=== PATIENT | male | born 1940 | race Caucasian/White ===

== ENCOUNTER 2019-03-19 11:56 | Emergency (ER) | payer MEDICARE, SELFPAY ==
[2019-03-19 12:12] VITALS: BP 160/64; PULSE 53; RESP 20; TEMP 36.5; O2SAT 100
--- NOTE | 2019-03-19 12:21 | ED.GENADULT ---
HPI - General Adult General Chief complaint: Skin/Abscess/Foreign Body Stated complaint: spider/insect bit top of left foot Time Seen by Provider: 03/19/19 12:23 Source: patient and RN notes reviewed Mode of arrival: ambulatory Limitations: no limitations History of Present Illness HPI narrative: This is a 78 years old male presented office for evaluation of itchy lesions on his left foot for several weeks. He believes to be a spider bite, however he did not witness it. He has tried [id number] Neosporin and Polysporin for his symptoms with no relief. Denies sick contact.He did not contact his doctor for this symptom.Tetanus within the last 10 years. Related Data Home Medications Medication Instructions Recorded Confirmed clopidogrel 75 mg tablet 75 mg PO DAILY 12/31/18 aspirin 03/19/19 irbesartan mg 03/19/19 Allergies Allergy/AdvReac Type Severity Reaction Status Date / Time aminophylline Allergy Severe DROP IN Verified 01/01/19 10:50 B/P, LOSS LOC. MALAISE FOR DAYS levofloxacin Allergy Intermediate Unknown Verified 01/01/19 10:50 erythromycin base Allergy Unknown Unknown Verified 01/01/19 10:50 Penicillins Allergy Unknown Unknown Verified 01/01/19 10:50 poison angella extract Allergy Unknown Unknown Verified 01/01/19 10:50 Review of Systems Review of Systems: Narrative: CONSTITUTIONAL: Denies fever or feeling ill ENT: Denies congestion CARDIOVASCULAR: Denies chest pain RESPIRATORY: Denies cough GASTROINTESTINAL: Denies nausea, vomiting SKIN: Reports itchy lesion which has gotten slightly bigger; but not painful. MUSCULOSKELETAL: Denies joints pain or foot injury NEUROLOGIC: Denies lightheaded or dizziness PMF Past Medical History Medical History (Updated 03/19/19 @ 12:48 by CORINNE García) Anxiety Coronary artery disease involving mary[place] igloo artery of transplanted heart without angina pectoris Essential (primary) hypertension Left carotid stenosis Lumbar spondylosis Male erectile dysfunction, unspecified Mixed hyperlipidemia Paroxysmal atrial fibrillation Pharyngoesophageal dysphagia Uncontrolled hypertension Varicose veins of both lower extremities Social History Social History Smoking status: Former smoker Alcohol intake: never Comments At time of signature, I agree with nursing past medical, surgical, social and family history. There is no relevant family history pertinent to the presenting complaint. Exam Narrative: Exam Narrative: GENERAL: This is a well-nourished, well-developed patient, in no apparent distress. CARDIOVASCULAR: Regular rate and rhythm without murmurs, gallops, or rubs. RESPIRATORY: Clear to auscultation. Breath sounds equal bilaterally. No wheezes, rales, or rhonchi. GASTROINTESTINAL: Abdomen soft, non-tender, nondistended. Bowel sounds are active. No hepato-splenomegaly, or palpable masses. No guarding. NEURO: awake, alert, and oriented to person, place and time. There were no obvious focal neurologic abnormalities. Steady gait EXTREMITIES:Left foot appear normal when comparing to right foot, no obvious edematous or deformity.Left dorsal thumb between third and fourth metacarpal noted grouped erythema, blanchable vesicular lesion without tenderness or warmth to palpation. No lymphadenitis. [place] Coma Scale Eye Opening: Spontaneous 4 [place] Coma Scale Motor: Obeys Commands 6 Natalya Coma Scale Verbal: Oriented 5 Course Vital Signs Vital signs: Vital Signs Temperature 97.7 F 03/19/19 12:12 Pulse Rate 53 L 03/19/19 12:12 Respiratory Rate 03/19/19 12:12 Blood Pressure 160/64 H 03/19/19 12:12 Pulse Oximetry 100 03/19/19 12:12 Temperature 97.7 F 03/19/19 12:12 Pulse Rate 53 L 03/19/19 12:12 Respiratory Rate 03/19/19 12:12 Blood Pressure 160/64 H 03/19/19 12:12 Pulse Oximetry 100 03/19/19 12:12 Medical Decision Making MDM Narrative Medical
== END 2019-03-19 12:40 | disposition home or self-care (01) ==
PROVIDERS: Emergency Provider Nurse Practitioner; PCP Family Medicine
DX: L30.9 Dermatitis, unspecified (principal); I10 Essential (primary) hypertension; F41.9 Anxiety disorder, unspecified; I25.110 Atherosclerotic heart disease of native coronary artery with unstable angina pectoris; Z94.1 Heart transplant status; I65.22 Occlusion and stenosis of left carotid artery; M47.816 Spondylosis without myelopathy or radiculopathy, lumbar region; E78.2 Mixed hyperlipidemia; I48.0 Paroxysmal atrial fibrillation; I83.93 Asymptomatic varicose veins of bilateral lower extremities; Z87.891 Personal history of nicotine dependence
CPT/HCPCS: 99213; G0463

== ENCOUNTER 2019-03-21 15:25 | Outpatient (CLI) | payer MEDICARE, SELFPAY ==
[2019-03-21 16:11] LABS: Hematocrit 42.7 % (42.0-52.0); Hemoglobin 13.7 g/dL (14.0-18.0); Mean Corpuscular HGB Conc 32.1 g/dl (32-36); Mean Corpuscular Hemoglobin 30.1 pg (26-34); Mean Corpuscular Volume 93.8 fl (80-100); Mean Platelet Volume 9.7 fl (7.4-10.4); Platelet Count Result 209 k/mm3 (150-375); Red Blood Count 4.55 M/mm3 (4.6-6.20); Red Cell Distribution Width 12.7 % (11.5-14.5); White Blood Count 7.1 K/mm3 (4.5-10.0)
[2019-03-21 16:28] LABS: Albumin Level 4.1 g/dL (3.5-5.1); Blood Urea Nitrogen 25 mg/dL (9-20); Calcium 8.8 mg/dL (8.4-10.2); Carbon Dioxide 30 mmol/L (22-30); Chloride 99 mmol/L (98-107); Estimated Glomerular Filt Rate > 60; Glucose 88 mg/dL (75-110); Magnesium 2.4 mg/dL (1.6-2.3); Phosphorus 3.6 mg/dL (2.5-4.5); Potassium 4.2 mmol/L (3.4-5.0); Sodium 138 mmol/L (137-145)
== END 2019-03-21 15:26 | disposition home or self-care (01) ==
LOC: ANHLAB 15:26
PROVIDERS: PCP Family Medicine; Visit Provider Internal Medicine Nephrology
DX: I10 Essential (primary) hypertension (principal)
CPT/HCPCS: 36415; 80069; 83735; 84443; 85027

== ENCOUNTER 2019-06-21 18:52 | Emergency (ER) | payer MEDICARE, SELFPAY ==
[2019-06-21 19:04] VITALS: BP 158/73; PULSE 57; RESP 16; TEMP 37; O2SAT 98
--- NOTE | 2019-06-21 19:12 | ED.EAR ---
HPI - Ear Problem General Chief complaint: Ear Stated complaint: Ear/nose/Throat Time Seen by Provider: 06/21/19 19:05 Source: patient and RN notes reviewed Mode of arrival: ambulatory Limitations: no limitations History of Present Illness HPI Narrative: Patient presents today complaining of bilateral ear clogging and decreased hearing x2 days with pain to the right ear. He has tried peroxide and debrox without relief. Reports history of cerumen impactions. States he has had itchiness in both ears recently as well. MD Complaint: decreased hearing Related Data Home Medications Medication Instructions Recorded Confirmed aspirin 03/19/19 irbesartan mg 03/19/19 Allergies Allergy/AdvReac Type Severity Reaction Status Date / Time aminophylline Allergy Severe DROP IN Verified 01/01/19 10:50 B/P, LOSS LOC. MALAISE FOR DAYS levofloxacin Allergy Intermediate Unknown Verified 01/01/19 10:50 erythromycin base Allergy Unknown Unknown Verified 01/01/19 10:50 Penicillins Allergy Unknown Unknown Verified 01/01/19 10:50 poison angella extract Allergy Unknown Unknown Verified 01/01/19 10:50 Review of Systems Review of Systems: Narrative: CONSTITUTIONAL: Denies body aches, fever, chills, or sweats. EYES: Denies visual changes, redness, or discharge. ENT: Denies rhinorrhea, congestion, sore throat. + Right ear pain, bilateral ear clogging and decreased hearing CARDIOVASCULAR: Denies chest pain, palpitations, or edema. RESPIRATORY: Denies cough or dyspnea. GASTROINTESTINAL: Denies abdominal pain, nausea, vomiting, or diarrhea. GENITOURINARY: Denies dysuria or hematuria. SKIN: Denies rash, itching, or wounds. MUSCULOSKELETAL: Denies back pain, joint pain, or myalgia. NEUROLOGIC: Denies headache, numbness, tingling, or weakness. PSYCH: Denies depression or anxiety. [facility] Past Medical History Medical History (Updated 06/21/19 @ 19:44 by Gina Lee, [facility], ) Anxiety Coronary artery disease involving beaver artery of transplanted heart without angina pectoris Essential (primary) hypertension Left carotid stenosis Lumbar spondylosis Male erectile dysfunction, unspecified Mixed hyperlipidemia Paroxysmal atrial fibrillation Pharyngoesophageal dysphagia Uncontrolled hypertension Varicose veins of both lower extremities Social History Social History (Reviewed 01/01/19 @ 10:48 by Pamela Lincoln Smoking status: Former smoker Alcohol intake: never Comments At time of signature, I have reviewed and agree with nursing past medical, surgical, social and family history unless otherwise noted. Please see nursing chart for further information. There is no relevant family history pertinent to the presenting complaint Exam Narrative: Exam Narrative: GENERAL: Well-appearing, well-nourished, and in no acute distress. HEAD: Normocephalic, atraumatic. EYES: EOMI. No redness or drainage. ENT: Mucous membranes pink and moist. Nares clear. Bilateral cerumen impactions NECK: Normal AROM. Supple. CHEST: No respiratory distress. EXTREMITIES: Normal range of motion. No edema. SKIN: Warm, dry, no rash. Capillary refill normal. Normal skin turgor. NEURO: No focal deficits. Alert and oriented x3. Gait steady. PSYCH: Normal affect. No signs of depression or anxiety. Course Vital Signs Vital signs: Vital Signs Temperature 98.6 F 06/21/19 19:04 Pulse Rate 57 L 06/21/19 19:04 Respiratory Rate 16 06/21/19 19:04 Blood Pressure 158/73 H 06/21/19 19:04 Pulse Oximetry 98 06/21/19 19:04 Temperature 98.6 F 06/21/19 19:04 Pulse Rate 57 L 06/21/19 19:04 Respiratory Rate 16 06/21/19 19:04 Blood Pressure 158/73 H 06/21/19 19:04 Pulse Oximetry 98 06/21/19 19:04 Reviewed. Pt has been instructed to follow up with his PCP regarding his elevated blood pressure today. Procedures Ear Wax Removal Both Ears: Ear Wax Removal Date: 06/21/19 Ear Wax Removal Time: 19:15
== END 2019-06-21 19:56 | disposition home or self-care (01) ==
PROVIDERS: Emergency Provider Nurse Practitioner; PCP Family Medicine
DX: H61.23 Impacted cerumen, bilateral (principal); E78.00 Pure hypercholesterolemia, unspecified; I10 Essential (primary) hypertension
CPT/HCPCS: 69210; 99212; G0463

== ENCOUNTER 2019-08-23 10:34 | Observation (INO) | payer MEDICARE, SELFPAY ==
[2019-08-23] VITALS (12 sets, daily range): BP systolic 119–192; BP diastolic 56–100; PULSE 48–153; RESP 13–20; TEMP 35.8–36.7; O2SAT 98–100; BMI 27.9
--- NOTE | ~2019-08-23 | XR_ITS ---
EXAMINATION: XR chest 2V DATE: 08/23/2019 11:32 INDICATION: Chest pain. TECHNIQUE: Frontal and lateral views of the chest were obtained. COMPARISON: Chest 2 views 12/07/2018, chest CT 12/07/2018 FINDINGS: The chest demonstrates clear lungs without pneumonia, pleural effusion, or pneumothorax. Th e heart size is normal. IMPRESSION: 1. No acute cardiopulmonary disease. Reviewed, dictated and finalized at location A.
--- NOTE | 2019-08-23 10:43 | ECG_ITS ---
Measurements Intervals [place] Rate: 133 P: [place]: 0 QRS: 38 QRSD: 105 T: 46 QT: 322 QTc: 479 Interpretive Statements ATRIAL FIBRILLATION WITH RAPID VENTRICULAR RESPONSE INCOMPLETE RIGHT BUNDLE BRANCH BLOCK ST-T WAVE ABNORMALITY IN ANTEROLAT/INF LEADS- CONSIDER ISCHEMIA ABNORMAL ECG Electronically Signed On 08-23-2019 12:06:48 CDT by Richard Alcaraz D.O.
--- NOTE | 2019-08-23 11:03 | ED.CHESTPAIN ---
HPI - Chest Pain General Chief Complaint: Chest Pain Stated Complaint: Chest Pain Time Seen by Provider: 08/23/19 10:42 History of Present Illness HPI narrative: Patient is a 78-year-old male who presents ER with chest pain and palpitations. Reports he was just sitting at the table when he had sudden onset pressure centrally. Reports history of an unknown arrhythmia, take plavix, and has seen a retail project merchandiser here thought he doesn't know the name. Denies any drug use or alcohol. No loss of consciousness. No distress at this time. Patient reports multiple stents in heart and carotids. No modifying factors for CP/SOA Related Data Home Medications Medication Instructions Recorded Confirmed aspirin [Adult Low Dose Aspirin] 81 mg PO DAILY 08/23/19 08/23/19 hydralazine 5 mg PO QID 08/23/19 08/23/19 rosuvastatin 20 mg PO DAILY 08/23/19 08/23/19 irbesartan 300 mg PO HS 08/24/19 08/24/19 Allergies Allergy/AdvReac Type Severity Reaction Status Date / Time aminophylline Allergy Severe DROP IN Verified 08/23/19 11:01 B/P, LOSS LOC. MALAISE FOR DAYS levofloxacin Allergy Intermediate Unknown Verified 08/23/19 11:01 erythromycin base Allergy Unknown Unknown Verified 08/23/19 11:01 Penicillins Allergy Unknown Unknown Verified 08/23/19 11:01 poison angella extract Allergy Unknown Unknown Verified 08/23/19 11:01 Review of Systems Review of Systems: All systems reviewed & are unremarkable except as noted in HPI and below Constitutional: Constitutional: Denies chills, Denies fever(s) and Denies weakness ENT: Denies nasal congestion and Denies sore throat Cardiovascular: Cardiovascular: Reports chest pain, Reports rapid heart rate and Denies radiating jaw, neck or arm pain Respiratory: Respiratory: Denies cough, Denies dyspnea and Denies wheezing Gastrointestinal: Gastrointestinal: Denies abdominal pain, Denies nausea and Denies vomiting [facility] Past Medical History Medical History (Updated 08/24/19 @ 19:42 by Darius Sheridan MD) Anxiety Cerebrovascular accident CT evidence of old lacunar infarctions. Patient had no symptoms of stroke. Colon polyps Coronary artery disease His LAD was stented in 1996, and it sounds as though he had 6 or 7 more stents placed in February 2016 at [place]. Hypertension Labile hypertension, now followed by Dr. Ayala. Left carotid stenosis Status post left carotid endarterectomy. Lumbar spondylosis With several bulging disc causing sciatica, mainly on the left side. Male erectile dysfunction, unspecified Mixed hyperlipidemia Paroxysmal atrial fibrillation Pharyngoesophageal dysphagia Varicose veins of both lower extremities Surgical History Surgical History (Updated 08/23/19 @ 23:56 by Estela Manriquez PA-C) History of arthroscopy of right knee (~08/2012) History of cardiac catheterization With PCI and stent x7. History of kidney surgery Patient had surgery on his right kidney at a young age for what sounds like nephroptosis. History of left-sided carotid endarterectomy Family History Family History (Updated 08/23/19 @ 23:57 by Estela Manriquez PA-C) Sibling Malignant neoplasm of prostate Emphysema lung Mother , Mother of an IA in her 60s. Acute myocardial infarction Father Amyotrophic lateral sclerosis Sibling Atrial fibrillation Coronary artery disease Other Family history of malignant neoplasm Social History Social History (Updated 08/23/19 @ 23:58 by Estela Manriquez PA-C) Social History: Surrogate decision maker: Obdulio Celis Jr., son. Code status: Full code. Smoking status: Never smoker Alcohol intake: never Substance use: never Additional living arrangements comments: Patient lives in his own home in [place]. He has a chihuahua at home with him. He is engaged and his fiancee will stay with him on occasion. He has 9 grown children. 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
[2019-08-23 11:05] LABS: Basophils Percent Auto 0.5 % (0.2-1.2); Eosinophils Absolute Auto 0.6 K/mm3 (0-0.3); Hematocrit 46.2 % (42.0-52.0); Hemoglobin 15.2 g/dL (14.0-18.0); Immature Granulocyte Absolute 0.02 K/mm3 (0.00-0.031); Immature Granulocyte Percent A 0.2 % (0-0.5); Lymphocytes Absolute Auto 3.21 K/mm3 (0.9-3.2); Lymphocytes Percent Auto 39.2 % (18.3-44.2); Mean Corpuscular HGB Conc 32.9 g/dl (32-36); Mean Corpuscular Hemoglobin 31.3 pg (26-34); Mean Corpuscular Volume 95.1 fl (80-100); Mean Platelet Volume 10.3 fl (7.4-10.4); Monocytes Absolute Auto 0.8 K/mm3 (0.1-0.6); Neutrophils Absolute Auto 3.5 K/mm3 (1.3-6.7); Neutrophils Percent Auto 43.1 % (45.5-73.1); Platelet Count Result 234 k/mm3 (150-375); Red Blood Count 4.86 M/mm3 (4.6-6.20); White Blood Count 8.2 K/mm3 (4.5-10.0)
--- NOTE | 2019-08-23 11:12 | PC.NURSE ---
Report to MARISOL Carlos, to continue care.
[2019-08-23 11:15] LABS: Blood Urea Nitrogen 26 mg/dL (9-20); Calcium 9.3 mg/dL (8.4-10.2); Carbon Dioxide 26 mmol/L (22-30); Chloride 103 mmol/L (98-107); Estimated Glomerular Filt Rate > 60; Glucose 108 mg/dL (75-110); Potassium 3.6 mmol/L (3.4-5.0); Prothrombin Time 12.6 Seconds (11.1-14.7); Sodium 138 mmol/L (137-145)
[2019-08-23 11:16] LABS: Partial Thromboplastin Time 27.4 SECONDS (22.3-36.8)
[2019-08-23] MEDS: dilTIAZem HCl INJ 25 MG/5 ML VIAL 10 MG IV PUSH (11:25)
[2019-08-23 11:27] LABS: Troponin I < 0.012 ng/mL (0.000-0.034)
[2019-08-23] MEDS: ASPIRIN 81 MG CHEWABLE TABLET 324 MG PO (11:56)
--- NOTE | 2019-08-23 11:59 | PC.NURSE ---
pt appeared to convert as dilt was starting vrbo to stop diltiazem from dr mayo
--- NOTE | 2019-08-23 12:11 | ECG_ITS ---
Measurements Intervals [place] Rate: 53 P: [place]: 0 QRS: 174 QRSD: 93 T: 146 QT: 411 QTc: 388 Interpretive Statements SINUS BRADYCARDIA WITH SINUS ARRHYTHMIA LIMB LEAD REVERSAL INCOMPLETE RIGHT BUNDLE BRANCH BLOCK BORDERLINE ECG Electronically Signed On 08-24-2019 7:59:12 CDT by Richard Alcaraz D.O.
[2019-08-23] MEDS: ENOXAPARIN 100 MG/ML SYRINGE 90 MG SUB-Q (14:07)
[2019-08-23 14:09] LABS: Troponin I 0.044 ng/mL (0.000-0.034)
--- NOTE | 2019-08-23 16:56 | ADMGEN ---
This patient, Obdulio Marroquin, was admitted to IMU Room 211-01 @ 1515. Patient/family oriented to hospital policies and general routines including ID bracelet, bed and alarms, visiting hours, pain management, procedures, bathroom and other care routines, personal items, smoking policy, room service/diet, and visiting hours. Valuables list has been completed. Information on how to activate the Rapid Response Team has been discussed. Patient/Family are encouraged to report perceived risks to care and to ask questions if they do not understand what they are told or what they should do.
[2019-08-23 17:37] LABS: Troponin I 0.095 ng/mL (0.000-0.034)
[2019-08-23] MEDS: CLOPIDOGREL BISULFATE 75 MG TABLET PO (22:07)
[2019-08-23] MEDS: hydroCHLOROthiazide 12.5 MG CAPSULE PO (22:07)
[2019-08-23] MEDS: ROSUVASTATIN 10 MG TABLET 20 MG PO (22:08)
[2019-08-23] MEDS: hydrALAZINE 5 MG TABLET PO (22:08)
--- NOTE | 2019-08-23 22:30 | PM.IMHP ---
H&P: HPI History of Present Illness Chief complaint: Chest tightness. Narrative: Obdulio Marroquin is 78-year-old male with coronary artery disease, hypertension, hyperlipidemia, carotid artery disease status post left carotid endarterectomy, and questionable history of atrial fibrillation who presented to the emergency department earlier this morning for evaluation of chest tightness. He was in his usual state of health when he woke this morning and not long prior to arrival, while reclined in bed, he developed sudden onset of diffuse squeezing, heavy, chest tightness in a bandlike fashion around his chest. He also felt some fluttering in his chest and reports that his heart rate was in the high 120s on his pulse oximeter. This is unusual for him as his resting heart rate is in the 40s to low 60s. He took 3 baby aspirin and came to the hospital, where he was found to be in atrial fibrillation with rapid ventricular response. He received IV diltiazem in the emergency department with subsequent jainism of sinus bradycardia. Thereafter the chest tightness resolved and he has not had a recurrence. He denies associated nausea, sweats, and shortness of breath. He is uncertain if he has a history of atrial fibrillation, but he was on Xarelto for a period of time. He has a history of benign thyroid nodules but no history of hyper or hypothyroidism. He denies alcohol and caffeine use. No known history of obstructive sleep apnea however he does admit that he does not sleep well at nighttime. It does sound like he gets up several times at night to urinate, however, and he denies orthopnea and PND. Also of note, the patient has been having labile blood pressures and is now seeing Dr. Ayala. At times he reports that his blood pressure will be over 200 systolic. He was started on hydralazine however that seems to work ?too well? and he has had problems with hypotension as well. In any regard, at the time my evaluation he has no active complaints. Review of Systems Review of Systems: Narrative: Twelve systems were reviewed with pertinent positives and negatives as per HPI. No fever, chills, or sweats. No recent cold or flu symptoms. He has occasional dysphagia and does suffer from indigestion almost daily. He will take Tums with some benefit. At times he feels a ?lump? in the middle of his chest that feels like a pressure sensation, that typically resolves with belching. Sometimes it is difficult for him to tell whether this discomfort is cardiac related or related to the indigestion. He also reports that sometimes while using the lawn more that he will have a pressure diffusely across his anterior chest, but not always. This occurred before and after his 7 stents were placed, and he has been told that the chest pressure is likely not cardiac in etiology. Except as documented, all other systems were reviewed and are negative. [facility] Past Medical History Medical History (Updated 08/24/19 @ 00:01 by Estela Manriquez PA-C) Anxiety Cerebrovascular accident CT evidence of old lacunar infarctions. Patient had no symptoms of stroke. Colon polyps Coronary artery disease His LAD was stented in 1996, and it sounds as though he had 6 or 7 more stents placed in February 2016 at [place]. Hypertension Labile hypertension, now followed by Dr. Ayala. Left carotid stenosis Status post left carotid endarterectomy. Lumbar spondylosis With several bulging disc causing sciatica, mainly on the left side. Male erectile dysfunction, unspecified Mixed hyperlipidemia Paroxysmal atrial fibrillation Pharyngoesophageal dysphagia Varicose veins of both lower extremities Surgical History Surgical History (Updated 08/23/19 @ 23:56 by Estela Manriquez PA-C) History of arthroscopy of right knee (~08/2012) History of cardiac catheterization With PCI and stent x7. History of kidney surgery Patient had surgery on his right kidney at a young age for what sounds like
[2019-08-23] MEDS: ENOXAPARIN 100 MG/ML SYRINGE 88 MG SUB-Q (23:39)
[2019-08-24] VITALS (17 sets, daily range): BP systolic 131–158; BP diastolic 55–65; PULSE 44–57; RESP 16–20; TEMP 36–36.6; O2SAT 99–100
[2019-08-24 05:02] LABS: Hematocrit 37.8 % (42.0-52.0); Hemoglobin 12.3 g/dL (14.0-18.0); Mean Corpuscular HGB Conc 32.5 g/dl (32-36); Mean Corpuscular Hemoglobin 30.8 pg (26-34); Mean Corpuscular Volume 94.7 fl (80-100); Mean Platelet Volume 10.3 fl (7.4-10.4); Platelet Count Result 172 k/mm3 (150-375); Red Blood Count 3.99 M/mm3 (4.6-6.20); Red Cell Distribution Width 13.1 % (11.5-14.5); White Blood Count 6.5 K/mm3 (4.5-10.0)
[2019-08-24 05:16] LABS: Alanine Aminotransferase 12 U/L (4-50); Albumin Level 3.4 g/dL (3.5-5.1); Alkaline Phosphatase 80 U/L (38-126); Aspartate Amino Transferase 18 U/L (17-59); Bilirubin,Total 0.5 mg/dL (0.2-1.3); Blood Urea Nitrogen 23 mg/dL (9-20); Calcium 8.3 mg/dL (8.4-10.2); Carbon Dioxide 27 mmol/L (22-30); Chloride 104 mmol/L (98-107); Estimated CRCL calculation 52 ml/min; Estimated Glomerular Filt Rate > 60; Glucose 98 mg/dL (75-110); Potassium 3.8 mmol/L (3.4-5.0); Sodium 136 mmol/L (137-145)
[2019-08-24] MEDS: ENOXAPARIN 100 MG/ML SYRINGE 88 MG SUB-Q (08:28)
[2019-08-24] MEDS: hydrALAZINE 5 MG TABLET PO ×4 (08:28→20:29)
[2019-08-24] MEDS: ASPIRIN 81 MG ENTERIC TABLET PO (08:28)
[2019-08-24] MEDS: ACETAMINOPHEN 325 MG TABLET 650 MG PO (08:40)
--- NOTE | 2019-08-24 13:29 | PM.CNCAR ---
Assessment and Plan Additional Plan 78-year-old gentleman with: Paroxysmal atrial fibrillation with moderately rapid ventricular response creating symptoms prompting emergency room evaluation last evening. Fortunately converted to sinus rhythm after being rate controlled with diltiazem and is currently asymptomatic. Coronary artery disease with multivessel interventions being done a number of years ago. Details of those are not available to me at the time of this dictation. Ongoing symptoms of exertional chest discomfort which sounds anginal by his description he may have some small-vessel disease because he states that the symptoms have not changed at all despite stenting many of his coronary arteries Recommendations are to discontinue clopidogrel since he has no recent PCI. I will add Xarelto although along with low-dose aspirin for systemic anticoagulation. I will start him on amiodarone at 400 mg daily in an attempt at treating his paroxysmal atrial fib. Explained to the patient that the long tissue half block of amiodarone will not extinguish this arrhythmia very quickly. We should avoid sotalol given his resting sinus bradycardia as well as type 1 C antiarrhythmic agents given his history of coronary artery disease. This is essentially leaves us with amiodarone as the most reasonable antiarrhythmic option. Consider discharge tomorrow if he is clinically stable and will arrange follow-up with our office after discharge Chris Ramirez MD [facility] History of Present Illness History of Present Illness Consult date/time: 08/24/19 13:29 Consult reason: atrial fibrillation Reason For Visit: Chest tightness. Narrative: This is a 78-year-old man I am seeing at the request of the hospitalist for assistance with evaluation and management of atrial fibrillation. Patient is not known to me prior to this consultation but apparently is known to other physicians in our practice as well as physicians at other hospitals as well. According to the patient he was feeling fairly well and suddenly noticed the onset of some shortness of breath and chest pain yesterday afternoon/evening. He was at home and noticed the symptoms with sedentary activity. He came to the hospital where he was found to be in atrial fibrillation with rapid ventricular response. Before he came to the hospital he checked his pulse with a pulse oximeter at home his oxygen levels were okay but his heart rate was 120-130 which he said is very unusual for him he usually in normal heart rhythm with heart rates in the 50s. In the emergency room he was of course treated with intravenous diltiazem. After he received a couple of doses of IV diltiazem as a bolus he abruptly converted back to normal sinus rhythm with heart rate 50-60 which is typical for him. When he converted to sinus he became asymptomatic. He was therefore not placed on a diltiazem infusion he was admitted to the hospital for further evaluation and management. He remains asymptomatic. Serial troponins were checked following admission which were very modestly elevated in my opinion not significantly elevated. He remains in normal sinus rhythm. The patient has a questionable history of atrial fibrillation in the past he states some physicians have felt that he has this and some do not. He does have a history of coronary artery disease. In the remote past he states he had a coronary stent performed at another hospital. About 4 years ago he was seen and evaluated at [facility] when he was referred there by his physician who I believe was jorge in [place]. He indicates that a wireline supervisor at [facility] placed at least 6 or 7 stents in his coronary arteries. Despite having a multiple stent procedure done he continues to have a syndrome of exertional chest tightness which has been stable and his physicians have told him is not related to coronary disease since all of his coronaries are open. He states that up until a couple of years ago he was
--- NOTE | 2019-08-24 13:38 | PM.IMPN ---
Progress Note: A&P Assessment and Plan (1) Atrial fibrillation with rapid ventricular response: Code(s): I48.91 - Unspecified atrial fibrillation Status: Acute Assessment and Plan: Received IV diltiazem bolus in the emergency department. He is now in sinus bradycardia. Begin amiodarone 400 mg daily and Xarelto per Dr. Ramirez. Discontinue Plavix. Will continue to monitor him on telemetry overnight. TSH is wnl. Apnea link has been ordered. (2) Chest tightness: Code(s): R07.89 - Other chest pain Status: Acute Assessment and Plan: Related to AFib with rapid ventricular response. Chest tightness resolved when he converted to sinus bradycardia. (3) Elevated troponin: Code(s): R79.89 - Other specified abnormal findings of blood chemistry Status: Acute Assessment and Plan: Troponin is very mildly elevated, likely due to atrial fibrillation with rapid ventricular response. Continue aspirin and statin. Clopidogrel has been discontinued. (4) Hypertension: Code(s): I10 - Essential (primary) hypertension Status: Acute Assessment and Plan: Patient reports labile hypertension is being followed by Dr. Ayala for this. Blood pressures were reviewed and it is noted that they are elevated when he is more anxious. BP have been reviewed and have improved today. Will continue his current antihypertensive medication regimen and monitor blood pressures closely. (5) Dysphagia: Code(s): R13.10 - Dysphagia, unspecified Status: Acute Assessment and Plan: Patient brings up concerns of dysphagia which have been ongoing for some time. He often feels that food gets hung up in his throat. I believe he would benefit from an EGD. Recommend follow up with PCP for referral. Subjective Date/time seen: 08/24/19 13:38 Interval history: Date of service: 08/24/2019 He is doing well today. He has not had any chest pain today. Yesterday, he was experiencing chest tightness all the way across his chest wall around to his back and somewhat to his left arm, as if someone was squeezing him. He denies jaw pain. He denies diaphoresis. His appetite is good. He denies dysphagia or odynophagia but he does bring up a history of such and feels that he would benefit from an EGD. He had a regular formed BM today. He is urinating regularly and denies dysuria or hematuria. He denies weakness, dizziness, or lightheadedness. He feels a bit fatigued today but believes this is from the stress of events yesterday and him being in the hospital. Review of Systems Review of Systems: Narrative: A 12 point review of systems was reviewed with pertinent positives and negatives as per HPI. Exam Narrative: Exam Narrative: Mr. Marroquin is examined today in the presence of his . He is a well nourished 78 year old male who is sitting up in the chair. He appears comfortable and is in NARD. HR 47, BP 143/63, RR 20, T 96.8, 99% on room air Neuro: awake, alert and oriented x4, speech clear, no focal neuro deficits noted HEENMT: normocephalic, atraumatic, EOMI, sclerae anicteric, moist oral mucosa Neck: supple, no lymphadenopathy Respiratory: clear to auscultation bilaterally, normal respiratory effort without accessory muscle use Cardio: bradycardic, regular rhythm, normal S1 and S2 Abdomen: normal to inspection, nondistended, normoactive bowel sounds, soft, nontender to palpation Extremities: BLE without edema, erythema, or tenderness to palpation, dorsal pedis pulses palpable bilaterally Skin: no rashes or lesions, warm and dry Psych: appropriate mood and affect, pleasant and cooperative Objective Data Vital Signs Vital Signs: Vital Signs - 24 hr 08/23/19 15:15 08/23/19 16:00 08/23/19 18:00 Temperature 97.5 F L Pulse Rate 48 L 56 L 51 L Respiratory Rate 20 Blood Pressure 138/58 L Pulse Oximetry 100 08/23/19 20:00 08/23/19 22:00
[2019-08-24] MEDS: AMIODARONE HCL 200 MG TABLET 400 MG PO (15:05)
[2019-08-24] MEDS: RIVAROXABAN 20 MG TABLET PO (17:19)
[2019-08-24] MEDS: ROSUVASTATIN 10 MG TABLET 20 MG PO (20:29)
[2019-08-24] MEDS: hydroCHLOROthiazide 12.5 MG CAPSULE PO (20:29)
[2019-08-24] MEDS: IRBESARTAN 150 MG TABLET 300 MG PO (20:31)
[2019-08-25] VITALS (9 sets, daily range): BP systolic 124–163; BP diastolic 57–69; PULSE 42–54; RESP 14–20; TEMP 36.2–36.6; O2SAT 97–100
[2019-08-25] MEDS: ASPIRIN 81 MG ENTERIC TABLET PO (08:11)
[2019-08-25] MEDS: AMIODARONE HCL 200 MG TABLET 400 MG PO (08:11)
[2019-08-25] MEDS: hydrALAZINE 5 MG TABLET PO ×2 (08:11→12:27)
--- NOTE | 2019-08-25 13:00 | PM.PNCARD ---
Progress Note: A&P Additional Plan 78-year-old man with ischemic heart disease paroxysmal atrial fibrillation. He is now being treated with amiodarone and Xarelto. Patient clinically is stable and is reasonable for discharge today. Long discussion with the patient's about the long tissue half-life of amiodarone in the fact that he should not be surprised if he has episodes of palpitations indicating persistent episodes of atrial fib for the 1st month or 2 as the drug is being initiated. I will see that appropriate follow-up in our office is scheduled with Dr. Tirado who follows him regular Chris Ramirez MD [facility] Subjective Date/time seen: Date of service: 08/25/19 13:00 Interval history: Follow-up visit in this 78-year-old man with coronary artery disease now known to have paroxysmal atrial fibrillation. Asymptomatic offers no cardiovascular complaints maintaining sinus rhythm. Started on Xarelto and amiodarone yesterday Exam Const: General: comfortable HENMT: Mouth: Yes moist mucous membranes Eyes: Sclera: sclerae normal Pupils: Equal, round and reactive pupils present Neck: Neck: supple and no JVD Thyroid: thyroid normal Resp: Effort & Inspection: normal respiratory effort Auscultation: clear to auscultation bilaterally Cardio: Rate: regular rate Rhythm: regular rhythm GI: Auscultation: normal bowel sounds Skin: General skin exam: normal color Neuro: Cognition (Neuro): normal cognition Extrem: General: normal to inspection Objective Data Vital Signs Vital Signs: Vital Signs - 24 hr 08/24/19 14:00 08/24/19 15:00 08/24/19 15:05 Temperature Pulse Rate 52 L 50 L 54 L Respiratory Rate Blood Pressure Pulse Oximetry 08/24/19 16:00 08/24/19 18:28 08/24/19 20:00 Temperature 36.3 C L 36.6 C Pulse Rate 46 L 50 L 51 L Respiratory Rate 18 18 Blood Pressure 148/65 H 147/64 H Pulse Oximetry 100 99 08/24/19 22:00 08/25/19 00:00 08/25/19 02:00 Temperature 36.6 C Pulse Rate 44 L 44 L 43 L Respiratory Rate 18 Blood Pressure 152/63 H Pulse Oximetry 97 08/25/19 04:00 08/25/19 05:37 08/25/19 08:00 Temperature 36.2 C L 36.3 C L Pulse Rate 44 L 44 L 45 L Respiratory Rate 20 14 Blood Pressure 144/58 H 163/69 H Pulse Oximetry 98 100 08/25/19 08:11 08/25/19 10:00 08/25/19 12:00 Temperature 36.4 C L Pulse Rate 49 L 54 L 44 L Respiratory Rate 14 Blood Pressure 124/57 L Pulse Oximetry 99 Intake/Output Intake/Output: Intake & Output 08/22/19 08/23/19 08/24/19 08/25/19 23:59 23:59 23:59 23:59 Intake Total 120 2145 440 Output Total 820 967 8778 Balance -605 1195 -1210 Meds/Results Medications: Active Medications Generic Name Dose Route Start Last Admin Trade Name Freq PRN Reason Stop Dose Admin Acetaminophen 650 mg 08/23/19 13:19 08/24/19 08:40 Tylenol Tablet PO 650 mg Q4H PRN Administration Mild Pain (1-3) or Fever Hydrocodone Bitart/Acetaminophen 1 tab 08/23/19 13:19 [place] 5-325 Mg PO Q4H PRN Pain Rated 4-6 Amiodarone HCl 400 mg 08/24/19 13:30 08/25/19 08:11 Pacerone PO 400 mg DAILY@0800 MAX Administration Aspirin 81 mg 08/24/19 09:00 08/25/19 08:11 Aspirin Ec PO 81 mg DAILY MAX Administration Hydralazine HCl 5 mg 08/24/19 08:00 08/25/19 12:27 Apresoline Tablet PO 5 mg WMHS MAX Administration Hydrochlorothiazide 12.5 mg 08/23/19 22:00 08/24/19 20:29 Hydrochlorothiazide PO 12.5 mg HS MAX Administration Irbesartan 300 mg 08/24/19 21:00 08/24/19 20:31 Avapro PO 300 mg HS MAX Administration Morphine Sulfate 4 mg 08/23/19 13:19 Morphine Sulfate Inj IV PUSH Q2H PRN Pain Rated 7-10 Promethazine HCl 12.5 mg 08/23/19 13:19 Phenergan Inj IV PUSH Q6H PRN Nausea Rivaroxaban 20 mg 08/24/19 17:00 08/24/19 17:19 Xarelto PO 20 mg DAILY@1700 MAX Administration Rosuvastatin Calcium 20 mg
--- NOTE | 2019-08-25 13:59 | PM.DS ---
DS: Admitting Diagnosis Admitting Diagnosis Admitting Diagnosis: Unspecified atrial fibrillation DS: Discharge Diagnosis Discharge Diagnosis (1) Atrial fibrillation with rapid ventricular response: Code(s): I48.91 - Unspecified atrial fibrillation Status: Acute Assessment and Plan: At presentation, HR was in the 140s. He received IV diltiazem bolus in the emergency department and returned to sinus bradycardia. TSH was wnl. He was seen in consultation by cardiology and will begin amiodarone 400 mg daily and Xarelto per Dr. Ramirez. His Plavix was discontinued. He will follow up with Dr. Tirado as an outpatient. (2) Chest tightness: Code(s): R07.89 - Other chest pain Status: Acute Assessment and Plan: Most likely related to AFib with rapid ventricular response. Tightness resolved when he converted to sinus bradycardia. Continue management as above. (3) Elevated troponin: Code(s): R79.89 - Other specified abnormal findings of blood chemistry Status: Acute Assessment and Plan: Troponin was very mildly elevated, likely due to atrial fibrillation with rapid ventricular response. He will continue aspirin and statin. Clopidogrel has been discontinued. (4) Hypertension: Code(s): I10 - Essential (primary) hypertension Status: Acute Assessment and Plan: Patient reports labile hypertension and is being followed by Dr. Ayala for this. Blood pressures were reviewed and it is noted that they are elevated when he is more anxious. BP was fluctuant during stay but generally, readings were acceptable. Continue his current antihypertensive medication regimen. I discussed with him monitoring his BP several times per week and recording. (5) Dysphagia: Code(s): R13.10 - Dysphagia, unspecified Status: Acute Assessment and Plan: Patient brings up complaints of dysphagia which have been ongoing for some time. He often feels that food gets hung up in his throat. I believe he would benefit from an EGD, and instructed him to discuss this with his PCP. DS: Summary Hospital Course Reason for hospitalization: Chest tightness Hospital Course: Date of admission: 08/23/2019 Date of discharge: 08/25/2019 Obdulio Marroquin is a 78-year-old male with a past medical history of coronary artery disease, hypertension, hyperlipidemia, carotid artery disease status post left carotid endarterectomy, and paroxysmal atrial fibrillation who presented to the emergency department on 08/23/2019 for evaluation of chest tightness. Upon awakening in the morning he developed a sudden onset of diffuse wheezing, heavy chest tightness in a bandlike fashion around his chest as well as some fluttering in his chest. He checked his heart rate and reports it was in the high 120s. His tightness resolved after a dose of IV diltiazem in the ED after which he restored sinus bradycardia. At presentation, his heart rate was 140. Additional vitals were stable, WBC 6.5, H&H 12.3 and 37.8, sodium 136, potassium 3.8, BUN 23, creatinine 1.1, INR 1.0, and troponin <0.012. He was admitted to the hospitalist service and was seen in consultation by cardiology. He was initiated on amiodarone, as well as Xarelto. His Plavix was discontinued. He remained in sinus bradycardia. He had no additional episodes of chest pain or tightness. His heart rate remained well controlled and in sinus rhythm. He will need to follow-up with his ordnance engineering technician in the office. He will also need to follow-up with his PCP in 1-2 weeks. Given his stabilization, he was determined to no longer require inpatient care. We discussed worrisome signs and symptoms for which he should return and we discussed his new medications. All of his questions were answered, and he felt comfortable with discharge. He was discharged home in hemodynamically stable condition on the afternoon of 08/25/2019. Please see above for further deta
== END 2019-08-25 14:34 | disposition home or self-care (01) ==
LOC: ANHED 13:33 → ANHIMU 13:53
PROVIDERS: Physician Assistant; Admitting Provider Family Medicine; Emergency Provider Emergency Medicine; PCP Family Medicine; Visit Provider Internal Medicine
DX: I48.0 Paroxysmal atrial fibrillation (principal); R07.89 Other chest pain; R79.89 Other specified abnormal findings of blood chemistry; I25.10 Atherosclerotic heart disease of native coronary artery without angina pectoris; I10 Essential (primary) hypertension; R13.10 Dysphagia, unspecified; E78.2 Mixed hyperlipidemia; M47.816 Spondylosis without myelopathy or radiculopathy, lumbar region; F41.9 Anxiety disorder, unspecified; Z86.73 Personal history of transient ischemic attack (TIA), and cerebral infarction without residual deficits; Z95.5 Presence of coronary angioplasty implant and graft; Z79.02 Long term (current) use of antithrombotics/antiplatelets; Z79.82 Long term (current) use of aspirin
CPT/HCPCS: 36415; 71046; 80048; 80053; 84443; 84484; 85025; 85027; 85610; 85730; 93005; 94762; 96372; 96374; 99285; A9270; G0378; J1650

== ENCOUNTER 2019-08-28 10:03 | Outpatient (CLI) | payer MEDICARE, SELFPAY ==
--- NOTE | ~2019-08-28 | CT_ITS ---
EXAMINATION: CTA abdomen DATE: 08/28/2019 10:55 INDICATION: Hypertension. TECHNIQUE: Computed tomographic angiography (CTA) of the abdomen was performed with 100 mL Omnipaque- 350 intravenous contrast. Automated exposure control and iterative reconstruction technique were empl oyed. The dose-length product was 369.25 mGy-cm. Maximum intensity projection 3D-reconstructions of t he aorta and other arteries were constructed by the technologist on a separate workstation. COMPARISON: CT abdomen 06/05/2006 FINDINGS: The visualized portions of the lung bases demonstrate mild atelectasis. No pleural effusion . The heart size is normal. There are coronary artery calcifications. No pericardial effusion. There is a 5 mm cyst in the liver. The gallbladder is normal. Calcifications in the spleen are consistent w ith old granulomatous disease. The pancreas, adrenal glands, and right kidney are normal. There is a 1.9 cm cyst in left kidney. There are no dilated loops of bowel. There are no pathologically enlarged lymph nodes. There is no free intraperitoneal fluid. Abdominal aorta is normal in caliber. There is mild stenosis of celiac axis and superior mesenteric artery. There are 2 right-sided renal arteries w ith mild stenosis of the origin of one of the arteries. There is no significant stenosis of left shanice l artery. There is no significant stenosis of inferior mesenteric artery. There is moderate lower lum bar spondylosis. IMPRESSION: 1. No significant renal artery stenosis. Reviewed, dictated and finalized at location A.
== END 2019-08-28 10:04 | disposition home or self-care (01) ==
PROVIDERS: PCP Family Medicine; Visit Provider Internal Medicine Nephrology
DX: I10 Essential (primary) hypertension (principal)
CPT/HCPCS: 74175; Q9967

== ENCOUNTER 2019-09-03 22:09 | Emergency (ER) | payer MEDICARE, SELFPAY ==
[2019-09-03 22:14] VITALS: BP 203/64; PULSE 64; RESP 18; TEMP 36.8; O2SAT 100
--- NOTE | 2019-09-03 22:14 | ED.CHESTPAIN ---
HPI - Chest Pain General Chief Complaint: Chest Pain Stated Complaint: b/p up, chest discomfort Time Seen by Provider: 09/03/19 22:14 History of Present Illness HPI narrative: 78 yo male w/ htn, a-fib presents to the ED for hypertension. He notes that he checked his BP this afternoon and it was a little elevated. He then checked it a few more times and each time it was higher. He says that when he first checked it he was feeling a bit dizzy and later he may have had a little discomfort in his chest. He was recently admitted to the hospital for a-fib w/ RVR. He had veda medications adjusted. During the hospitalization he had labile blood pressure thought mostly due to anxiety. Related Data Home Medications Medication Instructions Recorded Confirmed aspirin [Adult Low Dose Aspirin] 81 mg PO DAILY 08/23/19 08/23/19 hydralazine 5 mg PO QID 08/23/19 08/23/19 rosuvastatin 20 mg PO DAILY 08/23/19 08/23/19 irbesartan 300 mg PO HS 08/24/19 08/24/19 Allergies Allergy/AdvReac Type Severity Reaction Status Date / Time aminophylline Allergy Severe DROP IN Verified 09/03/19 23:44 B/P, LOSS LOC. MALAISE FOR DAYS levofloxacin Allergy Intermediate Unknown Verified 09/03/19 23:44 erythromycin base Allergy Unknown Unknown Verified 09/03/19 23:44 Penicillins Allergy Unknown Unknown Verified 09/03/19 23:44 poison angella extract Allergy Unknown Unknown Verified 09/03/19 23:44 Review of Systems Review of Systems: All systems reviewed & are unremarkable except as noted in HPI and below PMFSH Past Medical History Medical History Anxiety Cerebrovascular accident CT evidence of old lacunar infarctions. Patient had no symptoms of stroke. Colon polyps Coronary artery disease His LAD was stented in 1996, and it sounds as though he had 6 or 7 more stents placed in February 2016 at [place]. Hypertension Labile hypertension, now followed by Dr. Ayala. Left carotid stenosis Status post left carotid endarterectomy. Lumbar spondylosis With several bulging disc causing sciatica, mainly on the left side. Male erectile dysfunction, unspecified Mixed hyperlipidemia Paroxysmal atrial fibrillation Pharyngoesophageal dysphagia Varicose veins of both lower extremities Surgical History Surgical History History of arthroscopy of right knee (~08/2012) History of cardiac catheterization With PCI and stent x7. History of kidney surgery Patient had surgery on his right kidney at a young age for what sounds like nephroptosis. History of left-sided carotid endarterectomy Family History Family History Sibling Malignant neoplasm of prostate Emphysema lung Mother , Mother of an [place] in her 60s. Acute myocardial infarction Father Amyotrophic lateral sclerosis Sibling Atrial fibrillation Coronary artery disease Other Family history of malignant neoplasm Social History Social History Social History: Surrogate decision maker: Obdulio Celis Jr., son. Code status: Full code. Smoking status: Never smoker Alcohol intake: never Substance use: never Additional living arrangements comments: Patient lives in his own home in [place]. He has a chihuahua at home with him. He is engaged and his fiancee will stay with him on occasion. He has 9 grown children. 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 Gender identity (if verbalized by the patient): Male Spiritual care concerns: No Exam Const: General: healthy appearing, no acute distress and alert Orientation/consciousness: patient oriented x3 HENMT: Mouth: Yes dry mucous membranes Neck: Neck: normal visual inspection and no lympha
--- NOTE | 2019-09-03 22:16 | ECG_ITS ---
Measurements Intervals [place] Rate: 59 P: 51 VA: 188 QRS: 3 QRSD: 113 T: 48 QT: 449 QTc: 446 Interpretive Statements SINUS BRADYCARDIA INCOMPLETE RIGHT BUNDLE BRANCH BLOCK BASELINE ARTIFACT- I, II, III, AVF BORDERLINE ECG Electronically Signed On 09-05-2019 14:17:34 CDT by Richard Alcaraz D.O.
[2019-09-03] MEDS: SODIUM CHLORIDE 0.9% IV 500 ML 999 ML IV CONT (22:34)
[2019-09-03 22:39] VITALS: BP 195/73; PULSE 55; RESP 20; O2SAT 100
[2019-09-03 22:39] LABS: Basophils Absolute Auto 0.1 K/mm3 (0.0-0.1); Basophils Percent Auto 0.5 % (0.2-1.2); Eosinophils Absolute Auto 0.3 K/mm3 (0-0.3); Eosinophils Percent Auto 3.5 % (0-4.4); Hematocrit 41.3 % (42.0-52.0); Hemoglobin 13.6 g/dL (14.0-18.0); Immature Granulocyte Absolute 0.03 K/mm3 (0.00-0.031); Immature Granulocyte Percent A 0.3 % (0-0.5); Lymphocytes Absolute Auto 3.04 K/mm3 (0.9-3.2); Lymphocytes Percent Auto 32.8 % (18.3-44.2); Mean Corpuscular HGB Conc 32.9 g/dl (32-36); Mean Corpuscular Volume 94.1 fl (80-100); Mean Platelet Volume 10.4 fl (7.4-10.4); Monocytes Absolute Auto 0.9 K/mm3 (0.1-0.6); Monocytes Percent Auto 9.5 % (2.6-8.5); Neutrophils Absolute Auto 4.9 K/mm3 (1.3-6.7); Neutrophils Percent Auto 53.4 % (45.5-73.1); Platelet Count Result 207 k/mm3 (150-375); Red Blood Count 4.39 M/mm3 (4.6-6.20); Red Cell Distribution Width 12.7 % (11.5-14.5); White Blood Count 9.3 K/mm3 (4.5-10.0)
[2019-09-03 22:49] LABS: INR 1.8; Prothrombin Time 20.8 Seconds (11.1-14.7)
[2019-09-03 22:50] LABS: Partial Thromboplastin Time 41.4 SECONDS (22.3-36.8)
[2019-09-03 22:52] LABS: Anion Gap 13.6 mmol/L (7-16); Blood Urea Nitrogen 16 mg/dL (9-20); Calcium 8.7 mg/dL (8.4-10.2); Carbon Dioxide 27 mmol/L (22-30); Chloride 97 mmol/L (98-107); Estimated Glomerular Filt Rate 54; Glucose 109 mg/dL (75-110); Potassium 3.6 mmol/L (3.4-5.0); Sodium 134 mmol/L (137-145)
[2019-09-03 23:04] LABS: Troponin I < 0.012 ng/mL (0.000-0.034)
[2019-09-03 23:40] VITALS: BP 192/71; PULSE 51; RESP 16; O2SAT 100
[2019-09-04 00:23] VITALS: BP 145/60; PULSE 51; RESP 16; O2SAT 98
[2019-09-04 01:32] VITALS: BP 151/63; PULSE 52; RESP 16; O2SAT 98
[2019-09-04 01:44] LABS: Troponin I < 0.012 ng/mL (0.000-0.034)
[2019-09-04 02:09] VITALS: BP 152/69; PULSE 53; RESP 16; TEMP 36.8; O2SAT 99
== END 2019-09-04 02:10 | disposition home or self-care (01) ==
PROVIDERS: Emergency Provider Emergency Medicine; PCP Family Medicine
DX: R09.89 Other specified symptoms and signs involving the circulatory and respiratory systems (principal); F41.9 Anxiety disorder, unspecified; Z86.73 Personal history of transient ischemic attack (TIA), and cerebral infarction without residual deficits; I25.10 Atherosclerotic heart disease of native coronary artery without angina pectoris; I10 Essential (primary) hypertension; I48.91 Unspecified atrial fibrillation
CPT/HCPCS: 36415; 80048; 84484; 85025; 85610; 85730; 93005; 96361; 96374; 99284; J2060; J7040

== ENCOUNTER 2019-12-26 05:17 | Emergency (ER) | payer MEDICARE, SELFPAY ==
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
[2019-12-26 05:23] VITALS: BP 195/77; PULSE 70; RESP 17; O2SAT 99
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
--- NOTE | 2019-12-26 05:41 | PC.NURSE ---
Patient to CT
[2019-12-26] MEDS: OXYMETAZOLINE HCL 0.05% NAS 15 ML BTL (*BKC) 1 SPRAY (05:58)
[2019-12-26 06:46] VITALS: BP 185/62; PULSE 56; RESP 16; O2SAT 96
== END 2019-12-26 06:48 | disposition home or self-care (01) ==
PROVIDERS: Emergency Provider Emergency Medicine; PCP Family Medicine
DX: S01.81XA Laceration without foreign body of other part of head, initial encounter (principal); R04.0 Epistaxis; Z86.73 Personal history of transient ischemic attack (TIA), and cerebral infarction without residual deficits; Z86.010 Personal history of colon polyps; I25.10 Atherosclerotic heart disease of native coronary artery without angina pectoris; I10 Essential (primary) hypertension; E78.2 Mixed hyperlipidemia; I48.0 Paroxysmal atrial fibrillation; Z95.5 Presence of coronary angioplasty implant and graft; W22.03XA Walked into furniture, initial encounter
CPT/HCPCS: 12011; 70450; 99284; A9270

== ENCOUNTER 2020-01-07 17:39 | Outpatient (CLI) | payer MEDICARE, SELFPAY ==
[2020-01-07 18:42] LABS: Albumin Level 4.1 g/dL (3.5-5.1); Anion Gap 6 mmol/L (8-16); Blood Urea Nitrogen 24 mg/dL (9-20); Calcium 8.8 mg/dL (8.4-10.2); Carbon Dioxide 33 mmol/L (22-30); Chloride 99 mmol/L (98-107); Estimated Glomerular Filt Rate 49; Glucose 105 mg/dL (75-110); Phosphorus 3.2 mg/dL (2.5-4.5); Potassium 3.9 mmol/L (3.4-5.0); Sodium 138 mmol/L (137-145)
[2020-01-07 18:43] LABS: Creatinine Urine 128.7 mg/dL; Total Protein Urine Random 8 mg/dL
== END 2020-01-07 17:40 | disposition home or self-care (01) ==
LOC: ANHLAB 17:41
PROVIDERS: PCP Family Medicine; Visit Provider Internal Medicine Nephrology
DX: I10 Essential (primary) hypertension (principal)
CPT/HCPCS: 36415; 80069; 82570; 84156

== ENCOUNTER 2020-02-20 17:20 | Outpatient (CLI) | payer MEDICARE, SELFPAY ==
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
== END 2020-02-20 17:21 | disposition home or self-care (01) ==
PROVIDERS: PCP Family Medicine; Visit Provider Family Medicine
DX: M62.838 Other muscle spasm (principal); M47.892 Other spondylosis, cervical region
CPT/HCPCS: 72040; 72070

== ENCOUNTER → 2020-03-27 09:05 | Outpatient (CLI) | payer MEDICARE, SELFPAY ==
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
== END ==
PROVIDERS: Visit Provider Family Medicine
DX: M47.812 Spondylosis without myelopathy or radiculopathy, cervical region (principal); R22.0 Localized swelling, mass and lump, head
CPT/HCPCS: 72141

== ENCOUNTER 2020-04-06 12:46 | Outpatient (CLI) | payer MEDICARE, SELFPAY ==
[2020-04-06 13:26] LABS: Creatinine Urine 148.4 mg/dL; Total Protein Urine Random 10 mg/dL; Ur Ttl Prot Creatinine Ratio 0.07 mg/mg (0-0.20)
[2020-04-06 13:55] LABS: Prostate Specific Antigen 1.8 ng/mL (< OR = 4.0)
[2020-04-06 17:55] LABS: Anion Gap 4 mmol/L (8-16); Blood Urea Nitrogen 26 mg/dL (9-20); Carbon Dioxide 33 mmol/L (22-30); Chloride 104 mmol/L (98-107); Estimated Glomerular Filt Rate 49; Glucose 88 mg/dL (75-110); Phosphorus 3.1 mg/dL (2.5-4.5); Potassium 3.9 mmol/L (3.4-5.0); Sodium 141 mmol/L (137-145)
== END 2020-04-06 12:47 | disposition home or self-care (01) ==
PROVIDERS: PCP Family Medicine; Referring Provider Internal Medicine Nephrology; Visit Provider Nurse Practitioner Family
DX: Z12.5 Encounter for screening for malignant neoplasm of prostate (principal); I10 Essential (primary) hypertension
CPT/HCPCS: 36415; 80069; 82570; 84153; 84156; G0103

== ENCOUNTER → 2020-05-17 00:19 | Outpatient (CLI) | payer MEDICARE, SELFPAY ==
[2020-05-17 19:29] LABS: SARS-CoV-2 RNA PCR Negative
== END ==
PROVIDERS: PCP Family Medicine; Visit Provider Internal Medicine Gastroenterology
DX: Z01.812 Encounter for preprocedural laboratory examination (principal); Z20.822 Contact with and (suspected) exposure to COVID-19
CPT/HCPCS: C9803; U0003; U0005

== ENCOUNTER 2020-05-20 00:11 | Day surgery (SDC) | payer MEDICARE, SELFPAY ==
[2020-05-11 10:09] VITALS: BMI 27.8
[2020-05-20 07:01] VITALS: BP 142/71; PULSE 55; RESP 18; TEMP 36.5; O2SAT 99; BMI 27.4
[2020-05-20] MEDS: LACTATED RINGERS 1,000 ML 150 ML IV CONT (07:11)
--- NOTE | 2020-05-20 07:11 | WPDANESEPP ---
Anes - Eval Pre Procedure Procedure: Operation Date: 05/20/20 08:00 Proposed Procedures p Esophagogastroduodenoscopy & Colonoscopy - Azael PhillGildardo Mcintyre DO Date/Time: 05/20/20 07:11 Pre Op Diagnosis: Slow Transit Constipation, GERD Patient Data Age: 79 Gender: M Height: 1.78 m Weight: 86.7 kg Last Vital Signs Temp 36.5 C 05/20/20 07:01 Pulse 55 L 05/20/20 07:01 Resp 18 05/20/20 07:01 BP 142/71 H 05/20/20 07:01 Pulse Ox 99 05/20/20 07:01 Allergies Allergy/AdvReac Type Severity Reaction Status Date / Time aminophylline Allergy Severe DROP IN Verified 05/20/20 07:00 B/P, LOSS LOC. MALAISE FOR DAYS levofloxacin Allergy Intermediate Unknown Verified 05/20/20 07:00 Penicillins Allergy Unknown Unknown Verified 05/20/20 07:00 poison angella extract Allergy Unknown Unknown Verified 05/20/20 07:00 Home Medications Medication Instructions Recorded Confirmed Type aspirin [Adult Low Dose Aspirin] 81 mg PO DAILY 08/23/19 05/11/20 History rivaroxaban [Xarelto] 20 mg PO DAILY@1700 #30 tablet 08/25/19 05/20/20 Rx lorazepam 0.5 mg tablet 0.5 mg PO DAILY PRN #30 tablet 12/26/19 05/11/20 Rx azilsartan medoxomil 40 1 tablet PO DAILY #90 tablet 02/25/20 05/11/20 Rx mg-chlorthalidone 12.5 mg tablet famotidine 20 mg tablet 20 mg PO DAILY 04/29/20 05/11/20 History Patient hx anesthesia problems: none Family hx anesthesia problems: none PMFSH Past Medical History Medical History Anxiety Anxiety about health BMI 27.0-27.9,adult Cerebrovascular accident CT evidence of old lacunar infarctions. Patient had no symptoms of stroke. Cervical paraspinal muscle spasm Cervical spondylosis Colon polyps Coronary artery disease His LAD was stented in 1996, and it sounds as though he had 6 or 7 more stents placed in February 2016 at [place]. Hypertension Labile hypertension, now followed by Dr. Ayala. Left carotid stenosis Status post left carotid endarterectomy. Lumbar spondylosis With several bulging disc causing sciatica, mainly on the left side. Male erectile dysfunction, unspecified Mass in neck Mixed hyperlipidemia Paroxysmal atrial fibrillation Pharyngoesophageal dysphagia Varicose veins of both lower extremities Surgical History Surgical History History of arthroscopy of right knee (~08/2012) History of cardiac catheterization With PCI and stent x7. History of kidney surgery Patient had surgery on his right kidney at a young age for what sounds like nephroptosis. History of left-sided carotid endarterectomy Family History Family History Sibling Malignant neoplasm of prostate Emphysema lung Mother , Mother of an MD in her 60s. Acute myocardial infarction Father Amyotrophic lateral sclerosis Sibling Atrial fibrillation Coronary artery disease Other Family history of malignant neoplasm Social History Social History Social History: Surrogate decision maker: Obdulio Celis Jr., son. Code status: Full code. Smoking status: Never smoker Alcohol intake: never Substance use: never Substance use type: does not use Living arrangements: with family Additional living arrangements comments: Patient lives in his own home in [place]. He has a chihuahua at home with him. He is engaged and his fiancee will stay with him on occasion. He has 9 grown children. 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 Gender identity (if verbalized by the patient): Male Spiritual care concerns: No Exam Day of Procedure 05/20/20 07:11
--- NOTE | 2020-05-20 07:30 | WPDGICN ---
GI Consult Note Consult date/time: 05/20/20 07:30 HPI: This very pleasant gentleman seen in consultation at the request of the primary physician. Reason for visit is EGD and colonoscopy. Impression: Here a gentleman with history of reflux disease. Evaluate for lying erosive esophagitis. Patient does have chronic constipation. This is most likely idiopathic. He does have a history of colon polyps. He is here for colonoscopy. Coronary artery disease status post angioplasty with stent placement x1, x1, x6. HTN. HLD. Anxiety. Carotid artery disease. AFib. Recommendation: EGD and colonoscopy. History: Very pleasant gentleman is a history reflux disease. He is here for endoscopic evaluation. He does have dysphagia to liquids. Patient has a history chronic constipation. He has a previous history of polyps. Hematochezia, melena acholic stools tonight. He is here for colonoscopy. Physical examination: General: very pleasant patient in no acute distress. HEENT: Head was normocephalic sclerae is clear mouth without masses neck was supple. Heart: Rate rhythm regular without S3 or S4. Lungs: CTA. Abdomen: Soft with no guarding or rigidity. Bowel sounds were active. Neurologic: Cranial nerves 2 through 12 intact. No focal defects. No clonus. Musculoskeletal system: Revealed no joint tenderness or swelling no muscle atrophy. Extremities: Reveal no significant edema. Skin: Warm and dry with normal turgor. Mental status: intact. Patient is alert and oriented. Review of Systems Review of Systems: All systems reviewed & are unremarkable except as noted in HPI and below PMFSH Past Medical History Medical History Anxiety Anxiety about health BMI 27.0-27.9,adult Cerebrovascular accident CT evidence of old lacunar infarctions. Patient had no symptoms of stroke. Cervical paraspinal muscle spasm Cervical spondylosis Colon polyps Coronary artery disease His LAD was stented in 1996, and it sounds as though he had 6 or 7 more stents placed in February 2016 at [place]. Hypertension Labile hypertension, now followed by Dr. Ayala. Left carotid stenosis Status post left carotid endarterectomy. Lumbar spondylosis With several bulging disc causing sciatica, mainly on the left side. Male erectile dysfunction, unspecified Mass in neck Mixed hyperlipidemia Paroxysmal atrial fibrillation Pharyngoesophageal dysphagia Varicose veins of both lower extremities Surgical History Surgical History History of arthroscopy of right knee (~08/2012) History of cardiac catheterization With PCI and stent x7. History of kidney surgery Patient had surgery on his right kidney at a young age for what sounds like nephroptosis. History of left-sided carotid endarterectomy Family History Family History Sibling Malignant neoplasm of prostate Emphysema lung Mother , Mother of an PR in her 60s. Acute myocardial infarction Father Amyotrophic lateral sclerosis Sibling Atrial fibrillation Coronary artery disease Other Family history of malignant neoplasm Social History Social History Social History: Surrogate decision maker: Obdulio Celis Jr., son. Code status: Full code. Smoking status: Never smoker Alcohol intake: never Substance use: never Substance use type: does not use Living arrangements: with family Additional living arrangements comments: Patient lives in his own home in [place]. He has a chihuahua at home with him. He is engaged and his fiancee will stay with him on occasion. He has 9 grown children. 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
--- NOTE | 2020-05-20 07:56 | WPDANESEPPF ---
Anes - Initial Pre Proc Eval Procedure: Operation Date: 05/20/20 08:00 Proposed Procedures p Esophagogastroduodenoscopy & Colonoscopy - Azael Mcintyre DO Date/Time: 05/20/20 07:56 Surgeon: Azael Mcintyre DO Pre Op Diagnosis: Slow Transit Constipation, GERD Patient Data Age: 79 Gender: M Height: 5 ft 10 in Weight: 86.7 kg Last Vital Signs Temp 97.7 F 05/20/20 07:01 Pulse 55 L 05/20/20 07:01 Resp 18 05/20/20 07:01 BP 142/71 H 05/20/20 07:01 Pulse Ox 99 05/20/20 07:01 Allergies Allergy/AdvReac Type Severity Reaction Status Date / Time aminophylline Allergy Severe DROP IN Verified 05/20/20 07:00 B/P, LOSS LOC. MALAISE FOR DAYS levofloxacin Allergy Intermediate Unknown Verified 05/20/20 07:00 Penicillins Allergy Unknown Unknown Verified 05/20/20 07:00 poison angella extract Allergy Unknown Unknown Verified 05/20/20 07:00 Home Medications Medication Instructions Recorded Confirmed Type aspirin [Adult Low Dose Aspirin] 81 mg PO DAILY 08/23/19 05/11/20 History rivaroxaban [Xarelto] 20 mg PO DAILY@1700 #30 tablet 08/25/19 05/20/20 Rx lorazepam 0.5 mg tablet 0.5 mg PO DAILY PRN #30 tablet 12/26/19 05/11/20 Rx azilsartan medoxomil 40 1 tablet PO DAILY #90 tablet 02/25/20 05/11/20 Rx mg-chlorthalidone 12.5 mg tablet famotidine 20 mg tablet 20 mg PO DAILY 04/29/20 05/11/20 History Patient hx anesthesia problems: none Family hx anesthesia problems: none PMFSH Past Medical History Medical History Anxiety Anxiety about health BMI 27.0-27.9,adult Cerebrovascular accident CT evidence of old lacunar infarctions. Patient had no symptoms of stroke. Cervical paraspinal muscle spasm Cervical spondylosis Colon polyps Coronary artery disease His LAD was stented in 1996, and it sounds as though he had 6 or 7 more stents placed in February 2016 at [place]. Hypertension Labile hypertension, now followed by Dr. Ayala. Left carotid stenosis Status post left carotid endarterectomy. Lumbar spondylosis With several bulging disc causing sciatica, mainly on the left side. Male erectile dysfunction, unspecified Mass in neck Mixed hyperlipidemia Paroxysmal atrial fibrillation Pharyngoesophageal dysphagia Varicose veins of both lower extremities Surgical History Surgical History History of arthroscopy of right knee (~08/2012) History of cardiac catheterization With PCI and stent x7. History of kidney surgery Patient had surgery on his right kidney at a young age for what sounds like nephroptosis. History of left-sided carotid endarterectomy Family History Family History Sibling Malignant neoplasm of prostate Emphysema lung Mother , Mother of an ID in her 60s. Acute myocardial infarction Father Amyotrophic lateral sclerosis Sibling Atrial fibrillation Coronary artery disease Other Family history of malignant neoplasm Social History Social History Social History: Surrogate decision maker: Obdulio Hay Celis Jr., son. Code status: Full code. Smoking status: Never smoker Alcohol intake: never Substance use: never Substance use type: does not use Living arrangements: with family Additional living arrangements comments: Patient lives in his own home in [place]. He has a chihuahua at home with him. He is engaged and his fiancee will stay with him on occasion. He has 9 grown children. 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 Gender identity (if verbalized by the patient): Male Spiritual care concerns: No Anes - Eval Final PreProcedure Day of Procedure 05/20/20 07:56 Patient weight: overweight Heart: ir
[2020-05-20] MEDS: BENZOCAINE (*SP) 60 ML SPRAY CAN (HURRICAINE) 1 SPRAY MUCOUS MEM (08:21)
[2020-05-20 08:56] VITALS: BP 131/70; PULSE 56; RESP 21; O2SAT 99
[2020-05-20 09:06] VITALS: BP 129/69; PULSE 56; RESP 12; O2SAT 100
--- NOTE | 2020-05-20 09:12 | SUR.PHASEII ---
H. Pylori positive, Dr. Mcintyre made aware. Don DAMON 05/20/20 0908
[2020-05-20 09:16] VITALS: BP 153/78; PULSE 61; RESP 23; O2SAT 100
== END 2020-05-20 09:48 | disposition home or self-care (01) ==
PROVIDERS: PCP Family Medicine; Visit Provider Internal Medicine Gastroenterology
PROC: 0DJ08ZZ Inspection of Upper Intestinal Tract, Via Natural or Artificial Opening Endoscopic (ICD-10-PCS; CPT 43235; principal; 2020-05-20 08:00)
DX: Z12.11 Encounter for screening for malignant neoplasm of colon (principal); K59.09 Other constipation; D12.2 Benign neoplasm of ascending colon; D12.0 Benign neoplasm of cecum; K63.5 Polyp of colon; K21.9 Gastro-esophageal reflux disease without esophagitis; R13.10 Dysphagia, unspecified; K29.80 Duodenitis without bleeding; K29.60 Other gastritis without bleeding; I10 Essential (primary) hypertension; I25.10 Atherosclerotic heart disease of native coronary artery without angina pectoris; E78.2 Mixed hyperlipidemia; I48.0 Paroxysmal atrial fibrillation; F41.9 Anxiety disorder, unspecified; Z95.5 Presence of coronary angioplasty implant and graft; M47.896 Other spondylosis, lumbar region; Z79.01 Long term (current) use of anticoagulants; Z79.82 Long term (current) use of aspirin
CPT/HCPCS: 45385; 45380; 43239; 43450; 87081; 88305; C9803; J2704; J7120; U0003; U0005

== ENCOUNTER → 2020-05-22 08:59 | Outpatient (CLI) | payer MEDICARE, SELFPAY ==
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
== END ==
PROVIDERS: Visit Provider Nurse Practitioner Family
DX: M54.6 Pain in thoracic spine (principal)
CPT/HCPCS: 72146

== ENCOUNTER 2020-07-08 12:22 | Observation (INO) | payer MEDICARE, SELFPAY ==
[2020-07-08] VITALS (39 sets, daily range): BP systolic 137–200; BP diastolic 64–90; PULSE 48–77; RESP 7–22; TEMP 35.8–36.4; O2SAT 96–100; BMI 27.3
--- NOTE | ~2020-07-08 | XR_ITS ---
EXAMINATION: XR chest 2V DATE: 07/08/2020 13:26 INDICATION: Chest pain TECHNIQUE: AP and lateral views of the chest are obtained. COMPARISON: 08/23/2019 FINDINGS: The lungs are free of acute opacities. There is no pleural effusion or pneumothorax. The ca rdiomediastinal silhouette is normal. There is mild thoracic spondylosis. Coronary artery stents are noted. IMPRESSION: 1. No acute cardiopulmonary abnormality. Reviewed, dictated and finalized at location A.
--- NOTE | 2020-07-08 12:17 | ECG_ITS ---
Measurements Intervals [place] Rate: 80 P: 25 VA: 185 QRS: -3 QRSD: 110 T: 47 QT: 384 QTc: 443 Interpretive Statements SINUS RHYTHM INCOMPLETE RIGHT BUNDLE BRANCH BLOCK BORDERLINE ST ABNORMALITY- ANTEROLAT/INF LEADS BORDERLINE ECG Electronically Signed On 07-08-2020 13:38:52 CDT by Richard Alcaraz D.O.
[2020-07-08 12:33] LABS: Basophils Percent Auto 0.5 % (0.2-1.2); Eosinophils Absolute Auto 0.3 K/mm3 (0-0.3); Eosinophils Percent Auto 4.1 % (0-4.4); Hematocrit 42.7 % (42.0-52.0); Immature Granulocyte Absolute 0.02 K/mm3 (0.00-0.031); Immature Granulocyte Percent A 0.3 % (0-0.5); Lymphocytes Absolute Auto 2.39 K/mm3 (0.9-3.2); Lymphocytes Percent Auto 31.5 % (18.3-44.2); Mean Corpuscular HGB Conc 32.8 g/dl (32-36); Mean Corpuscular Hemoglobin 30.7 pg (26-34); Mean Corpuscular Volume 93.6 fl (80-100); Mean Platelet Volume 9.7 fl (7.4-10.4); Monocytes Absolute Auto 0.6 K/mm3 (0.1-0.6); Monocytes Percent Auto 7.9 % (2.6-8.5); Neutrophils Absolute Auto 4.2 K/mm3 (1.3-6.7); Neutrophils Percent Auto 55.7 % (45.5-73.1); Platelet Count Result 179 k/mm3 (150-375); Red Blood Count 4.56 M/mm3 (4.6-6.20); Red Cell Distribution Width 13.2 % (11.5-14.5); White Blood Count 7.6 K/mm3 (4.5-10.0)
[2020-07-08 12:43] LABS: INR 1.8; Prothrombin Time 21.8 Seconds (11.1-14.7)
[2020-07-08 12:44] LABS: Partial Thromboplastin Time 38.7 SECONDS (22.3-36.8)
[2020-07-08 12:52] LABS: Anion Gap 8 mmol/L (8-16); Blood Urea Nitrogen 15 mg/dL (9-20); Carbon Dioxide 27 mmol/L (22-30); Chloride 102 mmol/L (98-107); Estimated CRCL calculation 52 ml/min; Estimated Glomerular Filt Rate > 60; Glucose 120 mg/dL (75-110); Potassium 4.2 mmol/L (3.4-5.0); Sodium 137 mmol/L (137-145)
[2020-07-08 12:58] LABS: Troponin I < 0.012 ng/mL (0.000-0.034)
--- NOTE | 2020-07-08 13:07 | ED.CHESTPAIN ---
HPI - Chest Pain General Chief Complaint: Chest Pain Stated Complaint: CHEST DISCOMFORT Time Seen by Provider: 07/08/20 13:07 Source: patient and family Mode of arrival: ambulatory Limitations: no limitations History of Present Illness HPI narrative: The patient is a 79 yo male with history of hypertension, coronary artery disease, status post 8 stents, atrial fibrillation on Xarelto, who presents for evaluation of chest pain, which has been intermittent since yesterday. Pain is dull, aching in nature over the left chest with radiation to the left back when he is symptomatic. Symptoms are worse with exertion and were at their worst yesterday when the patient was mowing his lawn. Pain associated at the left neck. Associated diaphoresis, nausea and lightheadedness. No current chest pain in the ER. Patient states that times some verbal arguments with his sons elicit some of the chest pain which he attributes to stress-like response. No ripping or tearing sensation to the flanks. No associated shortness of breath currently. He has been compliant with his medications. He is anticoagulated on Xarelto. Patient states he has been monitoring his blood pressure which has been quite labile with systolic blood pressure logs anywhere from the 200s systolics to 160s. Related Data Home Medications Medication Instructions Recorded Confirmed aspirin [Adult Low Dose Aspirin] 81 mg PO DAILY 08/23/19 05/27/20 linaclotide 145 mcg capsule 145 mcg PO DAILY 05/21/20 05/27/20 tadalafil 20 mg tablet 20 mg PO DAILY PRN 05/21/20 05/27/20 famotidine [Pepcid] 20 mg PO BID 07/08/20 Allergies Allergy/AdvReac Type Severity Reaction Status Date / Time aminophylline Allergy Severe DROP IN Verified 05/27/20 10:45 B/P, LOSS LOC. MALAISE FOR DAYS levofloxacin Allergy Intermediate Unknown Verified 05/27/20 10:45 Penicillins Allergy Unknown Unknown Verified 05/27/20 10:45 poison angella extract Allergy Unknown Unknown Verified 05/27/20 10:45 Review of Systems Review of Systems: Narrative: CONSTITUTIONAL: Denies fever, chills, or sweats. EYES: Denies visual changes, redness, or discharge. ENT: Denies rhinorrhea, congestion, sore throat, or otalgia. CARDIOVASCULAR: Denies current chest pain, palpitations, or edema. RESPIRATORY: Denies cough or dyspnea. GASTROINTESTINAL: Denies abdominal pain, nausea, vomiting, or diarrhea. GENITOURINARY: Denies dysuria or hematuria. SKIN: Denies rash or itching. MUSCULOSKELETAL: Denies back pain, joint pain, or myalgia. NEUROLOGIC: Denies headache, numbness, or weakness. PSYCHIATRIC: Reports anxiety PMFSH Past Medical History Medical History Anxiety Anxiety about health BMI 27.0-27.9,adult BMI 27.0-27.9,adult Cerebrovascular accident CT evidence of old lacunar infarctions. Patient had no symptoms of stroke. Cervical paraspinal muscle spasm Cervical spondylosis Colon polyps Coronary artery disease His LAD was stented in 1996, and it sounds as though he had 6 or 7 more stents placed in February 2016 at [place]. Erosive gastritis Hypertension Labile hypertension, now followed by Dr. Ayala. Left carotid stenosis Status post left carotid endarterectomy. Lumbar spondylosis With several bulging disc causing sciatica, mainly on the left side. Male erectile dysfunction, unspecified Mass in neck Mixed hyperlipidemia Paroxysmal atrial fibrillation Pharyngoesophageal dysphagia Varicose veins of both lower extremities Surgical History Surgical History History of arthroscopy of right knee (~08/2012) History of cardiac catheterization With PCI and stent x7. History of endoscopy History of kidney surgery Patient had surgery on his right kidney at a young age for what sounds like nephroptosis. History of left-sided carotid endarterectomy Family History Family History (Reviewed 07/08/20 @ 13
--- NOTE | 2020-07-08 13:12 | PC.NURSE ---
pt c/o some upper chest muscle tightness that lasts for just a few minutes and then resolves. states has been under alot of stress this week
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
[2020-07-08 15:32] LABS: Troponin I < 0.012 ng/mL (0.000-0.034)
--- NOTE | 2020-07-08 15:53 | ECG_ITS ---
Measurements Intervals [place] Rate: 61 P: 46 AK: 184 QRS: 8 QRSD: 105 T: 37 QT: 419 QTc: 424 Interpretive Statements SINUS RHYTHM FREQUENT VENTRICULAR PREMATURE COMPLEXES ABNORMAL ECG Electronically Signed On 07-08-2020 16:20:39 CDT by Richard Alcaraz D.O.
--- NOTE | 2020-07-08 17:32 | PM.CNCAR ---
Assessment and Plan Assessment and plan (1) Hypertension: Qualifiers: Hypertension type: essential hypertension Qualified Code(s): I10 - Essential (primary) hypertension Code(s): I10 - Essential (primary) hypertension Status: Acute Assessment and Plan: Patient is concerned about his high blood pressure which is making him feel ill and was the main reason for his ER visit. Likely aggravated because of psychological stress. Only on 1 blood pressure medicine,azilsartan/chlorthalidone (Edarbyclor) Will use prn hydralazine overnight; if still high tmr perhaps add amlodipine (since he runs bradycardic, no BB). (2) Angina pectoris: Code(s): I20.9 - Angina pectoris, unspecified Status: Acute Assessment and Plan: Probably stable angina, aggravated by hypertension and psychological stress. Will follow closely to make sure this is not an acute coronary syndrome. Apoorva tmr to see if there is any large area of ischemia we should address. (3) Coronary artery disease: Code(s): I25.10 - Atherosclerotic heart disease of [place] coronary artery without angina pectoris Status: Acute Assessment and Plan: History of many stents, most recent being in 2017 as described above. (4) Paroxysmal atrial fibrillation: Code(s): I48.0 - Paroxysmal atrial fibrillation Status: Acute Assessment and Plan: Has not been a problem for the patient recently. Anticoagulated with Xarelto. (5) Hypercholesterolemia: Code(s): E78.00 - Pure hypercholesterolemia, unspecified Status: Acute Assessment and Plan: LDL was in the 150s on his last office visit with Dr. Almodovar 06/24/2020; he had stopped his rosuvastatin since he does not like taking medication. Encouraged the patient to take his rosuvastatin. History of Present Illness History of Present Illness Consult date/time: 07/08/20 17:32 Consult reason: chest pain Reason For Visit: Unstable Angina Narrative: Mr. Obdulio Marroquin is a 79 y.o. male w/ an extensive history of CAD, status post multiple stents. He also has a history of paroxysmal atrial fibrillation, hypertension, bradycardia and dyslipidemia. He is usually followed by Dr. Almodovar. We have been asked to see the patient at the request of the hospitalist for advice and opinion regarding his chest pain consultation. Mr. Escobedo says that the main reason he came to the emergency room is his blood pressure shot up which is making him feel sick. He is not very concerned about his chest discomfort. His blood pressures have been somewhat labile but not bad over the last couple of weeks, 87/56 up to 149/79, and his pulse usually is 50-60 beats per minute. However in the last 2 days the BPs have shot up to 182/96, 193/98, and over 200 with a relatively fast heart rate for him, 74. He was feeling sick, with a headache, dizziness, blurred vision, anxious and queasy. He has felt a little tight in his chest and uncomfortable off and on through the day as well. He blames this on stress. One able-bodied son calls himself homeless and has been staying with them for the last 5 weeks. Another son with psych problems has been calling in leaving hateful and awful messages. The patient is very stressed because he has done is the best he can for his son's and he cares about them but is feeling taken advantage of and upset over their problems. The patient has had some exertional chest tightness for a long time such as cutting the grass and perhaps going upstairs. There has been no change in this. He has not had any shortness of breat
--- NOTE | 2020-07-08 18:50 | ADMGEN ---
This patient, Obdulio Marroquin, was admitted to IMU Room 203-01 on 07-08-20 at 1734. Patient/family oriented to hospital policies and general routines including ID bracelet, bed and alarms, visiting hours, pain management, procedures, bathroom and other care routines, personal items, smoking policy, room service/diet, and visiting hours. Information on how to activate the Rapid Response Team has been discussed. Patient/Family are encouraged to report perceived risks to care and to ask questions if they do not understand what they are told or what they should do.
[2020-07-08 19:14] LABS: Troponin I < 0.012 ng/mL (0.000-0.034)
--- NOTE | 2020-07-08 20:23 | PHAR ---
Drug Name: Edarbyclor Ingredients: Azilsartan Medoxomil -- 40 MG Chlorthalidone -- 12.5 MG Related Documents: [employer]UG[employer] Evaluations - AZILSARTAN MEDOXOMIL/CHLORTHALIDONE Color: Pale Red Shape: [place] Imprint: A/C 40/12.5 Form: Oral Tablet
[2020-07-08] MEDS: LORazepam (*CRX) 0.5 MG TABLET PO (20:59)
[2020-07-08] MEDS: ROSUVASTATIN 10 MG TABLET 20 MG PO (20:59)
[2020-07-08] MEDS: RIVAROXABAN 20 MG TABLET PO (20:59)
[2020-07-09] VITALS (10 sets, daily range): BP systolic 129–176; BP diastolic 56–73; PULSE 42–68; RESP 16–21; TEMP 36–36.8; O2SAT 94–100
[2020-07-09] MEDS: ASPIRIN 81 MG ENTERIC TABLET PO (08:30)
[2020-07-09] MEDS: FAMOTIDINE 20 MG TABLET PO (08:30)
[2020-07-09] MEDS: TAMSULOSIN HCL 0.4 MG CAPSULE PO (08:30)
[2020-07-09] MEDS: hydrALAZINE HCL 25 MG TABLET PO (08:32)
--- NOTE | 2020-07-09 14:42 | PM.PNCARD ---
Progress Note: A&P Assessment and Plan (1) Hypertension: Qualifiers: Hypertension type: essential hypertension Qualified Code(s): I10 - Essential (primary) hypertension Code(s): I10 - Essential (primary) hypertension Status: Acute Assessment and Plan: Patient is concerned about his high blood pressure which is making him feel ill and was the main reason for his ER visit. Likely aggravated because of psychological stress. Only on 1 blood pressure medicine,azilsartan/chlorthalidone (Edarbyclor) Blood pressure remains elevated today. Will add amlodipine 2.5 mg daily. Okay to discharge patient home. Patient is diligent about monitoring blood pressure at home. Advised patient that if he becomes hypotensive on new medication that he should call the office for medication recommendations. Encouraged stress reduction. (2) Angina pectoris: Code(s): I20.9 - Angina pectoris, unspecified Status: Acute Assessment and Plan: Probably stable angina, aggravated by hypertension and psychological stress. Will follow closely to make sure this is not an acute coronary syndrome. He is not having any chest pain today. He indicates that he is not interested in a treadmill stress test. Reasons for this are bit unclear. Explained to him we were planning to do a Lexiscan stress test which does not involve exercise. He is open to having this testing done. However, he has already eaten today which precludes him from undergoing any ischemic evaluation today. We will pursue Lexiscan stress test as an outpatient. (3) Coronary artery disease: Code(s): I25.10 - Atherosclerotic heart disease of [place] coronary artery without angina pectoris Status: Acute Assessment and Plan: History of many stents, most recent being in 2017 as described above. (4) Paroxysmal atrial fibrillation: Code(s): I48.0 - Paroxysmal atrial fibrillation Status: Acute Assessment and Plan: Has not been a problem for the patient recently. Anticoagulated with Xarelto. (5) Hypercholesterolemia: Code(s): E78.00 - Pure hypercholesterolemia, unspecified Status: Acute Assessment and Plan: LDL was in the 150s on his last office visit with Dr. Almodovar 06/24/2020; he had stopped his rosuvastatin since he does not like taking medication. Encouraged the patient to take his rosuvastatin. Subjective Date/time seen: 07/09/20 14:42 Review of Systems Constitutional: Constitutional: Denies difficulty sleeping and Denies weakness Eyes: Eyes: Reports no additional eye complaints ENT: Denies epistaxis Cardiovascular: Cardiovascular: Denies chest pain, Denies pedal edema, Denies leg edema, Denies lightheadedness, Denies palpitations, Denies dyspnea and Denies dyspnea on exertion Respiratory: Respiratory: Denies cough, Denies dyspnea and Denies dyspnea on exertion Gastrointestinal: Gastrointestinal: Denies abdominal pain, Denies hematochezia and Denies nausea Genitourinary: Genitourinary: Denies dysuria and Reports urinary hesitancy Musculoskeletal: Musculoskeletal: Reports no additional musculoskeletal complaints Integumentary/Breasts: Skin/Breast: Denies rash Neurologic: Denies confusion and Reports weakness Psychiatric: Psychiatric: Reports anxiety, Denies confusion and Reports depression Endocrine: Endocrine: Denies palpitations Exam Narrative: Exam Narrative: Pleasant gentleman. Alert and oriented. At bedside. Const: General: comfortable and no acute distress; No confusion Orientation/consciousness: No confu
--- NOTE | 2020-07-09 15:30 | PM.DS ---
DS: Admitting Diagnosis Admitting Diagnosis Admitting Diagnosis: Chest pain DS: Discharge Diagnosis Discharge Diagnosis (1) Angina pectoris: Code(s): I20.9 - Angina pectoris, unspecified Status: Acute (2) Hypertension: Qualifiers: Hypertension type: essential hypertension Qualified Code(s): I10 - Essential (primary) hypertension Code(s): I10 - Essential (primary) hypertension Status: Acute (3) Paroxysmal atrial fibrillation: Code(s): I48.0 - Paroxysmal atrial fibrillation Status: Acute (4) Coronary artery disease: Code(s): I25.10 - Atherosclerotic heart disease of [place] coronary artery without angina pectoris Status: Acute (5) Hypercholesterolemia: Code(s): E78.00 - Pure hypercholesterolemia, unspecified Status: Acute DS: Summary Hospital Course Reason for hospitalization: 79yo male with CAD here for chest pain. Please see H&P for details. Hospital Course: Patient presents with complaints of chest pain. He reports that chest pain is not unusual for him to have anginal symptoms while out mowing the grass and better with rest. Dr. Phoenix recommended Lexiscan stress but the patient was reluctant to proceed. Plan to pursue outpatient testing. It was felt that he has chronic stable angina. Blood pressures have been running high likely due to stress he has at home. We continued his antihypertensives and added low dose Norvasc. Patient was on tele and noted to have bradycardia at night. Consider sleep apnea (spoke with Cardiology and they will arrange as outpatient). Remained in NSR. We continued Xarelto. We encouraged him to be compliant with Crestor. Patient's CP resolved. He overall did well and wa able to be discharged home on 07/09/20 Status at Discharge Cognitive/behavioral status at discharge: stable Time Spent with Patient Time attestation: Total time spent providing and/or coordinating discharge services: 40 minutes Time spent: Greater than 30 minutes Exam Narrative: Exam Narrative: AF 98.2 152/67 55 16 100% ra Gen - NARD Chest - CTA bilaterally, nml RR CV - RRR S1/S2. Tele dwight at night Abd - Soft, NT/ND, Positive BS Ext - No pedal edema Psych - Nml mood and affect Skin - Warm and dry DS: Data Data Completed and Pending Labs on day of discharge: Labs from last 24 hours 07/08/20 07/08/20 18:43 15:04 Troponin I < 0.012 < 0.012 Discharge Plan Discharge Attending physician on discharge: Jonas Weaver Consulting providers: Ye Almodovar Discharging Clinician: Jonas Weaver Anticipated Discharge Date/Time: 07/09/20 15:41 Patient Disposition: Home, Self-Care Activity: no straining and as tolerated Diet: heart healthy Discharge Instructions: Please avoid large gathering, wear face coverings in public and practice social distance. Check blood pressure 1 to 2 times a day. Record and bring into your doctor for review. Call your doctor if your blood pressure is greater than 180/110. Take precautions to avoid falls. Rise slowly from a lying or sitting position. Pause before standing or walking. Light Contact your doctor or come to the Emergency Room if you have recurrent chest pain or other worrisome symptoms. Avoid NSAIDs (ibuprofen, naproxen, Aleve). Tylenol is safe to take. Follow-up with your primary care provider in 1-2 weeks. Please call for appointment. Follow-up with your stove fitter as directed. Patient Instructions: Antibiotic Form Stand Alone Forms: General Discharge Information Follow-up/Referrals: Ye Almodovar MD [Physician] - Call for Appointment Abhishek Coffman MD [Primary Care Provider] - Discharge Medications: New amlodipine 2.5 mg Tablet 2.5 mg PO QAM Qty: 30 RF: 1 Continued Linzess 145 mcg capsule 145 mcg PO DAILY RF: 0 tamsulosin [Flomax] 0.4 mg capsule 0.4 mg PO DAILY Qty: 30 RF: 0 famotidine [Pepcid]
== END 2020-07-09 16:40 | disposition home or self-care (01) ==
LOC: ANHED 14:06 → ANHIMU 16:55
PROVIDERS: Emergency Medicine; Admitting Provider Internal Medicine; Emergency Provider Emergency Medicine; PCP Family Medicine; Visit Provider Internal Medicine
DX: I20.9 Angina pectoris, unspecified (principal); R07.9 Chest pain, unspecified; I48.91 Unspecified atrial fibrillation; I10 Essential (primary) hypertension; E78.5 Hyperlipidemia, unspecified
CPT/HCPCS: 36415; 71046; 80048; 84484; 85025; 85610; 85730; 93005; 99285; A9270; G0378

== ENCOUNTER 2020-09-23 16:52 | Outpatient (CLI) | payer MEDICARE, SELFPAY ==
[2020-09-23 18:03] LABS: Creatinine Urine 148.9 mg/dL
[2020-09-23 18:16] LABS: Albumin Level 4.1 g/dL (3.5-5.1); Anion Gap 5 mmol/L (8-16); Blood Urea Nitrogen 17 mg/dL (9-20); Calcium 9.2 mg/dL (8.4-10.2); Carbon Dioxide 29 mmol/L (22-30); Chloride 106 mmol/L (98-107); Estimated Glomerular Filt Rate 54; Glucose 93 mg/dL (65-110); Phosphorus 3.2 mg/dL (2.5-4.5); Potassium 4.7 mmol/L (3.4-5.0); Sodium 140 mmol/L (137-145)
[2020-09-23 19:12] LABS: Total Protein Urine Random 10 mg/dL; Ur Ttl Prot Creatinine Ratio 0.07 mg/mg (0-0.20)
== END 2020-09-23 16:53 | disposition home or self-care (01) ==
LOC: ANHLAB 17:04
PROVIDERS: PCP Family Medicine; Visit Provider Internal Medicine Nephrology
DX: I10 Essential (primary) hypertension (principal)
CPT/HCPCS: 36415; 80069; 82570; 84156

== ENCOUNTER 2021-01-17 11:29 | Outpatient (CLI) | payer MEDICARE, SELFPAY ==
[2021-01-17 12:10] LABS: Hematocrit 39.6 % (42.0-52.0); Hemoglobin 13.1 g/dL (14.0-18.0); Mean Corpuscular HGB Conc 33.1 g/dl (32-36); Mean Corpuscular Hemoglobin 30.8 pg (26-34); Mean Corpuscular Volume 93.2 fl (80-100); Mean Platelet Volume 10.4 fl (7.4-10.4); Platelet Count Result 167 k/mm3 (150-375); Red Blood Count 4.25 M/mm3 (4.6-6.20); Red Cell Distribution Width 13.2 % (11.5-14.5); White Blood Count 6.8 K/mm3 (4.5-10.0)
[2021-01-17 12:38] LABS: Creatinine Urine 145.1 mg/dL; Total Protein Urine Random 6 mg/dL; Ur Ttl Prot Creatinine Ratio 0.04 mg/mg (0-0.20)
[2021-01-17 13:32] LABS: Parathyroid Intact 95.5 pg/mL (7.5-53.5)
[2021-01-17 18:13] LABS: Albumin Level 4.3 g/dL (3.5-5.1); Anion Gap 9 mmol/L (8-16); Blood Urea Nitrogen 20 mg/dL (9-20); Carbon Dioxide 25 mmol/L (22-30); Chloride 103 mmol/L (98-107); Estimated Glomerular Filt Rate 59; Glucose 93 mg/dL (65-110); Potassium 4.4 mmol/L (3.4-5.0); Sodium 137 mmol/L (137-145)
== END 2021-01-17 11:30 | disposition home or self-care (01) ==
LOC: ANHLAB 11:34
PROVIDERS: PCP Family Medicine; Visit Provider Internal Medicine Nephrology
DX: I10 Essential (primary) hypertension (principal)
CPT/HCPCS: 36415; 80069; 82570; 83970; 84156; 85027

== ENCOUNTER 2021-04-20 10:49 | Outpatient (CLI) | payer MEDICARE, SELFPAY ==
[2021-04-20 11:43] LABS: Cholesterol 145 mg/dL (0-200); HDL Direct 40 mg/dL; Triglycerides 66 mg/dL (<150)
[2021-04-20 11:54] LABS: LDL Cholesterol Direct 73 mg/dL
== END 2021-04-20 10:50 | disposition home or self-care (01) ==
LOC: ANHLAB 10:54
PROVIDERS: PCP Family Medicine; Visit Provider Internal Medicine Cardiovascular Disease
DX: I25.118 Atherosclerotic heart disease of native coronary artery with other forms of angina pectoris (principal); E78.2 Mixed hyperlipidemia
CPT/HCPCS: 36415; 80061

== ENCOUNTER 2021-07-05 12:23 | Emergency (ER) | payer MEDICARE, SELFPAY ==
--- NOTE | ~2021-07-05 | XR_ITS ---
EXAMINATION: XR nasal bones min 3V DATE: 07/05/2021 12:55 INDICATION: Nose trauma and pain. TECHNIQUE: 3 views of the nasal bones were obtained. COMPARISON: None. FINDINGS: Bone alignment is normal. No fracture. IMPRESSION: 1. No fracture. Reviewed, dictated and finalized at location A. IMPRESSION: 1. No fracture.
--- NOTE | 2021-07-05 12:29 | ED.HEATRA ---
HPI - Head Injury General Chief complaint: Unspecified Stated complaint: nose injury Time Seen by Provider: 07/05/21 12:30 Source: patient Mode of arrival: ambulatory Limitations: no limitations History of Present Illness HPI Narrative: Mr. Marroquin is a 80-year-old male patient presenting to the clinic today with complaints of a nose/face injury that occurred this morning. He reports that he was leaving the [facility] dental facility and accidentally walked into a glass pane that he thought was a door. He reports pain to the nasal bridge with some right-sided epistaxis that has resolved and some right-sided facial pain including the right eyebrow and just underneath the right eye. He denies any loss of consciousness or falling after the injury. Related Data Home Medications Medication Instructions Recorded Confirmed aspirin 81 mg tablet,delayed 81 mg PO DAILY 08/23/19 07/05/21 release (Adult Low Dose Aspirin) azilsartan medoxomil 40 mg tablet 40 tablet DAILY 07/05/21 07/05/21 (Edarbi) rivaroxaban 20 mg tablet (Xarelto) 20 tablet DAILY 07/05/21 07/05/21 rosuvastatin 20 mg tablet 20 tablet DAILY 07/05/21 07/05/21 tamsulosin 0.4 mg capsule 0.4 cap PO DAILY 07/05/21 07/05/21 Allergies Allergy/AdvReac Type Severity Reaction Status Date / Time aminophylline Allergy Intermediate Unknown Verified 07/05/21 12:47 levofloxacin Allergy Intermediate Unknown Verified 07/05/21 12:47 Penicillins Allergy Unknown Unknown Verified 07/05/21 12:47 poison angella extract Allergy Unknown Unknown Verified 07/05/21 12:47 Review of Systems Review of Systems: Pertinent positives per HPI. Patient denies any fever, chills, rash, visual changes, dizziness, cough, runny nose, sore throat, shortness of breath, chest pain, palpitations, nausea, vomiting, diarrhea, constipation, abdominal pain, or any urinary issues. [facility] Past Medical History Medical History Anxiety Cerebrovascular accident CT evidence of old lacunar infarctions. Patient had no symptoms of stroke. Cervical spondylosis Colon polyps Coronary artery disease He had several stents placed in the left anterior descending 20 years ago, and then in February 2016 at [place] had a drug-eluting stent to the proximal RCA, 2 stents to the Left anterior descending and a diagonal stent, and a week later had two stents to the ramus. There was some diffuse disease in the small distal circumflex. Erosive gastritis Hypertension Labile hypertension, now followed by Dr. Ayala. Left carotid stenosis Status post left carotid endarterectomy. Lumbar spondylosis With several bulging disc causing sciatica, mainly on the left side. Male erectile dysfunction, unspecified Mixed hyperlipidemia Paroxysmal atrial fibrillation Pharyngoesophageal dysphagia Varicose veins of both lower extremities Surgical History Surgical History History of arthroscopy of right knee (~08/2012) History of cardiac catheterization With PCI and stent x7. History of endoscopy History of kidney surgery Patient had surgery on his right kidney at a young age for what sounds like nephroptosis. History of left-sided carotid endarterectomy Family History Family History Sibling Malignant neoplasm of prostate Emphysema lung Mother , Mother of an [place] in her 60s. Acute myocardial infarction Father Amyotrophic lateral sclerosis Sibling Atrial fibrillation Coronary artery disease Other Family history of malignant neoplasm Social History Social History Social History: Surrogate decision maker: Obdulio Celis Jr., son. Code status: Full code. Smoking status: Never smoker Alcohol intake: never Substance use: never Substanc
[2021-07-05 12:41] VITALS: BP 212/74; PULSE 54; RESP 18; TEMP 36.4; O2SAT 100
[2021-07-05] MEDS: ACETAMINOPHEN 500 MG TABLET 1000 MG PO (13:08)
[2021-07-05 13:18] VITALS: BP 206/70
== END 2021-07-05 13:18 | disposition home or self-care (01) ==
PROVIDERS: Emergency Provider Nurse Practitioner Family; PCP Family Medicine
DX: S00.83XA Contusion of other part of head, initial encounter (principal); W22.09XA Striking against other stationary object, initial encounter; S09.90XA Unspecified injury of head, initial encounter; Z86.73 Personal history of transient ischemic attack (TIA), and cerebral infarction without residual deficits; M47.812 Spondylosis without myelopathy or radiculopathy, cervical region; I25.10 Atherosclerotic heart disease of native coronary artery without angina pectoris; I10 Essential (primary) hypertension; I65.22 Occlusion and stenosis of left carotid artery; M47.816 Spondylosis without myelopathy or radiculopathy, lumbar region; E78.2 Mixed hyperlipidemia; I48.0 Paroxysmal atrial fibrillation; I83.93 Asymptomatic varicose veins of bilateral lower extremities
CPT/HCPCS: 70160; 99213; A9270; G0463

== ENCOUNTER 2021-10-03 13:36 | Outpatient (CLI) | payer MEDICARE, SELFPAY ==
--- NOTE | ~2021-10-03 | MR_ITS ---
EXAMINATION: MR knee LT wo con DATE: 10/03/2021 14:36 INDICATION: Left knee pain TECHNIQUE: Magnetic resonance imaging (MRI) of the left knee was performed without intravenous contra st. Sequences included coronal PD-weighted FSE, coronal PD-weighted FS FSE, sagittal T2-weighted FSE , sagittal PD-weighted FS FSE and axial PD weighted fat saturated FSE. COMPARISON: Left knee radiographs dated 09/16/2021 FINDINGS: Medial compartment: Complex medial meniscal tear. This includes a vertically oriented. The configuration tear extends fro m the free edge at the posterior body to the periphery of the medial side of the posterior horn. Ther e is an additional longitudinal oblique tear plane extending to the inferior articular surface of the posterior body and medial side of the posterior horn. Articular cartilage is normal. There is mild s ubarticular marrow edema along the posterior medial rim of the medial tibial plateau which could be r elated to stress result from altered weight distribution secondary to the meniscal tear. Lateral compartment: Very small radial tear versus fraying along the free edge of the anterior body of the lateral meniscu s. Remainder of the meniscus is normal. Articular cartilage is normal. Patellofemoral compartment: Articular cartilage is normal. Ligaments and tendons: Anterior and posterior cruciate ligaments are normal. The medial collateral ligament and fibular tobi ateral ligament complex are normal. Patellar tendon is normal. Mild distal quadriceps tendinopathy. T he visualized medial and lateral hamstring tendons as well as the iliotibial band are normal. Fluid: Physiologic amount of fluid in the joint space. No loose osteochondral bodies identified. Small Rodriguez 's cyst. Osseous/other: Tiny low signal intensity bone islands along the anterior weightbearing medial femoral condyle and po sterior weightbearing lateral femoral condyle. No fracture or pathologic marrow replacing process. Co uple small foci of susceptibility artifact in the subcutaneous soft tissues medial to the tibial inse rtion of the patellar tendon which are of doubtful clinical significance. No evident correlate visibl e on the prior radiographs. IMPRESSION: 1. Complex medial meniscal tear. 2. Small Rodriguez's cyst. Reviewed, dictated and finalized at location A.
== END 2021-10-03 13:37 | disposition home or self-care (01) ==
PROVIDERS: PCP Family Medicine; Visit Provider Orthopaedic Surgery
DX: M71.22 Synovial cyst of popliteal space [Baker], left knee (principal); S83.232A Complex tear of medial meniscus, current injury, left knee, initial encounter; X58.XXXA Exposure to other specified factors, initial encounter
CPT/HCPCS: 73721

== ENCOUNTER 2021-11-18 10:40 | Outpatient (CLI) | payer MEDICARE, SELFPAY ==
[2021-11-18 11:07] LABS: Hematocrit 40.4 % (42.0-52.0); Mean Corpuscular HGB Conc 32.2 g/dl (32-36); Mean Corpuscular Hemoglobin 30.2 pg (26-34); Platelet Count Result 158 k/mm3 (150-375); Red Cell Distribution Width 13.2 % (11.5-14.5); White Blood Count 5.6 K/mm3 (4.5-10.0)
[2021-11-18 11:24] LABS: Alanine Aminotransferase 19 U/L (6-50); Albumin Level 4.3 g/dL (3.5-5.1); Alkaline Phosphatase 93 U/L (38-126); Anion Gap 5 mmol/L (8-16); Aspartate Amino Transferase 24 U/L (17-59); Bilirubin,Total 0.6 mg/dL (0.2-1.3); Blood Urea Nitrogen 21 mg/dL (9-20); Calcium 8.8 mg/dL (8.4-10.2); Carbon Dioxide 29 mmol/L (22-30); Chloride 105 mmol/L (98-107); Estimated Glomerular Filt Rate 58; Glucose 99 mg/dL (65-110); Potassium 4.5 mmol/L (3.4-5.0); Sodium 139 mmol/L (137-145)
[2021-11-18 11:52] LABS: Prostate Specific Antigen 1.9 ng/mL (< OR = 4.0)
[2021-11-18 12:19] LABS: Vitamin D 25 Hydroxy 37.9 ng/mL
== END 2021-11-18 10:41 | disposition home or self-care (01) ==
PROVIDERS: PCP Family Medicine; Visit Provider Nurse Practitioner Family
DX: Z12.5 Encounter for screening for malignant neoplasm of prostate (principal); E55.9 Vitamin D deficiency, unspecified; Z13.29 Encounter for screening for other suspected endocrine disorder; I10 Essential (primary) hypertension; N28.9 Disorder of kidney and ureter, unspecified; E78.00 Pure hypercholesterolemia, unspecified
CPT/HCPCS: 36415; 80053; 82306; 84153; 84443; 85027; G0103

== ENCOUNTER 2021-11-22 08:29 | Outpatient (CLI) | payer MEDICARE, SELFPAY ==
--- NOTE | 2021-11-22 08:42 | ECG_ITS ---
Measurements Intervals [place] Rate: 54 P: -43 NM: 166 QRS: 10 QRSD: 109 T: 53 QT: 427 QTc: 405 Interpretive Statements SINUS BRADYCARDIA INCOMPLETE RIGHT BUNDLE BRANCH BLOCK [90+ ms QRS DURATION, TERMINAL R IN V1/V2, 40+ ms S IN I/aVL/V4/V5/V6] MINIMAL VOLTAGE CRITERIA FOR LVH, CONSIDER NORMAL VARIANT [MEETS CRITERIA IN ONE OF: R(aVL), S(V1), R(V5), R(V5/V6)+S(V1)] COMPARED TO ECG 07/08/2020 13:12:12 SINUS BRADYCARDIA NOW PRESENT Electronically Signed On 11-22-2021 13:19:40 CDT by Donna Phoenix M.D.
== END 2021-11-22 08:30 | disposition home or self-care (01) ==
LOC: ANHSURGERY 08:34
PROVIDERS: PCP Family Medicine; Visit Provider Orthopaedic Surgery
DX: Z01.810 Encounter for preprocedural cardiovascular examination (principal); I45.10 Unspecified right bundle-branch block; I10 Essential (primary) hypertension; R00.1 Bradycardia, unspecified
CPT/HCPCS: 93005

== ENCOUNTER 2021-11-28 01:12 | Day surgery (SDC) | payer MEDICARE, SELFPAY ==
[2021-11-17 11:00] VITALS: BMI 26.9
--- NOTE | 2021-11-17 11:16 | PC.NURSE ---
Report to the Outpatient Waiting Room, entrance under the green pavilion located off [facility], at time __1300 on date _11/28/21 . OR Time: 1500___. Time changes happen often and if your time is changed the preop area will call you the afternoon before. - You and your visitor will be asked to self-screen and do not enter if you have any COVID symptoms. - Only one visitor and NO children visitors are allowed at this time. - The patient visitor is requested to leave or wait in car when not with patient due to restrictions. - A mask is required within the hospital. Patients may have clear liquids (water, carbonated beverages, clear teas, apple juice) until 3 hours prior to surgery with a maximum of 20 ounces. - No food from midnight until time of surgery - Infants may have breast milk until 4 hours before surgery, formula 6 hours prior to surgery. - Children will be allowed to drink immediately following surgery. If applicable, please bring a bottle or sippy cup to assist with drinking. Juice, water, soda, and popsicles are readily available. For infants on formula, please bring formula the day of surgery. Pacifiers are allowed. Take the following medications with a SIP of water the morning of surgery: N/A Medications to discontinue per physician _MANJINDER AND ASPIRIN PER DR. RILEY'S INSTRUCTIONS__ Date to take last dose Please no make-up, nail egyptian, hairspray, perfume, deodorant, or body powder the day of surgery. No jewelry (including any body piercings) or valuables the day of surgery, leave them at home. Please take a shower or bath the night before, or the morning of, surgery with an antibacterial soap. Wear comfortable, loose fitting clothing. Children are encouraged to wear pajamas. - Jewelry must be removed prior to entering the operating room. Rings and piercings that are not removed may be cut off. - The hospital will not accept responsibility for valuables. - Please leave all valuables, including medications, at home the day of surgery. If you are going home after surgery, a licensed public transit trolley driver must drive you home. - NO public transportation without another adult. - We recommend that an adult stay with you for 24 hours following discharge. - We also recommend that you do not drive, make important decision, drink alcoholic beverages, or take any drugs that were not prescribed by your health care provider for at least 24 hours after your discharge time. For Pediatric surgeries, we recommend two adults accompany the child home (only one inside the building at this time). Follow any additional instructions given to you from your surgeon. If you or anyone in your household have experienced Covid symptoms in the past week, please notify your surgeon or the nurse liaison at the phone number below for possible testing. Telephone instructions given to ___PT and asked if any additional questions and then verbalized understanding. Patient advised to call surgeon office or pre surgery nurse liaison [phone] if any additional questions.
[2021-11-28] VITALS (10 sets, daily range): BP systolic 121–210; BP diastolic 54–81; PULSE 53–83; RESP 10–18; TEMP 36.4–36.8; O2SAT 99–100
--- NOTE | 2021-11-28 10:51 | WPDHPUPDATE1 ---
History and Physical Update Update Date/Time: 11/28/21 10:51 History and Physical has been reviewed, including an updated exam of the patient. There are NO changes in the patient's condition. Risks, benefits, and alternatives have been discussed and questions answered. Patient agrees to proceed with procedure.
[2021-11-28] MEDS: LACTATED RINGERS 1,000 ML 30 ML IV CONT (13:30)
[2021-11-28] MEDS: KETOROLAC 15 MG/ML VIAL (*BKC) IV PUSH (13:33)
[2021-11-28] MEDS: ACETAMINOPHEN 500 MG TABLET 1000 MG PO (13:33)
--- NOTE | 2021-11-28 13:58 | WPDANESEPPF ---
Anes - Initial Pre Proc Eval Procedure: Operation Date: 11/28/21 15:00 Proposed Procedures p Left Knee Arthroscopic Partial Medial Meniscectomy - Fredy Brush MD Date/Time: 11/28/21 13:58 Surgeon: Fredy Brush MD Pre Op Diagnosis: left knee medial meniscus tear Patient Data Age: 81 Gender: M Height: 1.79 m Weight: 86 kg Allergies Allergy/AdvReac Type Severity Reaction Status Date / Time aminophylline Allergy Intermediate Unknown- Verified 11/28/21 13:16 SEE COMMIT levofloxacin Allergy Intermediate Joint/MUSCLE Verified 11/28/21 13:16 Pain Penicillins Allergy Unknown Unknown- Verified 11/28/21 13:16 A CHILD poison angella extract Allergy Unknown Itching Verified 11/28/21 13:16 Home Medications Medication Instructions Recorded Confirmed Type aspirin 81 mg tablet,delayed 81 mg PO DAILY 08/23/19 11/28/21 History release (Adult Low Dose Aspirin) rivaroxaban 20 mg tablet (Xarelto) 20 tablet DAILY 07/05/21 11/28/21 History rosuvastatin 20 mg tablet 20 tablet DAILY 07/05/21 11/28/21 History tamsulosin 0.4 mg capsule 0.4 cap PO DAILY 07/05/21 11/28/21 History azilsartan medoxomil 40 mg tablet 40 mg PO DAILY #30 tabs 09/28/21 11/28/21 Rx (Edarbi) linaclotide 145 mcg capsule 145 mcg PO DAILY #30 caps 11/16/21 11/28/21 Rx (Linzess) Patient hx anesthesia problems: none Family hx anesthesia problems: none Results Review: All pre-operative results and documents have been reviewed as part of the pre-operative evaluation. [facility] Past Medical History Medical History Adult BMI 26.0-26.9 kg/sq m Anxiety Cerebrovascular accident CT evidence of old lacunar infarctions. Patient had no symptoms of stroke. Cervical spondylosis Colon polyps Coronary artery disease He had several stents placed in the left anterior descending 20 years ago, and then in February 2016 at [facility] had a drug-eluting stent to the proximal RCA, 2 stents to the Left anterior descending and a diagonal stent, and a week later had two stents to the ramus. There was some diffuse disease in the small distal circumflex. Erosive gastritis Hypertension Labile hypertension, now followed by Dr. Ayala. Left carotid stenosis Status post left carotid endarterectomy. Lumbar spondylosis With several bulging disc causing sciatica, mainly on the left side. Male erectile dysfunction, unspecified Mixed hyperlipidemia Paroxysmal atrial fibrillation Pharyngoesophageal dysphagia Varicose veins of both lower extremities Surgical History Surgical History History of arthroscopy of right knee (~08/2012) History of cardiac catheterization With PCI and stent x7. History of endoscopy History of kidney surgery Patient had surgery on his right kidney at a young age for what sounds like nephroptosis. History of left-sided carotid endarterectomy Family History Family History Sibling Malignant neoplasm of prostate Emphysema lung Mother , Mother of an AR in her 60s. Acute myocardial infarction Father Amyotrophic lateral sclerosis Sibling Atrial fibrillation Coronary artery disease Other Family history of malignant neoplasm Social History Social History Social History: Surrogate decision maker: Obdulio Guido Jr Lalita., son. Code status: Full code. Smoking status: Never smoker Second hand tobacco smoke exposure: No Alcohol intake: never Substance use: never Substance use type: does not use Living arrangements: with family Additional living arrangements comments: Patient lives in his own home in [place] with his new . He has a chihuahua at home with him. He has 9 grown children. 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
[2021-11-28] MEDS: ceFAZolin 2 GM/D5W 50 ML 2 GM/50 ML BAG IVPB (15:23)
[2021-11-28] MEDS: BUPIVACAINE/EPINEPHRINE 0.25% 50 ML VIAL 30 ML INFILTRATE (15:43)
--- NOTE | 2021-11-28 16:35 | P.OP_ITS ---
Procedure Note - Detailed Date of Procedure 11/28/21 Pre-op Diagnosis left knee medial meniscus tear Post-op Diagnosis Same Procedure Performed Arthroscopic partial medial meniscectomy, left knee. Surgeon Fredy Brush MD Anesthesia General Findings Extensive posterior and medial, medial meniscus tear. Subtotal meniscectomy. Lateral compartment and ACL normal. Minimal plica tissue resection. Medial femur chondromalacia grade 1, medial tibia grade 0. Lateral femur chondromalacia grade 0, lateral tibia grade 0. Patellar grade 0, trochlea grade 1. Description of Procedure The patient was identified and the surgical site confirmed and signed in the preoperative holding area. Antibiotics were started per protocol. She was brought to the operative room and transferred to the OR table. A general anesthetic was administered. Supine position with the operative lower extremity position in the leg luo after placement of a well padded tourniquet. The leg support was lowered and the contralateral limb was supported with a soft bolster. The knee was prepped and draped in the usual sterile fashion. A time- out was performed. The portal sites were marked and infiltrated with 0.5% Marcaine 20 mL. The limb was exsanguinated and the tourniquet inflated to 300 mL Hg. Standard inferolateral and inferomedial portals were established. Inflow was obtained with the saline pump. The camera was introduced. Diagnostic inspection of the joint was accomplished. The meniscus was debrided with the arthroscopic shaver and punches until stable. Minimal plica tissue appeared to scuff the medial femur slightly. A modest resection was performed. The arthroscopic instruments were removed. The tourniquet released and wounds closed with subcutaneous 4-0 Monocryl absorbable suture. Steri strips and a sterile dressing were applied. A light elastic wrap was placed. The patient was extubated and brought to the recovery room in stable condition. Estimated Blood Loss 5 Tourniquet Time 21 Drains No Complications No immediate complications Condition Stable Disposition PACU [facility] Billing Surgery - Charge Forward: Surgery Billing
--- NOTE | 2021-11-28 16:53 | SUR.PHASEI ---
1648: Simple mask removed.
[2021-11-28] MEDS: hydrALAZINE HCL 20 MG/ML VIAL 10 MG IV PUSH (17:15)
[2021-11-28] MEDS: fentaNYL CITRATE INJ (*CRX) 100 MCG/2 ML VIAL 25 MCG IV PUSH ×2 (17:31→17:35)
[2021-11-28] MEDS: oxyCODONE HCL (*CRX) 5 MG TAB IR PO (18:03)
== END 2021-11-28 19:10 | disposition home or self-care (01) ==
PROVIDERS: PCP Family Medicine; Visit Provider Orthopaedic Surgery
PROC: (CPT 29870; principal; 2021-11-28 15:00)
DX: S83.232A Complex tear of medial meniscus, current injury, left knee, initial encounter (principal); X50.0XXA Overexertion from strenuous movement or load, initial encounter; M94.262 Chondromalacia, left knee; I25.10 Atherosclerotic heart disease of native coronary artery without angina pectoris; I10 Essential (primary) hypertension; E78.2 Mixed hyperlipidemia; I48.0 Paroxysmal atrial fibrillation; M47.816 Spondylosis without myelopathy or radiculopathy, lumbar region; M47.812 Spondylosis without myelopathy or radiculopathy, cervical region; F41.9 Anxiety disorder, unspecified; Z86.73 Personal history of transient ischemic attack (TIA), and cerebral infarction without residual deficits; Z95.5 Presence of coronary angioplasty implant and graft; Z79.01 Long term (current) use of anticoagulants; Z79.82 Long term (current) use of aspirin
CPT/HCPCS: 29881; 93005; A9270; J0360; J0690; J1100; J1885; J2405; J2704; J3010; J7120

== ENCOUNTER 2021-12-13 11:49 | Outpatient (CLI) | payer MEDICARE, SELFPAY ==
--- NOTE | ~2021-12-13 | US_ITS ---
US venous doppler [facility] DATE: 12/13/2021 12:28 INDICATION: Left lower extremity pain TECHNIQUE: Real-time and color flow imaging and Doppler analysis of the veins of the left lower extre mity COMPARISON: None FINDINGS: The greater saphenous vein is patent. There is spontaneous and phasic flow and normal augme ntation and color flow signal and normal compression of the deep veins of the left lower extremity. There is an approximately 2.3 x 4.9 x 1.8 cm complicated cystic structure in the left popliteal fossa , likely a popliteal cyst or hematoma. IMPRESSION: No evidence of DVT venous thrombosis of left leg Popliteal cyst or hematoma, left popliteal fossa Reviewed, dictated and finalized at [facility]. Reviewed, dictated and finalized at location [facility].
== END 2021-12-13 11:50 | disposition home or self-care (01) ==
PROVIDERS: PCP Family Medicine; Visit Provider Family Medicine
DX: M79.662 Pain in left lower leg (principal); M79.89 Other specified soft tissue disorders
CPT/HCPCS: 93971

== ENCOUNTER 2022-01-02 17:03 | Outpatient (CLI) | payer MEDICARE, SELFPAY ==
--- NOTE | ~2022-01-02 | MR_ITS ---
EXAMINATION: MR lower leg LT wo con DATE: 01/02/2022 17:56 INDICATION: Left lower limb pain and swelling TECHNIQUE: Magnetic resonance imaging (MRI) of the left lower leg was performed without intravenous c ontrast. Sequences included axial, sagittal and coronal T1-weighted FSE and fluid sensitive FSE STIR. The contralateral right lower leg is included on the coronal images. COMPARISON: None. FINDINGS: Normal bone marrow signal throughout. No reactive edema, fracture or pathologic marrow replacing proc ess. No periostitis. 4.9 x 2.5 x 1.6 cm Rodriguez's cyst at the left popliteal fossa. There is relatively symmetric subtle diffuse increased muscular signal within the medial and lateral heads of the gastro cnemius muscles as well as in the musculature in the anterior and anterolateral compartments of both the left and right lower legs. Relatively symmetric bilateral distribution would argue against low-gr cierra muscle strains. Visualized portions of the tendons in about the knee and ankle and intervening lo wer leg appear normal. There is also relatively symmetric subcutaneous edema at both lower legs. Subc utaneous varicosities are seen along the medial aspect of the bilateral lower legs. There is suggesti on of a partial meniscectomy involving the body of the medial meniscus at the left knee. The left kne e is however not diagnostically evaluated due to the larger field of view and incomplete visualizatio n was distortion due to its position at the edge of the [id number] on both the sagittal and hines l sequences. Small left knee joint effusion. No ankle joint effusion, soft tissue hematomas or other abnormal loculated fluid collections. IMPRESSION: 1. Bilateral subcutaneous varicosities and relatively symmetric pattern of nonspecific subcutaneous e janell and more subtle increased fluid signal in some of the musculature in the bilateral lower legs. N o acute osseous abnormality or evident tears of the posterior tendons in the left lower leg. 2. Moderate-sized Rodriguez cyst at the left popliteal fossa. 3. Small left knee joint effusion with suggestion of partial meniscectomy of the left medial meniscal body. The [id number] is however insufficient for diagnostic assessment of the knee. Reviewed, dictated and finalized at location [facility]. IATIVE CARE PHYSICIAN IMPRESSION: 1. Bilateral subcutaneous varicosities and relatively symmetric pattern of nons pecific subcutaneous edema and more subtle increased fluid signal in some of th e musculature in the bilateral lower legs. No acute osseous abnormality or evid ent tears of the posterior tendons in the left lower leg. 2. Moderate-sized Rodriguez cyst at the left popliteal fossa. 3. Small left knee joint effusion with suggestion of partial meniscectomy of th e left medial meniscal body. The [id number] is however insufficient for diag nostic assessment of the knee.
== END 2022-01-02 17:04 ==
LOC: MICIMG 17:04
PROVIDERS: PCP Family Medicine; Visit Provider Family Medicine
DX: M79.89 Other specified soft tissue disorders (principal); M71.22 Synovial cyst of popliteal space [Baker], left knee; M25.462 Effusion, left knee
CPT/HCPCS: 73718

== ENCOUNTER 2022-08-08 07:28 | Emergency (ER) | payer MEDICARE, SELFPAY ==
[2022-08-08] VITALS (25 sets, daily range): BP systolic 180–243; BP diastolic 73–129; PULSE 42–142; RESP 7–20; TEMP 36.8–37; O2SAT 97–100
--- NOTE | ~2022-08-08 | XR_ITS ---
Clinical Indication: Palpitations PA and lateral views of the chest: Comparison: 07/08/2020 Findings: The lungs are clear, without evidence of focal consolidation or pleural effusion. Cardiome diastinal silhouette is within normal limits. Bones and soft tissues are unremarkable. Impression: Normal chest. Reviewed, dictated and finalized at location . Impression: Normal chest.
--- NOTE | 2022-08-08 07:33 | ECG_ITS ---
Measurements Intervals [place] Rate: 132 P: HI: 0 QRS: 8 QRSD: 108 T: 0 QT: 218 QTc: 323 Interpretive Statements ATRIAL FIBRILLATION WITH RAPID VENTRICULAR RESPONSE MARKED ST DEPRESSION, CONSIDER SUBENDOCARDIAL INJURY [0.2+ mV ST DEPRESSION] COMPARED TO ECG 11/22/2021 08:53:40 ATRIAL FIBRILLATION NOW PRESENT Electronically Signed On 08-08-2022 13:30:31 CDT by Pavan Bull M.D.
--- NOTE | 2022-08-08 07:42 | ECG_ITS ---
Measurements Intervals [place] Rate: 69 P: 95 IA: 183 QRS: 8 QRSD: 108 T: 59 QT: 392 QTc: 422 Interpretive Statements SINUS RHYTHM WITH OCCASIONAL SUPRAVENTRICULAR PREMATURE COMPLEXES MODERATE ST DEPRESSION [0.05+ mV ST DEPRESSION] COMPARED TO ECG 08/08/2022 07:36:21 SINUS RHYTHM NOW PRESENT Electronically Signed On 08-08-2022 13:31:12 CDT by Pavan Bull M.D.
[2022-08-08 07:45] LABS: Basophils Percent Auto 0.4 % (0.2-1.2); Eosinophils Absolute Auto 0.4 K/mm3 (0-0.3); Eosinophils Percent Auto 4.6 % (0-4.4); Hematocrit 44.9 % (42.0-52.0); Hemoglobin 14.4 g/dL (14.0-18.0); Immature Granulocyte Absolute 0.07 K/mm3 (0.00-0.031); Immature Granulocyte Percent A 0.9 % (0-0.5); Lymphocytes Absolute Auto 2.92 K/mm3 (0.9-3.2); Lymphocytes Percent Auto 37.1 % (18.3-44.2); Mean Corpuscular HGB Conc 32.1 g/dl (32-36); Mean Corpuscular Hemoglobin 30.8 pg (26-34); Mean Corpuscular Volume 95.9 fl (80-100); Mean Platelet Volume 10.3 fl (7.4-10.4); Monocytes Absolute Auto 0.9 K/mm3 (0.1-0.6); Monocytes Percent Auto 11.1 % (2.6-8.5); Neutrophils Absolute Auto 3.6 K/mm3 (1.3-6.7); Neutrophils Percent Auto 45.9 % (45.5-73.1); Platelet Count Result 162 k/mm3 (150-375); Red Blood Count 4.68 M/mm3 (4.6-6.20); Red Cell Distribution Width 13.5 % (11.5-14.5); White Blood Count 7.9 K/mm3 (4.5-10.0)
--- NOTE | 2022-08-08 07:46 | ED.ARRPALP ---
HPI - Arrhythmia/Palpitations General Chief Complaint: Arrhythmia/Palpitations Stated Complaint: HEART PALPATATIONS/SHOULDER BLADE PAIN Time Seen by Provider: 08/08/22 07:29 Source: patient, RN notes reviewed and old records reviewed Mode of arrival: ambulatory Limitations: no limitations History of Present Illness HPI narrative: This is a 81 year old male with history of paroxysmal atrial fibrillation who presents for evaluation of chest pain and palpitations. Patient states he woke up 1 hour ago with dull ache to his throat, mid chest pain radiating to his back. THis is associated with thud in his chest occasionally. He states this has been constant for 1 hour and he rates his pain 7/10. He denies associated nausea, vomiting, shortness of breath, or dizziness. He reports similar episode in the pasted caused by his atrial fibrillation. He reports having coronary stent placed in 2017. His bean viner is Dr. Almodovar. He takes Xarelto with aspirin 81 mg. Related Data Home Medications Medication Instructions Recorded Confirmed aspirin 81 mg tablet,delayed 81 mg PO DAILY 08/23/19 04/13/22 release (Adult Low Dose Aspirin) rivaroxaban 20 mg tablet (Xarelto) 20 tablet DAILY 07/05/21 04/13/22 rosuvastatin 20 mg tablet 20 tablet DAILY 07/05/21 04/13/22 Allergies Allergy/AdvReac Type Severity Reaction Status Date / Time aminophylline Allergy Intermediate Unknown- Verified 04/13/22 13:05 SEE COMMIT levofloxacin Allergy Intermediate Joint/MUSCLE Verified 04/13/22 13:05 Pain Penicillins Allergy Unknown Unknown- Verified 04/13/22 13:05 A CHILD poison angella extract Allergy Unknown Itching Verified 04/13/22 13:05 Review of Systems Constitutional: Constitutional: Denies weakness Cardiovascular: Cardiovascular: Reports chest pain, Denies syncope, Reports rapid heart rate, Reports irregular heart rhythm, Denies leg edema, Reports radiating jaw, neck or arm pain and Denies dyspnea Respiratory: Respiratory: Denies chest congestion, Denies hemoptysis, Denies excessive phlegm production and Denies dyspnea Gastrointestinal: Gastrointestinal: Denies abdominal pain, Denies hematochezia, Denies diarrhea and Denies vomiting Genitourinary: Genitourinary: Denies hematuria, Denies dysuria, Denies penile discharge and Denies testicular pain Musculoskeletal: Musculoskeletal: Denies joint swelling, Denies loss of height and Denies muscle weakness Neurologic: Denies syncope, Denies focal weakness and Denies weakness PMFSH Past Medical History Medical History Adult BMI 26.0-26.9 kg/sq m Anxiety Cerebrovascular accident CT evidence of old lacunar infarctions. Patient had no symptoms of stroke. Cervical spondylosis Colon polyps Coronary artery disease He had several stents placed in the left anterior descending 20 years ago, and then in February 2016 at [facility] had a drug-eluting stent to the proximal RCA, 2 stents to the Left anterior descending and a diagonal stent, and a week later had two stents to the ramus. There was some diffuse disease in the small distal circumflex. Erosive gastritis Hypertension Labile hypertension, now followed by Dr. Ayala. Left carotid stenosis Status post left carotid endarterectomy. Lumbar spondylosis With several bulging disc causing sciatica, mainly on the left side. Male erectile dysfunction, unspecified Mixed hyperlipidemia Pain and swelling of left lower leg Paroxysmal atrial fibrillation Pharyngoesophageal dysphagia Varicose veins of both lower extremities Surgical History Surgical History History of arthroscopy of right knee (~08/2012) History of cardiac catheterization With PCI and stent x7. History of endoscopy History of kidney surgery Patient had surgery on his right kidney at a young age for what sounds like nephroptosis. History of left-sided carotid endarterect
[2022-08-08 07:55] LABS: Alanine Aminotransferase 19 U/L (6-50); Albumin Level 4.6 g/dL (3.5-5.1); Alkaline Phosphatase 112 U/L (38-126); Anion Gap 6 mmol/L (8-16); Aspartate Amino Transferase 24 U/L (17-59); Bilirubin,Total 0.6 mg/dL (0.2-1.3); Blood Urea Nitrogen 20 mg/dL (9-20); Calcium 9.2 mg/dL (8.4-10.2); Carbon Dioxide 27 mmol/L (22-30); Chloride 105 mmol/L (98-107); Estimated Glomerular Filt Rate > 60; Glucose 116 mg/dL (65-110); Lipase 87 U/L (23-300); Potassium 3.5 mmol/L (3.4-5.0); Sodium 138 mmol/L (137-145)
[2022-08-08 08:00] LABS: Prothrombin Time 24.5 Seconds (11.1-14.7)
[2022-08-08 08:01] LABS: Partial Thromboplastin Time 39.7 SECONDS (22.3-36.8)
[2022-08-08 08:03] LABS: Magnesium 2.3 mg/dL (1.6-2.3)
[2022-08-08 08:06] LABS: Troponin I < 0.012 ng/mL (0.000-0.034)
[2022-08-08 11:09] LABS: Troponin I 0.096 ng/mL (0.000-0.034)
== END 2022-08-08 12:12 | disposition home or self-care (01) ==
PROVIDERS: Emergency Provider General Practice; PCP Family Medicine
DX: I48.0 Paroxysmal atrial fibrillation (principal); I25.10 Atherosclerotic heart disease of native coronary artery without angina pectoris; Z86.73 Personal history of transient ischemic attack (TIA), and cerebral infarction without residual deficits
CPT/HCPCS: 36415; 71046; 80053; 83690; 83735; 84484; 85025; 85610; 85730; 93005; 99284

== ENCOUNTER 2022-09-07 14:42 | Emergency (ER) | payer MEDICARE, SELFPAY ==
[2022-09-07] VITALS (12 sets, daily range): BP systolic 142–226; BP diastolic 60–92; PULSE 53–88; RESP 12–18; TEMP 36.3–36.8; O2SAT 98–100
--- NOTE | ~2022-09-07 | CT_ITS ---
EXAMINATION: CT brain wo con DATE: 09/07/2022 16:01 INDICATION: Headache. TECHNIQUE: Computed tomography (CT) of the head was performed without intravenous contrast. The dose- length product was 681.00 mGy-cm. Automated exposure control and iterative reconstruction technique w ere employed. COMPARISON: CT dated 12/26/2019 FINDINGS: Brain parenchymal volume is normal for age. There are scattered mild periventricular and saucedo bcortical white matter changes, most likely related to small vessel ischemic disease (microangiopathy ). No ventriculomegaly or midline shift. Basilar cisterns are patent. No acute infarction, hemorrhage , mass or mass effect. There is intracranial atherosclerosis. Paranasal sinuses and mastoids are pneu matized. No depressed skull fractures. IMPRESSION: 1. No acute intracranial abnormality. Reviewed, dictated and finalized at location A.
--- NOTE | ~2022-09-07 | XR_ITS ---
EXAMINATION: XR chest 1V portable 09/07/2022 15:15 INDICATION: Hypertension. PROCEDURE: AP portable chest COMPARISON: Comparison to multiple prior studies sequentially, with oldest reviewed study dated 11/13. FINDINGS: The lungs are clear. The cardiomediastinal silhouette is within normal limits. There are no pleural effusions. There is no pneumothorax suspected. IMPRESSION: 1: NO ACUTE CARDIOPULMONARY DISEASE. Reviewed, dictated and finalized at location A.
--- NOTE | 2022-09-07 14:30 | ECG_ITS ---
Measurements Intervals [place] Rate: 66 P: 44 VA: 186 QRS: -1 QRSD: 109 T: 44 QT: 423 QTc: 444 Interpretive Statements SINUS RHYTHM INCOMPLETE RIGHT BUNDLE BRANCH BLOCK BASELINE ARTIFACT- II, III, AVF, V2 BORDERLINE ECG COMPARED TO ECG 08/08/2022 07:45:32 NO SIGNIFICANT CHANGES Electronically Signed On 09-07-2022 16:08:28 CDT by Richard Alcaraz D.O.
[2022-09-07 14:48] LABS: Basophils Percent Auto 0.4 % (0.2-1.2); Eosinophils Absolute Auto 0.2 K/mm3 (0-0.3); Eosinophils Percent Auto 2.8 % (0-4.4); Hematocrit 43.4 % (42.0-52.0); Immature Granulocyte Absolute 0.02 K/mm3 (0.00-0.031); Immature Granulocyte Percent A 0.3 % (0-0.5); Lymphocytes Absolute Auto 2.06 K/mm3 (0.9-3.2); Lymphocytes Percent Auto 30.5 % (18.3-44.2); Mean Corpuscular HGB Conc 32.3 g/dl (32-36); Mean Corpuscular Hemoglobin 30.4 pg (26-34); Mean Corpuscular Volume 94.3 fl (80-100); Mean Platelet Volume 9.9 fl (7.4-10.4); Monocytes Absolute Auto 0.5 K/mm3 (0.1-0.6); Monocytes Percent Auto 7.1 % (2.6-8.5); Neutrophils Percent Auto 58.9 % (45.5-73.1); Platelet Count Result 153 k/mm3 (150-375); Red Cell Distribution Width 12.9 % (11.5-14.5); White Blood Count 6.8 K/mm3 (4.5-10.0)
[2022-09-07 14:51] LABS: INR 1.3; Prothrombin Time 17.4 Seconds (11.1-14.7)
[2022-09-07 14:52] LABS: Partial Thromboplastin Time 33.1 SECONDS (22.3-36.8)
[2022-09-07 14:54] LABS: Alanine Aminotransferase 21 U/L (6-50); Albumin Level 4.5 g/dL (3.5-5.1); Alkaline Phosphatase 102 U/L (38-126); Anion Gap 7 mmol/L (8-16); Aspartate Amino Transferase 29 U/L (17-59); Bilirubin,Total 0.8 mg/dL (0.2-1.3); Blood Urea Nitrogen 13 mg/dL (9-20); Calcium 8.9 mg/dL (8.4-10.2); Carbon Dioxide 26 mmol/L (22-30); Chloride 102 mmol/L (98-107); Estimated Glomerular Filt Rate > 60; Glucose 106 mg/dL (65-110); Lipase 44 U/L (23-300); Potassium 3.7 mmol/L (3.4-5.0); Sodium 135 mmol/L (137-145)
[2022-09-07 15:05] LABS: Troponin I < 0.012 ng/mL (0.000-0.034)
--- NOTE | 2022-09-07 15:40 | ED.RECABL ---
HPI - Recheck/Abnormal Lab/Rx General Chief Complaint: Recheck/Abnormal Lab/Rx Stated Complaint: htn Time Seen by Provider: 09/07/22 14:54 Source: patient, family and EMS Limitations: no limitations History of Present Illness HPI narrative: 81 years old white male came to the emergency room by ambulance because of headache and elevated blood pressure. Patient is telling me that he been having throbbing diffuse generalized headache over 1 week. Was seen by Dr[address] Silva office 1 week ago and debris 40 mg once a day increased to 80 mg once a day without any improvement patient still having headache and the blood pressure at home running over 200/100. Patient is telling me that doubling the antihypertensive medication increased his blood pressure. Patient denies any dizziness, chest pain, shortness of breath, back pain or abdominal pain. He denies any fever, chills, nausea, vomiting. Related Data Home Medications Medication Instructions Recorded Confirmed aspirin 81 mg tablet,delayed 81 mg PO DAILY 08/23/19 04/13/22 release (Adult Low Dose Aspirin) rivaroxaban 20 mg tablet (Xarelto) 20 tablet DAILY 07/05/21 04/13/22 rosuvastatin 20 mg tablet 20 tablet DAILY 07/05/21 04/13/22 Allergies Allergy/AdvReac Type Severity Reaction Status Date / Time aminophylline Allergy Intermediate Unknown- Verified 04/13/22 13:05 SEE COMMIT levofloxacin Allergy Intermediate Joint/MUSCLE Verified 04/13/22 13:05 Pain Penicillins Allergy Unknown Unknown- Verified 04/13/22 13:05 A CHILD poison angella extract Allergy Unknown Itching Verified 04/13/22 13:05 Beta-Blockers AdvReac Other Verified 09/07/22 16:11 (Beta-Adrenergic Bloc Review of Systems Review of Systems: All systems reviewed & are unremarkable except as noted in HPI and below PMFSH Past Medical History Medical History Adult BMI 26.0-26.9 kg/sq m Anxiety Cerebrovascular accident CT evidence of old lacunar infarctions. Patient had no symptoms of stroke. Cervical spondylosis Colon polyps Coronary artery disease He had several stents placed in the left anterior descending 20 years ago, and then in February 2016 at [place] had a drug-eluting stent to the proximal RCA, 2 stents to the Left anterior descending and a diagonal stent, and a week later had two stents to the ramus. There was some diffuse disease in the small distal circumflex. Erosive gastritis Hypertension Labile hypertension, now followed by Dr. Ayala. Left carotid stenosis Status post left carotid endarterectomy. Lumbar spondylosis With several bulging disc causing sciatica, mainly on the left side. Male erectile dysfunction, unspecified Mixed hyperlipidemia Pain and swelling of left lower leg Paroxysmal atrial fibrillation Pharyngoesophageal dysphagia Varicose veins of both lower extremities Surgical History Surgical History History of arthroscopy of right knee (~08/2012) History of cardiac catheterization With PCI and stent x7. History of endoscopy History of kidney surgery Patient had surgery on his right kidney at a young age for what sounds like nephroptosis. History of left-sided carotid endarterectomy History of meniscectomy of left knee (~11/28/21) Partial Medial Menisectomy Family History Family History Sibling Malignant neoplasm of prostate Emphysema lung Mother , Mother of an AR in her 60s. Acute myocardial infarction Father Amyotrophic lateral sclerosis Sibling Atrial fibrillation Coronary artery disease Other Family history of malignant neoplasm Social History Social History Social History: Surrogate decision maker: Obduilo Celis Jr., son. Code status: Full code. Smoking status: Never smoker Second
[2022-09-07] MEDS: ONDANSETRON INJ 4 MG/2 ML VIAL IV PUSH (15:54)
[2022-09-07] MEDS: MORPHINE SULFATE (*CRX) 4 MG/ML INJ IV PUSH (15:54)
[2022-09-07 15:59] LABS: Appearance Urine Clear (Clear); Bilirubin Urine Negative (Negative); Blood Urine Negative (Negative); Color Urine Yellow (Yellow); Glucose Urine UA Negative (Negative); Ketones Urine Negative (Negative); Leukocyte Esterase Ur Negative LEU/UL (Negative); Nitrate Urine Negative (Negative); Protein Urine Negative (Negative); Specific Grav Ur 1.008 (1.001-1.035); Urobilinogen Urine 0.2 mg/dL (<2.0)
[2022-09-07 16:04] LABS: Add Urine Microscopic? NO
[2022-09-07] MEDS: hydrALAZINE HCL 20 MG/ML VIAL IV PUSH (16:08)
[2022-09-07 17:49] LABS: Troponin I < 0.012 ng/mL (0.000-0.034)
[2022-09-07 18:15] LABS: Erythrocyte Sedimentation Rate 7 mm/hr (0-20)
[2022-09-07] MEDS: LORazepam INJ (*CRX) 2 MG/ML VIAL 0.5 MG IV PUSH (18:53)
== END 2022-09-07 20:42 | disposition home or self-care (01) ==
LOC: ANHED 18:08
PROVIDERS: Emergency Medicine; Emergency Provider Emergency Medicine; PCP Family Medicine
DX: I10 Essential (primary) hypertension (principal); I25.10 Atherosclerotic heart disease of native coronary artery without angina pectoris; I65.22 Occlusion and stenosis of left carotid artery; I48.0 Paroxysmal atrial fibrillation; E78.2 Mixed hyperlipidemia; Z86.73 Personal history of transient ischemic attack (TIA), and cerebral infarction without residual deficits; Z86.010 Personal history of colon polyps; Z79.01 Long term (current) use of anticoagulants; Z79.82 Long term (current) use of aspirin; I45.10 Unspecified right bundle-branch block
CPT/HCPCS: 36415; 70450; 71045; 80053; 81003; 83690; 84484; 85025; 85610; 85652; 85730; 93005; 96374; 96375; 99284; J0360; J2060; J2270; J2405

== ENCOUNTER 2022-09-10 14:46 | Observation (INO) | payer MEDICARE, SELFPAY ==
--- NOTE | ~2022-09-10 | US_ITS ---
EXAMINATION: US renal BI DATE: 09/11/2022 20:51 INDICATION: Uncontrolled HTN. TECHNIQUE: Multiple grayscale and Doppler ultrasound images of the kidneys were obtained. COMPARISON: None. FINDINGS: The right kidney measures 10.8 x 6.3 x 5.5 cm. The left kidney measures 11.8 x 4.8 x 4.3 cm. The kidn eys demonstrate normal parenchymal echogenicity. Mild cortical thinning. 2.4 cm simple left renal cys t. There is no hydronephrosis. The bladder is well-distended. There is mild bladder wall thickening. Marked prostatomegaly. IMPRESSION: Mild cortical atrophy. Simple left lower pole cyst. Bladder wall thickening, likely secondary to outl et compromise from marked prostatomegaly. Reviewed, dictated and finalized at location K. IMPRESSION: Mild cortical atrophy. Simple left lower pole cyst. Bladder wall thickening, li magalis secondary to outlet compromise from marked prostatomegaly.
--- NOTE | ~2022-09-10 | CT_ITS ---
EXAMINATION: CTA chest abdomen pelvis DATE: 09/10/2022 18:25 INDICATION: hypertension, chest pain radiating to back . TECHNIQUE: Computed tomography (CT) of the chest, abdomen, and pelvis was performed with 100 mL Omnip aque-350 intravenous contrast, in the arterial phase. Automated exposure control and iterative recons truction technique were employed. The dose-length product was 627.91 mGy-cm. 3-D volume rendered imag es were created by the technologist using a separate workstation. COMPARISON: X-ray chest, same date; CTPA abdomen 08/28/2019; CTPA 12/07/2018 FINDINGS: CHEST: Thoracic aorta: No significant dilation or calcification. Mild arch calcification. Lung parenchyma and airways: Lungs and airways are clear. Thoracic inlet, axillae and chest wall: No thyroid or soft tissue mass. No axillary lymphadenopathy. Mediastinum: No mass or lymphadenopathy. Heart and pericardium: Normal heart size. No pericardial effusion. Coronary artery calcifications: Moderate. Pleura: No effusion or mass. Thoracic bones: No acute osseous finding in the chest. ABDOMEN/PELVIS: Liver: Subcentimeter hypodensities, likely cysts or hemangiomas. Biliary/Gallbladder: Gallbladder is normal. No bile duct dilation. Pancreas: Mild atrophy. Spleen: Granulomatous calcifications. Adrenals:No mass. Kidneys: Bilateral cortical thinning, greater on the left. Simple lower pole cyst. Punctate, nonobstr ucting left midpole calcification. No hydronephrosis. GI tract: No small or large bowel dilation. Appendix not confidently visualized. Mesentery/Peritoneum: No ascites, mass, or free air. Retroperitoneum: No mass Atherosclerotic abdominal aortic and/or arterial calcifications. Moderate st enosis of the celiac axis. Mild stenosis at the origins of the SMA and bilateral renal arteries. The GIANNI is patent. Pelvis: Moderate bladder wall thickening. Marked prostatomegaly. Soft Tissues: Soft tissues and body wall unremarkable. Abdominopelvic bones: No acute osseous finding in the abdomen/pelvis. IMPRESSION: No acute finding detected in the chest, abdomen, or pelvis. Specifically there is no evidence of aort ic aneurysm or dissection. Reviewed, dictated and finalized at location K. IMPRESSION: No acute finding detected in the chest, abdomen, or pelvis. Specifically there is no evidence of aortic aneurysm or dissection.
--- NOTE | ~2022-09-10 | XR_ITS ---
EXAMINATION: XR chest 2V Exam Date/Time: 09/10/2022 15:05 CDT HISTORY: Left sided chest pain since this morning, high bp Comparison: 09/07/2022, 08/08/2022. RESULT: Lines, tubes, and devices: None. Lungs and pleura: Clear. Cardiomediastinal silhouette: Stable. Other: No acute osseous or upper abdominal finding. IMPRESSION: No acute cardiopulmonary process. Reviewed, dictated and finalized at location K.
--- NOTE | 2022-09-10 14:47 | ECG_ITS ---
Measurements Intervals [place] Rate: 68 P: -18 AK: 148 QRS: 5 QRSD: 109 T: 39 QT: 410 QTc: 438 Interpretive Statements SINUS RHYTHM EARLY PRECORDIAL R/S TRANSITION BORDERLINE ECG COMPARED TO ECG 09/07/2022 14:39:21 NO SIGNIFICANT CHANGES Electronically Signed On 09-11-2022 0:10:56 CDT by Richard Alcaraz D.O.
[2022-09-10 14:50] VITALS: BP 164/57; PULSE 76; RESP 16; TEMP 36.3; O2SAT 97
[2022-09-10 15:23] LABS: Basophils Percent Auto 0.5 % (0.2-1.2); Eosinophils Absolute Auto 0.2 K/mm3 (0-0.3); Eosinophils Percent Auto 1.9 % (0-4.4); Hematocrit 43.5 % (42.0-52.0); Hemoglobin 14.1 g/dL (14.0-18.0); Immature Granulocyte Absolute 0.04 K/mm3 (0.00-0.031); Immature Granulocyte Percent A 0.5 % (0-0.5); Lymphocytes Absolute Auto 1.75 K/mm3 (0.9-3.2); Lymphocytes Percent Auto 22.5 % (18.3-44.2); Mean Corpuscular HGB Conc 32.4 g/dl (32-36); Mean Corpuscular Hemoglobin 30.3 pg (26-34); Mean Corpuscular Volume 93.3 fl (80-100); Mean Platelet Volume 9.7 fl (7.4-10.4); Monocytes Absolute Auto 0.5 K/mm3 (0.1-0.6); Monocytes Percent Auto 6.3 % (2.6-8.5); Neutrophils Absolute Auto 5.3 K/mm3 (1.3-6.7); Neutrophils Percent Auto 68.3 % (45.5-73.1); Platelet Count Result 162 k/mm3 (150-375); Red Blood Count 4.66 M/mm3 (4.6-6.20); Red Cell Distribution Width 13.4 % (11.5-14.5); White Blood Count 7.8 K/mm3 (4.5-10.0)
[2022-09-10 15:34] LABS: INR 1.4; Partial Thromboplastin Time 28.8 SECONDS (22.3-36.8); Prothrombin Time 17.6 Seconds (11.1-14.7)
[2022-09-10 15:38] LABS: Alanine Aminotransferase 20 U/L (6-50); Alkaline Phosphatase 84 U/L (38-126); Anion Gap 6 mmol/L (8-16); Aspartate Amino Transferase 22 U/L (17-59); Bilirubin,Total 0.7 mg/dL (0.2-1.3); Blood Urea Nitrogen 17 mg/dL (9-20); Calcium 8.7 mg/dL (8.4-10.2); Carbon Dioxide 23 mmol/L (22-30); Chloride 105 mmol/L (98-107); Estimated CRCL calculation 55 ml/min; Estimated Glomerular Filt Rate > 60; Glucose 155 mg/dL (65-110); Lipase 43 U/L (23-300); Potassium 3.4 mmol/L (3.4-5.0); Sodium 134 mmol/L (137-145)
[2022-09-10 15:50] LABS: Troponin I < 0.012 ng/mL (0.000-0.034)
--- NOTE | 2022-09-10 17:26 | ED.CHESTPAIN ---
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 He was here few days ago for similar symptoms and had his hydralazine increased, but today he had been checking his blood pressure noticed that it was going up and up and started having some headache and chest pain that felt like it was going to his back, and called an ambulance. No focal numbness or weakness, he does admit that he has been very stressed recently due to his kids, and has been seen by his doctor for this and started on Ativan which does not always help Related Data Home Medications Medication Instructions Recorded Confirmed aspirin 81 mg tablet,delayed 81 mg PO DAILY 08/23/19 04/13/22 release (Adult Low Dose Aspirin) rivaroxaban 20 mg tablet (Xarelto) 20 tablet DAILY 07/05/21 04/13/22 rosuvastatin 20 mg tablet 20 tablet DAILY 07/05/21 04/13/22 Allergies Allergy/AdvReac Type Severity Reaction Status Date / Time aminophylline Allergy Intermediate Unknown- Verified 04/13/22 13:05 SEE COMMIT levofloxacin Allergy Intermediate Joint/MUSCLE Verified 04/13/22 13:05 Pain Penicillins Allergy Unknown Unknown- Verified 04/13/22 13:05 A CHILD poison angella extract Allergy Unknown Itching Verified 04/13/22 13:05 Beta-Blockers AdvReac Other Verified 09/07/22 16:11 (Beta-Adrenergic Bloc Review of Systems Review of Systems: CONST: No fever. HEENT: No sore throat C/V: Chest pain radiating to back RESP: No cough GI: No abdominal pain : No dysuria. M/S: No joint pain. SKIN: No rash. NEURO: [Headache/dizziness, without focal numbness or weakness] PSYCH: [No depression] PMFSH Past Medical History Medical History Adult BMI 26.0-26.9 kg/sq m Anxiety Cerebrovascular accident CT evidence of old lacunar infarctions. Patient had no symptoms of stroke. Cervical spondylosis Colon polyps Coronary artery disease He had several stents placed in the left anterior descending 20 years ago, and then in February 2016 at [facility] had a drug-eluting stent to the proximal RCA, 2 stents to the Left anterior descending and a diagonal stent, and a week later had two stents to the ramus. There was some diffuse disease in the small distal circumflex. Erosive gastritis Hypertension Labile hypertension, now followed by Dr. Ayala. Left carotid stenosis Status post left carotid endarterectomy. Lumbar spondylosis With several bulging disc causing sciatica, mainly on the left side. Male erectile dysfunction, unspecified Mixed hyperlipidemia Pain and swelling of left lower leg Paroxysmal atrial fibrillation Pharyngoesophageal dysphagia Varicose veins of both lower extremities Surgical History Surgical History History of arthroscopy of right knee (~08/2012) History of cardiac catheterization With PCI and stent x7. History of endoscopy History of kidney surgery Patient had surgery on his right kidney at a young age for what sounds like nephroptosis. History of left-sided carotid endarterectomy History of meniscectomy of left knee (~11/28/21) Partial Medial Menisectomy Family History Family History Sibling Malignant neoplasm of prostate Emphysema lung Mother , Mother of an IN in her 60s. Acute myocardial infarction Father Amyotrophic lateral sclerosis Sibling Atrial fibrillation
[2022-09-10 17:49] LABS: D Dimer < 0.27 ug/mL (<0.48)
[2022-09-10 17:59] LABS: Troponin I 0.034 ng/mL (0.000-0.034)
[2022-09-10] MEDS: ASPIRIN 81 MG CHEWABLE TABLET 324 MG PO (19:02)
[2022-09-10] MEDS: amLODIPine BESYLATE 5 MG TABLET 10 MG PO (19:02)
[2022-09-10 19:03] VITALS: PULSE 92; O2SAT 99
--- NOTE | 2022-09-10 19:24 | PC.NURSE ---
THis RN assumed care of patient. This RN took patient report from MARISOL Goldstein.
--- NOTE | 2022-09-10 20:08 | PM.IMHP ---
H&P: HPI History of Present Illness Date/Time: 09/10/22 20:08 Chief Complaint: chest pain Narrative: This is a 81-year-old male with past medical history significant for hypertension, coronary artery disease, erosive gastritis, mixed hyperlipidemia, paroxysmal atrial fibrillation rate controlled and anticoagulated. patient presents to the emergency room due to chest pain localized to the retrosternal area nonradiating ,palpitations, dizziness, shortness of breath, has had uncontrolled hypertension for the last several days, has been to his primary care physician who has adjusted his blood pressure medications however no improvement has had blurry vision as well. In emergency room systolic in the 160s patient had been to the emergency room 2 days prior was initiated on medication and sent home however blood pressure continue to be in the 200s according to readings at home. Chest pain prompted the patient to come to the emergency room today along with dizziness and lightheadedness headache and blurry vision denies any nausea or vomiting no syncope or near syncope. Patient called EMS. EXAMINATION:? XR chest 2V Exam Date/Time:? 09/10/2022 15:05 CDT HISTORY: Left sided chest pain since this morning, high bp ? Comparison:? 09/07/2022, 08/08/2022. RESULT: Lines, tubes, and devices:? None. Lungs and pleura:? Clear. Cardiomediastinal silhouette:? Stable. Other:? No acute osseous or upper abdominal finding. ? IMPRESSION: No acute cardiopulmonary process. EXAMINATION: CTA chest abdomen pelvis DATE: 09/10/2022 18:25 INDICATION: hypertension, chest pain radiating to back . TECHNIQUE: Computed tomography (CT) of the chest, abdomen, and pelvis was performed with 100 mL Omnipaque-350 intravenous contrast, in the arterial phase. Automated exposure control and iterative reconstruction technique were employed. The dose-length product was 627.91 mGy-cm. 3-D volume rendered images were created by the technologist using a separate workstation. COMPARISON: X-ray chest, same date; CTPA abdomen 08/28/2019; CTPA 12/07/2018 FINDINGS: CHEST: Thoracic aorta: No significant dilation or calcification. Mild arch calcification. Lung parenchyma and airways: Lungs and airways are clear. Thoracic inlet, axillae and chest wall: No thyroid or soft tissue mass. No axillary lymphadenopathy. Mediastinum: No mass or lymphadenopathy. Heart and pericardium: Normal heart size. No pericardial effusion. Coronary artery calcifications: Moderate. Pleura: No effusion or mass. Thoracic bones: No acute osseous finding in the chest. ABDOMEN/PELVIS: Liver: Subcentimeter hypodensities, likely cysts or hemangiomas.? Biliary/Gallbladder: Gallbladder is normal. No bile duct dilation. Pancreas: Mild atrophy. Spleen: Granulomatous calcifications. Adrenals:No mass. Kidneys: Bilateral cortical thinning, greater on the left. Simple lower pole cyst. Punctate, nonobstructing left midpole calcification. No hydronephrosis. GI tract: No small or large bowel dilation. Appendix not confidently visualized. Mesentery/Peritoneum: No ascites, mass, or free air. Retroperitoneum: No mass Atherosclerotic abdominal aortic and/or arterial calcifications. Moderate stenosis of the celiac axis. Mild stenosis at the origins of the SMA and bilateral renal arteries. The GIANNI is patent. Pelvis: Moderate bladder wall thickening. Marked prostatomegaly. Soft Tissues: Soft tissues and body wall unremarkable. Abdominopelvic bones:? No acute osseous finding in the abdomen/pelvis. IMPRESSION: No acute finding detected in the chest, abdomen, or pelvis. Specifically there is no evidence of aortic aneurysm or dissection. EKG Rate 68 MD 148 QRSd 109 QT 410 QTc 438 --Chapman-- P -18 QRS 5 T 39 SINUS RHYTHM EARLY PRECORDIAL R/S TRANSITION BORDERLINE ECG COMPARED TO ECG 09/07/2022 14:39:21 NO SIGNIFICANT CHANGES Electronically Signed On 09-11-2022 0:10:56 CDT Review of Systems Review of Systems: Uncontrolled h
[2022-09-10 22:05] LABS: Troponin I 0.049 ng/mL (0.000-0.034)
[2022-09-10 22:19] VITALS: BP 169/69; PULSE 59; RESP 18; O2SAT 100
[2022-09-10 23:00] VITALS: BP 179/70; PULSE 80; RESP 18; TEMP 36.6; O2SAT 98
--- NOTE | 2022-09-10 23:13 | ADMIMU ---
This patient, Obdulio Marroquin, was admitted to IMU status, and placed in Intensive Care Unit-11. Patient/family oriented to hospital policies and general routines including ID bracelet, bed and alarms, visiting hours, pain management, procedures, bathroom and other care routines, personal items, smoking policy, room service/diet, and visiting hours. Valuables list has been completed. Information on how to activate the Rapid Response Team has been discussed. Patient/Family are encouraged to report perceived risks to care and to ask questions if they do not understand what they are told or what they should do.
[2022-09-10 23:15] VITALS: BMI 25.6
[2022-09-11] VITALS (15 sets, daily range): BP systolic 119–185; BP diastolic 50–74; PULSE 51–76; RESP 16–19; TEMP 36.4–36.8; O2SAT 97–98
--- NOTE | 2022-09-11 | ECHO_ITS ---
Patient Info Name: Obdulio Marroquin Age: 81 years : 1940 Gender: Male Ht: 70 in Wt: 178 lbs BSA: 2.01 m2 HR: 76 bpm BP: 119 / 50 mmHg Heart Rhythm: Sinus Rhythm Technical Quality: Good Exam Date: 09/11/2022 7:48 AM Exam Location: [facility] Patient Status: Outpatient Admit Date: 09/10/2022 Staff Ordering Physician: Breonna Pope MD Cisco Engineer: Shital Calix RDCS Attending Provider: Vickey Odell MD Referring Physician: Toshia GUZMAN; Exam Type: CA echo doppler color flow Study Info Indications - Uncontrolled HTN Complete two-dimensional, color flow and Doppler transthoracic echocardiogram is performed. Summary 1. Complete two-dimensional, color flow and Doppler transthoracic echocardiogram is performed. 2. Normal left ventricular size with hyperdynamic systolic function. 3. Grade 2 diastolic noncompliance. 4. Sclerotic but not stenotic aortic valve. Left Ventricle Left ventricular chamber dimension is normal. Left ventricular systolic function is hyperdynamic, estimated at >70%. The left ventricular diastolic function is grade II diastolic dysfunction. Right Ventricle Right ventricular chamber dimension is normal. Left Atria Left atrial chamber dimension is mildly enlarged. Right Atria Right atrial chamber dimension is normal. Aortic Valve The aortic valve is trileaflet. There is mild aortic valve sclerosis. There is no aortic valve stenosis. Pulmonic Valve The pulmonic valve is not well visualized. Mitral Valve The mitral valve has normal leaflets. Tricuspid Valve The tricuspid valve leaflets are normal. Pericardium/Pleural The pericardium appears normal. Aorta The aortic root size at the sinus of Valsalva is normal. Left Ventricular Outflow Tract Name Value Normal LVOT 2D LVOT Diameter 2.0 cm LVOT Doppler LVOT Peak Gradient 13 mmHg LVOT Mean Gradient 6 mmHg LVOT VTI 35 cm LVOT VTI/AV VTI Ratio 0.8 LVOT Stroke Volume 112 ml LVOT CO 7.2 l/min LVOT CI 3.6 l/min/m2 Pulmonic Valve Name Value Normal RVOT Doppler RVOT Peak Gradient 5 mmHg PV Doppler PV Peak Gradient 8 mmHg Mitral Valve Name Value Normal MV Doppler MV Decel [place] 409 cm/s2 MV PHT 80 ms MV Area (PHT) 2.8 cm2 4.0-5.0 MV Diastolic Function
--- NOTE | 2022-09-11 08:02 | PM.IMPN ---
Progress Note: A&P Assessment and Plan (1) Hypertensive emergency: Code(s): I16.1 - Hypertensive emergency Status: Acute Assessment and Plan: Echo, renal ultrasound both ordered and pending Monitor telemetry Improving Cont losartan, increase to 50 mg daily, add clonidine 0.1 mg QHS and prn 160/100 (2) Chest pain: Code(s): R07.9 - Chest pain, unspecified Status: Acute Assessment and Plan: Resolved (3) Paroxysmal atrial fibrillation: Code(s): I48.0 - Paroxysmal atrial fibrillation Status: Acute Assessment and Plan: Continue anticoagulation Rate controlled (4) Coronary artery disease: Code(s): I25.10 - Atherosclerotic heart disease of [place] coronary artery without angina pectoris Status: Acute Assessment and Plan: Stable, continue home meds (5) Cerebrovascular accident: Code(s): I63.9 - Cerebral infarction, unspecified Status: Acute (6) Pharyngoesophageal dysphagia: Code(s): R13.14 - Dysphagia, pharyngoesophageal phase Status: Acute Assessment and Plan: Patient tolerating p.o. well Plan DVT prophylaxis with Xarelto GI prophylaxis not indicated Code status full code Subjective Date/time seen: 09/11/22 08:02 Interval history: 81-year-old male with history of hypertension, heart disease, hyperlipidemia, AFib, gastritis is presenting with chest pain and currently being worked up for possible acute cardiac etiology. No overnight events noted. No chest pain or shortness of breath. No nausea, vomiting or diarrhea. No fevers or chills. Review of Systems Review of Systems: 12 point review of systems was assessed and was negative except as noted in the HPI Exam Narrative: General: No acute distress, alert and oriented per baseline HEENT: Atraumatic, normocephalic, mucous membranes moist CV: Regular rate and rhythm, S1, S2 Lungs: Clear to auscultation bilaterally, no rales or crackles noted, no wheezes, good air entry Abdomen: Soft, nontender, nondistended Extremities: Normal to inspection Skin: No rashes noted, no lesions or wounds seen Psych: Euthymic, normal affect Objective Data Vital Signs Vital Signs: Vital Signs - 24 hr 09/10/22 14:50 09/10/22 19:03 09/10/22 19:03 Temperature 97.3 F L Pulse Rate 76 92 Respiratory Rate 16 Blood Pressure 164/57 H Pulse Oximetry 97 99 Oxygen Delivery Room Air Room Air 09/10/22 22:19 09/10/22 23:00 09/11/22 00:00 Temperature 97.8 F 98.2 F Pulse Rate 59 L 80 70 Respiratory Rate 18 18 18 Blood Pressure 169/69 H 179/70 H 152/71 H Pulse Oximetry 100 98 98 Oxygen Delivery 09/11/22 00:00 09/11/22 00:00 09/11/22 02:00 Temperature Pulse Rate 67 70 51 L Respiratory Rate Blood Pressure Pulse Oximetry Oxygen Delivery Room Air 09/11/22 03:16 09/11/22 04:00 09/11/22 04:00 Temperature 97.9 F Pulse Rate 52 L 55 L 55 L Respiratory Rate 18 Blood Pressure 119/50 L Pulse Oximetry 97 Oxygen Delivery Room Air 09/11/22 06:00 09/11/22 07:44 Temperature 97.9 F Pulse Rate 76 71 Respiratory Rate 18 Blood Pressure 119/50 L Pulse Oximetry 97 Oxygen Delivery Intake/Output Intake/Output: Intake & Output 09/08/22 09/09/22 09/10/22 09/11/22 23:59 23:59 23:59 23:59 Intake Total 200 Output Total 250 Balance -250 200 Meds/Results Medications: Active Medications Generic Name Dose Route Start Last Admin Trade Name Freq PRN Reason Stop Dose Admin Aspirin 81 mg 09/11/22 09:00 Aspirin 81 Mg Enteric Tablet PO DAILY MAX Hydralazine HCl 50 mg 09/11/22 08:00 Hydralazine Hcl 50 Mg Tablet PO TIDWM MAX Linaclotide 145 mcg 09/11/22 01:23 Linaclotide 145 Mcg Capsule PO DAILY PRN Constipation Lorazepam 0.5 mg 09/11/22 01:23 Lorazepam (*Crx) 0.5 Mg Tablet PO DAILY PRN Anxiety Losartan [place]
[2022-09-11 08:56] LABS: Troponin I 0.024 ng/mL (0.000-0.034)
[2022-09-11] MEDS: ROSUVASTATIN 10 MG TABLET 20 MG PO (09:19)
[2022-09-11] MEDS: LOSARTAN POTASSIUM 25 MG TABLET PO (09:20)
[2022-09-11] MEDS: ASPIRIN 81 MG ENTERIC TABLET PO (09:20)
[2022-09-11] MEDS: hydrALAZINE HCL 50 MG TABLET PO (09:24)
[2022-09-11] MEDS: ACETAMINOPHEN 500 MG TABLET 1000 MG PO (15:39)
[2022-09-11] MEDS: LINACLOTIDE 145 MCG CAPSULE PO (16:52)
[2022-09-11] MEDS: LORazepam (*CRX) 0.5 MG TABLET PO (16:53)
[2022-09-11] MEDS: RIVAROXABAN 20 MG TABLET BY MOUTH (16:53)
[2022-09-11] MEDS: LOSARTAN POTASSIUM 25 MG TABLET (16:53)
[2022-09-11] MEDS: cloNIDine HCL 0.1 MG TABLET PO (20:53)
[2022-09-12] VITALS (13 sets, daily range): BP systolic 103–176; BP diastolic 54–74; PULSE 42–67; RESP 12–16; TEMP 36.1–36.6; O2SAT 96–99
--- NOTE | 2022-09-12 07:45 | PM.IMPN ---
Progress Note: A&P Assessment and Plan (1) Hypertensive emergency: Code(s): I16.1 - Hypertensive emergency Status: Acute Assessment and Plan: Echo reviewed, normal EF with grade 2 diastolic dysfunction Renal ultrasound ordered, noted mild bilateral MARTHA, possibly contributing to patient's symptoms Would recommend workup for secondary causes of hypertension as an outpatient Cont losartan, increase to 50 mg daily Add clonidine 0.1 mg q8h (2) Chest pain: Code(s): R07.9 - Chest pain, unspecified Status: Acute Assessment and Plan: Resolved (3) Paroxysmal atrial fibrillation: Code(s): I48.0 - Paroxysmal atrial fibrillation Status: Acute Assessment and Plan: Continue anticoagulation Rate controlled (4) Coronary artery disease: Code(s): I25.10 - Atherosclerotic heart disease of [place] coronary artery without angina pectoris Status: Acute Assessment and Plan: Stable, continue home meds (5) Cerebrovascular accident: Code(s): I63.9 - Cerebral infarction, unspecified Status: Acute (6) Pharyngoesophageal dysphagia: Code(s): R13.14 - Dysphagia, pharyngoesophageal phase Status: Acute Assessment and Plan: Patient tolerating p.o. well Plan DVT prophylaxis with Xarelto GI prophylaxis not indicated Code status full code Subjective Date/time seen: 09/12/22 07:45 Interval history: 81-year-old male with history of hypertension, heart disease, hyperlipidemia, AFib, gastritis is presenting with chest pain and currently being worked up for possible acute cardiac etiology. No overnight events noted. No chest pain or shortness of breath. No nausea, vomiting or diarrhea. No fevers or chills. Review of Systems Review of Systems: 12 point review of systems was assessed and was negative except as noted in the HPI Exam Narrative: General: No acute distress, alert and oriented per baseline HEENT: Atraumatic, normocephalic, mucous membranes moist CV: Regular rate and rhythm, S1, S2 Lungs: Clear to auscultation bilaterally, no rales or crackles noted, no wheezes, good air entry Abdomen: Soft, nontender, nondistended Extremities: Normal to inspection Skin: No rashes noted, no lesions or wounds seen Psych: Euthymic, normal affect Objective Data Vital Signs Vital Signs: Vital Signs - 24 hr 09/11/22 08:00 09/11/22 10:00 09/11/22 12:00 Temperature 98 F Pulse Rate 67 65 62 Respiratory Rate 18 Blood Pressure 144/60 H Pulse Oximetry 98 Oxygen Delivery 09/11/22 12:00 09/11/22 14:00 09/11/22 16:00 Temperature 98.2 F Pulse Rate 64 61 64 Respiratory Rate 16 Blood Pressure 185/73 H Pulse Oximetry 98 Oxygen Delivery 09/11/22 16:00 09/11/22 18:00 09/11/22 21:19 Temperature 97.5 F L Pulse Rate 63 69 57 L Respiratory Rate 19 Blood Pressure 150/74 H Pulse Oximetry 98 Oxygen Delivery 09/11/22 20:00 09/11/22 20:00 09/11/22 22:00 Temperature Pulse Rate 57 L 65 61 Respiratory Rate Blood Pressure Pulse Oximetry Oxygen Delivery Room Air 09/12/22 00:00 09/12/22 00:00 09/12/22 00:00 Temperature 97.8 F Pulse Rate 44 L 44 L 42 L Respiratory Rate 14 Blood Pressure 105/56 L Pulse Oximetry 96 Oxygen Delivery Room Air 09/12/22 02:00 09/12/22 03:35 09/12/22 04:00 Temperature Pulse Rate 42 L 67 54 L Respiratory Rate 13 Blood Pressure 151/64 H Pulse Oximetry 97 Oxygen Delivery Room Air 09/12/22 04:00 09/12/22 05:55 Temperature Pulse Rate 52 L 65 Respiratory Rate Blood Pressure Pulse Oximetry Oxygen Delivery Intake/Output Intake/Output: Intake & Output 09/09/22 09/10/22 09/11/22 09/12/22 23:59 23:59 23:59 23:59 Intake Total 1090 500 Output Total 250 600 650 Balance -250 490 -150 Meds/Results Medications: Active Medications Generic Name Dose Route Start L
[2022-09-12] MEDS: ASPIRIN 81 MG ENTERIC TABLET PO (08:20)
[2022-09-12] MEDS: cloNIDine HCL 0.1 MG TABLET PO (08:20)
[2022-09-12] MEDS: ROSUVASTATIN 10 MG TABLET 20 MG PO (08:20)
[2022-09-12] MEDS: LOSARTAN POTASSIUM 25 MG TABLET 50 MG PO (08:20)
--- NOTE | 2022-09-12 11:16 | PM.DS ---
DS: Admitting Diagnosis Discharge Date 09/12/22 Admitting Diagnosis hypertensive urgency DS: Discharge Diagnosis Discharge Diagnosis (1) Hypertensive emergency: Code(s): I16.1 - Hypertensive emergency Status: Acute Assessment and Plan: Echo reviewed, normal EF with grade 2 diastolic dysfunction Renal ultrasound ordered, noted mild bilateral MARTHA, possibly contributing to patient's symptoms Would recommend workup for secondary causes of hypertension as an outpatient Cont losartan, increase to 50 mg daily Add clonidine 0.1 mg q8h (2) Chest pain: Code(s): R07.9 - Chest pain, unspecified Status: Acute Assessment and Plan: Resolved (3) Paroxysmal atrial fibrillation: Code(s): I48.0 - Paroxysmal atrial fibrillation Status: Acute Assessment and Plan: Continue anticoagulation Rate controlled (4) Coronary artery disease: Code(s): I25.10 - Atherosclerotic heart disease of [place] coronary artery without angina pectoris Status: Acute Assessment and Plan: Stable, continue home meds (5) Cerebrovascular accident: Code(s): I63.9 - Cerebral infarction, unspecified Status: Acute (6) Pharyngoesophageal dysphagia: Code(s): R13.14 - Dysphagia, pharyngoesophageal phase Status: Acute Assessment and Plan: Patient tolerating p.o. well Plan DVT prophylaxis with Xarelto GI prophylaxis not indicated Code status full code DS: Summary Hospital Course Hospital Course: 81-year-old male with history of hypertension, heart disease, hyperlipidemia, AFib, gastritis is presenting with chest pain and currently being worked up for possible acute cardiac etiology. Cardiac workup with negative, symptoms thought to be secondary to hypertensive urgency. He was started on clonidine q.h.s., losartan 50 mg daily and Aldactone 25 mg daily with close outpatient follow-up with his PCP. Please see above and med rec for details. Of note, renal ultrasound did show mild bilateral renal artery stenosis that is likely contributing to his symptoms. Recommend referral to vascular surgery for possible assessment and treatment. Would also recommend secondary hypertension workup by PCP on an outpatient basis be performed. Time Spent with Patient Time attestation: Total time spent providing and/or coordinating discharge services: Exam Narrative: General: No acute distress, alert and oriented per baseline HEENT: Atraumatic, normocephalic, mucous membranes moist CV: Regular rate and rhythm, S1, S2 Lungs: Clear to auscultation bilaterally, no rales or crackles noted, no wheezes, good air entry Abdomen: Soft, nontender, nondistended Extremities: Normal to inspection Skin: No rashes noted, no lesions or wounds seen Psych: Euthymic, normal affect Discharge Plan Discharge Attending physician on discharge: Mei Spivey Discharging Clinician: Mei Spivey Patient Disposition: Home, Self-Care Activity: as tolerated Diet: as tolerated Patient Instructions: Antibiotic Form, Coronary Artery Disease (GEN), Chronic Hypertension (GEN), Blood Thinners (GEN) Stand Alone Forms: General Discharge Information Follow-up/Referrals: Abhishek Coffman MD [Primary Care Provider] - Discharge Medications: New losartan 25 mg Tablet 50 mg PO QAM 30 Days Qty: 60 0RF clonidine HCl 0.1 mg Tablet 0.1 mg PO QHS Qty: 45 0RF spironolactone [Aldactone] 25 mg tablet 25 mg PO DAILY 30 Days Qty: 30 0RF Continued rosuvastatin 20 mg tablet 20 tablet DAILY Patient Comments: HS Xarelto 20 mg tablet 20 tablet DAILY Hold Instructions: Resume on 11/30/21. May resume 2 days after surgery. Patient Comments: HS aspirin [Adult Low Dose Aspirin] 81 mg Tablet,Delayed Release (Dr/Ec) 81 mg PO DAILY Patient Comments: HS Linzess 145 mcg capsule 145 mcg PO DAILY PRN (Martín
[2022-09-12] MEDS: SPIRONOLACTONE 25 MG TABLET PO (14:19)
[2022-09-12] MEDS: RIVAROXABAN 20 MG TABLET BY MOUTH (17:12)
== END 2022-09-12 17:38 | disposition home or self-care (01) ==
LOC: ANHED 18:44 → ANHICU 09-11 05:26 → ANHIMU 09-13 10:57
PROVIDERS: Admitting Provider Internal Medicine; Emergency Provider Emergency Medicine; PCP Family Medicine; Visit Provider Student in an Organized Health Care Education/Training Program
DX: I16.1 Hypertensive emergency (principal); R07.9 Chest pain, unspecified; I48.0 Paroxysmal atrial fibrillation; I25.10 Atherosclerotic heart disease of native coronary artery without angina pectoris; Z95.5 Presence of coronary angioplasty implant and graft; I63.9 Cerebral infarction, unspecified; R13.14 Dysphagia, pharyngoesophageal phase; K25.9 Gastric ulcer, unspecified as acute or chronic, without hemorrhage or perforation; R00.2 Palpitations; R42 Dizziness and giddiness; R06.02 Shortness of breath; N52.9 Male erectile dysfunction, unspecified; N28.1 Cyst of kidney, acquired; G31.9 Degenerative disease of nervous system, unspecified; E78.2 Mixed hyperlipidemia; M47.812 Spondylosis without myelopathy or radiculopathy, cervical region; M47.816 Spondylosis without myelopathy or radiculopathy, lumbar region; I83.93 Asymptomatic varicose veins of bilateral lower extremities; Z86.73 Personal history of transient ischemic attack (TIA), and cerebral infarction without residual deficits; Z79.82 Long term (current) use of aspirin; Z79.01 Long term (current) use of anticoagulants; Z79.899 Other long term (current) drug therapy; Z82.49 Family history of ischemic heart disease and other diseases of the circulatory system
CPT/HCPCS: 36415; 71046; 71275; 74174; 76775; 80053; 83690; 84484; 85025; 85380; 85610; 85730; 93005; 93306; 99285; A9270; G0378; Q9967

== ENCOUNTER 2022-10-13 12:47 | Emergency (ER) | payer MEDICARE, SELFPAY ==
--- NOTE | 2022-10-13 12:54 | ED.EXTPRO ---
HPI - Extremity Problem General Chief complaint: Skin/Abscess/Foreign Body Stated complaint: swollen rt wrist Time Seen by Provider: 10/13/22 12:52 Source: patient Mode of arrival: ambulatory Limitations: no limitations History of Present Illness HPI Narrative: Obdulio is an 82-year-old male patient presenting to the clinic today with complaints of right wrist swelling ever since he was stung by a wasp 2 days ago. He reports there is increase in swelling and redness to the right wrist that is causing some discomfort. Reports that the area is very itchy. Denies any fever or chills. Related Data Home Medications Medication Instructions Recorded Confirmed aspirin 81 mg tablet,delayed 81 mg PO DAILY 08/23/19 09/10/22 release (Adult Low Dose Aspirin) rivaroxaban 20 mg tablet (Xarelto) 20 tablet DAILY 07/05/21 09/10/22 rosuvastatin 20 mg tablet 20 tablet DAILY 07/05/21 09/10/22 linaclotide 145 mcg capsule 145 mcg PO DAILY PRN Constipation 09/10/22 09/10/22 (Linzess) lorazepam 0.5 mg tablet 0.5 mg PO DAILY PRN Anxiety 09/10/22 09/10/22 Allergies Allergy/AdvReac Type Severity Reaction Status Date / Time aminophylline Allergy Intermediate Unknown- Verified 04/13/22 13:05 SEE COMMIT levofloxacin Allergy Intermediate Joint/MUSCLE Verified 04/13/22 13:05 Pain Penicillins Allergy Unknown Unknown- Verified 04/13/22 13:05 A CHILD poison angella extract Allergy Unknown Itching Verified 04/13/22 13:05 Beta-Blockers AdvReac Other Verified 09/07/22 16:11 (Beta-Adrenergic Bloc Review of Systems Review of Systems: Pertinent positives per HPI. Patient denies any fever, chills, headache, visual changes, dizziness, cough, runny nose, sore throat, shortness of breath, chest pain, palpitations, nausea, vomiting, diarrhea, constipation, abdominal pain, or any urinary issues. [facility] Past Medical History Medical History Adult BMI 26.0-26.9 kg/sq m Anxiety Cerebrovascular accident CT evidence of old lacunar infarctions. Patient had no symptoms of stroke. Cervical spondylosis Colon polyps Coronary artery disease He had several stents placed in the left anterior descending 20 years ago, and then in February 2016 at [place] had a drug-eluting stent to the proximal RCA, 2 stents to the Left anterior descending and a diagonal stent, and a week later had two stents to the ramus. There was some diffuse disease in the small distal circumflex. Erosive gastritis Hypertension Labile hypertension, now followed by Dr. Ayala. Left carotid stenosis Status post left carotid endarterectomy. Lumbar spondylosis With several bulging disc causing sciatica, mainly on the left side. Male erectile dysfunction, unspecified Mixed hyperlipidemia Pain and swelling of left lower leg Paroxysmal atrial fibrillation Pharyngoesophageal dysphagia Varicose veins of both lower extremities Surgical History Surgical History History of arthroscopy of right knee (~08/2012) History of cardiac catheterization With PCI and stent x7. History of endoscopy History of kidney surgery Patient had surgery on his right kidney at a young age for what sounds like nephroptosis. History of left-sided carotid endarterectomy History of meniscectomy of left knee (~11/28/21) Partial Medial Menisectomy Family History Family History Sibling Malignant neoplasm of prostate Emphysema lung Mother , Mother of an [place] in her 60s. Acute myocardial infarction Father Amyotrophic lateral sclerosis Sibling Atrial fibrillation Coronary artery disease Other Family history of malignant neoplasm Social History Social History Social History: Surrogate decision maker: Obdulio Celis,
[2022-10-13 13:02] VITALS: BP 164/60; PULSE 106; RESP 18; TEMP 36.4; O2SAT 100
== END 2022-10-13 13:17 | disposition home or self-care (01) ==
PROVIDERS: Emergency Provider Nurse Practitioner Family; PCP Family Medicine
DX: T63.461A Toxic effect of venom of wasps, accidental (unintentional), initial encounter (principal); M47.812 Spondylosis without myelopathy or radiculopathy, cervical region; I25.10 Atherosclerotic heart disease of native coronary artery without angina pectoris; I10 Essential (primary) hypertension; I65.22 Occlusion and stenosis of left carotid artery; M47.816 Spondylosis without myelopathy or radiculopathy, lumbar region; E78.2 Mixed hyperlipidemia; I48.0 Paroxysmal atrial fibrillation; I83.93 Asymptomatic varicose veins of bilateral lower extremities; Z79.82 Long term (current) use of aspirin; Z95.5 Presence of coronary angioplasty implant and graft
CPT/HCPCS: 99213; G0463

== ENCOUNTER 2022-11-24 09:35 | Outpatient (CLI) | payer MEDICARE, SELFPAY ==
--- NOTE | ~2022-11-24 | XR_ITS ---
Lumbosacral Spine: AP and lateral views Clinical History: Pain COMPARISON: 05/21/2018 Findings: The normal lordotic curve is maintained. No lumbar fracture evident. Probable minimal wedgi ng deformity of T11. 6 mm anterolisthesis of L4 over L5 present, unchanged. Facet arthropathy through out the lumbar spine is similar to prior exam. The sacroiliac joints are normally outlined. Impression: 6 mm anterolisthesis of L4 over L5, similar to prior exam. Extensive facet joint degenerative change. Probable minimal anterior wedging deformity of T11. Reviewed, dictated and finalized at location M. Impression: 6 mm anterolisthesis of L4 over L5, similar to prior exam. Extensive facet joint degenerative change. Probable minimal anterior wedging deformity of T11.
== END 2022-11-24 09:36 | disposition home or self-care (01) ==
PROVIDERS: PCP Family Medicine; Visit Provider Physician Assistant Medical
DX: M54.16 Radiculopathy, lumbar region (principal); M51.36 Other intervertebral disc degeneration, lumbar region
CPT/HCPCS: 72100

== ENCOUNTER 2022-12-07 16:55 | Outpatient (CLI) | payer MEDICARE, SELFPAY ==
--- NOTE | ~2022-12-07 | MR_ITS ---
EXAMINATION: MR lumbar spine wo con DATE: 12/07/2022 17:37 INDICATION: Radiculopathy, lumbar region. TECHNIQUE: Magnetic resonance imaging (MRI) of the lumbar spine was performed without intravenous con trast. Sequences included sagittal T2-weighted FSE, sagittal T2-weighted FS FSE, sagittal T1-weighted FSE, and axial T2-weighted FSE. COMPARISON: Lumbar spine MRI 09/11/2014 FINDINGS: There is 15 degrees levoscoliosis of lumbar spine. There is 3 mm anterolisthesis of L5 on S 1. There is moderately decreased disc height at L5-S1 with disc calcifications. The distal spinal cor d signal intensity is normal. The conus medullaris is at L2. The following disc levels are specifical ly discussed: L1-L2: The disc is bulging. There is mild bilateral facet joint osteoarthritis. There is mild bilater al neural foraminal stenosis. There is mild central canal stenosis. L2-L3: The disc is bulging. There is severe bilateral facet joint osteoarthritis. There is moderate r ight and mild left neural foraminal stenosis. There is mild central canal stenosis. L3-L4: The disc is bulging and has an annular fissure. There is severe bilateral facet joint osteoart hritis. There is moderate bilateral neural foraminal stenosis. There is mild central canal stenosis. There is moderate stenosis of right lateral recess and severe stenosis of left lateral recess. L4-L5: The disc is bulging and has an annular fissure. There is severe bilateral facet joint osteoart hritis. There is moderate bilateral neural foraminal stenosis. There is severe central canal stenosis . L5-S1: The disc is bulging. There is ankylosis of the facet joints with severe hypertrophy. There is moderate bilateral neural foraminal stenosis. There is mild central canal stenosis. IMPRESSION: 1. Moderate lumbar spondylosis, stable from 09/11/2014. 2. Lumbar levoscoliosis. Reviewed, dictated and finalized at location E.
== END 2022-12-07 16:56 | disposition home or self-care (01) ==
PROVIDERS: PCP Family Medicine; Visit Provider Physician Assistant Medical
DX: M43.06 Spondylolysis, lumbar region (principal); M51.36 Other intervertebral disc degeneration, lumbar region; M41.86 Other forms of scoliosis, lumbar region
CPT/HCPCS: 72148

== ENCOUNTER 2022-12-30 10:58 | Emergency (ER) | payer MEDICARE, SELFPAY ==
--- NOTE | 2022-12-30 11:39 | ED.URI ---
HPI - URI/Sore Throat General Chief Complaint: Upper Respiratory Infection Stated Complaint: sorethroat,sinus drainage Time Seen by Provider: 12/30/22 11:39 Source: patient, RN notes reviewed and old records reviewed Mode of arrival: ambulatory Limitations: no limitations History of Present Illness HPI Narrative: 82-year-old male presents to the [facility] with sneezing, tearing eyes, cough at night and 1st thing in the morning. Patient states symptoms have been intermittent for almost 3 weeks Reports throat dryness Took 1 dose of Coricidin HBP yesterday. No other treatment prior to arrival Related Data Home Medications Medication Instructions Recorded Confirmed aspirin 81 mg tablet,delayed 81 mg PO DAILY 08/23/19 12/30/22 release (Adult Low Dose Aspirin) linaclotide 145 mcg capsule 145 mcg PO DAILY PRN Constipation 09/10/22 12/30/22 (Linzess) amlodipine 5 mg tablet 5 mg PO DAILY 11/24/22 12/30/22 losartan 25 mg tablet 50 mg PO QAM 11/24/22 12/30/22 rivaroxaban 20 mg tablet (Xarelto) 400 mg PO DAILY 11/24/22 12/30/22 rosuvastatin 20 mg tablet 400 mg PO DAILY 11/24/22 12/30/22 spironolactone 25 mg tablet 25 mg PO DAILY 11/24/22 12/30/22 (Aldactone) Allergies Allergy/AdvReac Type Severity Reaction Status Date / Time aminophylline AdvReac Intermediate Unknown- Verified 12/30/22 11:41 SEE COMMIT Beta-Blockers AdvReac Intermediate Other Verified 12/30/22 11:41 (Beta-Adrenergic Bloc levofloxacin AdvReac Intermediate Joint/MUSCLE Verified 12/30/22 11:41 Pain Penicillins AdvReac Unknown Unknown- Verified 12/30/22 11:41 A CHILD poison angella extract AdvReac Unknown Itching Verified 12/30/22 11:41 Review of Systems Review of Systems: All systems reviewed & are unremarkable except as noted in HPI and below Constitutional: Constitutional: Reports no additional constitutional complaints Eyes: Eyes: Reports no additional eye complaints ENT: Reports as per HPI Cardiovascular: Cardiovascular: Reports no additional cardiovascular complaints, Denies chest pain and Denies dyspnea Respiratory: Respiratory: Reports as per HPI, Denies chest congestion, Denies cough and Denies dyspnea Gastrointestinal: Gastrointestinal: Reports no additional gastrointestinal complaints, Denies abdominal pain, Denies nausea and Denies vomiting Musculoskeletal: Musculoskeletal: Reports no additional musculoskeletal complaints Integumentary/Breasts: Skin/Breast: Reports system reviewed and no additional complaints, except as docu Neurologic: Reports system reviewed and no additional complaints, except as documented Psychiatric: Psychiatric: Reports no additional psychiatric complaints Allergic/Immunologic: Allergic/Immunologic: Reports no additional allergic/immunologic complaints PMFSH Past Medical History Medical History Adult BMI 26.0-26.9 kg/sq m Anxiety Cerebrovascular accident CT evidence of old lacunar infarctions. Patient had no symptoms of stroke. Cervical spondylosis Colon polyps Coronary artery disease He had several stents placed in the left anterior descending 20 years ago, and then in February 2016 at [place] had a drug-eluting stent to the proximal RCA, 2 stents to the Left anterior descending and a diagonal stent, and a week later had two stents to the ramus. There was some diffuse disease in the small distal circumflex. Erosive gastritis Hypertension Labile hypertension, now followed by Dr. Ayala. Left carotid stenosis Status post left carotid endarterectomy. Lumbar spondylosis With several bulging disc causing sciatica, mainly on the left side. Male erectile dysfunction, unspecified Mixed hyperlipidemia Pain and swelling of left lower leg Paroxysmal atrial fibrillation Pharyngoesophageal dysphagia Varicose veins of both lower extremities Surgical History Surgical History History of a
[2022-12-30 11:41] VITALS: BP 184/59; PULSE 55; RESP 16; TEMP 36.3; O2SAT 100
== END 2022-12-30 12:00 | disposition home or self-care (01) ==
PROVIDERS: Emergency Provider Nurse Practitioner; PCP Family Medicine
DX: R09.82 Postnasal drip (principal); I25.10 Atherosclerotic heart disease of native coronary artery without angina pectoris; M47.812 Spondylosis without myelopathy or radiculopathy, cervical region; Z95.5 Presence of coronary angioplasty implant and graft; I10 Essential (primary) hypertension; M47.816 Spondylosis without myelopathy or radiculopathy, lumbar region; E78.2 Mixed hyperlipidemia; I48.0 Paroxysmal atrial fibrillation; I65.22 Occlusion and stenosis of left carotid artery; Z79.82 Long term (current) use of aspirin; Z79.01 Long term (current) use of anticoagulants
CPT/HCPCS: 99211; G0463

== ENCOUNTER 2023-05-06 14:27 | Emergency (ER) | payer MEDICARE, SELFPAY ==
--- NOTE | ~2023-05-06 | XR_ITS ---
EXAM: [id number]_CR DATE: 05/06/2023 16:00 HISTORY: neck pain/ headaches x 1 wk, no trauma . COMPARISON: 02/19/2019. FINDINGS: Craniocervical association and atlantoaxial joint are aligned. No prevertebral soft tissue swelling. Stable trace retrolisthesis at C4-5. Severe C4-5 and moderate C6-7 disc space narrowing. V ertebral body heights are maintained. Normal disc spaces. Multilevel mild facet hypertrophy. IMPRESSION: No acute fracture or trauma malalignment detected in the cervical spine. Multilevel degen erative disc disease. Reviewed, dictated and finalized at location K. IMPRESSION: No acute fracture or trauma malalignment detected in the cervical s pine. Multilevel degenerative disc disease.
[2023-05-06 14:51] VITALS: BP 174/69; PULSE 65; RESP 17; TEMP 36.5; O2SAT 99
--- NOTE | 2023-05-06 15:52 | ED.NECK ---
HPI - Neck Pain/Injury General Chief Complaint: Neck Pain/Injury Stated Complaint: neck pain Time Seen by Provider: 05/06/23 15:33 Source: patient Mode of arrival: ambulatory Limitations: no limitations History of Present Illness HPI Narrative: 82-year-old male here with neck pain and stiffness for the last 4 days. No injury noted. Started when he woke up 4 days ago feeling like both sides of his neck are painful and stiff when he moves it. No paresthesias or weakness. No injuries. Tried using some camphor and menthol lotion which caused the allergic reaction on his skin and caused a rash on the right side of his neck Related Data Home Medications Medication Instructions Recorded Confirmed aspirin 81 mg tablet,delayed 81 mg PO DAILY 08/23/19 12/30/22 release (Adult Low Dose Aspirin) amlodipine 5 mg tablet 5 mg PO DAILY 11/24/22 12/30/22 losartan 25 mg tablet 50 mg PO QAM 11/24/22 12/30/22 rivaroxaban 20 mg tablet (Xarelto) 400 mg PO DAILY 11/24/22 12/30/22 rosuvastatin 20 mg tablet 400 mg PO DAILY 11/24/22 12/30/22 spironolactone 25 mg tablet 25 mg PO DAILY 11/24/22 12/30/22 (Aldactone) Allergies Allergy/AdvReac Type Severity Reaction Status Date / Time aminophylline AdvReac Intermediate Unknown- Verified 05/06/23 15:50 SEE COMMIT Beta-Blockers AdvReac Intermediate Other Verified 05/06/23 15:50 (Beta-Adrenergic Bloc levofloxacin AdvReac Intermediate Joint/MUSCLE Verified 05/06/23 15:50 Pain Penicillins AdvReac Unknown Unknown- Verified 05/06/23 15:50 A CHILD poison angella extract AdvReac Unknown Itching Verified 05/06/23 15:50 Review of Systems Review of Systems: All systems reviewed & are unremarkable except as noted in HPI and below PMFSH Past Medical History Medical History Adult BMI 26.0-26.9 kg/sq m Anxiety Cerebrovascular accident CT evidence of old lacunar infarctions. Patient had no symptoms of stroke. Cervical spondylosis Colon polyps Coronary artery disease He had several stents placed in the left anterior descending 20 years ago, and then in February 2016 at [place] had a drug-eluting stent to the proximal RCA, 2 stents to the Left anterior descending and a diagonal stent, and a week later had two stents to the ramus. There was some diffuse disease in the small distal circumflex. Erosive gastritis Hypertension Labile hypertension, now followed by Dr. Ayala. Left carotid stenosis Status post left carotid endarterectomy. Lumbar spondylosis With several bulging disc causing sciatica, mainly on the left side. Male erectile dysfunction, unspecified Mixed hyperlipidemia Pain and swelling of left lower leg Paroxysmal atrial fibrillation Pharyngoesophageal dysphagia Varicose veins of both lower extremities Surgical History Surgical History History of arthroscopy of right knee (~08/2012) History of cardiac catheterization With PCI and stent x7. History of endoscopy History of kidney surgery Patient had surgery on his right kidney at a young age for what sounds like nephroptosis. History of left-sided carotid endarterectomy History of meniscectomy of left knee (~11/28/21) Partial Medial Menisectomy Family History Family History Sibling Malignant neoplasm of prostate Emphysema lung Mother , Mother of an [place] in her 60s. Acute myocardial infarction Father Amyotrophic lateral sclerosis Sibling Atrial fibrillation Coronary artery disease Other Family history of malignant neoplasm Social History Social History Social History: Surrogate decision maker: Obdulio Hay Celis Jr., son. Code status: Full code. Smoking status: Never smoker Second hand tobacco smoke exposure: No Alcoho
[2023-05-06] MEDS: dexAMETHasone 2 MG TABLET 10 MG PO (16:15)
[2023-05-06] MEDS: KETOROLAC 30 MG/ML VIAL (*BKC) IM (16:16)
[2023-05-06 16:43] VITALS: BP 169/79; PULSE 65; RESP 18; O2SAT 98
== END 2023-05-06 16:44 | disposition home or self-care (01) ==
PROVIDERS: Emergency Provider Emergency Medicine; PCP Family Medicine
DX: S16.1XXA Strain of muscle, fascia and tendon at neck level, initial encounter (principal); I25.10 Atherosclerotic heart disease of native coronary artery without angina pectoris; I10 Essential (primary) hypertension; I48.0 Paroxysmal atrial fibrillation; E78.2 Mixed hyperlipidemia; Z95.5 Presence of coronary angioplasty implant and graft; Z86.73 Personal history of transient ischemic attack (TIA), and cerebral infarction without residual deficits; Z79.01 Long term (current) use of anticoagulants; Z79.82 Long term (current) use of aspirin; X58.XXXA Exposure to other specified factors, initial encounter
CPT/HCPCS: 72040; 96372; 99283; J1885; J8540

== ENCOUNTER 2023-05-11 18:33 | Emergency (ER) | payer MEDICARE, SELFPAY ==
--- NOTE | 2023-05-11 18:46 | ED.GENADULT ---
HPI - General Adult General Chief complaint: Skin/Abscess/Foreign Body Stated complaint: rash Time Seen by Provider: 05/11/23 18:47 Source: patient, RN notes reviewed and old records reviewed Mode of arrival: ambulatory Limitations: no limitations History of Present Illness HPI narrative: 82-year-old male presents to the [facility] with concerns for a rash. Patient states the entire right side of his face was swollen. That has improved a great deal. Patient was concern at that the swelling move to below his chin. Patient denies any trouble swallowing or breathing. Patient maintaining own secretions. Patient had been diagnosed with shingles and is currently on Valtrex gabapentin and cefdinir Patient had been seen in the ER on 05/05 for a neck strain, given dexamethasone and Toradol. Followed up with his primary care provider on the and was prescribed Valtrex and gabapentin. Presents today for Related Data Home Medications Medication Instructions Recorded Confirmed aspirin 81 mg tablet,delayed 81 mg PO DAILY 08/23/19 05/09/23 release (Adult Low Dose Aspirin) amlodipine 5 mg tablet 5 mg PO DAILY 11/24/22 05/09/23 losartan 25 mg tablet 50 mg PO QAM 11/24/22 05/09/23 rivaroxaban 20 mg tablet (Xarelto) 400 mg PO DAILY 11/24/22 05/09/23 rosuvastatin 20 mg tablet 400 mg PO DAILY 11/24/22 05/09/23 spironolactone 25 mg tablet 25 mg PO DAILY 11/24/22 05/09/23 (Aldactone) acetaminophen 500 mg capsule 500 mg PO Q6H pain 05/11/23 cefdinir 300 mg capsule mg 05/11/23 Allergies Allergy/AdvReac Type Severity Reaction Status Date / Time aminophylline AdvReac Intermediate Unknown- Verified 05/11/23 18:48 SEE COMMIT Beta-Blockers AdvReac Intermediate Other Verified 05/11/23 18:48 (Beta-Adrenergic Bloc levofloxacin AdvReac Intermediate Joint/MUSCLE Verified 05/11/23 18:48 Pain Penicillins AdvReac Unknown Unknown- Verified 05/11/23 18:48 A CHILD poison angella extract AdvReac Unknown Itching Verified 05/11/23 18:48 Review of Systems Review of Systems: All systems reviewed & are unremarkable except as noted in HPI and below Constitutional: Constitutional: Reports no additional constitutional complaints Eyes: Eyes: Reports no additional eye complaints ENT: Reports system reviewed and no additional complaints, except as documented Cardiovascular: Cardiovascular: Reports no additional cardiovascular complaints, Denies chest pain and Denies dyspnea Respiratory: Respiratory: Reports no additional respiratory complaints, Denies chest congestion, Denies cough and Denies dyspnea Gastrointestinal: Gastrointestinal: Reports no additional gastrointestinal complaints, Denies abdominal pain, Denies nausea and Denies vomiting Musculoskeletal: Musculoskeletal: Reports no additional musculoskeletal complaints Integumentary/Breasts: Skin/Breast: Reports as per HPI Neurologic: Reports system reviewed and no additional complaints, except as documented Psychiatric: Psychiatric: Reports no additional psychiatric complaints Allergic/Immunologic: Allergic/Immunologic: Reports no additional allergic/immunologic complaints PMFSH Past Medical History Medical History Adult BMI 26.0-26.9 kg/sq m Anxiety Cerebrovascular accident CT evidence of old lacunar infarctions. Patient had no symptoms of stroke. Cervical spondylosis Colon polyps Coronary artery disease He had several stents placed in the left anterior descending 20 years ago, and then in February 2016 at [place] had a drug-eluting stent to the proximal RCA, 2 stents to the Left anterior descending and a diagonal stent, and a week later had two stents to the ramus. There was some diffuse disease in the small distal circumflex. Erosive gastritis Hypertension Labile hypertension, now followed by Dr. Ayala. Left carotid stenosis Status post left carotid endarterectomy. Lumbar spondylosis With several bulging dis
[2023-05-11 18:47] VITALS: BP 131/65; PULSE 93; RESP 18; TEMP 36.6; O2SAT 100
[2023-05-11 18:49] VITALS: BP 131/65; PULSE 93; RESP 18; TEMP 36.6; O2SAT 100
== END 2023-05-11 19:10 | disposition home or self-care (01) ==
PROVIDERS: Emergency Provider Nurse Practitioner; PCP Family Medicine
DX: B02.9 Zoster without complications (principal); I25.10 Atherosclerotic heart disease of native coronary artery without angina pectoris; I10 Essential (primary) hypertension; E78.2 Mixed hyperlipidemia; I48.0 Paroxysmal atrial fibrillation; Z79.82 Long term (current) use of aspirin; Z86.73 Personal history of transient ischemic attack (TIA), and cerebral infarction without residual deficits
CPT/HCPCS: 99211; G0463

== ENCOUNTER 2023-05-27 14:10 | Emergency (ER) | payer MEDICARE, SELFPAY ==
[2023-05-27 14:15] VITALS: BP 137/68; PULSE 70; RESP 15; TEMP 36.7; O2SAT 100
--- NOTE | 2023-05-27 14:23 | ECG_ITS ---
SEE SCANNED COPY FOR CONFIRMED REPORT MTDD
[2023-05-27 14:34] LABS: Basophils Absolute Auto 0.1 K/mm3 (0.0-0.1); Basophils Percent Auto 0.6 % (0.2-1.2); Eosinophils Absolute Auto 0.2 K/mm3 (0-0.3); Eosinophils Percent Auto 2.2 % (0-4.4); Hematocrit 44.5 % (42.0-52.0); Hemoglobin 14.4 g/dL (14.0-18.0); Immature Granulocyte Absolute 0.03 K/mm3 (0.00-0.031); Immature Granulocyte Percent A 0.4 % (0-0.5); Lymphocytes Absolute Auto 1.97 K/mm3 (0.9-3.2); Lymphocytes Percent Auto 25.3 % (18.3-44.2); Mean Corpuscular HGB Conc 32.4 g/dl (32-36); Mean Corpuscular Hemoglobin 30.9 pg (26-34); Mean Corpuscular Volume 95.5 fl (80-100); Mean Platelet Volume 9.5 fl (7.4-10.4); Monocytes Absolute Auto 0.7 K/mm3 (0.1-0.6); Monocytes Percent Auto 9.4 % (2.6-8.5); Neutrophils Absolute Auto 4.9 K/mm3 (1.3-6.7); Neutrophils Percent Auto 62.1 % (45.5-73.1); Platelet Count Result 206 k/mm3 (150-375); Red Blood Count 4.66 M/mm3 (4.6-6.20); Red Cell Distribution Width 13.2 % (11.5-14.5); White Blood Count 7.8 K/mm3 (4.5-10.0)
[2023-05-27 14:44] LABS: Alanine Aminotransferase 19 U/L (6-50); Albumin Level 4.4 g/dL (3.5-5.1); Alkaline Phosphatase 86 U/L (38-126); Anion Gap 7 mmol/L (4-12); Aspartate Amino Transferase 22 U/L (17-59); Bilirubin,Total 0.8 mg/dL (0.2-1.3); Blood Urea Nitrogen 18 mg/dL (9-20); Calcium 9.2 mg/dL (8.4-10.2); Carbon Dioxide 23 mmol/L (22-30); Chloride 106 mmol/L (98-107); Estimated CRCL calculation 54 ml/min; Estimated Glomerular Filt Rate > 60; Glucose 113 mg/dL (65-110); Potassium 4.2 mmol/L (3.4-5.0); Sodium 136 mmol/L (137-145)
--- NOTE | 2023-05-27 14:49 | ED.DIZZY ---
HPI - Dizziness General Chief Complaint: Dizziness Stated Complaint: dizzy Time Seen by Provider: 05/27/23 14:23 History of Present Illness HPI Narrative: Patient is an 82-year-old male with history of CAD status post PCI, hypertension here with multiple symptoms including dizziness, facial numbness and facial pain. Patient notes that 3 weeks ago he started developing some pain in the back of his neck and his right ear. He presented to the hospital and they were unsure if he had some dermatitis from applying a topical muscle relief cream at home or if he was developing shingles. Symptoms evolved and he went to see his primary care doctor who diagnosed him with shingles. He was started on Valtrex, completed a 10 day course about 1 week ago. Patient notes that over the last few days his pain seems to be worsening, pain is located in his neck and his right ear. He also notes that over the last few days he seems to be having worsening numbness over the right side of his face as well as difficulty closing his right eye and an uneven smile. He denies any weakness in arms or legs. He is not currently on any steroids. He has noted some postural dizziness along with a headache and is having a lot of difficulty sleeping due to the pain. He does note some eye pain on the right side, denies discharge. Related Data Home Medications Medication Instructions Recorded Confirmed aspirin 81 mg tablet,delayed 81 mg PO DAILY 08/23/19 05/16/23 release (Adult Low Dose Aspirin) amlodipine 5 mg tablet 5 mg PO DAILY 11/24/22 05/16/23 losartan 25 mg tablet 50 mg PO QAM 11/24/22 05/16/23 rivaroxaban 20 mg tablet (Xarelto) 400 mg PO DAILY 11/24/22 05/16/23 rosuvastatin 20 mg tablet 400 mg PO DAILY 11/24/22 05/16/23 spironolactone 25 mg tablet 25 mg PO DAILY 11/24/22 05/16/23 (Aldactone) acetaminophen 500 mg capsule 500 mg PO Q6H pain 05/11/23 05/16/23 Allergies Allergy/AdvReac Type Severity Reaction Status Date / Time aminophylline AdvReac Intermediate Unknown- Verified 05/27/23 14:23 SEE COMMIT Beta-Blockers AdvReac Intermediate Other Verified 05/27/23 14:23 (Beta-Adrenergic Bloc levofloxacin AdvReac Intermediate Joint/MUSCLE Verified 05/27/23 14:23 Pain Penicillins AdvReac Unknown Unknown- Verified 05/27/23 14:23 A CHILD poison angella extract AdvReac Unknown Itching Verified 05/27/23 14:23 Review of Systems Review of Systems: All systems reviewed & are unremarkable except as noted in HPI and below PMFSH Past Medical History Medical History Adult BMI 26.0-26.9 kg/sq m Anxiety Cerebrovascular accident CT evidence of old lacunar infarctions. Patient had no symptoms of stroke. Cervical spondylosis Colon polyps Coronary artery disease He had several stents placed in the left anterior descending 20 years ago, and then in February 2016 at [place] had a drug-eluting stent to the proximal RCA, 2 stents to the Left anterior descending and a diagonal stent, and a week later had two stents to the ramus. There was some diffuse disease in the small distal circumflex. Erosive gastritis Hypertension Labile hypertension, now followed by Dr. Ayala. Left carotid stenosis Status post left carotid endarterectomy. Lumbar spondylosis With several bulging disc causing sciatica, mainly on the left side. Male erectile dysfunction, unspecified Mixed hyperlipidemia Pain and swelling of left lower leg Paroxysmal atrial fibrillation Pharyngoesophageal dysphagia Varicose veins of both lower extremities Surgical History Surgical History History of arthroscopy of right knee (~08/2012) History of cardiac catheterization With PCI and stent x7. History of endoscopy History of kidney surgery Patient had surgery on his right kidney at a young age for what sounds like nephroptosis. History of left-sided carotid endarterectomy History of tish
[2023-05-27] MEDS: MECLIZINE HCL 25 MG TABLET PO (16:10)
[2023-05-27] MEDS: HYDROcodone/acetaminophen (*CRX) 5-325 MG TABLET 1 TAB PO (16:10)
[2023-05-27] MEDS: predniSONE 20 MG TABLET 60 MG PO (18:43)
[2023-05-27] MEDS: valACYclovir HCL 500 MG TABLET 1000 MG PO (18:43)
[2023-05-27 18:50] VITALS: BP 142/78; PULSE 87; RESP 18; TEMP 36.8; O2SAT 99
== END 2023-05-27 18:51 | disposition home or self-care (01) ==
PROVIDERS: Emergency Provider Student in an Organized Health Care Education/Training Program; PCP Family Medicine
DX: G51.0 Bell's palsy (principal); B02.21 Postherpetic geniculate ganglionitis; Z79.82 Long term (current) use of aspirin; Z79.01 Long term (current) use of anticoagulants; I25.10 Atherosclerotic heart disease of native coronary artery without angina pectoris; Z95.5 Presence of coronary angioplasty implant and graft; I10 Essential (primary) hypertension; E78.2 Mixed hyperlipidemia; I48.0 Paroxysmal atrial fibrillation; R00.1 Bradycardia, unspecified
CPT/HCPCS: 36415; 80053; 85025; 93005; 99284; A9270; J7512

== ENCOUNTER 2023-08-02 02:47 | Observation (INO) | payer MEDICARE, SELFPAY ==
[2023-08-02] VITALS (10 sets, daily range): BP systolic 158–196; BP diastolic 65–78; PULSE 54–91; RESP 15–17; TEMP 36.4–36.7; O2SAT 97–100; BMI 28.0
--- NOTE | ~2023-08-02 | XR_ITS ---
EXAMINATION: XR chest 2V DATE: 08/02/2023 03:25 INDICATION: Left chest pain. TECHNIQUE: Frontal and lateral views of the chest were obtained. COMPARISON: Chest 2 views 09/10/2022 FINDINGS: There is mild atelectasis in right lower lung zone. No pleural effusion or pneumothorax. Th e heart size is normal. IMPRESSION: 1. Mild atelectasis in right lower lung zone. Reviewed, dictated and finalized at location A.
--- NOTE | 2023-08-02 02:54 | ECG_ITS ---
Test Date: 2023-08-02 06:04:19 Measurements Intervals [place] Rate: 48 P: 52 WI: 200 QRS: 25 QRSD: 101 T: 52 QT: 454 QTc: 406 Interpretive Statements SINUS BRADYCARDIA OTHERWISE NORMAL ECG No previous ECG available for comparison Electronically Signed On 08-02-2023 15:15:11 CDT by Yeison Tirado M.D.
[2023-08-02 03:03] LABS: Basophils Percent Auto 0.4 % (0.2-1.2); Eosinophils Absolute Auto 0.6 K/mm3 (0-0.3); Eosinophils Percent Auto 7.3 % (0-4.4); Hematocrit 38.3 % (42.0-52.0); Hemoglobin 12.5 g/dL (14.0-18.0); Immature Granulocyte Absolute 0.02 K/mm3 (0.00-0.031); Immature Granulocyte Percent A 0.3 % (0-0.5); Lymphocytes Absolute Auto 3.58 K/mm3 (0.9-3.2); Mean Corpuscular HGB Conc 32.6 g/dl (32-36); Mean Corpuscular Hemoglobin 31.3 pg (26-34); Mean Corpuscular Volume 95.8 fl (80-100); Mean Platelet Volume 9.8 fl (7.4-10.4); Monocytes Absolute Auto 0.8 K/mm3 (0.1-0.6); Monocytes Percent Auto 10.3 % (2.6-8.5); Neutrophils Absolute Auto 2.9 K/mm3 (1.3-6.7); Neutrophils Percent Auto 36.7 % (45.5-73.1); Platelet Count Result 162 k/mm3 (150-375); Red Cell Distribution Width 14.6 % (11.5-14.5)
[2023-08-02 03:13] LABS: Alanine Aminotransferase 15 U/L (6-50); Albumin Level 4.5 g/dL (3.5-5.1); Alkaline Phosphatase 72 U/L (38-126); Anion Gap 9 mmol/L (4-12); Aspartate Amino Transferase 28 U/L (17-59); Bilirubin,Total 0.5 mg/dL (0.2-1.3); Blood Urea Nitrogen 25 mg/dL (9-20); Calcium 8.8 mg/dL (8.4-10.2); Carbon Dioxide 23 mmol/L (22-30); Chloride 109 mmol/L (98-107); Estimated CRCL calculation 45 ml/min; Estimated Glomerular Filt Rate 58; Glucose 115 mg/dL (65-110); Lipase 114 U/L (23-300); Potassium 3.8 mmol/L (3.4-5.0); Sodium 141 mmol/L (137-145)
[2023-08-02] MEDS: ASPIRIN 81 MG CHEWABLE TABLET 324 MG PO (03:13)
[2023-08-02] MEDS: LORazepam INJ (*CRX) 2 MG/ML VIAL 0.5 MG IV PUSH (03:13)
[2023-08-02 03:25] LABS: Troponin I < 0.012 ng/mL (0.000-0.034)
[2023-08-02 03:29] LABS: INR 2.5; Partial Thromboplastin Time 47.9 Seconds (22.3-36.8)
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
[2023-08-02 06:39] LABS: Troponin I 0.016 ng/mL (0.000-0.034)
--- NOTE | 2023-08-02 09:02 | ECG_ITS ---
Test Date: 2023-08-02 09:05:09 Measurements Intervals [place] Rate: 47 P: 4 ND: 179 QRS: 34 QRSD: 100 T: 56 QT: 462 QTc: 411 Interpretive Statements SINUS BRADYCARDIA OTHERWISE NORMAL ECG Compared to ECG 08/02/2023 06:04:19 No significant changes Electronically Signed On 08-02-2023 15:50:42 CDT by Yeison Tirado M.D.
[2023-08-02 09:45] LABS: Troponin I 0.013 ng/mL (0.000-0.034)
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
--- NOTE | 2023-08-02 10:22 | ADMGEN ---
This patient, Obdulio Marroquin, was admitted to IMU Room 205-01. Patient/family oriented to hospital policies and general routines including ID bracelet, bed and alarms, visiting hours, pain management, procedures, bathroom and other care routines, personal items, smoking policy, room service/diet, and visiting hours. Information on how to activate the Rapid Response Team has been discussed. Patient/Family are encouraged to report perceived risks to care and to ask questions if they do not understand what they are told or what they should do.
[2023-08-02 10:35] LABS: Cholesterol 148 mg/dL (0-200); HDL Direct 42 mg/dL; Triglycerides 64 mg/dL (<150)
[2023-08-02 10:46] LABS: LDL Cholesterol Direct 90 mg/dL
[2023-08-02 10:46] LABS: Hemoglobin A1C 5.4 % (<5.7)
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
--- NOTE | 2023-08-02 14:10 | PM.DS ---
DS: Admitting Diagnosis Discharge Date 08/02/23 Admitting Diagnosis Chest pain DS: Discharge Diagnosis Discharge Diagnosis (1) Chest pain: Code(s): R07.9 - Chest pain, unspecified Status: Acute (2) Hypertension: Code(s): I10 - Essential (primary) hypertension Status: Acute (3) Coronary artery disease: Code(s): I25.10 - Atherosclerotic heart disease of [place] coronary artery without angina pectoris Status: Acute (4) Left carotid stenosis: Code(s): I65.22 - Occlusion and stenosis of left carotid artery Status: Acute (5) Paroxysmal atrial fibrillation: Code(s): I48.0 - Paroxysmal atrial fibrillation Status: Acute DS: Summary Hospital Course Reason for hospitalization: 82yo male with CAD, HTN, HLD, CVA and pAFib here for chest pain. Please see H&P for details. Hospital Course: Patient presents to the emergency room for evaluation.In the emergency room, he was afebrile. His blood pressure was 196/78. Hemoglobin is 12.5 but with normal white count and platelet count. He had a mild lymphocytosis. PT 28 with INR 2.5 and a PTT of 48. BUN 25 with creatinine 1.2. LFTs normal. Lipase normal. Troponin negative x3. EKG shows sinus bradycardia rate of 48 otherwise normal looking EKG chest x-ray showed mild atelectasis in the right lower lung zone. He was given 1 dose of Ativan and 1 dose of aspirin. He was admitted for further care. He was seen by Cardiology. Patient 'ruled-out' by cardiac enzymes. EKG showing no acute findings. He Had resolution of his symptoms. He overall did well and was able to be discharged home on 08/02/23 Status at Discharge Cognitive/behavioral status at discharge: stable Time Spent with Patient Time attestation: Total time spent providing and/or coordinating discharge services: 60 minutes Time spent: Greater than 30 minutes Exam Narrative: AF 98.1 173/70 60 17 99% ra Gen - well appearing male in no acute respiratory distress who is nontoxic-appearing lying semi recumbent in bed HEENT - normocephalic. Atraumatic. Pupils equal round and reactive. Extraocular motions intact. Sclera clear and anicteric. Nares patent. Oropharynx was clear. No oral lesions. Moist mucous membranes. Tongue was midline. Palate nav symmetrically. No facial asymmetry. Neck - neck was supple. No dominant adenopathy, thyromegaly or masses. 2+ carotid upstrokes with left carotid bruits. Chest - lungs are clear to auscultation bilaterally. No wheezes or crackles. CV - heart was regular rate and rhythm. S1-S2. No murmurs gallops or rubs. Abd - abdomen was soft. Nontender. Nondistended. Positive bowel sounds. No organomegaly or masses. Ext - no clubbing or cyanosis. trace pedal edema. Negative Rima's. 2+ DP pulses bilaterally. Neuro - patient is alert and oriented x4. Strength is 5/5 in both upper and lower extremities. Cranial nerves 2-12 are intact. Speech is clear. Psych - normal mood and affect. Patient is pleasant and cooperative. Skin - warm and dry. No rashes noted. DS: Data Data Completed and Pending Labs on day of discharge: Labs from last 24 hours 08/02/23 08/02/23 08/02/23 09:02 06:00 02:56 WBC 8.0 RBC 4.00 L Hgb 12.5 L Hct 38.3 L MCV 95.8 MCH 31.3 MCHC 32.6 RDW 14.6 H Plt Count 162 MPV 9.8 Immature Gran % (Auto) 0.3 Neut % (Auto) 36.7 L Lymph % (Auto) 45.0 H [place] % (Auto) 10.3 H Eos % (Auto) 7.3 H Baso % (Auto) 0.4 Lymph # (Auto) 3.58 H [place] # (Auto) 0.8 H Eos # (Auto) 0.6 H Baso # (Auto) 0.0 Abs Immat Gran (auto) 0.02 Absolute Neuts (auto) 2.9 Absolute Nucleated RBC 0.000 Nucleated RBC % 0.0 PT 28.0 H INR 2.5 APTT 47.9 H Sodium 141 Potassium 3.8 Chloride 109 H Carbon Dioxide 23 Anion Gap 9 BUN 25 H Creatinine 1.20 Estim Creat Clear Calc 45 Estimated GFR 58 L Glucose 115
== END 2023-08-02 15:15 | disposition home or self-care (01) ==
LOC: ANHED 07:40 → ANHIMU 08:05
PROVIDERS: Admitting Provider Internal Medicine; Emergency Provider Emergency Medicine; PCP Family Medicine; Visit Provider Internal Medicine
DX: R07.9 Chest pain, unspecified (principal); I25.10 Atherosclerotic heart disease of native coronary artery without angina pectoris; I10 Essential (primary) hypertension; E78.2 Mixed hyperlipidemia; I48.0 Paroxysmal atrial fibrillation; I65.22 Occlusion and stenosis of left carotid artery; M47.812 Spondylosis without myelopathy or radiculopathy, cervical region; M47.816 Spondylosis without myelopathy or radiculopathy, lumbar region; F41.9 Anxiety disorder, unspecified; Z79.01 Long term (current) use of anticoagulants; Z79.82 Long term (current) use of aspirin; Z95.5 Presence of coronary angioplasty implant and graft; Z79.899 Other long term (current) drug therapy
CPT/HCPCS: 36415; 71046; 80053; 80061; 83036; 83690; 84443; 84484; 85025; 85610; 85730; 93005; 96374; 99285; A9270; G0378; J2060

== ENCOUNTER 2023-08-06 13:52 | Outpatient (CLI) | payer MEDICARE, SELFPAY ==
[2023-08-06 14:51] LABS: Cholesterol 133 mg/dL (0-200); HDL Direct 40 mg/dL; Triglycerides 95 mg/dL (<150)
[2023-08-06 15:02] LABS: LDL Cholesterol Direct 74 mg/dL
[2023-08-06 15:24] LABS: Prostate Specific Antigen 1.8 ng/mL (< OR = 4.0)
== END 2023-08-06 13:53 | disposition home or self-care (01) ==
LOC: ANHLAB 13:56
PROVIDERS: PCP Family Medicine; Visit Provider Nurse Practitioner Adult Health
DX: I25.10 Atherosclerotic heart disease of native coronary artery without angina pectoris (principal); I10 Essential (primary) hypertension; Z12.5 Encounter for screening for malignant neoplasm of prostate; Z13.220 Encounter for screening for lipoid disorders; Z13.29 Encounter for screening for other suspected endocrine disorder; R97.20 Elevated prostate specific antigen [PSA]
CPT/HCPCS: 36415; 80061; 84153; 84443; G0103

== ENCOUNTER 2024-02-14 10:50 | Emergency (ER) | payer MEDICARE, SELFPAY ==
[2024-02-14 11:00] VITALS: BP 160/55; PULSE 52; RESP 18; TEMP 36.2; O2SAT 100
--- NOTE | 2024-02-14 11:10 | ED_ITS ---
HPI - URI/Sore Throat General Chief Complaint: Upper Respiratory Infection Stated Complaint: sinus drainage Time Seen by Provider: 02/14/24 11:10 Source: patient, RN notes reviewed and old records reviewed Mode of arrival: ambulatory Limitations: no limitations History of Present Illness HPI Narrative: patient presents with complaints of 3 weeks of sinus pain and congestion. He reports that he became concerned 3 days ago when he felt as though symptoms began to involve his chest as well. He denies any shortness of breath, but does report that cough has become productive of yellowish-brown sputum. He is unsure of fever status. He denies any shortness of breath. He has not been taking anything for his symptoms. No other concerns or complaints today Related Data Home Medications ?Medication ?Instructions ?Recorded ?Confirmed ?Last Taken ?Type aspirin 81 mg tablet,delayed 81 mg PO DAILY 08/23/19 08/02/23 08/01/23 History release (Adult Low Dose Aspirin) amlodipine 5 mg tablet 5 mg PO DAILY 11/24/22 08/02/23 08/01/23 History losartan 25 mg tablet 50 mg PO QAM 11/24/22 08/02/23 08/01/23 History rivaroxaban 20 mg tablet (Xarelto) 20 mg PO DAILY 11/24/22 08/02/23 08/01/23 History rosuvastatin 20 mg tablet 20 mg PO DAILY 11/24/22 08/02/23 08/01/23 History spironolactone 25 mg tablet 12.5 mg PO DAILY 08/02/23 08/02/23 Unknown History Allergies Allergy/AdvReac Type Severity Reaction Status Date / Time aminophylline AdvReac Intermediate Unknown- Verified 02/14/24 11:02 SEE COMMIT Beta-Blockers AdvReac Intermediate Other Verified 02/14/24 11:02 (Beta-Adrenergic Bloc levofloxacin AdvReac Intermediate Joint/MUSCLE Verified 02/14/24 11:02 Pain poison angella extract AdvReac Mild Itching Verified 02/14/24 11:02 Penicillins AdvReac Unknown Unknown- Verified 02/14/24 11:02 A CHILD Review of Systems Review of Systems: All systems reviewed & are unremarkable except as noted in HPI and below Constitutional: Constitutional: Reports no additional constitutional complaints ENT: Reports system reviewed and no additional complaints, except as documented, Reports sinus pain and Reports sinus pressure Cardiovascular: Cardiovascular: Reports as per HPI and Reports no additional cardiovascular complaints Respiratory: Respiratory: Reports no additional respiratory complaints and Reports cough Gastrointestinal: Gastrointestinal: Reports no additional gastrointestinal complaints [facility] Past Medical History Medical History Screening for lipid disorders Post herpetic neuralgia Shingles (herpes zoster) polyneuropathy Pain and swelling of left lower leg Erosive gastritis Cervical spondylosis Cerebrovascular accident CT evidence of old lacunar infarctions. Patient had no symptoms of stroke. Colon polyps Hypertension Labile hypertension, now followed by Dr. Ayala. Coronary artery disease He had several stents placed in the left anterior descending 20 years ago, and then in February 2016 at [place] had a drug-eluting stent to the proximal RCA, 2 stents to the Left anterior descending and a diagonal stent, and a week later had two stents to the ramus. There was some diffuse disease in the small distal circumflex. Anxiety Left carotid stenosis Status post left carotid endarterectomy. Lumbar spondylosis With several bulging disc causing sciatica, mainly on the left side. Male erectile dysfunction, unspecified Mixed hyperlipidemia Paroxysmal atrial fibrillation Pharyngoesophageal dysphagia Varicose veins of both lower extremities Surgical History Surgical History History of meniscectomy of left knee (~11/28/21) Partial Medial Menisectomy History of endoscopy History of cardiac catheterization With PCI and stent x7. History of arthroscopy of right knee (~08/2012) History of kidney surgery Patient had surgery on his right kidney at a young age for what sounds like nephroptosis. History of left-sided carotid endarterectomy Family History Family History Sibling Malignant neoplasm of prostate Emphysema lung Mother , Mother of an [place] in her 60s. Acute myocardial infarction Father Amyotrophic lateral sclerosis Sibling Atrial fibrillation Coronary artery disease Other Family history of malignant neoplasm Social History Social History Social History: Surrogate decision maker: Obdulio Celis Jr., son. Code status: Full code. Smoking status: Never smoker Second hand tobacco smoke exposure: No Alcohol intake: never Substance use: never Substance use type: does not use Do You Feel Safe in your Home?: Yes Lack of Transportation: No Lack of Food: Never True Current Housing: I Have Housing Concerned About Future Housing: No Difficulty Paying Gas/Electric Bills: No Difficulty Paying for Meds: No Currently Unemployed: No Education: Trade/Vocational Certificate Difficulty w/ Childcare or Family Care: No Living arrangements: with family Additional living arrangements comments: Patient lives in his own home in [place] with his new . He has a chihuahua at home with him. He has 9 grown children. 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 Gender identity (if verbalized by the patient): Male Spiritual care concerns: No Comments At the time of my signature, I reviewed and agree with the nursing past medical, surgical, social, and family history. There is no relevant family history pertinent to the patient complaint. Exam Const: General: cooperative, no acute distress, alert and awake Orientation/consciousness: oriented to person, oriented to place and oriented to time HENMT: Head: normal to inspection Face/Nose/Sinus: sinus tenderness Mouth: Yes moist mucous membranes Resp: Effort & Inspection: normal respiratory effort and able to speak in complete sentences Auscultation: clear to auscultation bilaterally, no crackles, no rales, no rhonchi, no wheezes and diminished lung sounds Cardio: Palpation: normal PMI Rate: regular rate Rhythm: regular rhythm Heart sounds: S1 normal heart sound present and S2 normal heart sound present Neuro: General: oriented to person, oriented to place and oriented to time Cranial nerves: Yes CN's II-XII intact bilaterally Psych: Appearance: grossly normal Thought process: Normal thought process present Insight: Good insight present (Psych) Judgement: Good judgement present (Psych) Course Course Level of Care: Express Care Visit Vital Signs Vital signs: Vital Signs Temperature 97.1 F L 02/14/24 11:00 Pulse Rate 52 L 02/14/24 11:00 Respiratory Rate 18 02/14/24 11:00 Blood Pressure 160/55 H 02/14/24 11:00 Pulse Oximetry 100 02/14/24 11:00 Oxygen Delivery Room Air 02/14/24 11:00 Temperature 97.1 F L 02/14/24 11:00 Pulse Rate 52 L 02/14/24 11:00 Respiratory Rate 18 02/14/24 11:00 Blood Pressure 160/55 H 02/14/24 11:00 Pulse Oximetry 100 02/14/24 11:00 Oxygen Delivery Room Air 02/14/24 11:00 Reviewed MDM - URI/Sore Throat MDM Narrative Medical decision making narrative: History and exam consistent with sinusitis. Patient penicillin allergic. Start Doxycycline. Patient nontoxic appearing, stable for discharge home on p.o. antibiotic therapy. Discharge instructions reviewed with patient, as well as provided in writing per nursing staff. The instructions also include specific and strict return/GO TO THE ER as well as f/u information. All questions have been answered, and the patient deny any further questions with discharge and discharge plan. Some parts of this dictation were generated by voice recognition software and may contain typographical and/or grammatical inaccuracies. Differential Diagnosis Differential diagnosis: Likely upper respiratory infection, otitis media, viral infection, influenza and pharyngitis Medical Records Attestation: I reviewed the patient's medical records. Lab Data Attestation: I reviewed the patient's lab results. Discharge Plan Discharge Clinical Impression: Sinusitis Qualifiers: Sinusitis location: unspecified location Chronicity: unspecified Qualified Code(s): J32.9 - Chronic sinusitis, unspecified Patient Disposition: Home, Self-Care Condition: Stable Instructions: Antibiotic Form, Sinusitis (ED) Additional Instructions: take medications as prescribed. Follow-up with primary care provider. Emergency department for new or worse symptoms Patient Language: Venezuelan Prescriptions: New albuterol sulfate [Ventolin HFA] 90 mcg/actuation HFA aerosol inhaler 2 puff inhalation QID PRN (Reason: shortness of breath or wheezing) Qty: 8.5 0RF doxycycline hyclate 100 mg capsule 100 mg PO BID Qty: 20 0RF No Action Xarelto 20 mg tablet 20 mg PO DAILY Patient Comments: HS rosuvastatin 20 mg tablet 20 mg PO DAILY Patient Comments: HS amlodipine 5 mg tablet 5 mg PO DAILY losartan 25 mg tablet 50 mg PO QAM pregabalin [Lyrica] 50 mg capsule 50 mg PO BID Qty: 60 2RF Artificial Tears (cmc) 1 % drops 2 drp RIGHT EYE .qhr Qty: 15 0RF Rx Instructions: Use every hour while awake aspirin [Adult Low Dose Aspirin] 81 mg Tablet,Delayed Release (Dr/Ec) 81 mg PO DAILY Patient Comments: HS spironolactone 25 mg tablet 12.5 mg PO DAILY nitroglycerin 0.4 mg tablet, sublingual 0.4 mg sublingual Q5M PRN (Reason: chest pain) Qty: 20 0RF Rx Instructions: do not exceed 3 doses per episode Linzess 145 mcg capsule See Rx Instructions .ROUTE .COMPLEX Qty: 30 3RF Dose Instruction: Take 1 capsule by mouth once daily Rx Instructions: Take 1 capsule by mouth once daily Follow-up/Referrals: Abhishek Coffman MD [Primary Care Provider] - 1 Week Time of Disposition: 11:19
== END 2024-02-14 11:19 | disposition home or self-care (01) ==
PROVIDERS: Emergency Provider Nurse Practitioner Family; PCP Family Medicine
DX: J32.9 Chronic sinusitis, unspecified (principal); I10 Essential (primary) hypertension; I25.10 Atherosclerotic heart disease of native coronary artery without angina pectoris; Z95.5 Presence of coronary angioplasty implant and graft; E78.2 Mixed hyperlipidemia; I48.0 Paroxysmal atrial fibrillation; Z79.82 Long term (current) use of aspirin; Z79.01 Long term (current) use of anticoagulants
CPT/HCPCS: 99213; G0463

== ENCOUNTER 2024-04-20 00:19 | Observation (INO) | payer MEDICARE, SELFPAY ==
[2024-04-20] VITALS (33 sets, daily range): BP systolic 133–195; BP diastolic 51–80; PULSE 46–97; RESP 10–20; TEMP 36.3–36.9; O2SAT 97–100; BMI 26.4
--- NOTE | ~2024-04-20 | XR_ITS ---
Portable chest x-ray Comparison: 08/02/2023 Clinical History: Chest pain Findings: Lungs are clear, without focal consolidation or pleural effusion. Cardiomediastinal silho uette is stable. Bones and soft tissues are unremarkable. Impression: Clear lungs Reviewed, dictated and finalized at location . Impression: Clear lungs
--- OUTSIDE RECORDS SUMMARY | 2024-04-20 00:20 | XMS_ITS | Encounter Summary ---
Author Organization [facility] Facility Care Team Providers Care Dredge Runner Name Role Phone Abhishek Coffman MD Primary Care Provider [phone] Gabriella Toth MD Unavailable [phone] Wilber Acuna MD Unavailable [phone] Ye Almodovar MD Unavailable [phone] Encounter Details Date Type Department Care Team (Latest Contact Info) Description 10/16/2015 Orders Only [facility] CLINCONV ProviderJohn MD [address] [place] [id number] Social History Tobacco Use Types Packs/Day Years Used Date Smoking Tobacco: Never Assessed Sex and Gender Information Value Date Recorded Sex Assigned at Not on file 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 us Historical Provider CV CARDIAC SERVICES PROCE DURES Final Result * CARDIOLOGY REPORT (11/23/2015 12:00 AM CDT) Anatomical Region Laterality Modality Other Narrative 11/23/2015 12:00 AM CDT Ordered by an unspecified provider. us Historical Provider CV CARDIAC SERVICES PROCE DURES Final Result documented in this encounter Visit Diagnoses Not on filedocumented in this encounter Care Teams Dredge Runner Relationship Specialty Start Date End Date Abhishek Coffman MD PCP - General 06/01/16 Gabriella Toth MD Consulting Physician Interventional Cardiology 06/19/18 Wilber Acuna MD Surgeon Vascular Surgery 08/07/18 Ye Almodovar MD Consulting Physician Cardiology 12/31/19 documented as of this encounter
--- OUTSIDE RECORDS SUMMARY | 2024-04-20 00:20 | XMS_ITS | Encounter Summary ---
Author Organization [facility] Facility Care Team Providers Care General Car Supervisor Yard Name Role Phone Abhishek Coffman MD Primary Care Provider [phone] Gabriella Toth MD Unavailable [phone] Wilber Acuna MD Unavailable [phone] Ye Almodovar MD Unavailable Encounter Details Date Type Department Care Team (Latest Contact Info) Description 10/17/2015 Orders Only [facility] CLINCONV ProviderJohn MD [address] [place] [id number] Social History Tobacco Use Types Packs/Day Years Used Date Smoking Tobacco: Never Assessed Sex and Gender Information Value Date Recorded Sex Assigned at Not on file 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 us Historical Provider MD CV CARDIAC SERVICES PROCE DURES Final Result * CARDIOLOGY REPORT (11/23/2015 12:00 AM CDT) Anatomical Region Laterality Modality Other Narrative 11/23/2015 12:00 AM CDT Ordered by an unspecified provider. Historical Provider CV CARDIAC SERVICES PROCE DURES Final Result documented in this encounter Visit Diagnoses Not on filedocumented in this encounter Care Teams General Car Supervisor Yard Relationship Specialty Start Date End Date Abhishek Coffman MD PCP - General 06/01/16 Gabriella Toth MD Consulting Physician Interventional Cardiology 06/19/18 Wilber Acuna MD Surgeon Vascular Surgery 08/07/18 Ye Almodovar MD Consulting Physician Cardiology 12/31/19 documented as of this encounter
--- NOTE | 2024-04-20 00:21 | ECG_ITS ---
Test Date: 2024-04-20 00:27:59 Measurements Intervals Warrior Rate: 92 P: 0 CO: 0 QRS: 6 QRSD: 107 T: 52 QT: 361 QTc: 448 Interpretive Statements SINUS RHYTHM WITH PVCS AND PACS NONSPECIFIC ST ABNORMAL ABNORMAL ECG Compared to ECG 08/02/2023 09:05:09 HEART RATE IS INCREASED ECTOPIC ACTIVITY PRESENT Electronically Signed On 04-20-2024 08:00:48 CDT by Chris Ramirez M.D.
--- OUTSIDE RECORDS SUMMARY | 2024-04-20 00:21 | XMS_ITS | Clinical Summary ---
Author Organization [facility] Address Formerly [facility] [place] [address] Care Team Providers Care Vice President Of Procurement Name Role Phone Abhishek Coffman MD Primary Care Provider [phone] Allergies Active Allergy Reactions Criticality Noted Date Comments Aminophylline Other (see comment) 10/30/2018 Rapid heart rate and almost passed out Medications hydrochlorothiaz graham 25 MG tablet Take 1 tablet (25 mg total) by mouth every morning. 30 tablet 10/31/2018 Active Social History Tobacco Use Types Packs/Day Years Used Date Smoking Tobacco: Never Assessed Sex and Gender Information Value Date Recorded Sex Assigned at Not on file Legal Sex Male 5:25 PM CDT Gender Identity Not on file Sexual Orientation Not on file Last Filed Vital Signs Vital Sign Reading Time Taken Comments Blood Pressure 149/69 10/31/2018 12:00 AM CDT Pulse 57 10/30/2018 10:45 PM CDT Temperature 36.6 C (97.8 F) 10/30/2018 6:08 PM CDT Respiratory Rate 16 10/30/2018 10:45 PM CDT Oxygen Saturation 96% 10/31/2018 12:00 AM CDT Inhaled Oxygen Concentration - - Weight 86.2 kg (190 lb) 10/30/2018 6:08 PM CDT Height 179.1 cm (5' 10.5 ) 10/30/2018 6:08 PM CD T Body Mass Index 26.88 10/30/2018 6:08 PM CDT Plan of Treatment Health Maintenance Due Date Last Done Comments DTaP, Tdap and Td Vaccines ( 1 - Tdap) 1961 Zoster Vaccines (1 of 2) 1992 Annual Medicare Wellness Visit 09/28/2007 Pneumococcal Vaccine: 65+ Ye ars (1 of 1 - PCV) 09/28/2007 RSV Immunization or 60+ Years (1 - 1-dose 75+ series) 2017 COVID-19 Vaccine (1 - 2023-2 5 season) 2023 Influenza Adult (#1) 2023 Meningococcal B Vaccine Aged Out No l onger eligible based on patient's age to complete this topic Meningococcal Vaccine Aged Out No jelani kaye eligible based on patient's age to complete this topic RSV Immunizations Under 20 Months Aged Out No longer eligible based on patient's age to complete this topic Insurance Care Teams Vice President Of Procurement Relationship Specialty Start Date End Date Abhishek Coffman MD [address] [place] [address] PCP - General FAMILY PRACTICE 10/30/18
--- OUTSIDE RECORDS SUMMARY | 2024-04-20 00:21 | XMS_ITS | Encounter Summary ---
Author Organization [facility] Facility Care Team Providers Care Kick Press Setter Name Role Phone Abhishek Coffman MD Primary Care Provider [phone] Gabriella Toth MD Unavailable [phone] Wilber Acuna MD Unavailable [phone] Ye Almodovar MD Unavailable [phone] Encounter Details Date Type Department Care Team (Latest Contact Info) Description 12/16/2015 Orders Only [facility] CLINCONV ProviderJonh MD [address] [place] [address] Social History Tobacco Use Types Packs/Day Years Used Date Smoking Tobacco: Never Assessed Sex and Gender Information Value Date Recorded Sex Assigned at Not on file 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 us Historical Provider CV CARDIAC SERVICES PROCE DURES Final Result * CARDIOLOGY REPORT (12/16/2015 12:00 AM CDT) Anatomical Region Laterality Modality Other Narrative 12/16/2015 12:00 AM CDT Ordered by an unspecified provider. us Historical Provider CV CARDIAC SERVICES PROCE DURES Final Result documented in this encounter Visit Diagnoses Not on filedocumented in this encounter Care Teams Kick Press Setter Relationship Specialty Start Date End Date Abhishek Coffman MD PCP - General 06/01/16 Gabriella Toth MD Consulting Physician Interventional Cardiology 06/19/18 Wilber Acuna MD Surgeon Vascular Surgery 08/07/18 Ye Almodovar MD Consulting Physician Cardiology 12/31/19 documented as of this encounter
--- OUTSIDE RECORDS SUMMARY | 2024-04-20 00:21 | XMS_ITS | Clinical Summary ---
Author Organization [facility] Address [address] [place] [address] Phone Care Team Providers Care Lending Manager Name Role Phone Abhishek Coffman MD Primary Care Provider [phone] Allergies Active Allergy Reactions Criticality Noted Date Comments Aminophylline High 03/11/2018 Other reaction(s): Other (see comment) Rapid heart rate Rapid heart rate and almost passed out Erythromycin 08/31/2009 Levofloxacin Medium 07/21/2014 Penicillins 08/31/2009 Poison Heidi Extract 08/31/2009 Medications Medication Sig Dispensed Refills Start Date End Date Status aspirin EC 81 MG EC tablet Take 81 mg by mouth daily Active Xarelto 20 MG tablet Take 20 mg by mouth 1 (one) time each day 01/05/2020 Active LORazepam (ATIVAN) 0.5 MG tablet TAKE 1 TABLET BY MOUTH NEEDED FOR ANXIETY 12/26/2019 Active Edarbi 40 MG tablet Take 1 tablet by mouth 1 (one) time each day 09/03/2020 Active rosuvastatin (CRESTOR) 20 MG tablet 09/20/2020 Active tamsulosin (FLOMAX) 0.4 MG 24 hr capsule Take 0.4 mg by mouth daily 05/21/2020 Active Active Problems Problem Noted Date Diagnosed Date Left carotid artery stenosis 07/23/2018 Overview (01/16/2019): Added automatically from request for surgery [id number] Paroxysmal atrial fibrillation 03/18/2018 Coronary arteriosclerosis in [place] artery 03/12 Bradycardia 03/08/2016 Angina pectoris 01/29/2016 Dyslipidemia 12/16/2015 Overview (01/16/2019): On Crestor Enlarged prostate 12/16/2015 Hiatal hernia 12/16/2015 Hypertensive disorder 12/16/2015 Overview (01/16/2019): Not controlled Immunizations Name Administration Dates Next Due Influenza TIV (IM) 01/19/2021(Deferred: Patient Refused) Pneumococcal Conjugate 01/19/2021(Deferred: Denise ent Refused) Family History Medical History Relation Comments Hypertension Mother Relation Status Comments Mother Social History Tobacco Use Types Packs/Day Years Used Date Smoking Tobacco: Never Smokeless Tobacco: Never Alcohol Use Standard Drinks/Week Comments Not Currently 0 (1 standard drink = 0.6 oz pur e alcohol) Sex and Gender Information Value Date Recorded Sex Assigned at Not on file Gender Identity Not on file Sexual Orientation Not on file Last Filed Vital Signs Vital Sign Reading Time Taken Comments Blood Pressure 150/70 01/19/2021 1:43 PM JAVA TECH LEAD Pulse 72 01/19/2021 1:43 PM JAVA TECH LEAD Temperature 36.2 C (97.1 F) 01/19/2021 1:43 PM JAVA TECH LEAD Respiratory Rate - - Oxygen Saturation - - Inhaled Oxygen Concentration - - Weight 86.6 kg (191 lb) 01/19/2021 1:43 PM JAVA TECH LEAD Height 180.3 cm (5' 11 ) 01/19/2021 1:43 PM JAVA TECH LEAD Body Mass Index 26.64 01/19/2021 1:43 PM JAVA TECH LEAD Plan of Treatment Health Maintenance Due Date Last Done Comments Pneumococcal PPSV23/PCV13 65 + Years / Low and Medium Risk (1 of 4 - PCV) 09/28/2007 Influenza Vaccine (#1) 2023 Care Teams Lending Manager Relationship Specialty Start Date End Date Abhishek Coffman MD [address] [place] [address] PCP - General Family Medicine 01/07/19
--- OUTSIDE RECORDS SUMMARY | 2024-04-20 00:21 | XMS_ITS | Referral Summary ---
Author Organization [facility] Address [address] [place] [address] Care Team Providers Care Cotton Baler Name Role Phone Abhishek Coffman MD Primary Care Provider [phone] Source Comments [facility],non-owned Affiliates and Associated Physician Practices is amultiple site organization consisting of ambulatory clinics and hospital sitesin [place], [place], [place] and [place]. This disclosure is being madepursuant to the Care Everywhere program and may not contain all information available regarding this patient. Last updated 17.[facility] Social History Tobacco Use Types Packs/Day Years Used Date Smoking Tobacco: Never Assessed Sex and Gender Information Value Date Recorded Sex Assigned at Not on file Gender Identity Not on file Sexual Orientation Not on file Plan of Treatment Not on file Care Teams Cotton Baler Relationship Specialty Start Date End Date Abhishek Coffman MD [address] [place] [address] PCP - General 12/06/18
--- OUTSIDE RECORDS SUMMARY | 2024-04-20 00:21 | XMS_ITS | Continuity of Care Document ---
Author Organization [facility] Address [address] [place] [address] [facility] [address] [place] [address] Phone Care Team Providers Care Bead Filler Name Role Phone Ramon Tse Unavailable Unavailable Procedures Procedure Date Eye Exam, New Patient Office Consultation Advance Directives Directive Yes / No Effective Date File Name No Information Encounters Encounter Description Practice Location Reason(s) For Visit Diagnoses Date Provider Providers Copied on Encounter [facility], [address] [place], [place] [address], [place], [place], [id number], tel:[phone] [facility] No Information 8 Krishnasamy Ramon. [address], [facility], [place]. tel:[phone] Office Consultation [facility], [address] [place], [place] [address], [place], [place], [id number], tel:[phone] [facility] No Information 8 Krishnasamy Ramon. [address], [address], [place]. tel:[phone] Referring Provider: Abhishek Coffman MD , [place], [address]. tel:[phone] Family History Family Member Type Diagnosis Age At Onset No Information Payers Payer name Insurance type Covered constitution party ID Authoriza tion(s) No Information Social History [...]
--- OUTSIDE RECORDS SUMMARY | 2024-04-20 00:21 | XMS_ITS | Clinical Summary ---
Author Organization [facility] [address] Address [address] [place] [address] Care Team Providers Care Double Ending Machine Operator Name Role Phone Abhishek Coffman MD Primary Care Provider [phone] Gabriella Toth MD Unavailable [phone] Wilber Acuna MD Unavailable [phone] Ye Almodovar MD Unavailable [phone] Allergies Active Allergy Reactions Criticality Noted Date Comments Aminophylline Other (See comments) High 03/11/2018 Rapid heart rate Erythromycin Muscle pain Medium 08/31/2009 Levofloxacin Joint pain Medium 07/21/2014 Penicillins Muscle pain Medium 08/31/2009 Poison Heidi Extract Blisters High 08/31/2009 Medications Linzess 145 mcg capsule Take 1 capsule (145 mcg total) by mouth every morning 1 Active aspirin 81 mg enteric coated tablet Take 1 tablet (81 mg total) by mouth daily 30 tablet 2 Active LORazepam (ATIVAN) 0.5 mg tablet Take 1 tablet (0.5 mg total) by mouth every 6 (six) hours as needed for anxiety Active spironolactone (ALDACTONE) 25 mg tablet Take 1 tablet (25 mg total) by mouth daily 30 tablet 6 3 Active Additional Information Patient taking differently:25 mg oral Daily,0.5 tablet (12.5mg total), Reported on 03/21/2024 amLODIPine (NORVASC) 5 mg tablet Take 1 tablet (5 mg total) by mouth daily 90 tablet 3 4 Active nitroglycerin (NITROSTAT) 0.4 mg SL tablet 4 Active losartan (COZAAR) 25 mg tablet Take 0.5 tablets (12.5 mg total) by mouth daily 45 tablet 1 5 Active Xarelto 20 mg tablet Take 1 tablet (20 mg total) by mouth daily 90 tablet 1 5 Active pregabalin (LYRICA) 50 mg capsule Take 1 capsule (50 mg total) by mouth as needed Active rosuvastatin (CRESTOR) 20 mg tabletIndicatio ns:Coronary artery disease involving craig coronary artery of craig heart without angina pectoris Take 1 tablet (20 mg total) by mouth daily 90 tablet 3 5 Active Active Problems Problem Noted Date Diagnosed Date 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 We recommend monitoring with a repeat carotid Doppler in one year. Our office will contact him to make the appointment when the time comes. Certainly if there are interval problems, we would be happy to see him sooner. Dizziness 10/27/2019 Chronic anticoagulation 09/16/2019 BRBPR (bright red blood per rectum) 09/16/2019 Tachycardia-bradycardia syndrome (CMS/HCC) 09/15 Spondylosis of lumbar spine 10/07/2018 Coronary artery disease invo lving craig coronary artery of craig heart without angina pectoris 03/12/2018 Paroxysmal atrial fibrillation (CMS/HCC) 019 Epistaxis 03/12/2018 Bradycardia 03/08/2016 Angina pectoris 01/29/2016 Enlarged prostate 12/16/2015 GERD (gastroesophageal reflux disease) 6 Hiatal hernia 12/16/2015 Labile hypertension 12/16/2015 Overview (08/01/2018): Not controlled Resolved Problems Problem Noted Date Diagnosed Date Resolved Date Left carotid stenosis 07/23/20182020 Overview (07/23/2018): Added automatically from request for surgery [id number] Stenosis of left carotid artery 05/27/2018 08/01/2018 Dyslipidemia 01/29/2016 08/01/2018 Atherosclerosis of coronary artery 01/29/2016 01/09/2022 Benign hypertension 01/29/2016 08/02/19 19 Dyslipidemia 12/16/2015 12/08/2020 Overview (08/01/2018): On Crestor Encounters Date Type Department Care Team Description 03/21/2024 9:30 AM KITCHENWHERE MAKER Office Visit [facility] [address] [place] [address] Yael Spain NP Coronary artery disease involving craig coronary artery of craig heart without angina pectoris (Primary Dx); Labile hypertension; Paroxysmal atrial fibrillation (HCC); Chronic anticoagulation; Bradycardia from Last 3 Months Surgical History Surgery Date Site/Laterality Comments KNEE SURGERY meniscus tear right knee CARDIAC STENT PLACEMENT 1996 KIDNEY SURGERY 02/12/1966 - 02/11/1967 CAROTID ENDARTERECTOMY 08/06/2018 Left KNEE SURGERY 11/28/2021 Left tear repair with Dr. Fredy Brush Medical History Medical History Date Comments Hypertension Dizziness Hyperlipidemia Sinusitis Acid indigestion Stroke (HCC) CTA shows old la cunar infarct. Bladder infection Paroxysmal atrial fibrillation (HCC) He was placed on Xarelto in February 2018. He discontinued Xarelto due to nose bleeds. Coronary artery disease Bradycardia Coronary artery disease of n ative artery of craig heart with stable angina pectoris 03/12/2018 Angina pectoris 01/29/2016 Hiatal hernia 12/16/2015 Stenosis of left carotid artery 05/27/2018 HTN (hypertension) 12/16/2015 Not controlle d GERD (gastroesophageal reflux disease) 12/16/2015 Enlarged prostate 12/16/2015 Dyslipidemia 01/29/2016 Arthritis Family History Medical History Relation Name Comments Liver disease Brother 1 Heart disease Brother 2 ALS Father Heart attack Mother Stroke Sister Relation Name Status Comments Brother 1 (Age 54) Brother 2 (Age 69) Father (Age 57) Mother (Age 67) Sister Social History Tobacco Use Types Packs/Day Years Used Date Smoking Tobacco: Never Smokeless Tobacco: Never Alcohol Use Standard Drinks/Week Comments No 0 (1 standard drink = 0.6 oz pur e alcohol) Sex and Gender Information Value Date Recorded Sex Assigned at Not on file Legal Sex Male 3:28 AM KITCHENWHERE MAKER Gender Identity Not on file Sexual Orientation Not on file Obstetrics History Last Filed Vital Signs Vital Sign Reading Time Taken Comments Blood Pressure 148/70 03/21/2024 9:29 AM KITCHENWHERE MAKER Pulse 55 03/21/2024 9:29 AM KITCHENWHERE MAKER Temperature 36.5 C (97.7 F) 10/27/2019 2:52 PM CDT Respiratory Rate 16 10/27/2019 2:52 PM CDT Oxygen Saturation 96% 03/21/2024 9:29 AM KITCHENWHERE MAKER Inhaled Oxygen Concentration - - Weight 85.7 kg (189 lb) 03/21/2024 9:29 AM KITCHENWHERE MAKER Height 177.8 cm (5' 10 ) 03/21/2024 9:29 AM KITCHENWHERE MAKER Body Mass Index 27.12 03/21/2024 9:29 AM KITCHENWHERE MAKER Plan of Treatment Health Maintenance Due Date Last Done Comments Depression Screening 1942 Fall Risk Assessment 1942 DTaP/Tdap/Td Vaccine (1 - Tdap) 1953 Hepatitis B Screening 1960 Pneumococcal vaccine 65+ (1 of 1 - PCV) 1992 Zoster Vaccine (1 of 2) 1992 Well Visit 65+ 09/28/2007 Influenza Vaccine (#1) 2023 Medical Devices Implanted Type Area Lacquer Maker Device Identifier Shelf Expiration Date Model / Serial / Lot [employer] [id number] Vascu-Guard 8x.8cm Peripheral Patch Vascular Bovine Pericardium - [id number] Implanted:Qty: 1 on 08/06/2018 by Wilber Acuna MD at [facility] Graft Left: Carotid [employer] [id number] 02/28/2023 [id number] / / [id number] Insurance MEDICARE [facility] Address: [address] [address] [place] [phone] MEDICARE [facility] Address: [address] [address] [place] [id number] MEDICARE [facility] Address: [address] [address] [place] [id number] Advance Directives For more information, please contact: [phone] Documents on File Type Date Recorded Patient Employment Director Expl anation ADVANCE DIRECTIVE 08/06/2018 12:54 PM * Full Code (Latest Code Status on File) Date Activated Date Inactivated Comments 08/06/2018 4:00 PM 08/07/2018 3:04 PM Care Teams Double Ending Machine Operator Relationship Specialty Start Date End Date Abhishek Coffman MD PCP - General 06/01/16 Gabriella Toth MD Consulting Physician Interventional Cardiology 06/19/18 Wilber Acuna MD Surgeon Vascular Surgery 08/07/18 Ye Almodovar MD Consulting Physician Cardiology 12/31/19
--- OUTSIDE RECORDS SUMMARY | 2024-04-20 00:21 | XMS_ITS | Clinical Summary ---
Author Organization [facility] Address [address] [facility] [address] [place] [address] Phone Care Team Providers Care Feather Edger Name Role Phone Abhishek Lamb Primary Care Provider Unavailabl e Allergies Active Allergy Reactions Criticality Noted Date Comments Aminophylline Other (see Comments) 10/30/2018 Rapid heart rate and almost passed out Erythromycin Other (see Comments) Medium 08/31/2009 Joint pain Levofloxacin Other (see Comments) Medium 07/21/2014 Joint pain Penicillins Other (see Comments) Medium 08/31/2009 Joint pain Medications PROCTOSOL HC 2.5 % Cream APPLY CREAM RECTALLY TO AFFECTED AREA TWICE DAILY FOR 10 DAYS THEN NEEDED 1 Tube 0 6 Active rivaroxaban (Xarelto) 20 MG TabletIndication s:Atrial Fibrillation Take 20 mg by mouth daily (with dinner). Take with food. Indications: Atrial Fibrillation Active Azilsartan-Chlor thalidone (Edarbyclor) 40-12.5 MG Tablet Take by mouth. Activ e LORazepam (ATIVAN) 0.5 MG Tablet Take 0.5 mg by mouth every 6 hours as needed. Active aspirin 81 MG Chewable Tablet Take 81 mg by mouth daily. Active famotidine (PEPCID) 20 MG TabletIndication s:Gastroesophage al reflux disease, unspecified whether esophagitis present Take 1 Tab by mouth 2 times daily. 90 Tab 3 1 Active Active Problems No known active problems Family History Medical History Relation Name Comments Heart Attack Mother Relation Name Status Comments Father ALS Other Mother Social History Tobacco Use Types Packs/Day Years Used Date Smoking Tobacco: Never Smokeless Tobacco: Never Tobacco Cessation:Counseling Given: No Alcohol Use Standard Drinks/Week Comments Never 0 (1 standard drink = 0.6 oz pur e alcohol) AUDIT-C Answer Date Recorded Q1: How often do you have a drink containing alc ohol? Never 03/10/2020 Average Number of Drinks Not on file 021 Frequency of Binge Drinking Not on file 02/13 Sexually Active Control Partners Comments Yes Sex and Gender Information Value Date Recorded Sex Assigned at Not on file Legal Sex Male 10:09 PM CDT Gender Identity Not on file Sexual Orientation Not on file Last Filed Vital Signs Vital Sign Reading Time Taken Comments Blood Pressure 144/76 03/10/2020 1:25 PM FURNITURE FINISHER HELPER Pulse 54 03/10/2020 1:25 PM FURNITURE FINISHER HELPER Temperature 35.6 C (96 F) 03/10/2020 1:25 PM FURNITURE FINISHER HELPER Respiratory Rate 20 03/10/2020 1:25 PM FURNITURE FINISHER HELPER Oxygen Saturation 98% 03/10/2020 1:25 PM FURNITURE FINISHER HELPER Inhaled Oxygen Concentration - - Weight 88.8 kg (195 lb 12.8 oz) 03/10/2020 1:25 PM FURNITURE FINISHER HELPER Height 177.8 cm (5' 10 ) 03/10/2020 1:25 PM FURNITURE FINISHER HELPER Body Mass Index 28.09 03/10/2020 1:25 PM FURNITURE FINISHER HELPER Plan of Treatment Health Maintenance Due Date Last Done Comments Hepatitis C Virus (HCV) Screening 1942 TdaP Immunization 1942 Pneumococcal Immunization (5 0+ years) (1 of 1 - PCV) 1992 Zoster Immunization (1 of 2) 1992 Respiratory Syncytial Virus (RSV) Immunization (Adult) (1 - 1-dose 75+ series) 2017 Influenza Immunization (#1) 2023 SARS-COV-2 Immunization (2 - season) 2023 04/17/2020 Hepatitis B Immunization Aged Out No longer eligible based on patient's age to complete this topic Meningococcal Immunization (ACWY) Aged Out No longer eligible based on patient's age to complete this topic Rotavirus Immunization Aged Out No lo nger eligible based on patient's age to complete this topic Insurance MEDICARE C [employer] Care Teams Feather Edger Relationship Specialty Start Date End Date Abhishek Lamb PCP - General Family Medicine 03/10/20
--- OUTSIDE RECORDS SUMMARY | 2024-04-20 00:21 | XMS_ITS | Patient Health Summary ---
Author Organization [facility] Address [address] [place] [address] Care Team Providers Care Mailroom Coordinator Name Role Phone Abhishek Coffman MD Primary Care Provider [phone] Note from [facility],non-owned Affiliates and Associated Physician Practices is amultiple site organization consisting of ambulatory clinics and hospital sitesin [place], [place], [place] and [place]. This disclosure is being madepursuant to the Care Everywhere program and may not contain all information available regarding this patient. Last updated 17.[facility] Social History Tobacco Use Types Packs/Day Years Used Date Smoking Tobacco: Never Assessed Sex and Gender Information Value Date Recorded Sex Assigned at Not on file Gender Identity Not on file Sexual Orientation Not on file Procedures * DERMATOPATHOLOGY(Performed 10/24/2021) Results * DERMATOPATHOLOGY (10/24/2021 12:00 AM CDT) Case Report Dermatopathology Report Case: [id number] Authorizing Provider: David Mccoy MD Collected: 10/24/2021 12:00 AM Ordering Location: [facility] DermPath Lab Received: 10/24/2021 04:39 PM Pathologist: Audra Arriaga MD Specimen: Skin, right chest 2 1:27 PM CDT DERMATOPATHOLOGY LABORATORY Final Diagnosis Specimen A. SKIN, right chest: SEBORRHEIC KERATOSIS, INFLAMED (L82.0) 2 1:27 PM CDT DERMATOPATHOLOGY LABORATORY Clinical History ISK 2 1:27 PM CDT DERMATOPATHOLOGY LABORATORY Gross Description Specimen A: Received is one formalin filled container labeled with the patients name and designated right chest. The specimen consists of a shave removal measuring [id number]. Jar 0. 2 1:27 PM CDT DERMATOPATHOLOGY LABORATORY Microscopic Description Specimen A. SKIN, right chest: There is hyperkeratosis, parakeratosis, papillomatosis, and acanthosis of the epidermis. There is a lymphohistiocytic infiltrate within the papillary dermis that is focally lichenoid. 2 1:27 PM CDT DERMATOPATHOLOGY LABORATORY Disclaimer An external and internal positive and negative controls are appropriate for the histochemical, immunohistochemical and immunofluorescence stain(s) in this case (if any), except where stated explicitly. The performance characteristics of the stain(s) cited in this report were developed and its performance characteristic determined by the Dermatopathology Laboratory at [facility], directed by Dr. Janiya Oshea. These tests need not be, and therefore are not, approved by the [place] Food and Drug Administration. The tests are used for clinical purposes. Billing Codes Specimen Charges Stain Charges 79915 1 2 1:27 PM CDT DERMATOPATHOLOGY LABORATORY Embedded Images 2 1:27 PM CDT DERMATOPATHOLOGY LABORATORY Pathology/Cytolog y TISSUE SPECIMEN FROM SKIN / Unknown 10/24/2021 10/24/2021 4:39 PM CDT David Mccoy MD LAB - PATHOLOGY/CYTO LOGY ORDERABLES DERMATOPATHOLOGY LABORATORY [facility] Department of Dermatology [facility] [address] [place] [address], [address] [phone] Care Teams Mailroom Coordinator Relationship Specialty Start Date End Date Abhishek Coffman MD [address] [place] [address] PCP - General 12/06/18
--- OUTSIDE RECORDS SUMMARY | 2024-04-20 00:21 | XMS_ITS | Encounter Summary ---
Author Organization [facility] Care Team Providers Care Proofer Name Role Phone Abhishek Coffman MD Primary Care Provider [phone] Gabriella Toth MD Unavailable [phone] Wilber Acuna MD Unavailable [phone] Ye Almodovar MD Unavailable [phone] Encounter Details Date Type Department Care Team (Latest Contact Info) Description 10/27/2015 Orders Only [facility] CLINCONV ProviderJohn MD [address] [place] [id number] Social History Tobacco Use Types Packs/Day Years Used Date Smoking Tobacco: Never Assessed Sex and Gender Information Value Date Recorded Sex Assigned at Not on file Legal Sex Male 3:28 AM EXECUTIVE COMMUNICATIONS MANAGER Gender Identity Not on file Sexual Orientation [...] provider. us Historical Provider [facility]NANDE[facility] Final Result documented in this encounter Visit Diagnoses Not on filedocumented in this encounter Care Teams Proofer Relationship Specialty Start Date End Date Abhishek Coffman MD PCP - General 06/01/16 Gabriella Toth MD Consulting Physician Interventional Cardiology 06/19/18 Wilber Acuna MD Surgeon Vascular Surgery 08/07/18 Ye Almodovar MD Consulting Physician Cardiology 12/31/19 documented as of this encounter
--- OUTSIDE RECORDS SUMMARY | 2024-04-20 00:21 | XMS_ITS | Clinical Summary ---
Author Organization [facility] Address [address] [place] [address] Care Team Providers Care Electrical Timing Device Calibrator Name Role Phone Abhishek Coffman MD Primary Care Provider [phone] Source Comments [facility],non-owned Affiliates and Associated Physician Practices is amultiple site organization consisting of ambulatory clinics and hospital sitesin [place], [place], [place] and [place]. This disclosure is being madepursuant to the Care Everywhere program and may not contain all information available regarding this patient. Last updated 17.[facility] Social History Tobacco Use Types Packs/Day Years Used Date Smoking Tobacco: Never Assessed Sex and Gender Information Value Date Recorded Sex Assigned at Not on file Gender Identity Not on file Sexual Orientation Not on file Plan of Treatment Health Maintenance Due Date Last Done Comments DTAP/TDAP/TD VACCINES (1 - Tdap) 1961 PNEUMOCOCCAL VACCINE 50+ (1 of 1 - PCV) 1992 ZOSTER VACCINE (1 of 2) 1992 Respiratory Syncytial Virus (RSV) Vaccine Pt: or over 60 yrs (1 - 1-dose 75+ series) 2017 COVID-19 VACCINE ( - 2023-2 5 season) 2023 INFLUENZA VACCINE (#1) 2023 DEPRESSION SCREENING 02/13/2024 HEPATITIS B VACCINE Aged Out No longe r eligible based on patient's age to complete this topic HIB VACCINE Aged Out No longer eligi ble based on patient's age to complete this topic HPV VACCINE Aged Out No longer eligi ble based on patient's age to complete this topic MENINGOCOCCAL (Group B) VACCINE Aged Out No longer eligible based on patient's age to complete this topic MENINGOCOCCAL VACCINE Aged Out No jelani kaye eligible based on patient's age to complete this topic Care Teams Electrical Timing Device Calibrator Relationship Specialty Start Date End Date Abhishek Coffman MD [address] [place] [address] PCP - General 12/06/18
--- OUTSIDE RECORDS SUMMARY | 2024-04-20 00:21 | XMS_ITS | Encounter Summary ---
Author Organization [facility] Address [address] [place] [address] Care Team Providers Care Clean In Places Operator Name Role Phone Abhishek Coffman MD Primary Care Provider [phone] Encounter Details Date Type Department Care Team (Late st Contact Info) Description 10/24/2021 Lab Requisition [facility] DermPath Lab [address] [facility] [facility] [place] [address] David Mccoy MD [address] [place] [address] Social History Tobacco Use Types Packs/Day Years Used Date Smoking Tobacco: Never Assessed Sex and Gender Information Value Date Recorded Sex Assigned at Not on file Gender Identity Not on file Sexual Orientation Not on file documented as of this encounter Plan of Treatment Not on file documented as of this encounter Procedures Procedure Name Priority Date/Time Associated Diagnosis Comments DERMATOPATHOLOGY Routine 10/24/2021 12:0 0 AM CDT documented in this encounter Results * DERMATOPATHOLOGY (10/24/2021 12:00 AM CDT) Case Report Dermatopathology Report Case: [id number] Authorizing Provider: David Mccoy MD Collected: 10/24/2021 12:00 AM Ordering Location: [facility] DermPath Lab Received: 10/24/2021 04:39 PM Pathologist: [...] specimen consists of a shave removal measuring [id number]. Jar 0. 2 1:27 PM CDT DERMATOPATHOLOGY [...] characteristic determined by the Dermatopathology Laboratory at [facility], directed by Dr. Janiya Oshea. These tests need not be, and therefore are not, approved by the [place] Food and Drug Administration. The tests are used for clinical purposes. Billing Codes Specimen Charges Stain Charges 01020 1 2 1:27 PM CDT DERMATOPATHOLOGY LABORATORY Embedded Images 2 1:27 PM CDT DERMATOPATHOLOGY LABORATORY Pathology/Cytolog y TISSUE SPECIMEN FROM SKIN / Unknown 10/24/2021 10/24/2021 4:39 PM CDT David Mccoy MD LAB - PATHOLOGY/CYTO LOGY ORDERABLES DERMATOPATHOLOGY LABORATORY [facility] - Department of Dermatology [address], [address] [phone] documented in this encounter Visit Diagnoses Not on filedocumented in this encounter Care Teams Clean In Places Operator Relationship Specialty Start Date End Date Abhishek Coffman MD [address] [place] [address] PCP - General 12/06/18 documented as of this encounter
--- OUTSIDE RECORDS SUMMARY | 2024-04-20 00:21 | XMS_ITS | Referral Summary ---
Author Organization [facility] [address] [place] [address] [address] [place] [address] Care Team Providers Care Fisher Eel Spear Name Role Phone Abhishek Coffman MD Primary Care Provider Gabriella Toth MD Unavailable [phone] Wilber Acuna MD Unavailable [phone] Ye Almodovar MD Unavailable Encounters Date Type Department Care Team Description 03/21/2024 9:30 AM DAIRY FARM SUPERVISOR Office Visit [facility] Cardiology [address] [facility] [address] [place] [address] Yael Spain NP Coronary artery disease involving nisqually coronary artery of nisqually heart without angina pectoris (Primary Dx); Labile hypertension; Paroxysmal atrial fibrillation (HCC); Chronic anticoagulation; Bradycardia from Last 3 Months Allergies Active Allergy Reactions Criticality Noted Date Comments Aminophylline Other (See comments) High 03/11/2018 Rapid heart rate Erythromycin Muscle pain Medium 08/31/2009 Levofloxacin Joint pain Medium 07/21/2014 Penicillins Muscle pain Medium 08/31/2009 Poison Heidi Extract Blisters High 08/31/2009 Medications Mi 145 mcg capsule Take 1 capsule (145 [...] 20 mg tabletIndicatio ns:Coronary artery disease involving n[place]qu[place] coronary artery of n[place]qu[place] heart without angina pectoris Take 1 tablet [...] red blood per rectum) 09/16/2019 Tachycardia-bradycardia syndrome ([facility]/HCC) 09/15 Spondylosis of lumbar spine 10/07/2018 Coronary artery disease invo lving nisqually coronary artery of n[place]qually heart without angina pectoris 03/12/2018 Paroxysmal atrial fibrillation ([facility]/HCC) 019 Epistaxis 03/12/2018 Bradycardia 03/08/2016 Angina pectoris 01/29/2016 Enlarged prostate 12/16/2015 GERD (gastroesophageal reflux disease) 6 Hiatal hernia 12/16/2015 Labile hypertension 12/16/2015 Overview (08/01/2018): Not controlled Resolved Problems Problem Noted Date Diagnosed Date Resolved Date Left carotid stenosis 07/23/20182020 Overview (07/23/2018): Added automatically from request for surgery [id number] Stenosis of left carotid artery 05/27/2018 08/01/2018 Dyslipidemia 01/29/2016 08/01/2018 Atherosclerosis of coronary artery 01/29/2016 01/09/2022 Benign hypertension 01/29/2016 08/02/19 19 Dyslipidemia 12/16/2015 12/08/2020 Overview (08/01/2018): On Crestor Social History Tobacco Use Types Packs/Day Years Used Date Smoking Tobacco: Never Smokeless Tobacco: Never Alcohol Use Standard Drinks/Week Comments No 0 (1 standard drink = 0.6 oz pur e alcohol) Sex and Gender Information Value Date Recorded Sex Assigned at Not on file Legal Sex Male 3:28 AM DAIRY FARM SUPERVISOR Gender Identity Not on file Sexual Orientation Not on file Last Filed Vital Signs Vital Sign Reading Time Taken Comments Blood Pressure 148/70 03/21/2024 9:29 AM DAIRY FARM SUPERVISOR Pulse 55 03/21/2024 9:29 AM DAIRY FARM SUPERVISOR Temperature 36.5 C (97.7 F) 10/27/2019 2:52 PM CDT Respiratory Rate 16 10/27/2019 2:52 PM CDT Oxygen Saturation 96% 03/21/2024 9:29 AM DAIRY FARM SUPERVISOR Inhaled Oxygen Concentration - - Weight 85.7 kg (189 lb) 03/21/2024 9:29 AM DAIRY FARM SUPERVISOR Height 177.8 cm (5' 10 ) 03/21/2024 9:29 AM DAIRY FARM SUPERVISOR Body Mass Index 27.12 03/21/2024 9:29 AM DAIRY FARM SUPERVISOR Plan of Treatment Not on file Medical Devices Implanted Type Area Chipping Machine Operator Device Identifier Shelf Expiration Date Model / Serial / Lot Symphony Dynamo [id number] Vascu-Guard 8x.8cm Peripheral Patch Vascular Bovine Pericardium - [id number] Implanted:Qty: 1 on 08/06/2018 by Wilber Acuna MD at [facility] Graft Left: Carotid Symphony Dynamo [id number] 02/28/2023 [id number] / / [id number] Insurance [facility] Address: [address] [place] [id number] [place] [id number] [facility] Address: [address] [address] [place] [address] [place] [address] MEDICARE SOLUTIONS Advance Directives For more information, please contact: [phone] Documents on File Type Date Recorded Patient Termination Clerk Expl anation ADVANCE DIRECTIVE 08/06/2018 12:54 PM * Full Code (Latest Code Status on File) Date Activated Date Inactivated Comments 08/06/2018 4:00 PM 08/07/2018 3:04 PM Care Teams Fisher Eel Spear Relationship Specialty Start Date End Date Abhishek Coffman MD PCP - General 06/01/16 Gabriella Toth MD Consulting Physician Interventional Cardiology 06/19/18 Wilber Acuna MD Surgeon Vascular Surgery 08/07/18 Ye Almodovar MD Consulting Physician Cardiology 12/31/19
--- OUTSIDE RECORDS SUMMARY | 2024-04-20 00:40 | XMS_ITS | Continuity of Care Document ---
Author Organization [facility] Address [address] [place] [address] [facility] [address] [place] [address] Phone Care Team Providers Care Gas Flow Regulator Name Role Phone Ramon Tse Unavailable Unavailable Procedures Procedure Date Eye Exam, New Patient Office Consultation Advance Directives Directive Yes / No Effective Date File Name No Information Encounters Encounter Description Practice Location Reason(s) For Visit Diagnoses Date Provider Providers Copied on Encounter [facility], [address] [place], [place] [address] [address], [place], [place], [id number], tel:[phone] [facility] No Information 8 Krishnasamy Ramon. [address], [facility], [place]. tel:[phone] Office Consultation [facility], [address] [place], [place] [address] [address], [place], [place], [id number], tel:[phone] [facility] No Information 8 Krishnasamy Ramon. [address], [address], [place]. tel:[phone] Referring Provider: Abhishek Coffman MD , [place], [address]. tel:[phone] Family History Family Member Type Diagnosis Age At Onset No Information Payers Payer name Insurance type Covered libertarian ID Authoriza tion(s) No Information Social History [...]
[2024-04-20 00:41] LABS: Basophils Percent Auto 0.5 % (0.2-1.2); Eosinophils Absolute Auto 0.5 K/mm3 (0-0.3); Eosinophils Percent Auto 5.6 % (0-4.4); Hematocrit 41.2 % (42.0-52.0); Hemoglobin 13.2 g/dL (14.0-18.0); Immature Granulocyte Absolute 0.02 K/mm3 (0.00-0.031); Immature Granulocyte Percent A 0.2 % (0-0.5); Lymphocytes Absolute Auto 3.12 K/mm3 (0.9-3.2); Lymphocytes Percent Auto 36.2 % (18.3-44.2); Mean Corpuscular Volume 93.6 fl (80-100); Mean Platelet Volume 9.6 fl (7.4-10.4); Monocytes Percent Auto 11.1 % (2.6-8.5); Neutrophils Percent Auto 46.4 % (45.5-73.1); Platelet Count Result 189 k/mm3 (150-375); Red Cell Distribution Width 13.5 % (11.5-14.5); White Blood Count 8.6 K/mm3 (4.5-10.0)
[2024-04-20 00:52] LABS: Alanine Aminotransferase 16 U/L (6-50); Albumin Level 4.5 g/dL (3.5-5.1); Alkaline Phosphatase 86 U/L (38-126); Anion Gap 13 mmol/L (4-12); Aspartate Amino Transferase 21 U/L (17-59); Bilirubin,Total 0.4 mg/dL (0.2-1.3); Blood Urea Nitrogen 26 mg/dL (9-20); Calcium 9.2 mg/dL (8.4-10.2); Carbon Dioxide 25 mmol/L (22-30); Chloride 102 mmol/L (98-107); Estimated CRCL calculation 47 ml/min; Estimated Glomerular Filt Rate > 60; Glucose 132 mg/dL (65-110); Lipase 79 U/L (23-300); Potassium 3.8 mmol/L (3.4-5.0); Sodium 140 mmol/L (137-145)
[2024-04-20 00:54] LABS: INR 2.4; Prothrombin Time 26.4 Seconds (11.1-14.7)
[2024-04-20 00:55] LABS: Partial Thromboplastin Time 44.9 Seconds (22.3-36.8)
[2024-04-20 01:04] LABS: Troponin I < 0.012 ng/mL (0.000-0.034)
--- NOTE | 2024-04-20 01:07 | ED.CHESTPAIN ---
HPI - Chest Pain General Chief Complaint: Chest Pain Stated Complaint: chest pain, palpitations Time Seen by Provider: 04/20/24 00:34 Source: patient Mode of arrival: ambulatory Limitations: no limitations History of Present Illness HPI narrative: This is an 83-year-old male with history of coronary artery disease and AFib, presents to the emergency department complaining of intermittent chest pain for the past 2-3 days, worsening in the past hour. The patient describes the pain as pounding, centered in the chest and associated with an increased heart rate. He states his heart rate is usually in the 50s but is noticed at rise in the 80s related to increased stress from his son's illness. He states the pain does not radiate and is not associated with nausea, vomiting or cold sweats. He has no other complaints at this time. Related Data Home Medications ?Medication ?Instructions ?Recorded ?Confirmed ?Last Taken ?Type aspirin 81 mg tablet,delayed 81 mg PO DAILY 08/23/19 08/02/23 08/01/23 History release (Adult Low Dose Aspirin) amlodipine 5 mg tablet 5 mg PO DAILY 11/24/22 08/02/23 08/01/23 History losartan 25 mg tablet 50 mg PO QAM 11/24/22 08/02/23 08/01/23 History rivaroxaban 20 mg tablet (Xarelto) 20 mg PO DAILY 11/24/22 08/02/23 08/01/23 History rosuvastatin 20 mg tablet 20 mg PO DAILY 11/24/22 08/02/23 08/01/23 History spironolactone 25 mg tablet 12.5 mg PO DAILY 08/02/23 08/02/23 Unknown History Allergies Allergy/AdvReac Type Severity Reaction Status Date / Time aminophylline AdvReac Intermediate Unknown- Verified 02/14/24 11:02 SEE COMMIT Beta-Blockers AdvReac Intermediate Other Verified 02/14/24 11:02 (Beta-Adrenergic Bloc levofloxacin AdvReac Intermediate Joint/MUSCLE Verified 02/14/24 11:02 Pain poison angella extract AdvReac Mild Itching Verified 02/14/24 11:02 Penicillins AdvReac Unknown Unknown- Verified 02/14/24 11:02 A CHILD Review of Systems Review of Systems: All systems reviewed & are unremarkable except as noted in HPI and below PMFSH Past Medical History Medical History (Updated 04/20/24 @ 04:36 by Estela Manriquez PA-C) Chronic anticoagulation Post herpetic neuralgia Erosive gastritis Cervical spondylosis Cerebrovascular accident CT evidence of old lacunar infarctions. Patient had no symptoms of stroke. Colon polyps Hypertension Labile hypertension, now followed by Dr. Ayala. Coronary artery disease He had several stents placed in the left anterior descending 20 years ago, and then in February 2016 at [place] had a drug-eluting stent to the proximal RCA, 2 stents to the Left anterior descending and a diagonal stent, and a week later had two stents to the ramus. There was some diffuse disease in the small distal circumflex. Anxiety Left carotid stenosis Status post left carotid endarterectomy. Lumbar spondylosis With several bulging disc causing sciatica, mainly on the left side. Male erectile dysfunction, unspecified Mixed hyperlipidemia Paroxysmal atrial fibrillation Pharyngoesophageal dysphagia Varicose veins of both lower extremities Surgical History Surgical History History of meniscectomy of left knee (11/28/21) Partial Medial Menisectomy History of endoscopy History of cardiac catheterization With PCI and stent x7. History of arthroscopy of right knee (08/2012) History of kidney surgery Patient had surgery on his right kidney at a young age for what sounds like nephroptosis. History of left-sided carotid endarterectomy Family History Family History Sibling Malignant neoplasm of prostate Emphysema lung Mother , Mother of an [place] in her 60s. Acute myocardial infarction Father Amyotrophic lateral sclerosis Sibling Atrial fibrillation Coronary artery disease Other Family history of malignant neoplasm Social History Social History (Updated 04/20/24 @ 04:36 by Estela Manriquez PA-C) Social History: Surrogate decision maker: Obdulio Aggarwaldashawn Celis Jr., son. Code status: Full code. Smoking status: Never smoker Second hand tobacco smoke exposure: No Alcohol intake: never Substance use: never Substance use type: does not use Do You Feel Safe in your Home?: Yes Lack of Transportation: No Lack of Food: Never True Current Housing: I Have Housing Concerned About Future Housing: No Difficulty Paying Gas/Electric Bills: No Difficulty Paying for Meds: No Currently Unemployed: No Education: Trade/Vocational Certificate Difficulty w/ Childcare or Family Care: No Living arrangements: with family Additional living arrangements comments: Patient lives in his own home in [place]. He has 9 grown children. 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 Spiritual care concerns: No Exam Narrative: GENERAL: Well-developed, well-nourished, and in no acute distress. HEAD: Normocephalic, atraumatic. EYES: PERRLA and EOMI. NECK: Supple. No adenopathy or masses. No carotid bruits or JVD CHEST: Clear to auscultation. No respiratory distress. No wheezes rales or rhonchi HEART: Regular rate and rhythm. No murmur heard. Normal peripheral pulses. ABDOMEN: Soft, nontender, nondistended, normal active bowel sounds. EXTREMITIES: Normal range of motion. No edema. SKIN: Warm, dry, no rash. NEURO: Alert and oriented x3. No focal deficit. Moving all 4 limbs spontaneously PSYCH: Normal mood and affect. Course Course Emergency Course: 03:00 (time change due to daylight savings) - CBC demonstrates for mild anemia with hemoglobin of 13.2 but is otherwise unremarkable. Chemistries demonstrate glucose of 132 but is otherwise unremarkable. Initial troponin negative. Lipase within normal limits. INR 2.4. Chest x-ray not concerning for acute cardiopulmonary process by my review. EKG not concerning for acute ischemia and demonstrates recurrent PVCs. Heart score 5. Given the patient's history I recommended observation to which the patient agreed. I discussed the patient with hospitalist, RYAN Manriquez who accepts admission. Vital Signs Vital signs: Vital Signs Temperature 98 F 04/20/24 00:26 Pulse Rate 94 04/20/24 00:26 Respiratory Rate 18 04/20/24 00:26 Blood Pressure 187/70 H 04/20/24 00:26 Pulse Oximetry 99 04/20/24 00:26 Oxygen Delivery Room Air 04/20/24 00:26 Temperature 98 F 04/20/24 00:26 Pulse Rate 46 L 04/20/24 05:31 Respiratory Rate 11 L 04/20/24 05:31 Blood Pressure 149/59 H 04/20/24 05:31 Pulse Oximetry 99 04/20/24 05:31 Oxygen Delivery Room Air 04/20/24 00:32 MDM - Chest Pain MDM Narrative Medical decision making narrative: Plan: Labs, EKG, troponin, pain control, imaging, reassess Differential Diagnosis Differential diagnosis: Likely pneumothorax and other (ACS, AFib, metabolic abnormality, other) Lab Data 04/20/24 00:34 04/20/24 00:34 Labs: Lab Results 04/20/24 Range/Units 00:34 WBC 8.6 (4.5-10.0) K/mm3 RBC 4.40 L (4.6-6.20) M/mm3 Hgb 13.2 L (14.0-18.0) g/dL Hct 41.2 L (42.0-52.0) % MCV 93.6 (80-100) fl MCH 30.0 (26-34) pg MCHC 32.0 (32-36) g/dl RDW 13.5 (11.5-14.5) % Plt Count 189 (150-375) k/mm3 MPV 9.6 (7.4-10.4) fl Immature Gran % (Auto) 0.2 (0-0.5) % Neut % (Auto) 46.4 (45.5-73.1) % Lymph % (Auto) 36.2 (18.3-44.2) % Stafford % (Auto) 11.1 H (2.6-8.5) % Eos % (Auto) 5.6 H (0-4.4) % Baso % (Auto) 0.5 (0.2-1.2) % Lymph # (Auto) 3.12 (0.9-3.2) K/mm3 Stafford # (Auto) 1.0 H (0.1-0.6) K/mm3 Eos # (Auto) 0.5 H (0-0.3) K/mm3 Baso # (Auto) 0.0 (0.0-0.1) K/mm3 Abs Immat Gran (auto) 0.02 (0.00-0.031) K/mm3 Absolute Neuts (auto) 4.0 (1.3-6.7) K/mm3 Absolute Nucleated RBC 0.000 (0.0-0.012) K/mm3 Nucleated RBC % 0.0 (0.0-0.2) % PT 26.4 H (11.1-14.7) Seconds INR 2.4 APTT 44.9 H (22.3-36.8) Seconds Sodium 140 (137-145) mmol/L Potassium 3.8 (3.4-5.0) mmol/L Chloride 102 (98-107) mmol/L Carbon Dioxide 25 (22-30) mmol/L Anion Gap 13 H (4-12) mmol/L BUN 26 H (9-20) mg/dL Creatinine 1.14 (0.7-1.3) mg/dL Estim Creat Clear Calc 47 ml/min Estimated GFR > 60 (59 - ) Glucose 132 H (65-110) mg/dL Calcium 9.2 (8.4-10.2) mg/dL Total Bilirubin 0.4 (0.2-1.3) mg/dL AST 21 (17-59) U/L ALT 16 (6-50) U/L Alkaline Phosphatase 86 (38-126) U/L Troponin I < 0.012 (0.000-0.034) ng/mL Total Protein 7.0 (6.3-8.2) g/dL Albumin 4.5 (3.5-5.1) g/dL Lipase 79 (23-300) U/L TSH (Reflex) 2.430 (0.465-4.68) uIU/mL ECG Data EKG #1: Attestation: I personally reviewed and interpreted this ECG as follows: ECG completion date: 04/20/24 ECG completion time: 00:27 Interpretation: Sinus rhythm with multiple PVCs, normal axis, no ST segment elevations or T-wave inversions concerning for ischemia, normal intervals with QTC of 411. Compared to EKG done in July 2023, rate is increased. Discharge Plan Discharge Clinical Impression: HTN (hypertension), Heart palpitations Chest pain Qualifiers: Chest pain type: unspecified Qualified Code(s): R07.9 - Chest pain, unspecified Patient Disposition: Still a Patient Condition: Serious Time of Disposition: 03:06
[2024-04-20] MEDS: ASPIRIN 81 MG CHEWABLE TABLET 324 MG PO (01:11)
[2024-04-20] MEDS: ONDANSETRON INJ 4 MG/2 ML VIAL IV PUSH (01:11)
[2024-04-20] MEDS: MORPHINE SULFATE (*CRX) 2 MG/ML INJ IV PUSH (01:11)
--- NOTE | 2024-04-20 04:21 | ECG_ITS ---
Test Date: 2024-04-20 04:21:04 Measurements Intervals [facility] Rate: 56 P: 57 ID: [id number] QRS: 35 QRSD: 106 T: 57 QT: 421 QTc: 409 Interpretive Statements SINUS BRADYCARDIA OTHERWISE WITHIN NORMAL LIMITS Compared to ECG 04/20/2024 00:27:59 HEART RATE IS REDUCED AND PVCS ARE NOT SEEN Electronically Signed On 04-20-2024 08:02:04 CDT by Chris Ramirez M.D.
--- NOTE | 2024-04-20 04:25 | PM.IMHP ---
H&P: HPI History of Present Illness Date/Time: 04/20/24 05:45 Chief Complaint: Chest pain. Narrative: This is an 83-year-old male with history of stents to the LAD/RCA/diagonal branch/ramus, paroxysmal atrial fibrillation on chronic anticoagulation, left carotid endarterectomy, hypertension, dyslipidemia, and stroke who presented to the emergency department via private vehicle for evaluation of chest pain. He gives a 3 day history of intermittent, nonradiating chest pain which he describes as a heaviness in the center chest. At times he feels a heart pounding sensation as well. He has also noticed that his pulse has been up into the mid 80s when his baseline pulse is in the upper 40s to mid 50s. He does not feel as though his heart beat is irregular. He sees no pattern as to when this heaviness occurs and denies. It was aggravated last night after a stressful conversation with his son. He denies syncope, near syncope, pleuritic pain, shortness of breath, nausea, vomiting, sweats, lower extremity edema, and calf pain In the ED: Vital signs on arrival include a temperature of 98?, blood pressure 187/70, pulse 94, respiratory 18, SpO2 99% on room air. Labs were significant for hemoglobin of 13.2, INR 2.4, BUN 26, glucose 132, troponin less than 0.012. Initial EKG had baseline artifacts and appears to be a sinus mechanism with PVC and may be some nonspecific T changes. Chest x-ray did not show any acute findings. He was given aspirin 324 mg and morphine 2 mg with improvement. He is being admitted in this setting to rule out acute coronary syndrome given his cardiac history. Review of Systems Review of Systems: 12 systems were reviewed and are negative except for as per HPI. [facility] Past Medical History Medical History (Updated 04/20/24 @ 04:36 by Estela Manriquez PA-C) Chronic anticoagulation Post herpetic neuralgia Erosive gastritis Cervical spondylosis Cerebrovascular accident CT evidence of old lacunar infarctions. Patient had no symptoms of stroke. Colon polyps Hypertension Labile hypertension, now followed by Dr. Ayala. Coronary artery disease He had several stents placed in the left anterior descending 20 years ago, and then in February 2016 at [facility] had a drug-eluting stent to the proximal RCA, 2 stents to the Left anterior descending and a diagonal stent, and a week later had two stents to the ramus. There was some diffuse disease in the small distal circumflex. Anxiety Left carotid stenosis Status post left carotid endarterectomy. Lumbar spondylosis With several bulging disc causing sciatica, mainly on the left side. Male erectile dysfunction, unspecified Mixed hyperlipidemia Paroxysmal atrial fibrillation Pharyngoesophageal dysphagia Varicose veins of both lower extremities Surgical History Surgical History History of meniscectomy of left knee (11/28/21) Partial Medial Menisectomy History of endoscopy History of cardiac catheterization With PCI and stent x7. History of arthroscopy of right knee (08/2012) History of kidney surgery Patient had surgery on his right kidney at a young age for what sounds like nephroptosis. History of left-sided carotid endarterectomy Family History Family History Sibling Malignant neoplasm of prostate Emphysema lung Mother , Mother of an [place] in her 60s. Acute myocardial infarction Father Amyotrophic lateral sclerosis Sibling Atrial fibrillation Coronary artery disease Other Family history of malignant neoplasm Social History Social History (Updated 04/20/24 @ 04:36 by Estela Manriquez PA-C) Social History: Surrogate decision maker: Obdulio Celis Jr., son. Code status: Full code. Smoking status: Never smoker Second hand tobacco smoke exposure: No Alcohol intake: never Substance use: never Substance use type: does not use Do You Feel Safe in your Home?: Yes Lack of Transportation: No Lack of Food: Never True Current Housing: I Have Housing Concerned About Future Housing: No Difficulty Paying Gas/Electric Bills: No Difficulty Paying for Meds: No Currently Unemployed: No Education: Trade/Vocational Certificate Difficulty w/ Childcare or Family Care: No Living arrangements: with family Additional living arrangements comments: Patient lives in his own home in [place]. He has 9 grown children. 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 Spiritual care concerns: No Meds Home Medications and Allergies Home Medications ?Medication ?Instructions ?Recorded ?Confirmed ?Type aspirin 81 mg tablet,delayed 81 mg PO DAILY 08/23/19 08/02/23 History release (Adult Low Dose Aspirin) amlodipine 5 mg tablet 5 mg PO DAILY 11/24/22 08/02/23 History losartan 25 mg tablet 50 mg PO QAM 11/24/22 08/02/23 History rivaroxaban 20 mg tablet (Xarelto) 20 mg PO DAILY 11/24/22 08/02/23 History rosuvastatin 20 mg tablet 20 mg PO DAILY 11/24/22 08/02/23 History linaclotide 145 mcg capsule See Rx Instructions .Route 03/24/23 08/02/23 Rx (Linzess) .COMPLEX #30 caps carboxymethylcellulose sodium 1 % 2 drp RIGHT EYE .qhr #15 mL 05/27/23 08/02/23 Rx eye drops (Artificial Tears (carboxymethylcellulose)) pregabalin 50 mg capsule (Lyrica) 50 mg PO BID #60 caps 07/18/23 08/02/23 Rx nitroglycerin 0.4 mg sublingual 0.4 mg sublingual Q5M PRN chest 08/02/23 Rx tablet pain #20 tabs spironolactone 25 mg tablet 12.5 mg PO DAILY 08/02/23 08/02/23 History albuterol sulfate 90 mcg/actuation 2 puff inhalation QID PRN 02/14/24 Rx aerosol inhaler (Ventolin HFA) shortness of breath or wheezing #8.5 grams doxycycline hyclate 100 mg capsule 100 mg PO BID #20 caps 02/14/24 Rx Allergies Allergy/AdvReac Type Severity Reaction Status Date / Time aminophylline AdvReac Intermediate Unknown- Verified 02/14/24 11:02 SEE COMMIT Beta-Blockers AdvReac Intermediate Other Verified 02/14/24 11:02 (Beta-Adrenergic Bloc levofloxacin AdvReac Intermediate Joint/MUSCLE Verified 02/14/24 11:02 Pain poison angella extract AdvReac Mild Itching Verified 02/14/24 11:02 Penicillins AdvReac Unknown Unknown- Verified 02/14/24 11:02 A CHILD Vital Signs Vital Signs - 24 hr 04/20/24 00:26 04/20/24 00:32 04/20/24 00:32 Temperature 98 F Pulse Rate 94 97 Respiratory Rate 18 Blood Pressure 187/70 H Pulse Oximetry 99 100 Oxygen Delivery Room Air Room Air 04/20/24 00:32 04/20/24 01:14 04/20/24 04:07 Temperature Pulse Rate 95 74 55 L Respiratory Rate 19 12 11 L Blood Pressure 195/80 H 180/70 H 157/60 H Pulse Oximetry 100 99 98 Oxygen Delivery Exam Narrative: General: Well-developed male sitting up in bed in no distress. Weight: 84 kg. BMI: 26.6. HEENT: PERRL, EOMI. Sclerae anicteric. Oral mucosa moist. Oropharynx clear. Neck: Supple. No JVD. No carotid bruits. Respiratory: Lungs are clear to auscultation bilaterally. Chest: No tenderness to palpation over chest wall. Cardiovascular: Bradycardic. Soft systolic murmur at the lower sternal border. Gastrointestinal: Abdomen is soft, nontender, and nondistended with positive bowel sounds. Skin: Warm and dry. No rash or lesions on limited exam. Extremities: No cyanosis, clubbing, or edema. Radial and pedal pulses intact. Neurological: Alert. Cranial nerves 2-12 are grossly intact. No gross focal deficits to casual conversation. Psychiatric: Pleasant and cooperative. Appropriate mood. H&P: Results Labs Labs: Short CBC 04/20/24 Range/Units 00:34 WBC 8.6 (4.5-10.0) K/mm3 Hgb 13.2 L (14.0-18.0) g/dL Hct 41.2 L (42.0-52.0) % Plt Count 189 (150-375) k/mm3 BMP 04/20/24 00:34 Sodium 140 Potassium 3.8 Chloride 102 Carbon Dioxide 25 BUN 26 H Creatinine 1.14 Glucose 132 H Calcium 9.2 Cardiac Enzymes 04/20/24 Range/Units 00:34 Troponin I < 0.012 (0.000-0.034) ng/mL Liver Function 04/20/24 Range/Units 00:34 Total Bilirubin 0.4 (0.2-1.3) mg/dL AST 21 (17-59) U/L ALT 16 (6-50) U/L Alkaline Phosphatase 86 (38-126) U/L Albumin 4.5 (3.5-5.1) g/dL Assessment and Plan Assessment and plan (1) Chest pain: Qualifiers: Chest pain type: unspecified Qualified Code(s): R07.9 - Chest pain, unspecified Code(s): R07.9 - Chest pain, unspecified Status: Acute (2) Coronary artery disease: Code(s): I25.10 - Atherosclerotic heart disease of [place] coronary artery without angina pectoris Status: Acute (3) Hypertension: Qualifiers: Hypertension type: essential hypertension Qualified Code(s): I10 - Essential (primary) hypertension Code(s): I10 - Essential (primary) hypertension Status: Acute (4) Paroxysmal atrial fibrillation: Code(s): I48.0 - Paroxysmal atrial fibrillation Status: Acute (5) Chronic anticoagulation: Code(s): Z79.01 - terminal gauger (current) use of anticoagulants Status: Acute Plan The patient presented to the emergency department for evaluation of chest pain as detailed in HPI. Labs, imaging, EKG, and all reports were personally reviewed. Initial troponin was within normal limits an EKG did not demonstrate significant ST segment changes. Given his extensive cardiac history, he is being admitted for close monitoring although I wonder if some of this may be related to stress. It is possible that he may be going in an out of atrial fibrillation given reports of racing and pounding heart though he is in sinus rhythm/bradycardia at this time. Continue rivaroxaban for stroke prophylaxis. Initial blood pressures were high but are improving and will be monitored closely. His home medications will be reviewed and resumed as appropriate. Findings and treatment plan were discussed with the patient. Questions were solicited and answered to satisfaction. The patient's medical management will be taken over by the hospitalist team in a.m. Quality VTE Prophylaxis VTE prophylaxis: pharmacologic ordered (on rivaroxaban) The patient has been admitted under observation status. Hospitalist MIPS Advance Care Plan I have confirmed that the patient's Advanced Care Plan is present, code status is documented, or surrogate decision maker is listed in patient medical record.: Yes Medication Reconciliation I have utilized all available resources to obtain, update and review the patients current medications (includes all prescriptions, OTC, herbals, cannabis, and nutritional supplements).: Yes
[2024-04-20 04:48] LABS: Troponin I < 0.012 ng/mL (0.000-0.034)
--- NOTE | 2024-04-20 07:27 | ECG_ITS ---
Test Date: 2024-04-20 07:35:58 Measurements Intervals [place] Rate: 54 P: -4 NM: 171 QRS: 27 QRSD: 99 T: 57 QT: 430 QTc: 408 Interpretive Statements SINUS BRADYCARDIA OTHERWISE WITHIN NORMAL LIMITS Compared to ECG 04/20/2024 04:21:04 No significant changes Electronically Signed On 04-20-2024 08:02:53 CDT by Chris Ramirez M.D.
[2024-04-20 08:00] LABS: Troponin I 0.013 ng/mL (0.000-0.034)
--- NOTE | 2024-04-20 10:28 | PC.NURSE ---
Arrived to the floor via stretcher from the ER. Placed on a associate trainer that is currently on and functioning. Denies chest pain at this time. States that he had received a phone call from one of his son's the night before that increased his anxiety and chest pain. States that he had also forgotten to take some of his home medications yesterday. Systolic blood pressure is noted to be high on admission to the floor (180s). Orthostatic blood pressures assessed at this time and when the patient stood up his blood pressure dropped to the 140s systolic. Patient states that he does have Nitro at home, however he further states that I forgot about it and didn't take it . No acute distress noted at this time.
--- NOTE | 2024-04-20 14:16 | PM.IMPN ---
Progress Note: A&P Assessment and Plan (1) Chest pain: Qualifiers: Chest pain type: unspecified Qualified Code(s): R07.9 - Chest pain, unspecified Code(s): R07.9 - Chest pain, unspecified Status: Acute Assessment and Plan: CP has stabilized no further CP Trop are negative add ativan for anxiety hopeful dc [place] when bp is better CP maybe anxiety related (2) Coronary artery disease: Code(s): I25.10 - Atherosclerotic heart disease of [place] coronary artery without angina pectoris Status: Acute Assessment and Plan: restart home medications order ECH[facility] (3) Hypertension: Qualifiers: Hypertension type: essential hypertension Qualified Code(s): I10 - Essential (primary) hypertension Code(s): I10 - Essential (primary) hypertension Status: Acute Assessment and Plan: BP is better today coming down 170/50 restart pts home doses (4) Paroxysmal atrial fibrillation: Code(s): I48.0 - Paroxysmal atrial fibrillation Status: Acute Assessment and Plan: pt is on tele (5) Chronic anticoagulation: Code(s): Z79.01 - intermediate manager (current) use of anticoagulants Status: Acute Assessment and Plan: Continue xarelto for PAF Subjective Date/time seen: 04/20/24 14:16 Interval history: 83-year-old male with history of stents to the LAD/RCA/diagonal branch/ramus, paroxysmal atrial fibrillation on chronic anticoagulation, left carotid endarterectomy, hypertension, dyslipidemia, and stroke who presented to the emergency department via private vehicle for evaluation of chest pain. He gives a 3 day history of intermittent, nonradiating chest pain which he describes as a heaviness in the center chest. At times he feels a heart pounding sensation as well. He has also noticed that his pulse has been up into the mid 80s when his baseline pulse is in the upper 40s to mid 50s. He does not feel as though his heart beat is irregular. He sees no pattern as to when this heaviness occurs and denies. It was aggravated last night after a stressful conversation with his son. Pt having high bps. Trop level is nl Pt states he missed taking his medications Pt has been very anxious Pt did have chest pain on admission currently asymptomatic Review of Systems Review of Systems: asymptomatic Objective Data Vital Signs Vital Signs: Vital Signs - 24 hr 04/20/24 00:26 04/20/24 00:32 04/20/24 00:32 Temperature 36.6 C Pulse Rate 94 97 Respiratory Rate 18 Blood Pressure 187/70 H Pulse Oximetry 99 100 Oxygen Delivery Room Air Room Air 04/20/24 00:32 04/20/24 01:14 04/20/24 01:17 Temperature Pulse Rate 95 74 74 Respiratory Rate 19 12 13 Blood Pressure 195/80 H 180/70 H 160/61 H Pulse Oximetry 100 99 98 Oxygen Delivery 04/20/24 01:32 04/20/24 01:47 04/20/24 03:02 Temperature Pulse Rate 70 61 69 Respiratory Rate 10 L 12 15 Blood Pressure 154/63 H 162/65 H 182/76 H Pulse Oximetry 98 99 100 Oxygen Delivery 04/20/24 03:16 04/20/24 03:31 04/20/24 03:46 Temperature Pulse Rate 57 L 60 60 Respiratory Rate 12 10 L 10 L Blood Pressure 169/69 H 156/60 H 145/59 H Pulse Oximetry 99 98 99 Oxygen Delivery 04/20/24 04:01 04/20/24 04:07 04/20/24 04:16 Temperature Pulse Rate 57 L 55 L 50 L Respiratory Rate 18 11 L 11 L Blood Pressure 157/60 H 157/60 H 141/56 H Pulse Oximetry 99 98 100 Oxygen Delivery 04/20/24 04:31 04/20/24 04:46 04/20/24 05:02 Temperature Pulse Rate 53 L 50 L 47 L Respiratory Rate 11 L 12 14 Blood Pressure 144/55 H 141/57 H 133/51 L Pulse Oximetry 98 98 97 Oxygen Delivery 04/20/24 05:17 04/20/24 05:31 04/20/24 07:35 Temperature Pulse Rate 46 L 54 L Respiratory Rate 16 11 L 13 Blood Pressure 142/55 H 149/59 H 179/66 H Pulse Oximetry 98 99 100 Oxygen Delivery 04/20/24 07:57 04/20/24 08:33 04/20/24 09:22 Temperature 36.5 C 36.8 C Pulse Rate 53 L 54 L 60 Respiratory Rate 15 20 Blood Pressure 165/63 H 184/52 H Pulse Oximetry 99 99 Oxygen Delivery 04/20/24 09:23 04/20/24 09:24 04/20/24 09:25 Temperature Pulse Rate 55 L 58 L 61 Respiratory Rate 18 20 18 Blood Pressure 170/67 H 183/68 H 144/54 H Pulse Oximetry 99 99 100 Oxygen Delivery 04/20/24 10:00 04/20/24 10:41 04/20/24 11:58 Temperature 36.9 C Pulse Rate 51 L 51 L 49 L Respiratory Rate 18 14 Blood Pressure 138/52 L Pulse Oximetry 100 98 Oxygen Delivery Room Air 04/20/24 12:00 Temperature Pulse Rate 50 L Respiratory Rate Blood Pressure Pulse Oximetry Oxygen Delivery Intake/Output Intake/Output: Intake & Output 04/17/24 04/18/24 04/19/24 04/21/24 23:59 23:59 23:59 00:59 Output Total 840 Balance -840 Meds/Results Medications: Active Medications Generic Name Dose Route Start Last Admin Trade Name Freq PRN Reason Stop Dose Admin Acetaminophen 650 mg 04/20/24 04:40 Acetaminophen 325 Mg Tablet PO Q6H PRN Mild Pain (1-3) or Fever Amlodipine Besylate 5 mg 04/20/24 10:00 Amlodipine Besylate 5 Mg Tablet PO DAILY [facility] Artificial Tears 2 drop 04/20/24 11:00 Artificial Tears Ophth Soln 15 Ml Bottle RIGHT EYE DAILY PRN Dry Eye(s) Aspirin 81 mg 04/20/24 21:00 Aspirin 81 Mg Enteric Tablet PO QHS [facility] Linaclotide 145 mcg 04/20/24 10:00 Linaclotide 145 Mcg Capsule BY MOUTH DAILY [facility] Losartan Potassium 50 mg 04/20/24 10:00 Losartan Potassium 25 Mg Tablet PO QAM [facility] Morphine Sulfate 2 mg 04/20/24 03:06 Morphine Sulfate (*Crx) 2 Mg/Ml Inj IV PUSH Q2H PRN Pain Rated 7-10 Nitroglycerin 0.4 mg 04/20/24 09:52 Nitroglycerin Sl 0.4 Mg Tablet SUBLINGUAL Q5M PRN chest pain Rivaroxaban 20 mg 04/20/24 17:00 Rivaroxaban 20 Mg Tablet PO DAILY@1700 [facility] Rosuvastatin Calcium 20 mg 04/20/24 21:00 Rosuvastatin 20 Mg Tablet PO HS [facility] Spironolactone 12.5 mg 04/20/24 10:00 Spironolactone 12.5 Mg Tablet PO DAILY [facility] Radiology Results: ITS Impressions Chest X-Ray 04/20/24 06:35 Impression: Clear lungs Labs Labs: Laboratory Results - last 24 hr 04/20/24 04/20/24 04/20/24 00:34 04:19 07:20 WBC 8.6 RBC 4.40 L Hgb 13.2 L Hct 41.2 L MCV 93.6 MCH 30.0 MCHC 32.0 RDW 13.5 Plt Count 189 MPV 9.6 Immature Gran % (Auto) 0.2 Neut % (Auto) 46.4 Lymph % (Auto) 36.2 [place] % (Auto) 11.1 H Eos % (Auto) 5.6 H Baso % (Auto) 0.5 Lymph # (Auto) 3.12 [place] # (Auto) 1.0 H Eos # (Auto) 0.5 H Baso # (Auto) 0.0 Abs Immat Gran (auto) 0.02 Absolute Neuts (auto) 4.0 Absolute Nucleated RBC 0.000 Nucleated RBC % 0.0 PT 26.4 H INR 2.4 APTT 44.9 H Sodium 140 Potassium 3.8 Chloride 102 Carbon Dioxide 25 Anion Gap 13 H BUN 26 H Creatinine 1.14 Estim Creat Clear Calc 47 Estimated GFR > 60 Glucose 132 H Calcium 9.2 Total Bilirubin 0.4 AST 21 ALT 16 Alkaline Phosphatase 86 Troponin I < 0.012 < 0.012 0.013 Total Protein 7.0 Albumin 4.5 Lipase 79 TSH (Reflex) 2.430
[2024-04-20] MEDS: LOSARTAN POTASSIUM 25 MG TABLET 50 MG PO (14:30)
[2024-04-20] MEDS: SPIRONOLACTONE 12.5 MG TABLET PO (14:30)
[2024-04-20] MEDS: LINACLOTIDE 145 MCG CAPSULE BY MOUTH (14:31)
[2024-04-20] MEDS: RIVAROXABAN 20 MG TABLET PO (16:27)
[2024-04-20] MEDS: ROSUVASTATIN 20 MG TABLET PO (22:46)
[2024-04-20] MEDS: ASPIRIN 81 MG ENTERIC TABLET PO (22:46)
[2024-04-20] MEDS: LORazepam (*CRX) 0.5 MG TABLET PO (22:50)
[2024-04-20] MEDS: amLODIPine BESYLATE 5 MG TABLET PO (23:59)
[2024-04-21] VITALS (11 sets, daily range): BP systolic 113–154; BP diastolic 52–63; PULSE 44–64; RESP 18–20; TEMP 36.1–36.4; O2SAT 97–100
--- NOTE | 2024-04-21 | ECHO_ITS ---
Patient Info Name: Obdulio Marroquin Age: 83 years : 1940 Gender: Male Ht: 71 in Wt: 190 lbs BSA: 2.09 m2 HR: 58 bpm BP: 154 / 57 mmHg Technical Quality: Good Exam Date: 04/21/2024 10:42 AM Exam Location: Echo Lab Patient Status: Outpatient Admit Date: 04/20/2024 Staff Ordering Physician: Rain Messer MD Painter Mirror: Gloria Zarco RDCS Attending Provider: Leela Iglesias PA-C Referring Physician: Ayde CUMMINGS; Exam Type: CA echo doppler color flow Study Info Indications R07.9 - Chest pain, unspecified Complete two-dimensional, color flow and Doppler transthoracic echocardiogram is performed. Summary 1. Complete two-dimensional, color flow and Doppler transthoracic echocardiogram is performed. 2. The left ventricle is normal in size and systolic function. The left ventricular ejection fraction is visually estimated to be 60-65%. There is no regional wall motion abnormalities. There is normal diastolic function in this study. 3. There is no significant valvular disease. Left Ventricle The left ventricle is normal in size and systolic function. The left ventricular ejection fraction is visually estimated to be 60-65%. There is no regional wall motion abnormalities. There is normal diastolic function in this study. Right Ventricle The right ventricle is normal in size and systolic function. Left Atria The left atrium is normal size. Right Atria The right atrium is normal size. Atrial Septum The atrial septum is normal. Aortic Valve The aortic valve is trileaflet and calcified. The Doppler gradients across the valve suggests normal function valve. Pulmonic Valve The pulmonic valve is not well visualized. There is no color Doppler evidence of pulmonic valve regurgitation. Mitral Valve The mitral valve is normal. There is trace mitral regurgitation. Tricuspid Valve The tricuspid valve is normal. There is trace tricuspid regurgitation. Pericardium/Pleural Pericardium is normal in appearance with no evidence for significant pericardial effusion. Inferior Vena Cava Normal inferior vena cava with <50% collapse upon inspiration consistent with elevated right atrial pressure, 8 mmHg. Aorta The aortic root at the level of the sinus of Valsalva measures 3.5 cm in diameter. Left Ventricular Outflow Tract Name Value Normal LVOT 2D LVOT Diameter 2.0 cm LVOT Doppler LVOT Peak Gradient 7 mmHg LVOT Mean Gradient 4 mmHg LVOT VTI 32 cm LVOT VTI/AV VTI Ratio 0.7 LVOT Stroke Volume 106 ml LVOT CO 5.7 l/min LVOT CI 2.7 l/min/m2 Pulmonic Valve Name Value Normal RVOT Doppler RVOT Peak Gradient 3 mmHg PV Doppler PV Peak Gradient 7 mmHg Mitral Valve Name Value Normal MV Doppler MV Decel [place] 475 cm/s2 MV PHT 62 ms MV Area (PHT) 3.5 cm2 4.0-5.0 MV Diastolic Function MV E Peak Velocity 102 cm/s MV A Peak Velocity 57 cm/s MV E/A 1.8 MV Decel Time 215 ms Tricuspid Valve Name Value Normal TV Regurgitation Doppler TR Peak Velocity 316 cm/s TR Peak Gradient 40 mmHg Estimated PAP/RSVP RA Pressure 8 mmHg <=5 PA Systolic Pressure 48 mmHg <36 RV Systolic Pressure 48 mmHg <36 Aorta Name Value Normal Ascending Aorta Ao Root Diameter (MM) 3.5 cm Ao Root Diam Index (MM) 1.7 cm/m2 Aortic Valve Name Value Normal AV Doppler AV Peak Velocity 191 cm/s AV Peak Gradient 11 mmHg AV Mean Gradient 7 mmHg AV VTI 44 cm AV Area (Cont Eq VTI) 2.4 cm2 >=3.0 AV Area (Cont Eq Lee) 2.7 cm2 AV Regurgitation 2D LVOT Area 3.3 cm2 Ventricles Name Value Normal LV Dimensions 2D/MM IVS Diastolic Thickness (2D) 0.7 cm 0.6-1.0 IVS Diastole Thickness (MM) 0.9 cm 0.6-1.0 LVID Diastole (2D) 5.1 cm 4.2-5.8 LVID Diastole (MM) 6.6 cm 4.2-5.8 LVIW Diastolic Thickness (2D) 0.7 cm 0.6-1.0 LVIW Diastolic Thickness (MM) 0.9 cm 0.6-1.0 LVID Systole (2D) 2.7 cm 2.5-4.0 LVID Systole (MM) 4.1 cm 2.5-4.0 LVOT Diameter 2.0 cm LV Mass (2D Cubed) 121.49 g 88.00-224.00 LV Mass Index (2D Cubed) 58 g/m2 49-115 Relative Wall Thickness (2D) 0.28 LV Mass (MM Cubed) 247.39 g 88.00-224.00 LV Mass Index (MM Cubed) 118 g/m2 49-115 Relative Wall Thickness (MM) 0.27 LV Fractional Shortening/Ejection Fraction 2D/MM LV Fractional Shortening (2D) 48 % 25-43 LV Fractional Shortening (MM) 38 % 25-43 LV EF (MM Teicholz) 67 % 52-72 LV EF (2D Teicholz) 79 % 52-72 LV Diastolic Volume (4C MOD) 120 ml LV EF (4C MOD) 65 % LV Diastolic Volume (2C MOD) 132 ml LV EF (2C MOD) 73 % LV Diastolic Volume (BP MOD) 126 ml 62-150 LV Diastolic Volume Index (BP MOD) 60 ml/m2 34-74 LV Systolic Volume (BP MOD) 40 ml 21-61 LV Systolic Volume Index (BP MOD) 19 ml/m2 11-31 LV EF (BP MOD) 68 % 52-72 LV Diastolic Length (4C) 9.3 cm LV Systolic Length (4C) 7.2 cm LV Stroke Volume (4C MOD) 79 ml Atria Name Value Normal LA Dimensions LA Dimension (MM) 3.5 cm 3.0-4.1 LA Volume (4C A-L) 59 ml LA Volume (BP A-L) 60 ml RA Dimensions RA Area (4C) 15.3 cm2 <=18.0 EchoPAC Name Value Normal AutoEF LVCO_BiP_Q (Wxel8HKN) 5.7 l/min LVEF_BiP_Q (Dvpa6CEQ) 69 % LVSV_BiP_Q (Ejvn5MWV) 99 ml LVVED_BiP_Q (Tslj2MDQ) 145 ml LVVES_BiP_Q (Dcma3KJJ) 46 ml HR_4Ch_Q (Hdrx9IAJ) 56 bpm LVCO_4Ch_Q (Ppvh9SPV) 4.9 l/min LVEF_4Ch_Q (Vola2HCR) 65 % LVLd_4Ch_Q (Toej1BEB) 9.3 cm LVLs_4Ch_Q (Vljx3JHN) 7.2 cm LVSV_4Ch_Q (Gyof9FDS) 87 ml LVVED_4Ch_Q (Pzag0GSC) 134 ml LVVES_4Ch_Q (Fdrn8QFG) 47 ml HR_2Ch_Q (Xhuv4DUW) 56 bpm LVCO_2Ch_Q (Mjup2IBA) 6.6 l/min LVEF_2Ch_Q (Xjhq5QYC) 73 % LVLd_2Ch_Q (Tkdu6CGR) 9.6 cm LVLs_2Ch_Q (Tkgx2SZG) 7.4 cm LVSV_2Ch_Q (Nwxo5IGA) 118 ml LVVED_2Ch_Q (Ddjl6UXL) 161 ml LVVES_2Ch_Q (Gcbh6NQO) 44 ml JACQUELINE AA peak sys SL (AWMA) 24.1 % AAS peak sys SL (AWMA) 28.9 % AI peak sys SL (AWMA) 31.6 % AL peak sys SL (AWMA) 31.7 % AP peak sys SL (AWMA) 23.0 % peak sys SL (AWMA) 35.5 % AVC (AWMA) 384 ms BA peak sys SL (AWMA) 26.5 % BAS peak sys SL (AWMA) 18.4 % BI peak sys SL (AWMA) 17.2 % BL peak sys SL (AWMA) 17.0 % BP peak sys SL (AWMA) 21.1 % BS peak sys SL (AWMA) 12.7 % G peak SL(A2C) (AWMA) 23.8 % G peak SL(A4C) (AWMA) 23.6 % G peak SL(APLAX) (AWMA) 22.8 % G peak SL(Avg) (AWMA) 23.4 % MA peak sys SL (AWMA) 22.6 % MAS peak sys SL (AWMA) 28.0 % MD peak sys SL (AWMA) 21.6 % ML peak sys SL (AWMA) 19.0 % MP peak sys SL (AWMA) 22.0 % MS peak sys SL (AWMA) 28.0 % Report Signatures
--- NOTE | 2024-04-21 00:38 | PC.NURSE ---
This patient, Obdulio Marroquin, was transferred to room 341 on 04/21/24 at 0035. Personal belongings sent with patient. Report given to MARISOL Carrion. Appropriate documentation sent with patient.
--- NOTE | 2024-04-21 00:42 | PC.NURSE ---
04/21/24 at 0040-Attempted to call patient's spouse, Angela Marroquin to inform her of this patient's new room assignment of 341. No answer received at this time. Message left with the correct room number.
[2024-04-21 05:54] LABS: Basophils Percent Auto 0.5 % (0.2-1.2); Eosinophils Absolute Auto 0.4 K/mm3 (0-0.3); Eosinophils Percent Auto 5.5 % (0-4.4); Hematocrit 39.4 % (42.0-52.0); Hemoglobin 12.6 g/dL (14.0-18.0); Immature Granulocyte Absolute 0.03 K/mm3 (0.00-0.031); Immature Granulocyte Percent A 0.4 % (0-0.5); Lymphocytes Percent Auto 21.1 % (18.3-44.2); Mean Corpuscular Hemoglobin 29.9 pg (26-34); Mean Corpuscular Volume 93.6 fl (80-100); Mean Platelet Volume 9.9 fl (7.4-10.4); Monocytes Absolute Auto 0.8 K/mm3 (0.1-0.6); Neutrophils Absolute Auto 4.7 K/mm3 (1.3-6.7); Neutrophils Percent Auto 62.5 % (45.5-73.1); Platelet Count Result 175 k/mm3 (150-375); Red Blood Count 4.21 M/mm3 (4.6-6.20); Red Cell Distribution Width 13.7 % (11.5-14.5); White Blood Count 7.6 K/mm3 (4.5-10.0)
[2024-04-21 06:11] LABS: Anion Gap 5 mmol/L (4-12); Blood Urea Nitrogen 18 mg/dL (9-20); Calcium 8.7 mg/dL (8.4-10.2); Carbon Dioxide 27 mmol/L (22-30); Chloride 105 mmol/L (98-107); Estimated CRCL calculation 50 ml/min; Estimated Glomerular Filt Rate > 60; Glucose 99 mg/dL (65-110); Potassium 4.2 mmol/L (3.4-5.0); Sodium 137 mmol/L (137-145)
--- NOTE | 2024-04-21 08:54 | P.PNIM_ITS ---
Progress Note: A&P Assessment and Plan (1) Chest pain: Qualifiers: Chest pain type: unspecified Qualified Code(s): R07.9 - Chest pain, unspecified Code(s): R07.9 - Chest pain, unspecified Status: Acute Assessment and Plan: Given his extensive cardiac history, he is being admitted for close monitoring although some of this may be related to stress. It is possible that he may be going in an out of atrial fibrillation given reports of racing and pounding heart though he is in sinus rhythm/bradycardia at this time. Continue rivaroxaban for stroke prophylaxis. Given aspirin 324 mg and morphine 2 mg with improvement. EKG sinus bradycardia Troponin negative Chest XR unremarkable Monitor vital signs, I&Os, chest pain, shortness of breath and patient is a fall risk Monitor PTT, serial troponins, Serum electrolytes, and cbc Keep serum potassium >4 and keep magnesium >2 Monitor for bloody bowel movements,chest pain,SOB or dizziness/lightheadedness Echocardiogram: LVEF 60-65 He continues to endorse chest discomfort describing it as snapping sensation radiating from his left center chest to the right. He states that this comes and goes intermittently lasting only a few seconds. Denies cocurrent shortness of breath, fatigue, or diaphoresis. Possible that this is musculoskeletal given that it is exacerbated with palpation and upper extremity movement however given patient's extensive cardiac history will obtain a cardiology consult to rule out ACS. (2) Coronary artery disease: Code(s): I25.10 - Atherosclerotic heart disease of [place] coronary artery without angina pectoris Status: Acute Assessment and Plan: Restart home medications Most recent echo from 09/11/22: LVEF >70% with grade II diastolic dysfunction Echo 04/21: LVEF 60-65% and normal diastolic dysfunction (3) Hypertension: Qualifiers: Hypertension type: essential hypertension Qualified Code(s): I10 - Essential (primary) hypertension Code(s): I10 - Essential (primary) hypertension Status: Acute Assessment and Plan: Initial blood pressures were high on admission Resumed home medications spironolactone 12.5 mg daily losartan 12.5 mg daily amlodipine 5 mg daily Blood pressures are stable and improving. Contine to be monitored closely. (4) Paroxysmal atrial fibrillation: Code(s): I48.0 - Paroxysmal atrial fibrillation Status: Acute Assessment and Plan: pt is on tele hr remains stable anticoagulation: xarelto (5) Chronic anticoagulation: Code(s): Z79.01 - senior care (current) use of anticoagulants Status: Acute Assessment and Plan: Continue xarelto for PAF Time Spent With Patient Time with patient: 25 - 35 minutes Subjective Date/time seen: 04/21/24 08:54 Interval history: 83-year-old male with history of stents to the LAD/RCA/diagonal branch/ramus, paroxysmal atrial fibrillation on chronic anticoagulation, left carotid endarterectomy, hypertension, dyslipidemia, and stroke who presented to the hospital via private vehicle for evaluation of intermittent, nonradiating chest pain that on admission he described as a heaviness in the center chest. Patient is pleasant walking independently throughout his room with at bedside. He continues to endorse chest discomfort describing it as snapping sensation radiating from his left center chest to the right. He states that this comes and goes intermittently lasting only a few seconds. Denies cocurrent shortness of breath, fatigue, or diaphoresis. Possible that this is musculoskeletal given that it is exacerbated with palpation and upper extremity movement however given patient's extensive cardiac history will obtain a cardiology consult to rule out ACS. Review of Systems Review of Systems: All systems reviewed & are unremarkable except as noted in HPI and below Exam Narrative: AF HR 53 RR 19 SpO2 100 BP 113/52 General: male in no acute respiratory distress who is nontoxic appearing, lying semi recumbent in bed. HEENT: Normocephalic. Atraumatic. Extraocular movement intact. Sclera clear and anicteric. No facial asymmetry. Chest: Lungs are clear to auscultation bilaterally. No wheezes or crackles. CV: Heart was regular rate and rhythm. Abd: Abdomen was soft. Nontender. Nondistended. Positive bowel sounds. No organomegaly or masses. Ext: No clubbing, cyanosis, or edema. 2+ DP pulses bilaterally. Worsening chest pain with UE movement. Neuro: Patient is alert and oriented x4. Speech is clear. Objective Data Vital Signs Vital Signs: Vital Signs - 24 hr 04/20/24 09:22 04/20/24 09:23 04/20/24 09:24 Temperature 98.3 F Pulse Rate 60 55 L 58 L Respiratory Rate 20 18 20 Blood Pressure 184/52 H 170/67 H 183/68 H Pulse Oximetry 99 99 99 Oxygen Delivery 04/20/24 09:25 04/20/24 10:00 04/20/24 10:41 Temperature Pulse Rate 61 51 L 51 L Respiratory Rate 18 18 Blood Pressure 144/54 H Pulse Oximetry 100 100 Oxygen Delivery Room Air 04/20/24 11:58 04/20/24 12:00 04/20/24 16:00 Temperature 98.4 F Pulse Rate 49 L 50 L 46 L Respiratory Rate 14 Blood Pressure 138/52 L Pulse Oximetry 98 Oxygen Delivery 04/20/24 16:00 04/20/24 20:00 04/20/24 20:18 Temperature 97.5 F L 97.4 F L Pulse Rate 51 L 51 L 49 L Respiratory Rate 16 18 Blood Pressure 163/54 H 176/62 H Pulse Oximetry 100 98 Oxygen Delivery 04/20/24 21:45 04/21/24 00:00 04/21/24 01:54 Temperature 97.2 F L Pulse Rate 49 L 46 L 50 L Respiratory Rate 18 20 Blood Pressure 154/57 H Pulse Oximetry 98 99 Oxygen Delivery Room Air 04/21/24 04:00 04/21/24 05:55 04/21/24 08:00 Temperature 97.0 F L Pulse Rate 44 L 55 L 57 L Respiratory Rate 20 Blood Pressure 136/57 L Pulse Oximetry 98 Oxygen Delivery Intake/Output Intake/Output: Intake & Output 04/18/24 04/19/24 04/21/24 04/21/24 23:59 23:59 00:59 23:59 Intake Total 240 300 Output Total 840 1280 Balance -600 -980 Meds/Results Medications: Active Medications Generic Name Dose Route Start Last Admin Trade Name Angel PRN Reason Stop Dose Admin Acetaminophen 650 mg 04/20/24 04:40 Acetaminophen 325 Mg Tablet PO Q6H PRN Mild Pain (1-3) or Fever Amlodipine Besylate 5 mg 04/20/24 23:40 04/20/24 23:59 Amlodipine Besylate 5 Mg Tablet PO 5 mg QHS MAX Administration Artificial Tears 2 drop 04/20/24 11:00 Artificial Tears Ophth Soln 15 Ml Bottle RIGHT EYE DAILY PRN Dry Eye(s) Aspirin 81 mg 04/20/24 21:00 04/20/24 22:46 Aspirin 81 Mg Enteric Tablet PO 81 mg QHS MAX Administration Linaclotide 145 mcg 04/20/24 10:00 04/20/24 14:31 Linaclotide 145 Mcg Capsule BY MOUTH 145 mcg DAILY MAX Administration Lorazepam 0.5 mg 04/20/24 14:21 04/20/24 22:50 Lorazepam (*Crx) 0.5 Mg Tablet PO 0.5 mg Q6H PRN Administration Anxiety Losartan Potassium 12.5 mg 04/21/24 09:00 Losartan Potassium 12.5 Mg Tablet PO QAM MAX Morphine Sulfate 2 mg 04/20/24 03:06 Morphine Sulfate (*Crx) 2 Mg/Ml Inj IV PUSH Q2H PRN Pain Rated 7-10 Nitroglycerin 0.4 mg 04/20/24 09:52 Nitroglycerin Sl 0.4 Mg Tablet SUBLINGUAL Q5M PRN chest pain Perflutren Lipid Microsphere 0 ml 04/20/24 14:21 Perflutren Lipid Microspheres 1.5 Ml Vial Diluted To 10 Ml Total Volume IV PUSH 04/23/24 14:21 ONCE PRN adequate visualization Protocol Rivaroxaban 20 mg 04/20/24 17:00 04/20/24 16:27 Rivaroxaban 20 Mg Tablet PO 20 mg DAILY@1700 MAX Administration Rosuvastatin Calcium 20 mg 04/20/24 21:00 04/20/24 22:46 Rosuvastatin 20 Mg Tablet PO 20 mg HS MAX Administration Spironolactone 12.5 mg 04/20/24 10:00 04/20/24 14:30 Spironolactone 12.5 Mg Tablet PO 12.5 mg DAILY MAX Administration Radiology Results: ITS Impressions Chest X-Ray 04/20/24 06:35 Impression: Clear lungs Labs Labs: Laboratory Results - last 24 hr 04/21/24 05:24 WBC 7.6 RBC 4.21 L Hgb 12.6 L Hct 39.4 L MCV 93.6 MCH 29.9 MCHC 32.0 RDW 13.7 Plt Count 175 MPV 9.9 Immature Gran % (Auto) 0.4 Neut % (Auto) 62.5 Lymph % (Auto) 21.1 [place] % (Auto) 10.0 H Eos % (Auto) 5.5 H Baso % (Auto) 0.5 Lymph # (Auto) 1.60 [place] # (Auto) 0.8 H Eos # (Auto) 0.4 H Baso # (Auto) 0.0 Abs Immat Gran (auto) 0.03 Absolute Neuts (auto) 4.7 Absolute Nucleated RBC 0.000 Nucleated RBC % 0.0 Sodium 137 Potassium 4.2 Chloride 105 Carbon Dioxide 27 Anion Gap 5 BUN 18 Creatinine 1.10 Estim Creat Clear Calc 50 Estimated GFR > 60 Glucose 99 Calcium 8.7 Quality VTE Prophylaxis VTE prophylaxis: pharmacologic ordered (on rivaroxaban)
[2024-04-21] MEDS: LOSARTAN POTASSIUM 12.5 MG TABLET PO (09:46)
[2024-04-21] MEDS: SPIRONOLACTONE 12.5 MG TABLET PO (09:46)
[2024-04-21] MEDS: LINACLOTIDE 145 MCG CAPSULE BY MOUTH (10:06)
[2024-04-21] MEDS: RIVAROXABAN 20 MG TABLET PO (18:00)
[2024-04-21] MEDS: ROSUVASTATIN 20 MG TABLET PO (20:14)
[2024-04-21] MEDS: ASPIRIN 81 MG ENTERIC TABLET PO (20:14)
[2024-04-21] MEDS: amLODIPine BESYLATE 5 MG TABLET PO (20:14)
[2024-04-22] VITALS: PULSE 44
[2024-04-22 04:00] VITALS: PULSE 49
[2024-04-22 06:00] VITALS: BP 160/59; PULSE 55; RESP 20; TEMP 36.6; O2SAT 98
[2024-04-22 08:30] VITALS: PULSE 61; O2SAT 99
[2024-04-22] MEDS: SPIRONOLACTONE 12.5 MG TABLET PO (08:30)
[2024-04-22] MEDS: LOSARTAN POTASSIUM 12.5 MG TABLET PO (08:30)
[2024-04-22] MEDS: LINACLOTIDE 145 MCG CAPSULE BY MOUTH (08:30)
[2024-04-22] MEDS: LORazepam (*CRX) 0.5 MG TABLET PO (08:34)
[2024-04-22 08:45] VITALS: O2SAT 99
[2024-04-22 09:00] LABS: Hematocrit 44.4 % (42.0-52.0); Hemoglobin 13.9 g/dL (14.0-18.0); Mean Corpuscular HGB Conc 31.3 g/dl (32-36); Mean Corpuscular Volume 95.7 fl (80-100); Mean Platelet Volume 9.6 fl (7.4-10.4); Platelet Count Result 189 k/mm3 (150-375); Red Blood Count 4.64 M/mm3 (4.6-6.20); Red Cell Distribution Width 13.6 % (11.5-14.5); White Blood Count 7.8 K/mm3 (4.5-10.0)
[2024-04-22 10:35] LABS: Alanine Aminotransferase 17 U/L (6-50); Albumin Level 4.7 g/dL (3.5-5.1); Alkaline Phosphatase 98 U/L (38-126); Anion Gap 10 mmol/L (4-12); Aspartate Amino Transferase 22 U/L (17-59); Bilirubin,Total 0.9 mg/dL (0.2-1.3); Blood Urea Nitrogen 23 mg/dL (9-20); Calcium 9.2 mg/dL (8.4-10.2); Carbon Dioxide 26 mmol/L (22-30); Chloride 100 mmol/L (98-107); Estimated CRCL calculation 46 ml/min; Estimated Glomerular Filt Rate 59; Glucose 102 mg/dL (65-110); Potassium 4.4 mmol/L (3.4-5.0); Sodium 136 mmol/L (137-145)
[2024-04-22 12:00] VITALS: PULSE 58
--- NOTE | 2024-04-22 12:19 | PM.CNCAR ---
Assessment and Plan Assessment and plan (1) Chest pain: Qualifiers: Chest pain type: unspecified Qualified Code(s): R07.9 - Chest pain, unspecified Code(s): R07.9 - Chest pain, unspecified Status: Acute Plan 1. Chest pain, atypical, likely noncardiac 2. Extensive CAD with several stents in the past 3. Paroxysmal atrial fibrillation 4. Carotid artery disease s/p left carotid endarterectomy 5. Hypertension 6. Hyperlipidemia PLAN: -Chest pain likely noncardiac. No additional inpatient cardiac evaluation at this time. Will arrange close outpatient follow-up. -Continue home cardiac meds. -Recommend stress management techniques, consider antianxiety medication. History of Present Illness History of Present Illness Consult date/time: 04/22/24 12:19 Requesting physician: Leela Iglesias PA-C Consult reason: chest pain Reason For Visit: Chest pain Narrative: We are consulted for chest pain. This is an 83 year old patient of Dr. Tirado's (previously [facility]) with known extensive CAD with several stents in the past, PAF, carotid artery disease s/p left carotid endarterectomy, hypertension, hyperlipidemia. Presented to [place] for chest pain. Chest pain started shortly after he got a stressful call from his son. Tends to get chest discomfort with stress. Has significant family issues with his kids. Patient tells me that he thinks he was in AFIB in the ED, and when he converted out of AFIB, his symptoms resolved (although, no mention of him being in AFIB per ER documentation while on tele down in the ED and EKGs all show sinus rhythm). Patient also endorses chest wall tenderness that elicited the same pain, which has improved now. Workup shows EKGs without ischemia, negative troponins, echocardiogram with normal LVEF without regional wall motion abnormalities. Review of Systems Review of Systems: All systems reviewed & are unremarkable except as noted in HPI and below (HPI) [facility] Past Medical History Medical History Chronic anticoagulation Post herpetic neuralgia Erosive gastritis Cervical spondylosis Cerebrovascular accident CT evidence of old lacunar infarctions. Patient had no symptoms of stroke. Colon polyps Hypertension Labile hypertension, now followed by Dr. Ayala. Coronary artery disease He had several stents placed in the left anterior descending 20 years ago, and then in February 2016 at [place] had a drug-eluting stent to the proximal RCA, 2 stents to the Left anterior descending and a diagonal stent, and a week later had two stents to the ramus. There was some diffuse disease in the small distal circumflex. Anxiety Left carotid stenosis Status post left carotid endarterectomy. Lumbar spondylosis With several bulging disc causing sciatica, mainly on the left side. Male erectile dysfunction, unspecified Mixed hyperlipidemia Paroxysmal atrial fibrillation Pharyngoesophageal dysphagia Varicose veins of both lower extremities Surgical History Surgical History History of meniscectomy of left knee (11/28/21) Partial Medial Menisectomy History of endoscopy History of cardiac catheterization With PCI and stent x7. History of arthroscopy of right knee (08/2012) History of kidney surgery Patient had surgery on his right kidney at a young age for what sounds like nephroptosis. History of left-sided carotid endarterectomy Family History Family History Sibling Malignant neoplasm of prostate Emphysema lung Mother , Mother of an ID in her 60s. Acute myocardial infarction Father Amyotrophic lateral sclerosis Sibling Atrial fibrillation Coronary artery disease Other Family history of malignant neoplasm Social History Social History Social History: Surrogate decision maker: Obdulio Celis Jr., son. Code status: Full code. Smoking status: Never smoker Second hand tobacco smoke exposure: No Alcohol intake: never Substance use: never Substance use type: does not use Do You Feel Safe in your Home?: Yes Lack of Transportation: No Lack of Food: Never True Current Housing: I Have Housing Concerned About Future Housing: No Difficulty Paying Gas/Electric Bills: No Difficulty Paying for Meds: No Currently Unemployed: No Education: Trade/Vocational Certificate Difficulty w/ Childcare or Family Care: No Living arrangements: with family Additional living arrangements comments: Patient lives in his own home in [place]. He has 9 grown children. 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 Spiritual care concerns: No Meds Home Medications and Allergies Home Medications ?Medication ?Instructions ?Recorded ?Confirmed ?Type aspirin 81 mg tablet,delayed 81 mg PO DAILY 08/23/19 04/20/24 History release (Adult Low Dose Aspirin) amlodipine 5 mg tablet 5 mg PO DAILY 11/24/22 04/20/24 History losartan 25 mg tablet 12.5 mg PO QAM 11/24/22 04/20/24 History rivaroxaban 20 mg tablet (Xarelto) 20 mg PO DAILY 11/24/22 04/20/24 History rosuvastatin 20 mg tablet 20 mg PO HS 11/24/22 04/20/24 History linaclotide 145 mcg capsule See Rx Instructions .Route 03/24/23 04/20/24 Rx (Linzess) .COMPLEX #30 caps carboxymethylcellulose sodium 1 % 2 drp RIGHT EYE .qhr #15 mL 05/27/23 04/20/24 Rx eye drops (Artificial Tears (carboxymethylcellulose)) nitroglycerin 0.4 mg sublingual 0.4 mg sublingual Q5M PRN chest 08/02/23 04/20/24 Rx tablet pain #20 tabs spironolactone 25 mg tablet 12.5 mg PO DAILY 08/02/23 04/20/24 History Allergies Allergy/AdvReac Type Severity Reaction Status Date / Time aminophylline AdvReac Intermediate Unknown- Verified 02/14/24 11:02 SEE COMMIT Beta-Blockers AdvReac Intermediate Other Verified 02/14/24 11:02 (Beta-Adrenergic Bloc levofloxacin AdvReac Intermediate Joint/MUSCLE Verified 02/14/24 11:02 Pain poison angella extract AdvReac Mild Itching Verified 02/14/24 11:02 Penicillins AdvReac Unknown Unknown- Verified 02/14/24 11:02 A CHILD Vital Signs Vital Signs - 24 hr 04/21/24 14:00 04/21/24 16:00 04/21/24 20:00 Temperature 36.2 C L Pulse Rate 53 L 57 L 51 L Respiratory Rate 19 19 Blood Pressure 113/52 L Pulse Oximetry 100 100 Oxygen Delivery Room Air 04/21/24 20:48 04/21/24 22:32 04/22/24 00:00 Temperature 36.4 C Pulse Rate 51 L 50 L 44 L Respiratory Rate 18 Blood Pressure 147/63 H Pulse Oximetry 97 Oxygen Delivery 04/22/24 04:00 04/22/24 06:00 04/22/24 08:30 Temperature 36.6 C Pulse Rate 49 L 55 L Respiratory Rate 20 Blood Pressure 160/59 H Pulse Oximetry 98 99 Oxygen Delivery Room Air 04/22/24 08:30 04/22/24 08:45 Temperature Pulse Rate 61 Respiratory Rate Blood Pressure Pulse Oximetry 99 Oxygen Delivery Room Air Exam Const: General: comfortable and no acute distress HENMT: Mouth: Yes moist mucous membranes Eyes: General: appearance normal, both eyes and all related structures Sclera: sclerae normal Resp: Effort & Inspection: normal respiratory effort Cardio: Rate: regular rate Rhythm: regular rhythm Heart sounds: no murmurs Skin: General skin exam: normal color Neuro: Speech: normal speech Psych: Mental Status: mental status grossly normal Affect: normal affect Results Labs and Meds 04/22/24 08:55 04/22/24 08:55 Lab results: Cardiac Enzymes 04/22/24 Range/Units 08:55 AST 22 (17-59) U/L CBC 04/22/24 Range/Units 08:55 WBC 7.8 (4.5-10.0) K/mm3 RBC 4.64 (4.6-6.20) M/mm3 Hgb 13.9 L (14.0-18.0) g/dL Hct 44.4 (42.0-52.0) % Plt Count 189 (150-375) k/mm3 Comprehensive Metabolic Panel 04/22/24 Range/Units 08:55 Sodium 136 L (137-145) mmol/L Potassium 4.4 (3.4-5.0) mmol/L Chloride 100 (98-107) mmol/L Carbon Dioxide 26 (22-30) mmol/L BUN 23 H (9-20) mg/dL Creatinine 1.19 (0.7-1.3) mg/dL Glucose 102 (65-110) mg/dL Calcium 9.2 (8.4-10.2) mg/dL AST 22 (17-59) U/L ALT 17 (6-50) U/L Alkaline Phosphatase 98 (38-126) U/L Total Protein 8.0 (6.3-8.2) g/dL Albumin 4.7 (3.5-5.1) g/dL Intake and Output 04/21/24 04/22/24 04/22/24 23:59 07:59 15:59 Intake Total 960 1050 120 Balance 960 1050 120 Intake: Oral 960 1050 120 Other: # Unmeasured Voids 1 3 Patient Weight 04/22/24 23:59 Weight 86.2 kg
--- NOTE | 2024-04-22 12:53 | P.DS_ITS ---
DS: Admitting Diagnosis Discharge Date 04/22/2024 Admitting Diagnosis chest pain cad htn afib chronic anticoagulation DS: Discharge Diagnosis Discharge Diagnosis (1) Chest pain: Qualifiers: Chest pain type: unspecified Qualified Code(s): R07.9 - Chest pain, unspecified Code(s): R07.9 - Chest pain, unspecified Status: Acute (2) Coronary artery disease: Code(s): I25.10 - Atherosclerotic heart disease of [place] coronary artery without angina pectoris Status: Acute (3) Hypertension: Qualifiers: Hypertension type: essential hypertension Qualified Code(s): I10 - Essential (primary) hypertension Code(s): I10 - Essential (primary) hypertension Status: Acute (4) Paroxysmal atrial fibrillation: Code(s): I48.0 - Paroxysmal atrial fibrillation Status: Acute (5) Chronic anticoagulation: Code(s): Z79.01 - senior care (current) use of anticoagulants Status: Acute DS: Summary Hospital Course Reason for hospitalization: chest pain cad htn afib chronic anticoagulation Hospital Course: 83-year-old male with history of stents to the LAD/RCA/diagonal branch/ramus, paroxysmal atrial fibrillation on chronic anticoagulation, left carotid endarterectomy, hypertension, dyslipidemia, and stroke who presented to the hospital for evaluation of intermittent, nonradiating chest pain that on admission he described as a heaviness in the center chest. Given his extensive cardiac history, he was admitted for close monitoring. Possible that he was going in an out of atrial fibrillation given reports of racing and pounding heart though he is in sinus rhythm/bradycardia on admission. Patient was given aspirin and morphine x1 in the ED on arrival. EKG showed sinus bradycardia. Troponin negative. Chest XR unremarkable. Repeat echo showed LVEF 60-65% and normal diastolic function. Patient evaluated by cardiology who note that this was likely not cardiac and no additional cardiac evaluation is required at this time. At time of discharge patient has no complaints denying chest pain, shortness a breath, palpitations, nausea/vomiting, abdominal pain. Patient discharged home with in a stable condition. He is to follow up with his primary care provider in 1 week and Cardiology as scheduled. Status at Discharge Functional status at discharge: independent ambulation Time Spent with Patient Time attestation: Total time spent providing and/or coordinating discharge services: Time spent: Greater than 30 minutes Exam Narrative: AF HR 58 RR 20 SPO2 99 BP 160/59 General: male in no acute respiratory distress who is nontoxic appearing, lying semi recumbent in bed. HEENT: Normocephalic. Atraumatic. Extraocular movement intact. Sclera clear and anicteric. No facial asymmetry. Chest: Lungs are clear to auscultation bilaterally. No wheezes or crackles. CV: Heart was regular rate and rhythm. Abd: Abdomen was soft. Nontender. Nondistended. Positive bowel sounds. No organomegaly or masses. Ext: No clubbing, cyanosis, or edema. 2+ DP pulses bilaterally. Worsening chest pain with UE movement. Neuro: Patient is alert and oriented x4. Speech is clear. DS: Data Data Completed and Pending Completed studies during hospitalization: Chest x-ray Labs on day of discharge: Labs from last 24 hours 04/22/24 08:55 WBC 7.8 RBC 4.64 Hgb 13.9 L Hct 44.4 MCV 95.7 MCH 30.0 MCHC 31.3 L RDW 13.6 Plt Count 189 MPV 9.6 Sodium 136 L Potassium 4.4 Chloride 100 Carbon Dioxide 26 Anion Gap 10 BUN 23 H Creatinine 1.19 Estim Creat Clear Calc 46 Estimated GFR 59 Glucose 102 Calcium 9.2 Total Bilirubin 0.9 AST 22 ALT 17 Alkaline Phosphatase 98 Total Protein 8.0 Albumin 4.7 Discharge Plan Discharge Attending physician on discharge: Jocelyne Espino Consulting providers: Marj Urbano Discharging Clinician: Leela Iglesias Anticipated Discharge Date/Time: 04/22/24 12:41 Patient Disposition: Home, Self-Care Activity: as tolerated Diet: as tolerated and heart healthy Discharge Instructions: Discharge disposition: Patient admitted to the hospital for chest pain Evaluated by cardiology Chest pain not likely cardiac in nature. 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 as scheduled Monitor blood pressures Take caution while standing, rising, or moving Change positions slowly taking a break between each position change If you standing feel dizzy sit back down and take a break Encouraged to continue with yearly vaccinations Return to the emergency department if he developed sudden shortness of breath, chest pain, nausea, vomiting, upset stomach or intractable diarrhea Return to the emergency department if you develop fever greater than 101.5 Follow-up with the primary care physician within 1-2 weeks Thank you for choosing [facility] for your healthcare needs Patient Language: Nepali Stand Alone Forms: General Discharge Information Follow-up/Referrals: Marj Urbano APN-C [Advanced Practice Nurse] - Call for Appointment Abhishek Coffman MD [Primary Care Provider] - 1 Week Discharge Medications: New lorazepam 0.5 mg Tablet 0.5 mg PO Q6H PRN (Reason: Anxiety) Qty: 7 0RF Continued Xarelto 20 mg tablet 20 mg PO DAILY Patient Comments: HS rosuvastatin 20 mg tablet 20 mg PO HS Patient Comments: HS amlodipine 5 mg tablet 5 mg PO DAILY losartan 25 mg tablet 12.5 mg PO QAM Artificial Tears (cmc) 1 % drops 2 drp RIGHT EYE .qhr Qty: 15 0RF Rx Instructions: Use every hour while awake aspirin [Adult Low Dose Aspirin] 81 mg Tablet,Delayed Release (Dr/Ec) 81 mg PO DAILY Patient Comments: HS spironolactone 25 mg tablet 12.5 mg PO DAILY nitroglycerin 0.4 mg tablet, sublingual 0.4 mg sublingual Q5M PRN (Reason: chest pain) Qty: 20 0RF Rx Instructions: do not exceed 3 doses per episode Linzess 145 mcg capsule See Rx Instructions .ROUTE .COMPLEX Qty: 30 3RF Dose Instruction: Take 1 capsule by mouth once daily Rx Instructions: Take 1 capsule by mouth once daily Date of admission: 04/20/24 03:09 Primary Care Provider: Abhishek Coffman Admitting Provider: Vickey Odell Attending physician on admission: Leela Iglesias Condition: Stable Hospitalist MIPS Heart Failure (Exclusion) Patient has history of Heart Transplant or Left Ventricular Assistive Device?: No IF YES, STOP HERE Heart Failure (Qualifier) Patient has current or prior documentation of LVEF less than or equal to 40%, or mod/servere depressed LVSF?: No IF NO, STOP HERE
== END 2024-04-22 14:40 | disposition home or self-care (01) ==
LOC: ANHED 03:06 → ANHIMU 07:40 → ANH3MED 04-21 06:55 → ANHIMU 04-23 07:17
PROVIDERS: Physician Assistant; Admitting Provider Internal Medicine; Emergency Provider Preventive Medicine Aerospace Medicine; PCP Family Medicine; Visit Provider Student in an Organized Health Care Education/Training Program
DX: R07.89 Other chest pain (principal); I25.10 Atherosclerotic heart disease of native coronary artery without angina pectoris; I10 Essential (primary) hypertension; I48.0 Paroxysmal atrial fibrillation; E78.2 Mixed hyperlipidemia; M47.816 Spondylosis without myelopathy or radiculopathy, lumbar region; Z79.01 Long term (current) use of anticoagulants; Z79.82 Long term (current) use of aspirin; Z88.0 Allergy status to penicillin; Z86.73 Personal history of transient ischemic attack (TIA), and cerebral infarction without residual deficits; Z95.5 Presence of coronary angioplasty implant and graft; Z79.51 Long term (current) use of inhaled steroids
CPT/HCPCS: 36415; 71045; 80048; 80053; 83690; 84443; 84484; 85025; 85027; 85610; 85730; 93005; 93306; 96374; 96375; 99285; A9270; G0378; J2270; J2405

== ENCOUNTER 2024-05-21 13:03 | Emergency (ER) | payer MEDICARE, SELFPAY ==
[2024-05-21 13:14] VITALS: BP 153/72; PULSE 55; RESP 17; TEMP 36.6; O2SAT 100
--- NOTE | 2024-05-21 13:24 | ED.SKABFB ---
HPI - Skin/Abscess/Foreign Bdy General Chief complaint: Skin/Abscess/Foreign Body Stated complaint: rash on leg Time Seen by Provider: 05/21/24 13:24 Source: patient Mode of arrival: ambulatory Limitations: no limitations History of Present Illness HPI narrative: 83-year-old male presents with complaint of rash to right lower extremity for approximately 3 weeks. Patient reports itching. No pain. Showed it to his primary care physician at last appointment and states that provider for got to prescribe him cream for it. Patient has been applying [id number] antibiotic ointments,such as Neosporin, for the past 3 weeks. Afebrile, no drainage. All systems reviewed and negative except as noted above. Related Data Home Medications ?Medication ?Instructions ?Recorded ?Confirmed ?Last Taken ?Type aspirin 81 mg tablet,delayed 81 mg PO DAILY 08/23/19 04/20/24 04/19/24 History release (Adult Low Dose Aspirin) amlodipine 5 mg tablet 5 mg PO DAILY 11/24/22 04/20/24 04/19/24 History losartan 25 mg tablet 12.5 mg PO QAM 11/24/22 04/20/24 04/18/24 History rivaroxaban 20 mg tablet (Xarelto) 20 mg PO DAILY 11/24/22 04/20/24 04/19/24 History rosuvastatin 20 mg tablet 20 mg PO HS 11/24/22 04/20/24 04/18/24 History spironolactone 25 mg tablet 12.5 mg PO DAILY 08/02/23 04/20/24 04/18/24 History Allergies Allergy/AdvReac Type Severity Reaction Status Date / Time aminophylline AdvReac Intermediate Unknown- Verified 05/21/24 13:33 SEE COMMIT Beta-Blockers AdvReac Intermediate Other Verified 05/21/24 13:33 (Beta-Adrenergic Bloc levofloxacin AdvReac Intermediate Joint/MUSCLE Verified 05/21/24 13:33 Pain poison angella extract AdvReac Mild Itching Verified 05/21/24 13:33 Penicillins AdvReac Unknown Unknown- Verified 05/21/24 13:33 A CHILD Review of Systems Review of Systems: CONSTITUTIONAL: Denies fever, chills, or sweats. EYES: Denies visual changes, redness, or discharge. ENT: Denies rhinorrhea, congestion, sore throat, or otalgia. CARDIOVASCULAR: Denies chest pain, palpitations, or edema. RESPIRATORY: Denies cough or dyspnea. GASTROINTESTINAL: Denies abdominal pain, nausea, vomiting, or diarrhea. GENITOURINARY: Denies dysuria or hematuria. SKIN: Reports rash and itching. MUSCULOSKELETAL: Denies back pain, joint pain, or myalgia. NEUROLOGIC: Denies headache, numbness, or weakness. PSYCHIATRIC: Denies anxiety or depression. All other systems reviewed are negative, except as documented in HPI. [facility] Past Medical History Medical History Anxiety Anxiety about health Skin lesion of neck Shingles (herpes zoster) polyneuropathy Orthopedic aftercare Cervical paraspinal muscle spasm Pain and swelling of left lower leg Bilateral hip pain Left knee pain Acute medial meniscus tear of left knee Prostatitis Urinary frequency Dysphagia Dysphagia Pharyngitis Throat pain Throat swelling Mass in neck Heart palpitations Atrial fibrillation with rapid ventricular response Abnormal stress test Chest tightness Elevated troponin Unstable angina pectoris Angina pectoris Chest pain Chest pain GERD (gastroesophageal reflux disease) Chronic anticoagulation Post herpetic neuralgia Erosive gastritis Cervical spondylosis Cerebrovascular accident CT evidence of old lacunar infarctions. Patient had no symptoms of stroke. Colon polyps Hypertension Labile hypertension, now followed by Dr. Ayala. Coronary artery disease He had several stents placed in the left anterior descending 20 years ago, and then in February 2016 at [facility] had a drug-eluting stent to the proximal RCA, 2 stents to the Left anterior descending and a diagonal stent, and a week later had two stents to the ramus. There was some diffuse disease in the small distal circumflex. Left carotid stenosis Status post left carotid endarterectomy. Lumbar spondylosis With several bulging disc causing sciatica, mainly on the left side. Male erectile dysfunction, unspecified Mixed hyperlipidemia Paroxysmal atrial fibrillation Pharyngoesophageal dysphagia Varicose veins of both lower extremities Surgical History Surgical History History of meniscectomy of left knee (11/28/21) Partial Medial Menisectomy History of endoscopy History of cardiac catheterization With PCI and stent x7. History of arthroscopy of right knee (08/2012) History of kidney surgery Patient had surgery on his right kidney at a young age for what sounds like nephroptosis. History of left-sided carotid endarterectomy Family History Family History Sibling Malignant neoplasm of prostate Emphysema lung Mother , Mother of an NM in her 60s. Acute myocardial infarction Father Amyotrophic lateral sclerosis Sibling Atrial fibrillation Coronary artery disease Other Family history of malignant neoplasm Social History Social History Social History: Surrogate decision maker: Obdulio Aggarwaldashawn Celis Jr., son. Code status: Full code. Smoking status: Never smoker Second hand tobacco smoke exposure: No Alcohol intake: never Substance use: never Substance use type: does not use Do You Feel Safe in your Home?: Yes Lack of Transportation: No Lack of Food: Never True Current Housing: I Have Housing Concerned About Future Housing: No Difficulty Paying Gas/Electric Bills: No Difficulty Paying for Meds: No Currently Unemployed: No Education: Trade/Vocational Certificate Difficulty w/ Childcare or Family Care: No Living arrangements: with family Additional living arrangements comments: Patient lives in his own home in [place]. He has 9 grown children. 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 Spiritual care concerns: No Comments At time of signature, agree with nursing past medical, surgical, social and family history. There is no relevant family history pertinent to the presenting complaint. Exam Narrative: GENERAL: This is a well-nourished, well-developed patient, in no apparent distress. HEAD: normocephalic, atraumatic. EYES: PERRL. Sclera clear/white. Vision is grossly intact. EARS: External ears normal NOSE: External nose normal NECK: Neck supple, non-tender without lymphadenopathy, masses or thyromegaly. CARDIOVASCULAR: Regular rate RESPIRATORY: Breath equal bilaterally. SKIN: warm, Dry, intact with no suspicious lesions, good texture and turgor. area of erythematous, dry scaly skin to right lower extremity, anterior aspect, approximately 6 cm diameter. Skin is intact, no drainage. NEURO: awake, alert, and oriented to person, place and time. There were no obvious focal neurologic abnormalities. EXTREMITIES: No joint tenderness, effusion, or edema noted. Course Course Level of Care: Express Care Visit Vital Signs Vital signs: Vital Signs Temperature 36.6 C 05/21/24 13:14 Pulse Rate 55 L 05/21/24 13:14 Respiratory Rate 17 05/21/24 13:14 Blood Pressure 153/72 H 05/21/24 13:14 Pulse Oximetry 100 05/21/24 13:14 Oxygen Delivery Room Air 05/21/24 13:14 Temperature 36.6 C 05/21/24 13:14 Pulse Rate 55 L 05/21/24 13:14 Respiratory Rate 17 05/21/24 13:14 Blood Pressure 153/72 H 05/21/24 13:14 Pulse Oximetry 100 05/21/24 13:14 Oxygen Delivery Room Air 05/21/24 13:14 Reviewed MDM - Skin/Abscess/Foreign Bdy MDM Narrative Medical decision making narrative: will treat patient with antibiotic for cellulitis as precaution due to duration of skin redness. Recommend he stop Neosporin as that could be causing a contact dermatitis. Will treat contact dermatitis with triamcinolone. Patient is nontoxic, well-appearing. Please be advised this is a medical document. It is intended for lrbe-xw-ztdy communication. It is written in medical language and may contain unfamiliar abbreviations or verbiage. Medical documents are intended to carry relevant information, facts as evident, and the clinical opinion of the practitioner at the time of the encounter. This report may have been done utilizing a voice recognition system. Attempts have been made to correct errors. However, there may be uncorrected grammatical, spelling, and recognition errors present. The file time of this note does not necessarily represent the time of service. Discharge Plan Discharge Clinical Impression: Cellulitis of leg, right, Contact dermatitis and eczema Patient Disposition: Home Condition: Stable Instructions: Antibiotic Form, Cellulitis (ED), Eczema (ED) Additional Instructions: Take antibiotic as prescribed until gone. Apply steroid cream sparingly to affected area as prescribed. Purchase an yvzx-xpc-czlgznw moisturizer to treat dry skin such as Eucerin eczema cream. See your doctor if symptoms are not improving. Patient Language: Tongan Prescriptions: New doxycycline hyclate 100 mg capsule 100 mg PO BID 7 Days Qty: 14 0RF triamcinolone acetonide 0.1 % cream 1 applic topical BID PRN (Reason: itching, contact dermatitis) Qty: 30 0RF No Action Xarelto 20 mg tablet 20 mg PO DAILY Patient Comments: HS rosuvastatin 20 mg tablet 20 mg PO HS Patient Comments: HS amlodipine 5 mg tablet 5 mg PO DAILY losartan 25 mg tablet 12.5 mg PO QAM Linzess 145 mcg capsule See Rx Instructions .ROUTE .COMPLEX Qty: 30 3RF Dose Instruction: Take 1 capsule by mouth once daily Rx Instructions: Take 1 capsule by mouth once daily lorazepam 0.5 mg tablet 0.5 mg PO Q6H PRN (Reason: Anxiety) Qty: 30 0RF omeprazole 20 mg capsule,delayed release(DR/EC) 20 mg PO DAILY Qty: 60 1RF Artificial Tears (cmc) 1 % drops 2 drp RIGHT EYE .qhr Qty: 15 0RF Rx Instructions: Use every hour while awake aspirin [Adult Low Dose Aspirin] 81 mg Tablet,Delayed Release (Dr/Ec) 81 mg PO DAILY Patient Comments: HS spironolactone 25 mg tablet 12.5 mg PO DAILY nitroglycerin 0.4 mg tablet, sublingual 0.4 mg sublingual Q5M PRN (Reason: chest pain) Qty: 20 0RF Rx Instructions: do not exceed 3 doses per episode Follow-up/Referrals: Abhishek Coffman MD [Primary Care Provider] - Time of Disposition: 13:43
--- OUTSIDE RECORDS SUMMARY | 2024-05-21 14:31 | XMS_ITS | Clinical Summary ---
Author Organization [facility] Address [address] [facility] [facility] [address] [place] [address] Phone Care Team Providers Care Manager Front Name Role Phone Abhishek Lamb Primary Care [...] Comments Blood Pressure 144/76 03/10/2020 1:25 PM SHRIMP CLEANER Pulse 54 03/10/2020 1:25 PM SHRIMP CLEANER Temperature 35.6 C (96 F) 03/10/2020 1:25 PM SHRIMP CLEANER Respiratory Rate 20 03/10/2020 1:25 PM SHRIMP CLEANER Oxygen Saturation 98% 03/10/2020 1:25 PM SHRIMP CLEANER Inhaled Oxygen Concentration - - Weight 88.8 kg (195 lb 12.8 oz) 03/10/2020 1:25 PM SHRIMP CLEANER Height 177.8 cm (5' 10 ) 03/10/2020 1:25 PM SHRIMP CLEANER Body Mass Index 28.09 03/10/2020 1:25 PM SHRIMP CLEANER Plan of Treatment Health Maintenance Due Date [...] topic Insurance MEDICARE C [employer] Care Teams Manager Front Relationship Specialty Start Date End Date Abhishek Lamb PCP - General Family Medicine 03/10/20
--- OUTSIDE RECORDS SUMMARY | 2024-05-21 14:31 | XMS_ITS | Clinical Summary ---
Author Organization [facility] Address [facility] [place] [address] Care Team Providers Care Party Plan Sales Agent Name Role Phone Abhishek Coffman MD Primary Care Provider [phone] Allergies Active Allergy Reactions Criticality Noted Date [...] Vaccine (1 - 2023-2 5 season) 2023 Meningococcal B Vaccine Aged Out No l onger eligible based on patient's age to complete this topic Meningococcal Vaccine Aged Out No jelani kaye eligible based on patient's age to complete this topic RSV Immunizations Under 20 Months Aged Out No longer eligible based on patient's age to complete this topic Insurance Care Teams Party Plan Sales Agent Relationship Specialty Start Date End Date Abhishek Coffman MD [address] [place] [address] PCP - General FAMILY PRACTICE 10/30/18
--- OUTSIDE RECORDS SUMMARY | 2024-05-21 14:31 | XMS_ITS | Clinical Summary ---
Author Organization [facility] [address] Address [address] [place] [address] Care Team Providers Care Jewelry Coater Name Role Phone Abhishek Coffman MD Primary Care Provider Gabriella Toth MD Unavailable [phone] Wilber Acuna MD Unavailable [phone] Ye Almodovar MD Unavailable [phone] Allergies Active Allergy Reactions Criticality Noted Date Comments Aminophylline Other (See comments) High 03/11/2018 Rapid heart rate Erythromycin Muscle pain Medium 08/31/2009 Levofloxacin Joint pain Medium 07/21/2014 Penicillins Muscle pain Medium 08/31/2009 Poison Heidi Extract Blisters High 08/31/2009 Medications Linzess 145 mcg capsule Take 1 capsule (145 mcg total) by mouth every morning 01/26/2021 Active aspirin 81 mg enteric coated tablet Take 1 tablet (81 mg total) by mouth daily 30 tablet 01/09/2022 Active LORazepam (ATIVAN) 0.5 mg tablet Take 1 tablet (0.5 mg total) by mouth every 6 (six) hours as needed for anxiety Active amLODIPine (NORVASC) 5 mg tablet Take 1 tablet (5 mg total) by mouth daily 90 tablet 3 04/20/2023 Active nitroglycerin (NITROSTAT) 0.4 mg SL tablet 08/02/2023 Active losartan (COZAAR) 25 mg tablet Take 0.5 tablets (12.5 mg total) by mouth daily 45 tablet 1 02/19/2024 Active Xarelto 20 mg tablet Take 1 tablet (20 mg total) by mouth daily 90 tablet 1 02/19/2024 Active pregabalin (LYRICA) 50 mg capsule Take 1 capsule (50 mg total) by mouth as needed Active rosuvastatin (CRESTOR) 20 mg tabletIndicatio ns:Coronary artery disease involving eastern [place]one coronary artery of eastern shoshone heart without angina pectoris Take 1 tablet (20 mg total) by mouth daily 90 tablet 3 03/21/2024 Active spironolactone (ALDACTONE) 25 mg tablet Take 1 tablet (25 mg total) by mouth daily 30 tablet 6 04/21/2024 Active Active Problems Problem Noted Date Diagnosed [...] spine 10/07/2018 Coronary artery disease invo lving eastern [place] coronary artery of eastern [place] heart without angina pectoris 03/12/2018 Paroxysmal atrial fibrillation (CMS/HCC) 019 Epistaxis 03/12/2018 Bradycardia 03/08/2016 Angina pectoris 01/29/2016 Enlarged prostate 12/16/2015 GERD (gastroesophageal reflux disease) 6 Hiatal hernia 12/16/2015 Labile hypertension 12/16/2015 Overview (08/01/2018): Not controlled Resolved Problems Problem Noted Date Diagnosed Date Resolved Date Left carotid stenosis 07/23/20182020 Overview (07/23/2018): Added automatically from request for surgery [id number] Stenosis of left carotid artery 05/27/2018 08/01/2018 Dyslipidemia 01/29/2016 08/01/2018 Atherosclerosis of coronary artery 01/29/2016 01/09/2022 Benign hypertension 01/29/2016 08/02/19 Dyslipidemia 12/16/2015 12/08/2020 Overview (08/01/2018): On Crestor Encounters Date Type Department Care Team Description 04/29/2024 Orders Only [facility] Cardiology [address] [place] [address] Pavan Bull MD 03/21/2024 9:30 AM INSURANCE EXECUTIVE Office Visit [facility] Cardiology [address] [place] [address] Yael Spain NP Coronary artery disease involving eastern [place] coronary artery of eastern sh[place] heart without angina pectoris (Primary Dx); Labile [...] artery disease of n ative artery of eastern shoshone heart with stable angina pectoris 03/12/2018 Angina [...] on file Legal Sex Male 3:28 AM INSURANCE EXECUTIVE Gender Identity Not on file Sexual Orientation Not on file Obstetrics History Last Filed Vital Signs Vital Sign Reading Time Taken Comments Blood Pressure 148/70 03/21/2024 9:29 AM INSURANCE EXECUTIVE Pulse 55 03/21/2024 9:29 AM INSURANCE EXECUTIVE Temperature 36.5 C (97.7 F) 10/27/2019 2:52 PM CDT Respiratory Rate 16 10/27/2019 2:52 PM CDT Oxygen Saturation 96% 03/21/2024 9:29 AM INSURANCE EXECUTIVE Inhaled Oxygen Concentration - - Weight 85.7 kg (189 lb) 03/21/2024 9:29 AM INSURANCE EXECUTIVE Height 177.8 cm (5' 10 ) 03/21/2024 9:29 AM INSURANCE EXECUTIVE Body Mass Index 27.12 03/21/2024 9:29 AM INSURANCE EXECUTIVE Plan of Treatment Health Maintenance Due Date Last Done Comments Depression Screening 1942 Fall Risk Assessment 1942 DTaP/Tdap/Td Vaccine (1 - Tdap) 1953 Hepatitis B Screening 1960 Pneumococcal vaccine 65+ (1 of 1 - PCV) 1992 Zoster Vaccine (1 of 2) 1992 Well Visit 65+ 09/28/2007 Influenza Vaccine (#1) 2023 Medical Devices Implanted Type Area Counter Helper Device Identifier Shelf Expiration Date Model / Serial / Lot Lang Ma [id number] Vascu-Guard 8x.8cm Peripheral Patch Vascular Bovine Pericardium - [id number] Implanted:Qty: 1 on 08/06/2018 by Wilber Acuna MD at [facility] Graft Left: Carotid Lang Ma [id number] 02/28/2023 [id number] / / [id number] Procedures Procedure Name Priority Date/Time Associated Diagnosis Comments CARDIOLOGY DOCUMENT SCAN Routine 025 12:31 PM CDT from Last 3 Months Results * Cardiology Document Scan (04/22/2024 12:31 PM CDT) Anatomical Region Laterality Modality Other [facility] Ghazal Bull MD CV CARDIAC SERVICES PRO CEDURES Final Result from Last 3 Months Insurance [facility] MEDICARE Address: [place] [address] [facility] MED[facility] Address: [place] [id number] [place] [id number] [facility] MEDIC[facility] Address: [facility] [address] [place] [address] Advance Directives For more information, please contact: [phone] Documents on File Type Date Recorded Patient Supervisor [employer] House Expl anation ADVANCE DIRECTIVE 08/06/2018 12:54 PM * Full Code (Latest Code Status on File) Date Activated Date Inactivated Comments 08/06/2018 4:00 PM 08/07/2018 3:04 PM Care Teams Jewelry Coater Relationship Specialty Start Date End Date Abhishek Coffman MD PCP - General 06/01/16 Gabriella Toth MD Consulting Physician Interventional Cardiology 06/19/18 Wilber Acuna MD Surgeon Vascular Surgery 08/07/18 Ye Almodovar MD Consulting Physician Cardiology 12/31/19
--- OUTSIDE RECORDS SUMMARY | 2024-05-21 14:31 | XMS_ITS | Clinical Summary ---
Author Organization [facility] Address [address] [place] [address] Phone Care Team Providers Care Decision Support Analyst Name Role Phone Abhishek Coffman MD Primary Care Provider [phone] Allergies Active Allergy Reactions Criticality Noted Date Comments Aminophylline High 03/11/2018 Other reaction(s): Other (see comment) Rapid heart rate Rapid heart rate and almost passed out Erythromycin 08/31/2009 Levofloxacin Medium 07/21/2014 Penicillins 08/31/2009 Poison Heidi Extract 08/31/2009 Medications aspirin EC 81 MG EC tablet Take [...] (01/16/2019): Added automatically from request for surgery [id number] Paroxysmal atrial fibrillation 03/18/2018 Coronary arteriosclerosis in [place] artery 03/12 Bradycardia 03/08/2016 Angina pectoris 01/29/2016 Dyslipidemia 12/16/2015 Overview (01/16/2019): On Crestor Enlarged prostate 12/16/2015 Hiatal hernia 12/16/2015 Hypertensive disorder 12/16/2015 Overview (01/16/2019): Not controlled Immunizations Immunization Administration Dates Next Due Influenza TIV (IM) [...] at Not on file Legal Sex Male 11:09 AM MST Gender Identity Not on file Sexual Orientation Not on file Last Filed Vital Signs Vital Sign Reading Time Taken Comments Blood Pressure 150/70 01/19/2021 1:43 PM CORPORATE ASSOCIATE ATTORNEY Pulse 72 01/19/2021 1:43 PM CORPORATE ASSOCIATE ATTORNEY Temperature 36.2 C (97.1 F) 01/19/2021 1:43 PM CORPORATE ASSOCIATE ATTORNEY Respiratory Rate - - Oxygen Saturation - - Inhaled Oxygen Concentration - - Weight 86.6 kg (191 lb) 01/19/2021 1:43 PM CORPORATE ASSOCIATE ATTORNEY Height 180.3 cm (5' 11 ) 01/19/2021 1:43 PM CORPORATE ASSOCIATE ATTORNEY Body Mass Index 26.64 01/19/2021 1:43 PM CORPORATE ASSOCIATE ATTORNEY Plan of Treatment Health Maintenance Due Date Last Done Comments Pneumococcal PPSV23/PCV13 65 + Years / Low and Medium Risk (1 of 4 - PCV) 09/28/2007 Influenza Vaccine (Season Ended) 2024 Insurance MEDICARE ADVANTAGE Care Teams Decision Support Analyst Relationship Specialty Start Date End Date Abhishek Coffman MD [address] [place] [id number] PCP - General Family Medicine 01/07/19
--- OUTSIDE RECORDS SUMMARY | 2024-05-21 14:31 | XMS_ITS | Encounter Summary ---
Author Organization [facility] Facility Care Team Providers Care Rate Supervisor Name Role Phone Abhishek Coffman MD Primary Care Provider [phone] Gabriella Toth MD Unavailable [phone] Wilber Acuna MD Unavailable [phone] Ye Almodovar MD Unavailable Encounter Details Date Type Department Care Team (Latest Contact Info) Description 10/16/2015 Orders Only [facility] ProviderJohn MD [address] [place] [address] Social History Tobacco Use Types Packs/Day Years Used Date Smoking Tobacco: Never Assessed Sex and Gender Information Value Date Recorded Sex Assigned at Not on file Legal Sex Male 3:28 AM RECORD KEEPER Gender Identity Not on file Sexual Orientation [...] on filedocumented in this encounter Care Teams Rate Supervisor Relationship Specialty Start Date End Date Abhishek Coffman MD PCP - General 06/01/16 Gabriella Toth MD Consulting Physician Interventional Cardiology 06/19/18 Wilber Acuna MD Surgeon Vascular Surgery 08/07/18 Ye Almodovar MD Consulting Physician Cardiology 12/31/19 documented as of this encounter
--- OUTSIDE RECORDS SUMMARY | 2024-05-21 14:31 | XMS_ITS | Encounter Summary ---
Author Organization [facility] Facility Care Team Providers Care Hot Die Press Operator Name Role Phone Abhishek Coffman MD Primary Care Provider [phone] Gabriella Toth MD Unavailable [phone] Wilber Acuna MD Unavailable [phone] Ye Almodovar MD Unavailable [phone] Encounter Details Date Type Department Care Team (Latest Contact Info) Description 12/16/2015 Orders Only [facility] ProviderJohn MD [address] [place] [address] Social History Tobacco Use Types Packs/Day Years Used Date Smoking Tobacco: Never Assessed Sex and Gender Information Value Date Recorded Sex Assigned at Not on file Legal Sex Male 3:28 AM DIRECTOR INDEPENDENT Gender Identity Not on file Sexual Orientation [...] on filedocumented in this encounter Care Teams Hot Die Press Operator Relationship Specialty Start Date End Date Abhishek Coffman MD PCP - General 06/01/16 Gabriella Toth MD Consulting Physician Interventional Cardiology 06/19/18 Wilber Acuna MD Surgeon Vascular Surgery 08/07/18 Ye Almodovar MD Consulting Physician Cardiology 12/31/19 documented as of this encounter
--- OUTSIDE RECORDS SUMMARY | 2024-05-21 14:31 | XMS_ITS | Referral Summary ---
Author Organization [place] [address] [address] [facility] [address] [place] [address] Care Team Providers Care Furnace Room Supervisor Name Role Phone Abhishek Coffman MD Primary Care Provider Gabriella Toth MD Unavailable [phone] Wilber Acuna MD Unavailable [phone] Ye Almodovar MD Unavailable [phone] Encounters Date Type Department Care Team Description 04/29/2024 Orders Only [facility] Cardiology [address] [facility] [address] [place] [address] Pavan Bull MD 03/21/2024 9:30 AM MANAGER MERCHANDISE Office Visit [facility] Cardiology [address] [facility] [address] [place] [address] Yael Spain NP Coronary artery disease involving [place] coronary artery of [place] heart without angina pectoris (Primary Dx); Labile [...] 20 mg tabletIndicatio ns:Coronary artery disease involving [place] coronary artery of [place] heart without angina pectoris Take 1 tablet [...] red blood per rectum) 09/16/2019 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) 09/15 Spondylosis of lumbar spine 10/07/2018 Coronary artery disease invo lving [place] coronary artery of [place] heart without angina pectoris 03/12/2018 Paroxysmal atrial fibrillation ([facility]/HCC) 019 Epistaxis 03/12/2018 Bradycardia 03/08/2016 Angina pectoris 01/29/2016 Enlarged prostate 12/16/2015 GERD (gastroesophageal reflux disease) 6 Hiatal hernia 12/16/2015 Labile hypertension 12/16/2015 Overview (08/01/2018): Not controlled Resolved Problems Problem Noted Date Diagnosed Date Resolved Date Left carotid stenosis 07/23/20182020 Overview (07/23/2018): Added automatically from request for surgery [id number] Stenosis of left carotid artery 05/27/2018 08/01/2018 [...] on file Legal Sex Male 3:28 AM MANAGER MERCHANDISE Gender Identity Not on file Sexual Orientation Not on file Last Filed Vital Signs Vital Sign Reading Time Taken Comments Blood Pressure 148/70 03/21/2024 9:29 AM MANAGER MERCHANDISE Pulse 55 03/21/2024 9:29 AM MANAGER MERCHANDISE Temperature 36.5 C (97.7 F) 10/27/2019 2:52 PM CDT Respiratory Rate 16 10/27/2019 2:52 PM CDT Oxygen Saturation 96% 03/21/2024 9:29 AM MANAGER MERCHANDISE Inhaled Oxygen Concentration - - Weight 85.7 kg (189 lb) 03/21/2024 9:29 AM MANAGER MERCHANDISE Height 177.8 cm (5' 10 ) 03/21/2024 9:29 AM MANAGER MERCHANDISE Body Mass Index 27.12 03/21/2024 9:29 AM MANAGER MERCHANDISE Plan of Treatment Not on file Medical Devices Implanted Type Area Welt Sewer Device Identifier Shelf Expiration Date Model / Serial / Lot [employer] [id number] Vascu-Guard 8x.8cm Peripheral Patch Vascular Bovine Pericardium - [id number] Implanted:Qty: 1 on 08/06/2018 by Wilber Acuna MD at [facility] Graft Left: Carotid [employer] [id number] 02/28/2023 [id number] / / [id number] Procedures Procedure Name Priority Date/Time Associated Diagnosis Comments CARDIOLOGY DOCUMENT SCAN Routine 025 12:31 PM CDT from Last 3 Months Results * Cardiology Document Scan (04/22/2024 12:31 PM CDT) Anatomical Region Laterality Modality Other [facility] Ghazal Bull MD CV CARDIAC SERVICES PRO CEDURES Final Result from Last 3 Months Insurance [facility] MEDIC[facility] Address: [facility] [id number] [place] [phone] [facility] MEDIC[facility] Address: [address] [address] [place] [address] [facility] MEDICARE ADVANTAGE [facility] MED[facility] Address: [address] [address] [place] [address] Advance Directives For more information, please contact: [phone] Documents on File Type Date Recorded Patient Bingo Attendant Expl anation ADVANCE DIRECTIVE 08/06/2018 12:54 PM * Full Code (Latest Code Status on File) Date Activated Date Inactivated Comments 08/06/2018 4:00 PM 08/07/2018 3:04 PM Care Teams Furnace Room Supervisor Relationship Specialty Start Date End Date Abhishek Coffman MD PCP - General 06/01/16 Gabriella Toth MD Consulting Physician Interventional Cardiology 06/19/18 Wilber Acuna MD Surgeon Vascular Surgery 08/07/18 Ye Almodovar MD Consulting Physician Cardiology 12/31/19
--- OUTSIDE RECORDS SUMMARY | 2024-05-21 14:31 | XMS_ITS | Encounter Summary ---
Author Organization [facility] Facility Care Team Providers Care Patch Washer Name Role Phone Abhishek Coffman MD Primary Care Provider [phone] Gabriella Toth MD Unavailable [phone] Wilber Acuna MD Unavailable [phone] Ye Almodovar MD Unavailable Encounter Details Date Type Department Care Team (Latest Contact Info) Description 10/27/2015 Orders Only [facility] ProviderJohn MD [address] [place] [address] Social History Tobacco Use Types Packs/Day Years Used Date Smoking Tobacco: Never Assessed Sex and Gender Information Value Date Recorded Sex Assigned at Not on file 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
--- OUTSIDE RECORDS SUMMARY | 2024-05-21 14:31 | XMS_ITS | Clinical Summary ---
Author Organization [facility] Address [address] [place] [address] Care Team Providers Care Chemical Checker Name Role Phone Abhishek Coffman MD Primary Care Provider [phone] Source Comments [facility],non-owned Affiliates and Associated Physician Practices is amultiple site organization consisting of ambulatory clinics and hospital sitesin [place], [place], [place]. This disclosure is being madepursuant to the Care Everywhere program and may not contain all information available regarding this patient. Last updated 17.[facility] Social History Tobacco Use Types Packs/Day Years [...] VACCINE ( - 2023-2 5 season) 2023 DEPRESSION SCREENING 02/13/2024 INFLUENZA VACCINE (Season Ended) 2024 HEPATITIS B VACCINE Aged Out No longe r eligible based on patient's age to complete this topic HIB VACCINE Aged Out No longer eligi ble based on patient's age to complete this topic HPV VACCINE Aged Out No longer eligi ble based on patient's age to complete this topic MENINGOCOCCAL (Group B) VACC INE SHARED DECISION-MAKING Aged Out No longer eligibl e based on patient's age to complete this topic MENINGOCOCCAL GROUPS A/C/Y/W VACCINE Aged Out No longer eligible b ased on patient's age to complete this topic Care Teams Chemical Checker Relationship Specialty Start Date End Date Abhishek Coffman MD [address] [place] [address] PCP - General 12/06/18
--- OUTSIDE RECORDS SUMMARY | 2024-05-21 14:31 | XMS_ITS | Encounter Summary ---
Author Organization [facility] Facility Care Team Providers Care License Distributor Name Role Phone Abhishek Coffman MD Primary Care Provider [phone] Gabriella Toth MD Unavailable [phone] Wilber Acuna MD Unavailable [phone] Ye Almodovar MD Unavailable [phone] Encounter Details Date Type Department Care Team (Latest Contact Info) Description 10/17/2015 Orders Only [facility] ProviderJohn MD [address] [place] [address] Social History Tobacco Use Types Packs/Day Years Used Date Smoking Tobacco: Never Assessed Sex and Gender Information Value Date Recorded Sex Assigned at Not on file Legal Sex Male 3:28 AM 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
--- OUTSIDE RECORDS SUMMARY | 2024-05-21 14:31 | XMS_ITS | Encounter Summary ---
Author Organization [facility] Address [address] [place] [address] Care Team Providers Care Patient Safety Tech Name Role Phone Abhishek Coffman MD Primary Care Provider [phone] Encounter Details Date Type Department Care Team (Late st Contact Info) Description 10/24/2021 Lab Requisition [facility] [address] [facility], [facility] [place] [address] David Mccoy MD [address] [place] [address] Social History Tobacco Use Types [...] AM CDT) Case Report Dermatopathology Report Case: [id number] Authorizing Provider: David Mccoy MD Collected: 10/24/2021 12:00 AM Ordering Location: [facility] Received: 10/24/2021 04:39 PM Pathologist: [...] specimen consists of a shave removal measuring [id number]. Jar 0. 2 1:27 PM CDT DERMATOPATHOLOGY [...] by the Dermatopathology Laboratory at [facility], directed by Dr. Janiya Oshea. These tests need not be, and therefore are not, approved by the [place] Food and Drug Administration. The tests are used for clinical purposes. Billing Codes Specimen Charges Stain Charges 71305 1 2 1:27 PM CDT DERMATOPATHOLOGY LABORATORY Embedded Images 2 1:27 PM CDT DERMATOPATHOLOGY LABORATORY Pathology/Cytolog y TISSUE SPECIMEN FROM SKIN / Unknown 10/24/2021 10/24/2021 4:39 PM CDT David Mccoy MD LAB - PATHOLOGY/CYTO LOGY ORDERABLES DERMATOPATHOLOGY LABORATORY [facility] - Department of Dermatology [address], [address] [phone] documented in this encounter Visit Diagnoses Not on filedocumented in this encounter Care Teams Patient Safety Tech Relationship Specialty Start Date End Date Abhishek Coffman MD [address] [place] [address] PCP - General 12/06/18 documented as of this encounter
--- OUTSIDE RECORDS SUMMARY | 2024-05-21 14:31 | XMS_ITS | Continuity of Care Document ---
Author Organization [facility] Address [address] [place] [address] [facility] [address] [place] [address] Phone Care Team Providers Care Seismic Plotter Name Role Phone Ramon sTe Unavailable Unavailable Procedures Procedure Date Eye Exam, New Patient Office Consultation Advance Directives Directive Yes / No Effective Date File Name No Information Encounters Encounter Description Practice Location Reason(s) For Visit Diagnoses Date Provider Providers Copied on Encounter [facility], [address] [place], [place] [address], [place], [place], [id number], tel:[phone] [facility] No Information 8 Krishnasamy Ramon. [address], [facility], [place]. tel:[phone] [facility], [address] [place], [place] [address], [place], [place], [id number], tel:[phone] SEC [facility] No Information 8 Krishnasamy Ramon. [address], [address], [place]. tel:[phone] Referring Provider: Abhishek Coffman MD , [place], [address]. tel:[phone] Family History Family Member Type Diagnosis Age At Onset No Information Payers Payer name Insurance type Covered alliance party ID Authoriza tion(s) No Information Social [...]
--- OUTSIDE RECORDS SUMMARY | 2024-05-21 14:38 | XMS_ITS | Continuity of Care Document ---
Author Organization [facility] Address [address] [place] [address] [facility] [address] [place] [address] Phone Care Team Providers Care Small Engine Technician Name Role Phone Ramon Tse Unavailable Unavailable Procedures Procedure Date Eye Exam, New Patient Office Consultation Advance Directives Directive Yes / No Effective Date File Name No Information Encounters Encounter Description Practice Location Reason(s) For Visit Diagnoses Date Provider Providers Copied on Encounter [facility], [address] [place], [place] [address], [place], [place], [id number], tel:[phone] SEC [facility] No Information 8 Krishnasamy Ramon. [address], [facility], [place]. tel:[phone] Office Consultation [facility], [address] [place], [place] [address], [place], [place], [id number], tel:[phone] [facility] No Information 8 Krishnasamy Ramon. [address], [address], [place]. tel:[phone] Referring Provider: Abhishek Coffman MD , [place], [address]. tel:[phone] Family History Family Member Type Diagnosis Age [...]
== END 2024-05-21 13:50 | disposition home or self-care (01) ==
PROVIDERS: Emergency Provider Nurse Practitioner Family; PCP Family Medicine
DX: L03.115 Cellulitis of right lower limb (principal); L25.9 Unspecified contact dermatitis, unspecified cause; I48.91 Unspecified atrial fibrillation; I25.110 Atherosclerotic heart disease of native coronary artery with unstable angina pectoris; I10 Essential (primary) hypertension; E78.2 Mixed hyperlipidemia; I65.22 Occlusion and stenosis of left carotid artery; K21.9 Gastro-esophageal reflux disease without esophagitis; M47.812 Spondylosis without myelopathy or radiculopathy, cervical region; M47.816 Spondylosis without myelopathy or radiculopathy, lumbar region; Z79.01 Long term (current) use of anticoagulants; Z79.82 Long term (current) use of aspirin; Z86.73 Personal history of transient ischemic attack (TIA), and cerebral infarction without residual deficits
CPT/HCPCS: 99213; G0463

== ENCOUNTER 2024-07-23 11:22 | Outpatient (CLI) | payer MEDICARE, SELFPAY ==
[2024-07-23 11:37] LABS: Basophils Percent Auto 0.6 % (0.2-1.2); Eosinophils Absolute Auto 0.3 K/mm3 (0-0.3); Eosinophils Percent Auto 4.8 % (0-4.4); Hematocrit 42.4 % (42.0-52.0); Hemoglobin 13.6 g/dL (14.0-18.0); Immature Granulocyte Absolute 0.02 K/mm3 (0.00-0.031); Immature Granulocyte Percent A 0.3 % (0-0.5); Lymphocytes Absolute Auto 1.77 K/mm3 (0.9-3.2); Mean Corpuscular HGB Conc 32.1 g/dl (32-36); Mean Corpuscular Hemoglobin 30.4 pg (26-34); Mean Corpuscular Volume 94.6 fl (80-100); Mean Platelet Volume 9.4 fl (7.4-10.4); Monocytes Absolute Auto 0.7 K/mm3 (0.1-0.6); Monocytes Percent Auto 9.7 % (2.6-8.5); Neutrophils Absolute Auto 4.2 K/mm3 (1.3-6.7); Neutrophils Percent Auto 59.6 % (45.5-73.1); Platelet Count Result 174 k/mm3 (150-375); Red Blood Count 4.48 M/mm3 (4.6-6.20); Red Cell Distribution Width 13.1 % (11.5-14.5); White Blood Count 7.1 K/mm3 (4.5-10.0)
[2024-07-23 12:04] LABS: Alanine Aminotransferase 14 U/L (6-50); Albumin Level 4.3 g/dL (3.5-5.1); Alkaline Phosphatase 81 U/L (38-126); Anion Gap 7 mmol/L (4-12); Aspartate Amino Transferase 25 U/L (17-59); Bilirubin,Total 0.6 mg/dL (0.2-1.3); Blood Urea Nitrogen 22 mg/dL (9-20); Calcium 9.2 mg/dL (8.4-10.2); Carbon Dioxide 26 mmol/L (22-30); Chloride 104 mmol/L (98-107); Cholesterol 163 mg/dL (0-200); Estimated Glomerular Filt Rate > 60; Glucose 105 mg/dL (65-110); HDL Direct 46 mg/dL; LDL Cholesterol Direct 81 mg/dL; Potassium 4.4 mmol/L (3.4-5.0); Sodium 137 mmol/L (137-145); Total Protein 7.4 g/dL (6.3-8.2); Triglycerides 90 mg/dL (<150)
[2024-07-23 12:28] LABS: Prostate Specific Antigen 1.8 ng/mL (< OR = 4.0)
--- OUTSIDE RECORDS SUMMARY | 2024-07-23 13:46 | XMS_ITS | Clinical Summary ---
Author Organization [facility] [address] Address [address] [place] [address] Care Team Providers Care Employee Communications Coordinator Name Role Phone Abhishek Coffman MD Primary Care Provider Gabriella Toth MD Unavailable [phone] Wilber Acuna MD Unavailable [phone] Ye Almodovar MD Unavailable Allergies Active Allergy Reactions Criticality Noted Date [...] (six) hours as needed for anxiety Active nitroglycerin (NITROSTAT) 0.4 mg SL tablet [...] 20 mg tabletIndicatio ns:Coronary artery disease involving [place]gi[place] coronary artery of [place] heart without angina pectoris Take 1 tablet (20 mg total) by mouth daily 90 tablet 3 5 Active spironolactone (ALDACTONE) 25 mg tablet Take 1 tablet (25 mg total) by mouth daily 30 tablet 6 5 Active omeprazole (PriLOSEC) 20 mg capsule Take 1 capsule (20 mg total) by mouth daily 5 Active amLODIPine (NORVASC) 5 mg tablet Take 1 tablet (5 mg total) by mouth daily 90 tablet 1 5 07/10/19 26 Active amLODIPine (NORVASC) 5 mg tablet Take 1 tablet (5 mg total) by mouth daily 90 tablet 3 4 07/10/19 25 Discontinu ed(Reorder ) Active Problems Problem Noted Date Diagnosed Date [...] (CMS/HCC) 09/15 Spondylosis of lumbar spine 10/07/2018 Asymptomatic carotid artery stenosis, bilateral 07/23/2018 Overview (07/23/2018): Added automatically from request for surgery [id number] Assessment & Plan (06/24/2024 4:01 PM CDT): Minimal right ICA stenosis, mild recurrent left ICA stenosis. Repeat carotid doppler in one year. Coronary artery disease invo lving [place]giak coronary artery of [place] heart without angina pectoris 03/12/2018 Paroxysmal atrial fibrillation (CMS/HCC) 019 Epistaxis 03/12/2018 Bradycardia 03/08/2016 Angina pectoris 01/29/2016 Enlarged prostate 12/16/2015 GERD (gastroesophageal reflux disease) 6 Hiatal hernia 12/16/2015 Labile hypertension 12/16/2015 Overview (08/01/2018): Not controlled Resolved Problems Problem Noted Date Diagnosed Date Resolved Date Stenosis of left carotid artery 05/27/2018 08/01/2018 Dyslipidemia 01/29/2016 08/01/2018 Atherosclerosis of coronary artery 01/29/2016 01/09/2022 Benign hypertension 01/29/2016 08/02/19 19 Dyslipidemia 12/16/2015 12/08/2020 Overview (08/01/2018): On Crestor Encounters Date Type Department Care Team Description 06/24/2024 3:45 PM CDT Office Visit [facility] [address] [place] [address] [place] [id number] Sveta Kolb PA Asymptomatic carotid artery stenosis, bilateral (Primary Dx); Stenosis of carotid artery, unspecified laterality 06/24/2024 3:15 PM CDT Ancillary Procedure [facility] [address] [place] [address] [address] [place] [address] Recurrent stenosis of left carotid artery 04/29/2024 Orders Only [facility] [address] [place] [address] Pavan Bull MD from Last 3 Months Surgical History Surgery [...] artery disease of n ative artery of togiak heart with stable angina pectoris 03/12/2018 Angina [...] Packs/Day Years Used Date Smoking Tobacco: Never Passive Smoke Exposure: Never Smokeless Tobacco: Never Tobacco Cessation:Counseling Given: Not Answered Alcohol Use Standard Drinks/Week Comments No 0 (1 standard drink = 0.6 oz pur e alcohol) AUDIT-C Answer Date Recorded Q1: How often do you have a drink containing alcohol? Never 06/24/2024 Q2: How many drinks containi ng alcohol do you have on a typical day when you are drinking? Patient does not drink Q3: How often do you have si x or more drinks on one occasion? 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 Gender Identity Not on file Sexual Orientation Not on file Obstetrics History Last Filed Vital Signs Vital Sign Reading Time Taken Comments Blood Pressure 186/75 06/24/2024 3:49 PM CDT Pulse 49 06/24/2024 3:49 PM CDT Temperature 36.4 C (97.6 F) 06/24/2024 3:49 PM CDT Respiratory Rate 16 10/27/2019 2:52 PM CDT Oxygen Saturation 98% 06/24/2024 3:49 PM CDT Inhaled Oxygen Concentration - - Weight 85.7 kg (189 lb) 06/24/2024 3:49 PM CDT Height 177.8 cm (5' 10) 06/24/2024 3:49 PM CDT Body Mass Index 27.12 06/24/2024 3:49 PM CDT Plan of Treatment Health Maintenance Due Date Last Done Comments Depression Screening 1942 Fall Risk Assessment 1940 DTaP/Tdap/Td Vaccine (1 - Tdap) 1953 Hepatitis B Screening 1960 Pneumococcal vaccine 65+ (1 of 1 - PCV) 1992 Zoster Vaccine (1 of 2) 1992 Well Visit 65+ 09/28/2007 Influenza Vaccine (Season Ended) 2024 Medical Devices Implanted Type Area Orthotic And Prosthetic Technician Device Identifier Shelf Expiration Date Model / Serial / Lot CheckPoint HR [id number] Vascu-Guard 8x.8cm Peripheral Patch Vascular Bovine Pericardium - [id number] Implanted:Qty: 1 on 08/06/2018 by Wilber Acuna MD at [facility] Graft Left: Carotid CheckPoint HR [id number] 02/28/2023 [id number] / / [id number] Procedures Procedure Name Priority Date/Time Associated Diagnosis Comments US CAROTIDS DUPLEX BILATERAL Schedule Routine, Read Routine (OP Routine) 06/24/2024 3:53 PM CDT Recurrent stenosis of left carotid artery CARDIOLOGY DOCUMENT SCAN Routine 04/22/2024 12:31 PM CDT from Last 3 Months Results * US Carotids Duplex Bilateral (06/24/2024 3:53 PM CDT) Anatomical Region Laterality Modality Vascular Bilateral Ultrasound 06/24/2024 3:34 PM CDT Narrative 06/26/2024 9:38 AM CDT [facility] - Department of Vascular Surgery, Vascular Laboratory [address] [place] [address] Carotid Duplex Ultrasound Report Patient Name: OBDULIO WADE : 1940 (83y 8m) Study Date: 06/24/2024 3:34:46 PM Gender: M Tech: CG Location: [facility] Provider: CHARLENE WALKER Quality: Adequate Order Provider: CHARLENE WALKER PROCEDURES: Carotid Report: Carotid duplex examination of the extracranial arteries was performed using 2D, color and spectral Doppler. INDICATIONS: Dx: Recurrent stenosis of left carotid artery [I65.22 (ICD-10-CM)]. MEASUREMENTS: Right Value Units Left Value Units RT Prox CCA PSV 105 cm/sec LT Prox CCA PSV 82 cm/sec RT Prox CCA EDV 11 cm/sec LT Prox CCA EDV 16 cm/sec RT Distal CCA PSV 99 cm/sec LT Distal CCA PSV 105 cm/sec RT Distal CCA EDV 14 cm/sec LT Distal CCA EDV 19 cm/sec RT Prox ICA PSV 108 cm/sec LT Prox ICA PSV 185 cm/sec RT Prox ICA EDV 17 cm/sec LT Prox ICA EDV 38 cm/sec RT Mid ICA PSV 116 cm/sec LT Mid ICA PSV 117 cm/sec RT Mid ICA EDV 27 cm/sec LT Mid ICA EDV 24 cm/sec RT Distal ICA PSV 95 cm/sec LT Distal ICA PSV 100 cm/sec RT Distal ICA EDV 21 cm/sec LT Distal ICA EDV 25 cm/sec RT ECA Prx PSV 202 cm/sec LT ECA Prx PSV 271 cm/sec RT ICA/CCA 1.17 ratio LT ICA/CCA 1.76 ratio RT VERT PSV 32 cm/sec LT VERT PSV 50 cm/sec FINDINGS: Performing Die Maker Electronic: Nicole FRANCOT, RDMS. Rt Common Carotid Artery: The plaque in the right CCA appears to be heterogeneous, calcified and irregular. Atherosclerotic changes of the right common carotid artery with no hemodynamically significant Doppler findings. Rt Internal Carotid Artery: The plaque in the right internal carotid artery appears to be heterogeneous, calcified and irregular. Atherosclerotic changes of the right internal carotid artery without hemodynamically significant Doppler findings. <50% stenosis. Rt External Carotid Artery: Patent right external carotid artery with evidence of atherosclerotic disease present. Rt Vertebral Artery: Diminished, antegrade flow with no end-disatolic component in the right vertebral artery, may indicate more proximal stenosis. Lt Common Carotid Artery: The plaque in the left CCA appears to be heterogeneous and smooth. Atherosclerotic changes of the left common carotid artery with no hemodynamically significant Doppler findings. Lt Internal Carotid Artery: The plaque in the left internal carotid artery appears to be heterogeneous and irregular. Significant atherosclerotic changes of the left internal carotid artery with elevated peak systolic velocity and end diastolic velocity, as above. 50-69% stenosis by PSV (low-end) but <50% stenosis by EDV (approaching 50-69% stenosis) and VR. Lt External Carotid Artery: Patent left external carotid artery with evidence of atherosclerotic disease present. Lt Vertebral Artery: The left vertebral artery is patent with antegrade flow. CONCLUSIONS: 1. The right internal carotid artery disease is consistent with a less than 50% stenosis. 2. Diminished, antegrade flow with no end-disatolic component in the right vertebral artery, may indicate more proximal stenosis. 3. The left internal carotid artery disease is consistent with a 50-69% stenosis by PSV (low-end) but <50% stenosis by EDV (approaching 50-69% stenosis) and VR. 4. Normal, antegrade flow is noted in the left vertebral artery. 5. No evidence of hemodynamically significant stenosis in the common carotid artery bilaterally. 6. Patent bilateral external carotid arteries with evidence of atherosclerotic plaque. HISTORY: carotid dz, HTN, HLD, CAD, dizziness 08-06-2018 LT CEA. PREVIOUS STUDIES: Previous carotid ultrasound on 07-10-23 US revealed EVELYN <50% stenosis, LICA 50- 69% stenosis, RT vert ante with no EDV, LT vert ante, RT subclavian artery 260 cm/s. DISCLAIMER: The study images and the final report will be retained in the patient chart by the Vascular Laboratory for the legally required time period. This chart constitutes the legal record of any testing performed. ATTESTATION: I have reviewed and interpreted the pertinent images and measurements of this study. I attest to the conclusions in the final report that is provided above. Electronically Signed By: Wilber Acuna MD FACS 06/26/2024 8:26:58 AM CDT Procedure Note Wilber Acuna MD - 06/26/2024 [facility] - Department of Vascular Surgery,Vascular Laboratory [address] [place] [address] Carotid Duplex Ultrasound Report Patient Name: OBDULIO WADE : 1940 (83y 8m) Study Date: 06/24/2024 3:34:46 PM Gender: M Tech: Location: [facility] Provider: CHARLENE WALKER Quality: Adequate Order Provider: CHARLENE WALKER PROCEDURES: Carotid Report: Carotid duplex examination of the extracranial arterieswas performed using 2D, color and spectral Doppler. INDICATIONS: Dx: Recurrent stenosis of left carotid artery [I65.22 (ICD-10-CM)]. MEASUREMENTS: Right Value Units Left Value Units RT Prox CCA PSV 105 cm/sec LT Prox CCA PSV 82 cm/sec RT Prox CCA EDV 11 cm/sec LT Prox CCA EDV 16 cm/sec RT Distal CCA PSV 99 cm/sec LT Distal CCA PSV 105 cm/sec RT Distal CCA EDV 14 cm/sec LT Distal CCA EDV 19 cm/sec RT Prox ICA PSV 108 cm/sec LT Prox ICA PSV 185 cm/sec RT Prox ICA EDV 17 cm/sec LT Prox ICA EDV 38 cm/sec RT Mid ICA PSV 116 cm/sec LT Mid ICA PSV 117 cm/sec RT Mid ICA EDV 27 cm/sec LT Mid ICA EDV 24 cm/sec RT Distal ICA PSV 95 cm/sec LT Distal ICA PSV 100 cm/sec RT Distal ICA EDV 21 cm/sec LT Distal ICA EDV 25 cm/sec RT ECA Prx PSV 202 cm/sec LT ECA Prx PSV 271 cm/sec RT ICA/CCA 1.17 ratio LT ICA/CCA 1.76 ratio RT VERT PSV 32 cm/sec LT VERT PSV 50 cm/sec FINDINGS: Performing Die Maker Electronic: Nicole Torres RVT, RDMS. Rt Common Carotid Artery: The plaque in the right CCA appears to beheterogeneous, calcified and irregular. Atherosclerotic changes of the right commoncarotid artery with no hemodynamically significant Doppler findings. Rt Internal Carotid Artery: The plaque in the right internal carotidartery appears to be heterogeneous, calcified and irregular. Atherosclerotic changes of theright internal carotid artery without hemodynamically significant Doppler findings. <50%stenosis. Rt External Carotid Artery: Patent right external carotid artery withevidence of atherosclerotic disease present. Rt Vertebral Artery: Diminished, antegrade flow with no end-disatoliccomponent in the right vertebral artery, may indicate more proximal stenosis. Lt Common Carotid Artery: The plaque in the left CCA appears to beheterogeneous and smooth. Atherosclerotic changes of the left common carotid artery with nohemodynamically significant Doppler findings. Lt Internal Carotid Artery: The plaque in the left internal carotid arteryappears to be heterogeneous and irregular. Significant atherosclerotic changes of theleft internal carotid artery with elevated peak systolic velocity and end diastolicvelocity, as above. 50-69% stenosis by PSV (low-end) but <50% stenosis by EDV ([id number]% stenosis) and VR. Lt External Carotid Artery: Patent left external carotid artery withevidence of atherosclerotic disease present. Lt Vertebral Artery: The left vertebral artery is patent with antegradeflow. CONCLUSIONS: 1. The right internal carotid artery disease is consistent with a lessthan 50% stenosis. 2. Diminished, antegrade flow with no end-disatolic component in the rightvertebral artery, may indicate more proximal stenosis. 3. The left internal carotid artery disease is consistent with a 50-69%stenosis by PSV (low-end) but <50% stenosis by EDV (approaching 50-69% stenosis) and VR. 4. Normal, antegrade flow is noted in the left vertebral artery. 5. No evidence of hemodynamically significant stenosis in the commoncarotid artery bilaterally. 6. Patent bilateral external carotid arteries with evidence ofatherosclerotic plaque. HISTORY: carotid dz, HTN, HLD, CAD, dizziness 08-06-2018 LT CEA. PREVIOUS STUDIES: Previous carotid ultrasound on 07-10-23 US revealed EVELYN <50% stenosis,LICA 50- 69% stenosis, RT vert ante with no EDV, LT vert ante, RT subclavian artery 260cm/s. DISCLAIMER: The study images and the final report will be retained in the patientchart by the Vascular Laboratory for the legally required time period. This chartconstitutes the legal record of any testing performed. ATTESTATION: I have reviewed and interpreted the pertinent images and measurements ofthis study. I attest to the conclusions in the final report that is provided above. Electronically Signed By: Wilber Acuna MD [facility] 06/26/2024 8:26:58 AM CDT us Charlene DAVIS IMG US PROCEDURES Final Result * Cardiology Document Scan (04/22/2024 12:31 PM CDT) Anatomical Region Laterality Modality Other us Pavan Bull MD [facility] CARDIAC SERVICES PRO CEDURES Final Result from Last 3 Months Insurance [facility] MEDICARE ADVANTAGE [facility] Address: [address] [address] [place] [id number] [employer]HC MEDICARE ADVANTAGE [facility] Address: [address] [address] [place] [address] UHC MEDICARE ADVANTAGE [facility] Address: [address] [address] [place] [address] Advance Directives For more information, please contact: [phone] Documents on File Type Date Recorded Patient Tray Checker Expl anation ADVANCE DIRECTIVE 08/06/2018 12:54 PM * Full Code (Latest Code Status on File) Date Activated Date Inactivated Comments 08/06/2018 4:00 PM 08/07/2018 3:04 PM Care Teams Employee Communications Coordinator Relationship Specialty Start Date End Date Abhishek Coffman MD PCP - General 06/01/16 Gabriella Toth MD Consulting Physician Interventional Cardiology 06/19/18 Wilber Acuna MD Surgeon Vascular Surgery 08/07/18 Ye Almodovar MD Consulting Physician Cardiology 12/31/19
--- OUTSIDE RECORDS SUMMARY | 2024-07-23 13:46 | XMS_ITS | Encounter Summary ---
Author Organization [facility] Facility Care Team Providers Care Director Of Strategy & Mobile Name Role Phone Abhishek Coffman MD Primary Care Provider [phone] Gabriella Toth MD Unavailable [phone] Wilber Acuna MD Unavailable [phone] Ye Almodovar MD Unavailable [phone] Encounter Details Date Type Department Care Team (Latest Contact Info) Description 12/16/2015 Orders Only [facility] ProviderJohn MD [address] [place] [address] Social History Tobacco Use Types Packs/Day Years Used Date Smoking Tobacco: Never Assessed Sex and Gender Information Value Date Recorded Sex Assigned at Not on file 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
--- OUTSIDE RECORDS SUMMARY | 2024-07-23 13:46 | XMS_ITS | Clinical Summary ---
Author Organization [facility] Address [address] [facility] [address] [place] [address] Phone Care Team Providers Care Student Affairs Dean Name Role Phone Abhishek Lamb Primary Care [...] Comments Blood Pressure 144/76 03/10/2020 1:25 PM WIRE PULLER Pulse 54 03/10/2020 1:25 PM WIRE PULLER Temperature 35.6 C (96 F) 03/10/2020 1:25 PM WIRE PULLER Respiratory Rate 20 03/10/2020 1:25 PM WIRE PULLER Oxygen Saturation 98% 03/10/2020 1:25 PM WIRE PULLER Inhaled Oxygen Concentration - - Weight 88.8 kg (195 lb 12.8 oz) 03/10/2020 1:25 PM WIRE PULLER Height 177.8 cm (5' 10) 03/10/2020 1:25 PM WIRE PULLER Body Mass Index 28.09 03/10/2020 1:25 PM WIRE PULLER Plan of Treatment Health Maintenance Due Date Last Done Comments Hepatitis C Virus (HCV) Screening 1940 TdaP Immunization 1940 Pneumococcal Immunization (5 0+ years) (1 of 1 - PCV) 1992 Zoster Immunization (1 of 2) 1992 Respiratory Syncytial Virus (RSV) Immunization (Adult) (1 - 1-dose 75+ series) 2017 SARS-COV-2 Immunization (2 - season) 2023 04/17/2020 Influenza Immunization (Seas on Ended) 2024 Hepatitis B Immunization Aged Out No longer eligible based on patient's age to complete this topic Human Papillomavirus (HPV) Immunization Aged Out No longer eligible b ased on patient's age to complete this topic Meningococcal Immunization (ACWY) Aged Out No longer eligible based on patient's age to complete this topic Rotavirus Immunization Aged Out No lo nger eligible based on patient's age to complete this topic Insurance MEDICARE C HUMANA Care Teams Student Affairs Dean Relationship Specialty Start Date End Date Abhishek Lamb PCP - General Family Medicine 03/10/20
--- OUTSIDE RECORDS SUMMARY | 2024-07-23 13:46 | XMS_ITS | Encounter Summary ---
Author Organization [facility] Facility Care Team Providers Care Building Tech Name Role Phone Abhishek Coffman MD Primary Care Provider [phone] Gabriella Toth MD Unavailable [phone] Wilber Acuna MD Unavailable [phone] Ye Almodovar MD Unavailable [phone] Encounter Details Date Type Department Care Team (Latest Contact Info) Description 10/17/2015 Orders Only [facility] ProviderJohn MD [address] [place] [address] Social History Tobacco Use Types Packs/Day Years Used Date Smoking Tobacco: Never Assessed Sex and Gender Information Value Date Recorded Sex Assigned at Not on file 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
--- OUTSIDE RECORDS SUMMARY | 2024-07-23 13:46 | XMS_ITS | Continuity of Care Document ---
Author Organization [facility] Address [address] [place] [address] [facility] [address] [place] [address] Phone Care Team Providers Care Continuous Improvement Intern Name Role Phone Ramon Tse Unavailable Unavailable Procedures Procedure Date Eye Exam, New Patient Office Consultation Advance Directives Directive Yes / No Effective Date File Name No Information Encounters Encounter Description Practice Location Reason(s) For Visit Diagnoses Date Provider Providers Copied on Encounter [facility], [address] [place], [place] [address] [address], [place], [place], [id number], tel:[phone] [facility] No Information 8 Krishnasamy Ramon. [address], [facility] [place], [place]. tel:[phone] Office Consultation [facility], [address] [place], [place] [address], [place], [place], [id number], tel:[phone] [facility] No Information 8 Krishnasamy Ramon. [address], [address], [place]. tel:[phone] Referring Provider: Abhishek Coffman MD , [place], [address]. tel:[phone] Family History Family Member Type Diagnosis Age At Onset No Information Payers Payer name Insurance type Covered republican ID Authoriza tion(s) No Information Social History [...]
--- OUTSIDE RECORDS SUMMARY | 2024-07-23 13:46 | XMS_ITS | Encounter Summary ---
Author Organization [facility] Facility Care Team Providers Care Geographic Information Scientist Name Role Phone Abhishek Coffman MD Primary Care Provider [phone] Gabriella Toth MD Unavailable [phone] Wilber Acuna MD Unavailable [phone] Ye Almodovar MD Unavailable Encounter Details Date Type Department Care Team (Latest Contact Info) Description 10/16/2015 Orders Only [facility] ProviderJohn MD [address] [place] [address] Social History Tobacco Use Types Packs/Day Years Used Date Smoking Tobacco: Never Assessed Sex and Gender Information Value Date Recorded Sex Assigned at Not on file 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
--- OUTSIDE RECORDS SUMMARY | 2024-07-23 13:46 | XMS_ITS | Clinical Summary ---
Author Organization [facility] Address [address] [place] [address] Phone Care Team Providers Care Credit Product Analyst Name Role Phone Abhishek Coffman MD Primary Care Provider [phone] Allergies Active Allergy Reactions Criticality Noted Date [...] (01/16/2019): Added automatically from request for surgery [id number] Paroxysmal atrial fibrillation 03/18/2018 Coronary arteriosclerosis in [place] artery 03/12 Bradycardia 03/08/2016 Angina pectoris 01/29/2016 [...] Comments Blood Pressure 150/70 01/19/2021 1:43 PM HEARING SCREENER Pulse 72 01/19/2021 1:43 PM HEARING SCREENER Temperature 36.2 C (97.1 F) 01/19/2021 1:43 PM HEARING SCREENER Respiratory Rate - - Oxygen Saturation - - Inhaled Oxygen Concentration - - Weight 86.6 kg (191 lb) 01/19/2021 1:43 PM HEARING SCREENER Height 180.3 cm (5' 11) 01/19/2021 1:43 PM HEARING SCREENER Body Mass Index 26.64 01/19/2021 1:43 PM HEARING SCREENER Plan of Treatment Health Maintenance Due Date Last Done Comments Pneumococcal PPSV23/PCV13 65 + Years / Low and Medium Risk (1 of 4 - PCV) 1992 Influenza Vaccine (Season Ended) 2024 Insurance MEDICARE ADVANTAGE Care Teams Credit Product Analyst Relationship Specialty Start Date End Date Abhishek Coffman MD [address] [place] [phone] PCP - General Family Medicine 01/07/19
--- OUTSIDE RECORDS SUMMARY | 2024-07-23 13:46 | XMS_ITS | Referral Summary ---
Author Organization [place] [address] [facility] [address] Address [address] [place] [address] Care Team Providers Care Diabetic Educator Name Role Phone Abhishek Coffman MD Primary Care Provider Gabriella Toth MD Unavailable [phone] Wilber Acuna MD Unavailable [phone] Ye Almodovar MD Unavailable Encounters Date Type Department Care Team Description 06/24/2024 3:45 PM CDT Office Visit [facility] Surgery [address] [place] [address] Sveta Kolb PA Asymptomatic carotid artery stenosis, bilateral (Primary Dx); Stenosis of carotid artery, unspecified laterality 06/24/2024 3:15 PM CDT Ancillary Procedure [facility] Surgery [address] [place] [address] Recurrent stenosis of left carotid artery 04/29/[address] [facility] Medical Group Cardiology [address] [place] [address] Pavan Bull MD from Last 3 Months Allergies Active Allergy [...] 20 mg tabletIndicatio ns:Coronary artery disease involving [place] coronary artery of [place] heart without angina pectoris Take 1 [...] (07/23/2018): Added automatically from request for surgery [id number] Assessment & Plan (06/24/2024 4:01 PM CDT): Minimal right ICA stenosis, mild recurrent left ICA stenosis. Repeat carotid doppler in one year. 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 Gender Identity Not on file Sexual Orientation [...] 06/24/2024 3:49 PM CDT Plan of Treatment Not on file Medical Devices Implanted Type Area Electric Motor Control Assembler Device Identifier Shelf Expiration Date Model / Serial / Lot Virtustream [id number] Vascu-Guard 8x.8cm Peripheral Patch Vascular Bovine Pericardium - [id number] Implanted:Qty: 1 on 08/06/2018 by Wilber Acuna MD at [facility] Graft Left: Carotid Virtustream [id number] 02/28/2023 [id number] / / [id number] Procedures Procedure Name Priority Date/Time Associated Diagnosis [...] PM CDT Narrative 06/26/2024 9:38 AM CDT [facility] - Department of Vascular Surgery, Vascular Laboratory [address] [place] [address] Carotid Duplex Ultrasound Report Patient Name: OBDULIO WADE : 1940 (83y 8m) Study Date: 06/24/2024 3:34:46 PM Gender: M Tech: Location: [facility] Provider: CHARLENE WALKER Quality: Adequate Order Provider: [...] LT VERT PSV 50 cm/sec FINDINGS: Performing Leather Crafter: Nicole Torres RVT, DAVIDSON. Rt Common Carotid Artery: The plaque in [...] Procedure Note Wilber Acuna MD - 06/26/2024 [facility] - Department of Vascular Surgery,Vascular Laboratory [address] [place] [address] Carotid Duplex Ultrasound Report Patient Name: OBDULIO WADE : 1940 (83y 8m) Study Date: 06/24/2024 3:34:46 PM Gender: M Tech: Location: [facility] Provider: CHARLENE WALKER Quality: Adequate Order Provider: [...] LT VERT PSV 50 cm/sec FINDINGS: Performing Leather Crafter: Nicole Torres RVT, RDMS. Rt Common Carotid [...] PSV (low-end) but <50% stenosis by EDV ([id number]% stenosis) and VR. Lt External Carotid Artery: [...] above. Electronically Signed By: Wilber Acuna MD [facility] 06/26/2024 8:26:58 AM CDT us Charlene DAVIS IMG US PROCEDURES Final Result * Cardiology Document Scan (04/22/2024 12:31 PM CDT) Anatomical Region Laterality Modality Other us Pavan Bull MD CV CARDIAC SERVICES PRO CEDURES Final Result from Last 3 Months Insurance [facility] Address: [place] [id number] [place] [id number] [facility]IC[facility] Address: [address] [address] [place] [phone] [facility] Address: [place] [id number] [place] [address] Advance Directives For more information, please contact: [phone] Documents on File Type Date Recorded Patient Fashion Buyer Expl anation ADVANCE DIRECTIVE 08/06/2018 12:54 PM * Full Code (Latest Code Status on File) Date Activated Date Inactivated Comments 08/06/2018 4:00 PM 08/07/2018 3:04 PM Care Teams Diabetic Educator Relationship Specialty Start Date End Date Abhishek Coffman MD PCP - General 06/01/16 Gabriella Toth MD Consulting Physician Interventional Cardiology 06/19/18 Wilber Acuna MD Surgeon Vascular Surgery 08/07/18 Ye Almodovar MD Consulting Physician Cardiology 12/31/19
--- OUTSIDE RECORDS SUMMARY | 2024-07-23 13:46 | XMS_ITS | Encounter Summary ---
Author Organization [facility] Facility Care Team Providers Care Regional Sales Coordinator Name Role Phone Abhishek Coffman MD Primary Care Provider [phone] Gabriella Toth MD Unavailable [phone] Wilber Acuna MD Unavailable [phone] Ye Almodovar MD Unavailable [phone] Encounter Details Date Type Department Care Team (Latest Contact Info) Description 10/27/2015 Orders Only [facility]IN[facility] ProviderJohn MD [address] [place] [address] Social History Tobacco Use Types Packs/Day Years Used Date Smoking Tobacco: Never Assessed Sex and Gender Information Value Date Recorded Sex Assigned at Not on file 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
--- OUTSIDE RECORDS SUMMARY | 2024-07-23 13:46 | XMS_ITS | Clinical Summary ---
Author Organization [facility] Address [address] [place] [address] Care Team Providers Care Issue Clerk Name Role Phone Abhishek Coffman MD Primary Care Provider [phone] Source Comments [facility],non-owned Affiliates and Associated Physician Practices is amultiple site organization consisting of ambulatory clinics and hospital sitesin [place], [place], [place] and [place]. This disclosure is being madepursuant to the Care Everywhere program and may not contain all information available regarding this patient. 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
--- OUTSIDE RECORDS SUMMARY | 2024-07-23 13:46 | XMS_ITS | Encounter Summary ---
Author Organization [facility] Address [address] [place] [address] Care Team Providers Care Wet Pour Mixer Name Role Phone Abhishek Coffman MD Primary Care Provider [phone] Encounter Details Date Type Department Care Team (Late st Contact Info) Description 10/24/2021 Lab Requisition [facility] DermPath Lab [address] [place] [address] David Mccoy MD [address] [place] [address] Social History Tobacco Use Types Packs/Day Years Used Date Smoking Tobacco: Never Assessed Sex and Gender Information Value Date Recorded Sex Assigned at Not on file 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 Gender Identity Not on file Sexual Orientation Not on file documented as of this encounter Plan of Treatment Not on file documented as of this encounter Procedures Procedure Name Priority Date/Time Associated Diagnosis Comments DERMATOPATHOLOGY Routine 10/24/2021 12:0 0 AM CDT documented in this encounter Results * DERMATOPATHOLOGY (10/24/2021 12:00 AM CDT) Case Report Dermatopathology Report Case: [id number] Authorizing Provider: David Mccoy MD Collected: 10/24/2021 12:00 AM Ordering Location: [facility] DermPath Lab Received: 10/24/2021 04:39 PM Pathologist: Audra Arriaga MD Specimen: Skin, right chest 1:27 PM CDT DERMATOPATHOLOGY LABORATORY Final Diagnosis Specimen A. SKIN, right chest: SEBORRHEIC KERATOSIS, INFLAMED (L82.0) 2 1:27 PM CDT DERMATOPATHOLOGY LABORATORY at 1327 CDT Clinical History ISK 2 1:27 PM CDT DERMATOPATHOLOGY LABORATORY Gross Description Specimen A: Received is one formalin filled container labeled with the patients name and designated right chest. The specimen consists of a shave removal measuring [id number]. Jar 0. 2 1:27 PM CDT DERMATOPATHOLOGY [...] characteristic determined by the Dermatopathology Laboratory at [facility], directed by Dr. Janiya Oshea. These tests need not be, and therefore are not, approved by the [place] Food and Drug Administration. The tests are used for clinical purposes. Billing Codes Specimen Charges Stain Charges 85078 1 2 1:27 PM CDT DERMATOPATHOLOGY LABORATORY Embedded Images 2 1:27 PM CDT DERMATOPATHOLOGY LABORATORY Pathology/Cytolog y TISSUE SPECIMEN FROM SKIN / Unknown 10/24/2021 10/24/2021 4:39 PM CDT us David Mccoy MD LAB - PATHOLOGY/CYTOLOGY ORDERAB LES Final Result DERMATOPATHOLOGY LABORATORY [facility] - Department of Dermatology [address] [phone] documented in this encounter Visit Diagnoses Not on filedocumented in this encounter Care Teams Wet Pour Mixer Relationship Specialty Start Date End Date Abhishek Coffman MD [address] [place] [address] PCP - General 12/06/18 documented as of this encounter
== END 2024-07-23 11:23 | disposition home or self-care (01) ==
LOC: ANHLAB 11:23
PROVIDERS: PCP Family Medicine; Visit Provider Nurse Practitioner Family
DX: Z12.5 Encounter for screening for malignant neoplasm of prostate (principal); E78.00 Pure hypercholesterolemia, unspecified; N28.9 Disorder of kidney and ureter, unspecified; Z13.220 Encounter for screening for lipoid disorders; Z13.1 Encounter for screening for diabetes mellitus
CPT/HCPCS: 36415; 80053; 80061; 84153; 85025; G0103

== ENCOUNTER 2024-11-05 13:11 | Emergency (ER) | payer MEDICARE, SELFPAY ==
--- OUTSIDE RECORDS SUMMARY | 2007-10-01 10:10 | XMS_ITS | Continuity of Care Document ---
Author Organization [facility] Address [address] [place] [address] [facility] [address] [place] [address] Phone Care Team Providers Care Aemt Name Role Phone Ramon Tse Unavailable Unavailable Procedures Procedure Date Eye Exam, New Patient Office Consultation Advance Directives Directive Yes / No Effective Date File Name No Information Encounters Encounter Description Practice Location Reason(s) For Visit Diagnoses Date Provider Providers Copied on Encounter [facility], [address] [place], [place] [address], [place], [place], [id number], tel:[phone] [facility] No Information 8 Krishnasamy Ramon. [facility] [address], [facility], [place]. tel:[phone] [facility], [address] [place], [place] [address], [place], [place], [id number], tel:[phone] [facility] No Information 8 Krishnasamy Ramon. [address], [address], [place]. tel:[phone] Referring Provider: Abhishek Coffman MD , [place], [address]. tel:[phone] Family History Family Member Type Diagnosis Age At Onset No Information Payers Payer name Insurance type Covered democrat ID Authoriza tion(s) No Information Social History Type Description Quantity Date Captured Comments Sex Male Smoking Status No Information Chief Complaint And Reason For Visit No Information Reason For Referral Reason For Referral No Information History Of Present Illness Encounter Date Complaint History Of Prese nt Illness No Information Functional Status Date Functional Assessmen t No Information Instructions Date Instruction Additional Infor mation No Information Assessments Type Assessment Date No Information Patient Care Teams Name Effective Dates (start - stop) Status Members No Information
--- OUTSIDE RECORDS SUMMARY | 2024-11-05 13:15 | XMS_ITS | Clinical Summary ---
Author Organization [facility] Address [facility] [place] [address] Care Team Providers Care Forestry Workers Name Role Phone Abhishek Coffman MD Primary Care Provider [phone] Allergies Active Allergy Reactions Criticality Noted Date [...] 6:08 PM CDT Height 179.1 cm (5' 10.5) 10/30/2018 6:08 PM CD T Body Mass Index 26.88 10/30/2018 6:08 PM CDT Plan of Treatment Health Maintenance Due Date Last Done Comments DTaP, Tdap and Td Vaccines ( 1 - Tdap) 1961 Pneumococcal Vaccine: 50+ Ye ars (1 of 1 - PCV) 1992 Zoster Vaccines (1 of 2) 1992 Annual Medicare Wellness Visit 09/28/2007 RSV Immunization or 60+ Years (1 - 1-dose 75+ series) 2017 COVID-19 Vaccine (1 - 2023-2 5 season) 2024 Meningococcal B Vaccine Aged Out No l onger eligible based on patient's age to complete this topic Meningococcal Vaccine Aged Out No jelani kaye eligible based on patient's age to complete this topic RSV Immunizations Under 20 Months Aged Out No longer eligible based on patient's age to complete this topic Insurance Care Teams Forestry Workers Relationship Specialty Start Date End Date Abhishek Coffman MD [address] [address] PCP - General FAMILY PRACTICE 10/30/18
--- OUTSIDE RECORDS SUMMARY | 2024-11-05 13:15 | XMS_ITS | Encounter Summary ---
Author Organization [facility] Address [address] [facility] [place] [address] Care Team Providers Care Geotechnical Engineering Technician Name Role Phone Abhishek Coffman MD Primary Care Provider [phone] Encounter Details Date Type Department Care Team (Late st Contact Info) Description 10/24/2021 Lab Requisition [facility] DermPath Lab [address] [facility] [address] [place] [address] David Mccoy MD [address] [place] [address] Social History Tobacco Use Types Packs/Day Years Used Date Smoking Tobacco: Never Assessed Sex and Gender Information Value Date Recorded Sex Assigned at Not on file 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 Gender Identity Not on file Sexual Orientation Not on file documented as of this encounter Plan of Treatment Not on file documented as of this encounter Procedures Procedure Name Priority Date/Time Associated Diagnosis Comments DERMATOPATHOLOGY Routine 10/24/2021 12:0 0 AM CDT documented in this encounter Results * DERMATOPATHOLOGY (10/24/2021 12:00 AM CDT) Case Report Dermatopathology Report Case: [id number] Authorizing Provider: David Mccoy MD Collected: 10/24/2021 12:00 AM Ordering Location: [facility] DermPath Lab Received: 10/24/2021 04:39 PM Pathologist: [...] specimen consists of a shave removal measuring [id number]. Jar 0. 2 1:27 PM CDT DERMATOPATHOLOGY [...] characteristic determined by the Dermatopathology Laboratory at [facility], directed by Dr. Janiya Oshea. These tests need not be, and therefore are not, approved by the [place] Food and Drug Administration. The tests are used for clinical purposes. Billing Codes Specimen Charges Stain Charges 56344 1 2 1:27 PM CDT DERMATOPATHOLOGY LABORATORY Embedded Images 2 1:27 PM CDT DERMATOPATHOLOGY LABORATORY Pathology/Cytolog y TISSUE SPECIMEN FROM SKIN / Unknown 10/24/2021 10/24/2021 4:39 PM CDT us David Mccoy MD LAB - PATHOLOGY/CYTOLOGY ORDERAB LES Final Result DERMATOPATHOLOGY LABORATORY [facility] - Department of Dermatology [address], [address] [phone] documented in this encounter Visit Diagnoses Not on filedocumented in this encounter Care Teams Geotechnical Engineering Technician Relationship Specialty Start Date End Date Abhishek Coffman MD [address] [place] [address] PCP - General 12/06/18 documented as of this encounter
--- OUTSIDE RECORDS SUMMARY | 2024-11-05 13:15 | XMS_ITS | Encounter Summary ---
Author Organization [facility] Address [address] [place] [address] Care Team Providers Care Manager Requirements Name Role Phone Abhishek Coffman MD Primary Care Provider Gabriella Toth MD Unavailable [phone] Wilber Acuna MD Unavailable [phone] Ye Almodovar MD Unavailable Encounter Details Date Type Department Care Team (Late st Contact Info) Description 10/06/2024 Results Follow-Up [facility] Medical Group Cardiology [address] [place] [address] Yeison Tirado MD [address] [place] [address] NM MPI SPECT (Rest and/or Stress) Multiple Studies Social History Tobacco Use Types Packs/Day Years Used Date Smoking Tobacco: Never Passive Smoke Exposure: Never Smokeless Tobacco: Never Alcohol Use Standard [...] file 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
--- OUTSIDE RECORDS SUMMARY | 2024-11-05 13:15 | XMS_ITS | Clinical Summary ---
Author Organization [facility] Address [address] [facility] [address] [place] [address] Phone Care Team Providers Care Pet Stylist Name Role Phone Abhishek Lamb Primary Care [...] Comments Blood Pressure 144/76 03/10/2020 1:25 PM BARREL ENDSHAKE ADJUSTER Pulse 54 03/10/2020 1:25 PM BARREL ENDSHAKE ADJUSTER Temperature 35.6 C (96 F) 03/10/2020 1:25 PM BARREL ENDSHAKE ADJUSTER Respiratory Rate 20 03/10/2020 1:25 PM BARREL ENDSHAKE ADJUSTER Oxygen Saturation 98% 03/10/2020 1:25 PM BARREL ENDSHAKE ADJUSTER Inhaled Oxygen Concentration - - Weight 88.8 kg (195 lb 12.8 oz) 03/10/2020 1:25 PM BARREL ENDSHAKE ADJUSTER Height 177.8 cm (5' 10) 03/10/2020 1:25 PM BARREL ENDSHAKE ADJUSTER Body Mass Index 28.09 03/10/2020 1:25 PM BARREL ENDSHAKE ADJUSTER Plan of Treatment Health Maintenance Due Date Last Done Comments Hepatitis C Virus (HCV) Screening 1940 TdaP Immunization 1940 Pneumococcal Immunization (5 0+ years) (1 of 1 - PCV) 1992 Zoster Immunization (1 of 2) 1992 Respiratory Syncytial Virus (RSV) Immunization (Adult) (1 - 1-dose 75+ series) 2017 Influenza Immunization (#1) 2024 SARS-COV-2 Immunization (2 - season) 2024 04/17/2020 Hepatitis B Immunization Aged Out No [...] topic Insurance MEDICARE C [employer] Care Teams Pet Stylist Relationship Specialty Start Date End Date Abhishek Lamb PCP - General Family Medicine 03/10/20
--- OUTSIDE RECORDS SUMMARY | 2024-11-05 13:15 | XMS_ITS | Encounter Summary ---
Author Organization [facility] Facility Care Team Providers Care Hospital Receiving Clerk Name Role Phone Abhishek Coffman MD Primary Care Provider [phone] Gabriella Toth MD Unavailable [phone] Wilber Acuna MD Unavailable [phone] Ye Almodovar MD Unavailable Encounter Details Date Type Department Care Team (Latest Contact Info) Description 12/16/2015 Orders Only [facility] CLINCON[facility] ProviderJohn MD [address] [place] [address] Social History Tobacco Use Types Packs/Day Years Used Date Smoking Tobacco: Never Assessed Sex and Gender Information Value Date Recorded Sex Assigned at Not on file 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
--- OUTSIDE RECORDS SUMMARY | 2024-11-05 13:15 | XMS_ITS | Encounter Summary ---
Author Organization [facility] Facility Care Team Providers Care Wedger Name Role Phone Abhishek Coffman MD Primary Care Provider [phone] Gabriella Toth MD Unavailable [phone] Wilber Acuna MD Unavailable [phone] Ye Almodovar MD Unavailable Encounter Details Date Type Department Care Team (Latest Contact Info) Description 10/17/2015 Orders Only [facility] CLINCONV ProviderJohn MD [address] [place] [address] Social History Tobacco Use Types Packs/Day Years Used Date Smoking Tobacco: Never Assessed Sex and Gender Information Value Date Recorded Sex Assigned at Not on file 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
--- OUTSIDE RECORDS SUMMARY | 2024-11-05 13:15 | XMS_ITS | Encounter Summary ---
Author Organization [facility] Care Team Providers Care Electronic Repair Troubleshooter Name Role Phone Abhishek Coffman MD Primary Care Provider [phone] Gabriella Toth MD Unavailable [phone] Wilber Acuna MD Unavailable [phone] Ye Almodovar MD Unavailable [phone] Encounter Details Date Type Department Care Team (Latest Contact Info) Description 10/27/2015 Orders Only [facility] CLINCONV ProviderJohn MD [address] [place] [address] Social History Tobacco Use Types Packs/Day Years Used Date Smoking Tobacco: Never Assessed Sex and Gender Information Value Date Recorded Sex Assigned at Not on file 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
--- OUTSIDE RECORDS SUMMARY | 2024-11-05 13:15 | XMS_ITS | Clinical Summary ---
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 Take 1 tablet [...] 90 tablet 1 5 07/10/19 26 Active losartan (COZAAR) 25 mg tablet Take 1/2 (one-half) tablet by mouth once daily 45 tablet 1 5 Active Xarelto 20 mg tablet Take 1 tablet by mouth once daily 90 tablet 2 5 Active Xarelto 20 mg tablet Take 1 tablet (20 mg total) by mouth daily 90 tablet 1 5 10/29/19 25 Discontinued Active Problems Problem Noted Date Diagnosed Date Atypical chest pain 09/18/2024 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 Repeat carotid doppler in one year. Coronary artery disease invo lving shinnecock coronary artery of shinnecock heart without angina pectoris 03/12/2018 Paroxysmal atrial [...] Encounters Date Type Department Care Team Description 10/06/2024 Results Follow-Up [facility] Cardiology [address] [place] [address] Michael Su MD NM MPI SPECT (Rest and/or Stress) Multiple Studies 10/03/2024 7:45 AM CDT Ancillary Procedure [facility] Cardiology at [address] [place] [address] Coronary artery disease involving shinnecock coronary artery of shinnecock heart without angina pectoris; Atypical chest pain 09/18/2024 1:45 PM CDT Office Visit [facility] Cardiology [address] [place] [address] Michael Su MD Coronary artery disease involving shinnecock coronary artery of shinnecock heart without angina pectoris (Primary Dx); Paroxysmal atrial fibrillation (CMS/HCC) (HCC); Chronic anticoagulation; Labile hypertension; Atypical chest pain from Last 3 Months Surgical History Surgery [...] 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 03/12/2018 Angina [...] on file 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 Gender Identity Not on file Sexual Orientation Not on file Obstetrics History Last Filed Vital Signs Vital Sign Reading Time Taken Comments Blood Pressure 182/84 09/18/2024 1:57 PM CDT Pulse 56 09/18/2024 1:57 PM CDT Temperature 36.4 C (97.6 F) 06/24/2024 3:49 PM CDT Respiratory Rate 16 10/27/2019 2:52 PM CDT Oxygen Saturation 98% 09/18/2024 1:57 PM CDT Inhaled Oxygen Concentration - - Weight 86.6 kg (191 lb) 09/18/2024 1:57 PM CDT Height 177.8 cm (5' 10) 09/18/2024 1:57 PM CDT Body Mass Index 27.41 09/18/2024 1:57 PM CDT Plan of Treatment Health Maintenance Due Date Last Done Comments Depression Screening 1940 Fall Risk Assessment 1940 DTaP/Tdap/Td Vaccine (1 - Tdap) 1953 Hepatitis B Screening 1960 Pneumococcal vaccine 65+ (1 of 1 - PCV) 1992 Zoster Vaccine (1 of 2) 1992 Well Visit 65+ 09/28/2007 Influenza Vaccine (#1) 2024 Medical Devices Implanted Type Area Fine Craft Artist Device Identifier Shelf Expiration Date Model / Serial / Lot Keystok [id number] Vascu-Guard 8x.8cm Peripheral Patch Vascular Bovine Pericardium - [id number] Implanted:Qty: 1 on 08/06/2018 by Wilber Acuna MD at [facility] Graft Left: Carotid Keystok [id number] 02/28/2023 [id number] / / [id number] Procedures Procedure Name Priority Date/Time Associated Diagnosis Comments NM MPI SPECT (REST AND/OR STRESS) MULTIPLE STUDIES Schedule Routine, Read Routine (OP Routine) 10/03/2024 9:45 AM CDT Coronary artery disease involving shinnecock coronary artery of shinnecock heart without angina pectoris Atypical chest pain from Last 3 Months Results * NM MPI SPECT (Rest and/or Stress) Multiple Studies (10/03/2024 9:45 AM CDT) Anatomical Region Laterality Modality Body N/A Electrocardiogra phy 10/03/2024 7:45 AM CDT Narrative 10/03/2024 1:53 PM CDT [facility] [address], [place] [address] [address] [facility] [address], [place] [address] [address] [place] [address] P:[phone] P:[phone] MPI Imaging Report Patient Name: OBDULIO WADE D : 1940 Study Date: 10/03/2024 7:45:00 AM Gender: M Tech: [facility] Location: [facility] Provider: MICHAEL SU Height(Cm): 177.8 BSA: Weight(Kg): 86.6 Heart Rate: 117 BMI: 27.39 Order Provider: MICHAEL SU PHYSICIAN: Primary Care Physician: Dr. Coffman. [facility] Physician: Arnel Su M.D. Stress Supervision: Chris Ramirez M.D.,F.A.C.C. Stress Interpreting Physician: Chris Ramirez M.D.,F.A.C.CGildardo Image Interpreting Physician: Chris Ramirez M.D.,F.A.C.C. PROCEDURES: Pharmacologic SPECT Report: Myocardial perfusion imaging with Tc99M Sestamibi SPECT at rest and stress post regadenoson (Lexiscan) infusion. INDICATIONS: Hypertension, Family Hx CAD, High Cholesterol, I25.10 Atherosclerotic heart disease of shinnecock coronary artery without angina pectoris, and R07.89 Other chest pain. FINDINGS: Procedural Findings: One day rest/stress was used. Tc99m Sestamibi injected IV at rest was 10.9 millicuries 32.0 millicuries of Tc99M Sestamibi injected IV during Lexiscan stress Lexiscan 0.4mg administered IV over 10 seconds. Patient had no symptoms during stress test. Baseline heart rate was 55 BPM Maximum Heart Rate Achieved was: 76 BPM Baseline blood pressure was 189/78 mmHg Post Stress Blood Pressure was 171/70 mmHg Termination: Protocol complete. Resting ECG: Sinus rhythm , normal electrocardiogram. Post ECG: No diagnostic ST changes. Perfusion Findings: A TID of 0.90 was automatically calculated. defect 1: Size is medium. Severity is mild. Location of defect is in the basal lateral segment. Reversibility is not present, defect is fixed. Type of defect is most likely attenuation artifact. LV Function: Global left ventricular function is normal. Left ventricular ejection fraction is 67 %. CONCLUSIONS: Sinus rhythm , normal electrocardiogram. No diagnostic ST changes. Global left ventricular function is normal. Left ventricular ejection fraction is 67 %. Size is medium. Severity is mild. Location of defect is in the basal lateral segment. Reversibility is not present, defect is fixed. Type of defect is most likely attenuation artifact. No significant ischemic burden was identified. Electronically Signed By: Chris Ramirez MD, [facility] 10/03/2024 12:34:53 PM CDT Electronically Signed By: Chris Ramirez MD, [facility] 10/03/2024 12:34:53 PM CDT Procedure Note Chris Ramirez MD - 10/03/2024 [facility] [address] [facility] [address] [id number] [address] [facility] [address], [place] [address] [address] [place] [address] P:[phone] P:[phone] MPI Imaging Report Patient Name: OBDULIO WADEKelley : 1940 Study Date: 10/03/2024 7:45:00 AM Gender: M Tech: [facility] Location: [facility] Provider: MICHAEL SU Height(Cm): 177.8 BSA: Weight(Kg): 86.6 Heart Rate: 117 BMI: 27.39 Order Provider: MICHAEL SU PHYSICIAN: Primary Care Physician: Dr. Coffman. [facility] Physician: Arnel Su M.D. Stress Supervision: Chris Ramirez M.D.,Sabrina Stress Interpreting Physician: Chris Ramirez M.D.,[facility] Image Interpreting Physician: Chris Ramirez M.D.,Sabrina PROCEDURES: Pharmacologic SPECT Report: Myocardial perfusion imaging with Tc99M Sestamibi SPECT at rest and stresspost regadenoson (Lexiscan) infusion. INDICATIONS: Hypertension, Family Hx CAD, High Cholesterol, I25.10 Atheroscleroticheart disease of shinnecock coronary artery without angina pectoris, and R07.89 Other chestpain. FINDINGS: Procedural Findings: One day rest/stress was used. Tc99m Sestamibi injected IV at rest was 10.9 millicuries 32.0 millicuries of Tc99M Sestamibi injected IV during Lexiscan stress Lexiscan 0.4mg administered IV over 10 seconds. Patient had no symptoms during stress test. Baseline heart rate was 55 BPM Maximum Heart Rate Achieved was: 76 BPM Baseline blood pressure was 189/78 mmHg Post Stress Blood Pressure was 171/70 mmHg Termination: Protocol complete. Resting ECG: Sinus rhythm , normal electrocardiogram. Post ECG: No diagnostic ST changes. Perfusion Findings: A TID of 0.90 was automatically calculated. defect 1: Size is medium. Severity is mild. Location of defect is in the basallateral segment. Reversibility is not present, defect is fixed. Type of defect is mostlikely attenuation artifact. LV Function: Global left ventricular function is normal. Left ventricular ejectionfraction is 67 %. CONCLUSIONS: Sinus rhythm , normal electrocardiogram. No diagnostic ST changes. Global left ventricular function is normal. Left ventricular ejectionfraction is 67 %. Size is medium. Severity is mild. Location of defect is in the basallateral segment. Reversibility is not present, defect is fixed. Type of defect is mostlikely attenuation artifact. No significant ischemic burden was identified. Electronically Signed By: Chris Ramirez MD, [facility] 10/03/2024 12:34:53 PM CDT Electronically Signed By: Chris Ramirez MD, [facility] 10/03/2024 12:34:53 PM CDT Michael Su MD IMG NM PROCEDURES Final R esult from Last 3 Months Insurance UHC MEDICARE ADVANTAGE [facility] Address: [place] [id number] [place] [id number] UHC MEDICARE ADVANTAGE [facility] Address: [address] [address] [place] [phone] UHC MEDICARE ADVANTAGE Advance Directives For more information, please contact: [phone] Documents on File Type Date Recorded Patient Rip Tailer Expl anation ADVANCE DIRECTIVE 08/06/2018 12:54 PM * Full Code (Latest Code Status on File) Date Activated Date Inactivated Comments 08/06/2018 4:00 PM 08/07/2018 3:04 PM Care Teams Tax Collection Coordinator Relationship Specialty Start Date End Date Abhishek Coffman MD PCP - General 06/01/16 Gabriella Toth MD Consulting Physician Interventional Cardiology 06/19/18 Wilber Acuna MD Surgeon Vascular Surgery 08/07/18 Ye Almodovar MD Consulting Physician Cardiology 12/31/19
--- OUTSIDE RECORDS SUMMARY | 2024-11-05 13:15 | XMS_ITS | Clinical Summary ---
Author Organization [facility] Address [address] [place] [address] Phone Care Team Providers Care Roller Stainer Name Role Phone Abhishek Coffman MD Primary Care Provider [phone] Allergies Active Allergy Reactions Criticality Noted Date [...] (01/16/2019): Added automatically from request for surgery [id number] Paroxysmal atrial fibrillation 03/18/2018 Coronary arteriosclerosis in [place] artery 03/12 Bradycardia 03/08/2016 Angina pectoris 01/29/2016 [...] Comments Blood Pressure 150/70 01/19/2021 1:43 PM [employer] Pulse 72 01/19/2021 1:43 PM [employer] Temperature 36.2 C (97.1 F) 01/19/2021 1:43 PM [employer] Respiratory Rate - - Oxygen Saturation - - Inhaled Oxygen Concentration - - Weight 86.6 kg (191 lb) 01/19/2021 1:43 PM [employer] Height 180.3 cm (5' 11) 01/19/2021 1:43 PM [employer] Body Mass Index 26.64 01/19/2021 1:43 PM [employer] Plan of Treatment Health Maintenance Due Date Last Done Comments Pneumococcal PPSV23/PCV13 65 + Years / Low and Medium Risk (1 of 2 - PCV) 1992 Influenza Vaccine (#1) 2024 Insurance MEDICARE ADVANTAGE Care Teams Roller Stainer Relationship Specialty Start Date End Date Abhishek Coffman MD [address] [place] [address] PCP - General Family Medicine 01/07/19
--- OUTSIDE RECORDS SUMMARY | 2024-11-05 13:15 | XMS_ITS | Clinical Summary ---
Author Organization [facility] Address [address] [place] [address] Care Team Providers Care Manufacturing Quality Inspector Name Role Phone Abhishek Coffman MD Primary Care Provider [phone] Source Comments [facility],non-owned Affiliates and Associated Physician Practices is amultiple site organization consisting of ambulatory clinics and hospital sitesin [place], [place], [place] and [place]. This disclosure is being madepursuant to the Care Everywhere program and may not contain all information available regarding this patient. 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 Gender Identity Not on file Sexual Orientation Not on file Plan of Treatment Health Maintenance Due Date Last Done Comments DTAP/TDAP/TD VACCINES (1 - Tdap) 1961 PNEUMOCOCCAL VACCINE 50+ (1 of 1 - PCV) 1992 ZOSTER VACCINE (1 of 2) 1992 Respiratory Syncytial Virus (RSV) Vaccine Pt: or over 60 yrs (1 - 1-dose 75+ series) 2017 DEPRESSION SCREENING 02/13/2024 COVID-19 VACCINE ( - 2023-2 5 season) 2024 INFLUENZA VACCINE (#1) 2024 HEPATITIS B VACCINE Aged Out No [...] to [place] [id number] [facility] Care Teams Manufacturing Quality Inspector Relationship Specialty Start Date End Date Abhishek Coffman MD [address] [place] [address] PCP - General 12/06/18
--- OUTSIDE RECORDS SUMMARY | 2024-11-05 13:15 | XMS_ITS | Encounter Summary ---
Author Organization [facility] Care Team Providers Care Stroboroma Operator Name Role Phone Abhishek Coffman MD Primary Care Provider [phone] Gabriella Toth MD Unavailable [phone] Wilber Acuna MD Unavailable [phone] Ye Almodovar MD Unavailable Encounter Details Date Type Department Care Team (Latest Contact Info) Description 10/16/2015 Orders Only [facility] CLINCON[facility] ProviderJohn MD [address] [place] [address] Social History Tobacco Use Types Packs/Day Years Used Date Smoking Tobacco: Never Assessed Sex and Gender Information Value Date Recorded Sex Assigned at Not on file 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
[2024-11-05 13:20] VITALS: BP 182/61; PULSE 55; RESP 16; TEMP 36.8; O2SAT 100
--- NOTE | 2024-11-05 13:23 | ED.URI ---
HPI - URI/Sore Throat General Chief Complaint: Upper Respiratory Infection Stated Complaint: eyes and nose draining/cough Time Seen by Provider: 11/05/24 13:15 Source: patient and RN notes reviewed Mode of arrival: ambulatory Limitations: no limitations History of Present Illness HPI Narrative: 84-year-old male presents with concern for 12 day history of nasal congestion, rhinorrhea, sneezing, eye drainage, productive cough and chest congestion. He reports his recently had a sinus infection. He denies fever, body aches, chills, sweats. He has been taking Coricidin, atul, and Tylenol. MD elicited complaint: cough, rhinorrhea and nasal congestion Related Data Home Medications ?Medication ?Instructions ?Recorded ?Confirmed ?Last Taken ?Type aspirin 81 mg tablet,delayed 81 mg PO DAILY 08/23/19 11/05/24 04/19/24 History release (Adult Low Dose Aspirin) amlodipine 5 mg tablet 5 mg PO DAILY 11/24/22 11/05/24 04/19/24 History losartan 25 mg tablet 12.5 mg PO QAM 11/24/22 11/05/24 04/18/24 History rivaroxaban 20 mg tablet (Xarelto) 20 mg PO DAILY 11/24/22 11/05/24 04/19/24 History rosuvastatin 20 mg tablet 20 mg PO HS 11/24/22 11/05/24 04/18/24 History spironolactone 25 mg tablet 12.5 mg PO DAILY 08/02/23 11/05/24 04/18/24 History Allergies Allergy/AdvReac Type Severity Reaction Status Date / Time aminophylline AdvReac Intermediate Unknown- Verified 11/05/24 13:15 SEE COMMIT Beta-Blockers AdvReac Intermediate Other Verified 11/05/24 13:15 (Beta-Adrenergic Bloc levofloxacin AdvReac Intermediate Joint/MUSCLE Verified 11/05/24 13:15 Pain poison angella extract AdvReac Mild Itching Verified 11/05/24 13:15 Penicillins AdvReac Unknown Unknown- Verified 11/05/24 13:15 A CHILD Review of Systems Review of Systems: CONSTITUTIONAL: Denies malaise, chills, sweats, or fever. EYES: Denies visual changes, redness, or discharge. Reports draining eyes ENT: Reports rhinorrhea, congestion, sneezing. Sinus pain, otalgia and sore throat. CARDIOVASCULAR: Denies chest pain, palpitations, or edema. RESPIRATORY: Reports cough. Denies dyspnea. GASTROINTESTINAL: Denies abdominal pain, nausea, vomiting, diarrhea SKIN: Denies rash or itching. MUSCULOSKELETAL: Denies myalgia. NEUROLOGIC: Denies headache. All systems reviewed & are unremarkable except as noted in HPI and below PMFSH Past Medical History Medical History Male erectile dysfunction, unspecified Screening for malignant neoplasm of prostate Left sided abdominal pain Flatulence Vitamin D deficiency, unspecified BMI 28.0-28.9,adult Screening for thyroid disorder Screening for lipid disorders HTN (hypertension) Chest pain Hypertension Hypertensive emergency Dysphagia Anxiety Anxiety about health Skin lesion of neck Shingles (herpes zoster) polyneuropathy Orthopedic aftercare Cervical paraspinal muscle spasm Pain and swelling of left lower leg Bilateral hip pain Left knee pain Acute medial meniscus tear of left knee Prostatitis Urinary frequency Dysphagia Pharyngitis Throat pain Throat swelling Mass in neck Heart palpitations Atrial fibrillation with rapid ventricular response Abnormal stress test Chest tightness Elevated troponin Unstable angina pectoris Angina pectoris Chest pain Chest pain GERD (gastroesophageal reflux disease) Chronic anticoagulation Post herpetic neuralgia Erosive gastritis Cervical spondylosis Cerebrovascular accident CT evidence of old lacunar infarctions. Patient had no symptoms of stroke. Colon polyps Hypertension Labile hypertension, now followed by Dr. Ayala. Coronary artery disease He had several stents placed in the left anterior descending 20 years ago, and then in February 2016 at [facility] had a drug-eluting stent to the proximal RCA, 2 stents to the Left anterior descending and a diagonal stent, and a week later had two stents to the ramus. There was some diffuse disease in the small distal circumflex. Left carotid stenosis Status post left carotid endarterectomy. Lumbar spondylosis With several bulging disc causing sciatica, mainly on the left side. Mixed hyperlipidemia Paroxysmal atrial fibrillation Pharyngoesophageal dysphagia Varicose veins of both lower extremities Surgical History Surgical History History of meniscectomy of left knee (11/28/21) Partial Medial Menisectomy History of endoscopy History of cardiac catheterization With PCI and stent x7. History of arthroscopy of right knee (08/2012) History of kidney surgery Patient had surgery on his right kidney at a young age for what sounds like nephroptosis. History of left-sided carotid endarterectomy Family History Family History Sibling Malignant neoplasm of prostate Emphysema lung Mother , Mother of an [place] in her 60s. Acute myocardial infarction Father Amyotrophic lateral sclerosis Sibling Atrial fibrillation Coronary artery disease Other Family history of malignant neoplasm Social History Social History Social History: Surrogate decision maker: Obdulio Aggarwaldashawn Celis Jr., son. Code status: Full code. Smoking status: Never smoker Second hand tobacco smoke exposure: No Alcohol intake: never Substance use: never Substance use type: does not use Do You Feel Safe in your Home?: Yes Lack of Transportation: No Lack of Food: Never True Current Housing: I Have Housing Concerned About Future Housing: No Difficulty Paying Gas/Electric Bills: No Difficulty Paying for Meds: No Currently Unemployed: No Education: Trade/Vocational Certificate Difficulty w/ Childcare or Family Care: No Living arrangements: with family Additional living arrangements comments: Patient lives in his own home in [place]. He has 9 grown children. 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 Spiritual care concerns: No Comments At time of signature, agree with nursing past medical, surgical, social and family history. There is no relevant family history pertinent to the presenting complaint Exam Narrative: GENERAL: Well-appearing, well-nourished, and in no acute distress. HEAD: Normocephalic EYES: PERRLA, conjunctivae clear ENT: Nares clear. Mucous membranes moist. TM pearly nolan with dull light reflex bilaterally; no tragal tenderness. Oropharynx not erythematous without lesions. Tonsils not enlarged and without exudate, no drooling, no hoarseness, no trismus, uvula midline. NECK: Supple. No lymphadenopathy CHEST: Clear to auscultation, breath sounds equal. No wheezing, rhonchi, rales, or stridor. No respiratory distress, speaks in full sentences. HEART: Regular rate and rhythm. No murmur heard. SKIN: Warm, dry, no rash. NEURO: Alert and oriented x3. PSYCH: Normal mood and affect Course Course Emergency Course: Patient is aware of diagnosis, understands and agrees to treatment plan. Anticipatory guidance given. Patient agrees to follow-up as directed and is aware of reasons to seek care at the emergency department. Portions of this record may have been created with voice recognition software Level of Care: Express Care Visit Vital Signs Vital signs: Vital Signs Temperature 98.2 F 11/05/24 13:20 Pulse Rate 55 L 11/05/24 13:20 Respiratory Rate 16 11/05/24 13:20 Blood Pressure 182/61 H 11/05/24 13:20 Pulse Oximetry 100 11/05/24 13:20 Oxygen Delivery Room Air 11/05/24 13:20 Temperature 98.2 F 11/05/24 13:20 Pulse Rate 55 L 11/05/24 13:20 Respiratory Rate 16 11/05/24 13:20 Blood Pressure 182/61 H 11/05/24 13:20 Pulse Oximetry 100 11/05/24 13:20 Oxygen Delivery Room Air 11/05/24 13:20 Reviewed. MDM - URI/Sore Throat MDM Narrative Medical decision making narrative: Differential diagnosis considered: Huber virus, strep pharyngitis, allergic rhinitis, upper respiratory tract infection, sinusitis, rhinosinusitis, nasopharyngitis. viral pharyngitis, otitis media, otitis externa, pneumonia, bronchitis, viral cough syndrome, viral syndrome, and influenza. Exam findings show no acute concerns or changes; patient is non-toxic appearing and is in no distress. Patient is appropriate for outpatient treatment and follow-up. Lab Data Attestation: I reviewed the patient's lab results. Critical Care Time Critical Care Time Critical Care Time: No Discharge Plan Discharge Clinical Impression: Sinobronchitis Patient Disposition: Home Condition: Stable Instructions: Antibiotic Form, Sinusitis (ED), Acute Bronchitis (ED) Additional Instructions: Take medication as prescribed Recommend antihistamine such as Benadryl at night time and Zyrtec or Zuri during the day Also, recommend symptomatic treatment includes: rest, fluids, and increase humidity of the air at home. Recommend Acetaminophen as directed on the bottle to reduce fever, pain, headache. Avoid smoking/second-hand smoke. Please schedule a follow-up visit with your personal physician for further evaluation and treatment within 3-5days. Including recheck and discussion of your blood pressure. If your symptoms persist, change or worsen significantly before you can contact your personal physician then please, without delay, go to the emergency department for further evaluation. Patient Language: Azerbaijani Prescriptions: New doxycycline monohydrate 100 mg tablet 100 mg PO BID 7 Days Qty: 14 0RF methylprednisolone [Medrol (Hay)] 4 mg tablets,dose pack See Rx Instructions .ROUTE .COMPLEX Qty: 21 0RF Rx Instructions: orally per package directions No Action Xarelto 20 mg tablet 20 mg PO DAILY Patient Comments: HS rosuvastatin 20 mg tablet 20 mg PO HS Patient Comments: HS amlodipine 5 mg tablet 5 mg PO DAILY losartan 25 mg tablet 12.5 mg PO QAM tadalafil [Cialis] 20 mg tablet 20 mg PO DAILY PRN (Reason: Erectile Dysfunction) Qty: 30 0RF Rx Instructions: administer approximately 30min before sexual activity; do not use more than 1 dose per 24hrs Pt does not take nitro, has in case of chest pain, instructed not to take together omeprazole 40 mg capsule,delayed release(DR/EC) 40 mg PO DAILY Qty: 30 2RF Artificial Tears (cmc) 1 % drops 2 drp RIGHT EYE .qhr Qty: 15 0RF Rx Instructions: Use every hour while awake aspirin [Adult Low Dose Aspirin] 81 mg Tablet,Delayed Release (Dr/Ec) 81 mg PO DAILY Patient Comments: HS spironolactone 25 mg tablet 12.5 mg PO DAILY nitroglycerin 0.4 mg tablet, sublingual 0.4 mg sublingual Q5M PRN (Reason: chest pain) Qty: 20 0RF Rx Instructions: do not exceed 3 doses per episode triamcinolone acetonide 0.1 % cream 1 applic topical BID PRN (Reason: itching, contact dermatitis) Qty: 30 0RF Linzess 145 mcg capsule See Rx Instructions .ROUTE .COMPLEX Qty: 30 3RF Dose Instruction: Take 1 capsule by mouth once daily Rx Instructions: Take 1 capsule by mouth once daily lorazepam 0.5 mg tablet 0.5 mg PO Q6H PRN (Reason: Anxiety) Qty: 30 0RF Follow-up/Referrals: Abhishek Coffman MD [Primary Care Provider, Family Practice] Time of Disposition: 13:31
== END 2024-11-05 13:32 | disposition home or self-care (01) ==
PROVIDERS: Emergency Provider Nurse Practitioner; PCP Family Medicine
DX: J32.9 Chronic sinusitis, unspecified (principal); J40 Bronchitis, not specified as acute or chronic; I10 Essential (primary) hypertension; K21.9 Gastro-esophageal reflux disease without esophagitis; I25.110 Atherosclerotic heart disease of native coronary artery with unstable angina pectoris; E78.2 Mixed hyperlipidemia; I48.0 Paroxysmal atrial fibrillation; Z86.73 Personal history of transient ischemic attack (TIA), and cerebral infarction without residual deficits
CPT/HCPCS: 99213; G0463